=== PATIENT | female | born 1950 | race Caucasian/White ===

== ENCOUNTER → 2017-06-09 | Outpatient (CLI) | payer MEDICARE, BC, OTHER ==
--- NOTE | 2017-06-09 16:05 | BD ---
EXAMINATION TYPE: MG DEXA axial skeleton. DATE OF EXAM: 06/09/2017 COMPARISON: NONE CLINICAL HISTORY: post menopausal Height: 5'5 3/4 Weight: 188 FRAX RISK QUESTIONS: Alcohol (3 or more units per day): no Family History (Parent hip fracture): yes Glucocorticoids (More than 3mos): no (Ex: prednisone, prednisolone, methylprednisolone, dexamethasone, and hydrocortisone). History of Fracture in Adulthood: yes Secondary Osteoporosis: 1. Type 1 Diabetes: no 2. Hyperthyroidism: no 3. Menopause before 45: no 4. Malnutrition: no 5. Chronic liver disease: no Rheumatoid Arthritis: no Current Tobacco Use: no RISK FACTORS HISTORY OF: Postmenopausal woman: Lost more than 2 inches in height since high school: MEDICATIONS: Thyroid Medications: Which medication: Levothyroxine How Lon years Additional Medications: blood pressure, sleep aid, cholesterol Additional History: EXAM MEASUREMENTS: Bone mineral densitometry was performed using the [employer] System. Bone mineral density as measured about the Lumbar spine is: ----- L1-L4(G/cm2): 1.166 T Score Values are as follows: ----- L2: 0.4 ----- L3: 0.5 ----- L4: 0.1 ----- L1-L4: -0.1 Bone mineral density about the R hip (g/cm2): 0.733 Bone mineral density about the L hip (g/cm2): 0.746 T Score values are as follows: -----R Neck: -2.1 -----L Neck: -2.2 -----R Total: -1.8 -----L Total: -1.9 IMPRESSION: Osteopenia (T Score between -2.5 and -1) as noted by T score values: Dwain hips There is slightly increased risk of fracture and the patient may be considered for treatment. Re-Screen 2-5 years. NOTE: T-SCORE=SD OF THE YOUNG ADULT MEAN.
--- NOTE | 2017-06-10 09:51 | MM ---
Reason for exam: screening (asymptomatic). Last mammogram was performed 4 years ago. History: Patient is postmenopausal. Reductions of both breasts, January 2004. Benign stereotactic core biopsy of the right breast, November 08, 2003. Took hormonal contraceptives for 4 years beginning at age 18. Taking estrogen for 6 years beginning at age 45. Taking progesterone for 6 years beginning at age 45. Physical Findings: A clinical breast exam by your physician is recommended on an annual basis and results should be correlated with mammographic findings. MG Screening Mammo w CAD Bilateral CC and MLO view(s) were taken. Prior study comparison: June 16, 2013, CAD bilateral diagnostic mammogram. October 17, 2010, CAD bilateral diagnostic mammogram. There are scattered fibroglandular densities. Finding: There are typically benign round, linear calcifications in both breasts. Previous mammotome biopsy in the right breast. There is no discrete abnormality. ASSESSMENT: Benign, BI-RAD 2 RECOMMENDATION: Routine screening mammogram of both breasts in 1 year.
== END | disposition home or self-care (01) ==
LOC: RADMAMWWP 13:53
PROVIDERS: ATTEND Family Medicine
DX: Z12.31 Encounter for screening mammogram for malignant neoplasm of breast (principal); M85.852 Other specified disorders of bone density and structure, left thigh; M85.851 Other specified disorders of bone density and structure, right thigh; Z78.0 Asymptomatic menopausal state
CPT/HCPCS: 77080; G0202

== ENCOUNTER → 2019-07-28 | Outpatient (CLI) | payer MEDICARE, BC ==
[2019-07-28 13:18] LABS: Basophils # (A) 0.1 k/uL (0-0.2); Basophils % (A) 1 %; Eosinophils # (A) 0.1 k/uL (0-0.7); Eosinophils % (A) 1 %; HCT 38.7 % (34.0-46.0); HGB 12.1 gm/dL (11.4-16.0); Lymphocytes # (A) 1.1 k/uL (1.0-4.8); Lymphocytes % (A) 13 %; MCH 28.7 pg (25.0-35.0); MCHC 31.3 g/dL (31.0-37.0); MCV 91.6 fL (80.0-100.0); Mean Platelet Volume 7.5; Monocytes # (A) 0.7 k/uL (0-1.0); Monocytes % (A) 8 %; Neutrophils # (A) 6.6 k/uL (1.3-7.7); Neutrophils % (A) 76 %; Platelet Count 396 k/uL (150-450); RBC 4.23 m/uL (3.80-5.40); RDW 12.7 % (11.5-15.5); WBC 8.7 k/uL (3.8-10.6)
[2019-07-28 13:28] LABS: ALT 11 U/L (4-34); AST 26 U/L (14-36); African American GFR (CKD) 86 (>60 ml/min/1.73 sqM); Albumin 4.1 g/dL (3.5-5.0); Albumin/Globulin Ratio 1.5; Alkaline Phosphatase 70 U/L (38-126); Anion Gap 9 mmol/L; Blood Urea Nitrogen 12 mg/dL (7-17); Calcium 9.5 mg/dL (8.4-10.2); Carbon Dioxide 27 mmol/L (22-30); Chloride 104 mmol/L (98-107); Globulin 2.8 g/dL; Glucose 104 mg/dL (74-99); Non-African American GFR(CKD) 75 (>60 ml/min/1.73 sqM); Potassium 4.2 mmol/L (3.5-5.1); Sodium 140 mmol/L (137-145); Total Bilirubin 0.5 mg/dL (0.2-1.3); Total Protein 6.9 g/dL (6.3-8.2)
[2019-07-28 14:53] LABS: T4, Free (Free Thyroxine) 1.39 ng/dL (0.78-2.19)
== END | disposition home or self-care (01) ==
LOC: LABWHC1 12:49
PROVIDERS: ATTEND Family Medicine
DX: R14.0 Abdominal distension (gaseous) (principal); R10.32 Left lower quadrant pain; R63.5 Abnormal weight gain; R14.2 Eructation; R12 Heartburn; E03.9 Hypothyroidism, unspecified
CPT/HCPCS: 36415; 80053; 84439; 84443; 85025

== ENCOUNTER → 2019-07-29 | Outpatient (CLI) | payer MEDICARE, BC ==
--- NOTE | 2019-07-29 22:17 | CT ---
EXAMINATION TYPE: CT abdomen pelvis w con DATE OF EXAM: 07/29/2019 COMPARISON: None HISTORY: Diarrhea, 10lb weight gain, cramping and gas x [address] DLP: 1079.3 mGycm Automated exposure control for dose reduction was used. CONTRAST: CT scan of the abdomen pelvis is performed with IV Contrast, patient injected with 100 mL of Isovue 3 00. FINDINGS- LUNG BASES-subsegmental changes involving the lung bases most typical of atelectasis. There is a tiny right pleural effusion.. LIVER/GB- No gross abnormality is appreciated. PANCREAS- No gross abnormality is seen. SPLEEN- No gross abnormality is seen. ADRENALS- No gross abnormality is seen. KIDNEYS/BLADDER- no hydronephrosis nephrolithiasis or renal mass. BOWEL-there are a few prominent small bowel loops in the pelvis. As the area of wall thickening invol ving the sigmoid colon with changes of diverticulosis. Degree of colitis not excluded. LYMPH NODES- No greater than 1cm abdominal or pelvic lymph nodes areappreciated. OSSEOUS STRUCTURES-hypertrophic and degenerative change of the vertebral column with severe degenerat dyana disc disease at L3-4 and L5-S1. Disc bulging and facet arthropathy at L4-5 and L3-L4 appears to r esult in canal stenosis.. OTHER- there is a moderate amount of ascites. There is also thickening of the omentum to be associat ed with omental caking and malignancy. Correlation with CA-125 recommended. Within the pelvis there i s a soft tissue structure which may represent an atrophic uterus however there appears to be prominen t fluid-filled endometrium. Soft tissue nodules in the adnexa may be related to atrophic ovaries alth ough soft tissue mass is not excluded. Recommend dedicated pelvic ultrasound to assess the uterus an d ovaries to assess for mass. There is a 3.5 cm cystic structure seen adjacent to the uterus. In the peripancreatic region and in the region of the gastrohepatic ligament there also is increased soft tissue thickening which may represent peritoneal or omental caking. Atherosclerotic change of the aorta with no evidence of aneurysm. IMPRESSION- 1. There is thickening of the omentum. This can be associated malignancy and omental carcinomatosis. Correlation with CA-125 recommended. Within the pelvis there is a soft tissue structure which may re present an atrophic uterus however there appears to be prominent fluid-filled endometrium. Pelvic mas s possibly ovarian is not excluded. Recommend dedicated pelvic ultrasound to assess the uterus and ov jenna for mass. 2. Moderate ascites. 3. A few prominent small bowel loops are noted and there appears to be mild wall thickening of the si gmoid colon. Correlate for enterocolitis. 4. Basilar atelectasis favored over infiltrate. Note is made there is a tiny right pleural effusion.
== END | disposition home or self-care (01) ==
LOC: RADCTMAIN 12:50
PROVIDERS: ATTEND Family Medicine
DX: R18.8 Other ascites (principal); R93.3 Abnormal findings on diagnostic imaging of other parts of digestive tract
CPT/HCPCS: 74177; Q9967 ×2

== ENCOUNTER → 2019-08-03 | Outpatient (CLI) | payer MEDICARE, BC ==
--- NOTE | 2019-08-03 13:49 | US ---
EXAMINATION TYPE: US pelvis complete transvag DATE OF EXAM: 08/03/2019 COMPARISON: NONE CLINICAL HISTORY: 69-year-old female R93.5 Abnormal findings on diagnostic imaging of the abdomen pel vis. Abnormal CT. Diarrhea. Patient gained 10 lbs. No prior surgeries. TECHNIQUE: Transabdominal sonographic images of the pelvis were acquired. Transvaginal sonographic images were medically necessary to better assess the following anatomy: Endometrium Date of LMP: Postmenopausal, FINDINGS: EXAM MEASUREMENTS: Uterus: 4.4 x 4.3 x 2.2 cm Endometrial Stripe: 0.3 cm 1. Uterus: Anteverted. Small in size with heterogeneous myometrium. 2. Endometrium: Fluid visualized in the uterine cavity. The endometrial stripe itself is not well-v isualized and may be thin. 3. Right Ovary: Obscured by overlying bowel gas 4. Left Ovary: Obscured by overlying bowel gas 5. Bilateral Adnexa: In the right adnexa, there is a cystic appearing lesion with thin internal sept ation and measuring 3.9 x 2.3 x 3.3 cm. There may be some small mural based nodularity measuring up t o 5 mm. Unable to accurately determine origin, likely ovarian. 6. Posterior cul-de-sac: Moderate lower abdominal ascites extending into both adnexa. IMPRESSION: 1. There seems to be fluid distending the uterine cavity up to 1.4 cm. 2. A complex cystic lesion measuring 3.9 cm within the right adnexa has a thin internal septation and possible 5 mm pleural-based nodularity. Suspect ovarian or origin. There is cystadenoma/cystadenocar cinoma are in the differential. 3. Left ovary could not be visualized. 4. Partially visualized moderate pelvic ascites.
== END | disposition home or self-care (01) ==
LOC: RADUSWWP 12:37
PROVIDERS: ATTEND Family Medicine
DX: D26.9 Other benign neoplasm of uterus, unspecified (principal); R18.8 Other ascites; R19.09 Other intra-abdominal and pelvic swelling, mass and lump
CPT/HCPCS: 76830; 76856; 86304

== ENCOUNTER 2019-08-24 12:53 | Day surgery (SDC) | payer MEDICARE, BC ==
[2019-08-24 13:25] LABS: Mean Platelet Volume 7.2; Platelet Count 400 k/uL (150-450)
[2019-08-24 13:31] LABS: Prothrombin Time 10.3 sec (9.0-12.0)
[2019-08-24 13:53] VITALS: TEMP 98.5
--- NOTE | 2019-08-24 15:26 | XR ---
EXAMINATION TYPE: XR chest 2V DATE OF EXAM: 08/24/2019 COMPARISON: NONE HISTORY: Shortness of breath TECHNIQUE: Frontal and lateral views of the chest are obtained. FINDINGS: Scattered senescent parenchymal changes noted. Hyperinflation compatible with COPD. No evidence for infiltrate. No evidence for atelectasis. Heart size is stable. Mediastinal structures are stable and grossly unremarkable. No evidence for hilar prominence. Degenerative changes dorsal spine. IMPRESSION: 1. No evidence for acute pulmonary disease.
[2019-08-24 15:36] VITALS: BP 138/65; PULSE 70; RESP 14
[2019-08-24 16:09] LABS: Appearance,BF Hazy; Color,BF Yellow
[2019-08-24 16:10] LABS: Nucleated Cells, Body Fluid 383 /uL; RBC, Body Fluid 167 /uL
--- NOTE | 2019-08-24 16:36 | US ---
Therapeutic and diagnostic paracentesis. DATE OF EXAM: 08/24/2019 CLINICAL HISTORY: Ascites The procedure was discussed with the patient. The risks, complications, benefits, and alternatives we re discussed and any questions were answered. Informed consent was obtained. The patient was placed s upine on the ultrasound table and prepped and draped in the usual sterile fashion. All elements of maximal barrier technique were utilized. Under ultrasound guidance, access into the right lower quadrant was obtained, via the paracentesis catheter system and direct ultrasound guidanc e. Approximately 2.3 liters of straw-colored fluid was removed. The patient was stable throughout the pr ocedure and remained stable upon discharge from Department of Radiology. Sample sent to pathology for analysis. IMPRESSION: Successful paracentesis under ultrasound guidance.
[2019-08-24 17:17] LABS: Mononuclear WBC,Body Fluid 96 %; Polynuclear WBC,Body Fluid 4 %; Total Cells Counted,Body Fluid 100
== END 2019-08-24 15:30 | disposition home or self-care (01) ==
LOC: RADPROMAIN 12:53
PROVIDERS: ATTEND Internal Medicine Hematology & Oncology
DX: R18.8 Other ascites (principal)
CPT/HCPCS: 36415; 49083; 71046; 84157; 85049; 85610; 87070; 87075; 87205; 89050

== ENCOUNTER 2019-09-09 10:05 | Inpatient (IN) | payer MEDICARE, BC ==
[2019-09-09] MEDS ORDERED: HYDROmorphone 0.5 MG/0.5 ML SYRINGE IVP STA (10:25)
[2019-09-09] MEDS ORDERED: SODIUM CHLORIDE 0.9% 2,000 ML IV STA (10:25)
[2019-09-09] MEDS ORDERED: ONDANSETRON 4 MG/2 ML VIAL IVP STA ×2 (10:25→12:32)
[2019-09-09 11:06] LABS: HCT 36.3 % (34.0-46.0); HGB 11.8 gm/dL (11.4-16.0); MCHC 32.4 g/dL (31.0-37.0); Mean Platelet Volume 8.1; Platelet Count 416 k/uL (150-450); RDW 12.5 % (11.5-15.5); WBC 1.5 k/uL (3.8-10.6)
--- NOTE | 2019-09-09 11:06 | XR ---
EXAMINATION TYPE: XR KUB , 2 VIEWS DATE OF EXAM ORDERED: 09/09/2019 HISTORY: abdominal pain. COMPARISON: None. FINDINGS: There is a left pleural reaction, likely representing fluid. Within the abdomen, the abdominal gas pattern shows no evidence of obstruction. There are numerous ai r-fluid levels. No unusual calcifications are seen. There is a dextroscoliosis. IMPRESSION: 1. LEFT PLEURAL EFFUSION. 2. FINDINGS CONSISTENT WITH MILD, GENERALIZED ILEUS.
[2019-09-09 11:11] LABS: ALT 66 U/L (4-34); AST 120 U/L (14-36); African American GFR (CKD) >90 (>60 ml/min/1.73 sqM); Albumin 3.6 g/dL (3.5-5.0); Alkaline Phosphatase 63 U/L (38-126); Amylase 42 U/L (30-110); Anion Gap 11 mmol/L; Blood Urea Nitrogen 21 mg/dL (7-17); Calcium 8.9 mg/dL (8.4-10.2); Carbon Dioxide 25 mmol/L (22-30); Chloride 97 mmol/L (98-107); Glucose 142 mg/dL (74-99); MCV 86.5 fL (80.0-100.0); Non-African American GFR(CKD) >90 (>60 ml/min/1.73 sqM); Potassium 3.8 mmol/L (3.5-5.1); Sodium 133 mmol/L (137-145); Total Bilirubin 0.6 mg/dL (0.2-1.3); Total Protein 6.4 g/dL (6.3-8.2)
--- NOTE | 2019-09-09 11:13 | ED ---
General Adult HPI - General Chief complaint: Nausea/Vomiting/Diarrhea Stated complaint: vomiting x3 days Time Seen by Provider: 09/09/19 10:17 Source: patient, police, RN notes reviewed Mode of arrival: wheelchair Limitations: no limitations - History of Present Illness Initial comments: This a 69-year-old female presents emergency Department chief complaint of generalized weakness, nausea vomiting. Patient states that this started shortly after her first dose of chemotherapy last week. Patient states she is being treated for stage III cervical cancer. Patient states that she is receiving her chemotherapy here she is scheduled for surgery a, arms and [place] in October. Patient states that she is also been having some diarrhea associated nausea vomiting states that she was given MiraLAX and magnesium citrate because he did not want her to become constipated. She complains of generalized abdominal pain, distention and which she's had 2 paracentesis but states that it comes right back. Patient was given, codeine and [place] with no relief of her symptoms. She reports no fever or chills. She is went of dysuria or hematuria. Denies any melena or hematochezia at this time. - Related Data Home Medications Medication Instructions Recorded Confirmed Albuterol Sulfate [Proair Hfa] 1 dose INHALATION DAILY PRN 08/23/19 08/24/19 Albuterol Sulfate [Proair Hfa] 2 puff INHALATION DAILY PRN 08/23/19 08/24/19 Cholecalciferol (Vitamin D3) 5,000 unit PO DAILY 08/23/19 08/24/19 [Vitamin D3] Ibuprofen 200 mg PO DAILY PRN 08/23/19 08/24/19 LORazepam [Ativan] 1 mg PO DAILY 08/23/19 08/24/19 Levothyroxine Sodium [Synthroid] 125 mcg PO DAILY 08/23/19 08/24/19 Levothyroxine Sodium [Synthroid] 125 mcg PO DAILY 08/23/19 08/24/19 Metoprolol Succinate (ER) [Toprol 50 mg PO DAILY 08/23/19 08/24/19 XL] Multivitamins, Thera [Multivitamin 1 tab PO DAILY 08/23/19 08/24/19 (formulary)] Sertraline [Zoloft] 100 mg PO DAILY 08/23/19 08/24/19 Vitamin B Complex 1 each PO DAILY 08/23/19 08/24/19 Zolpidem Tartrate [Ambien Cr] 12.5 mg PO HS PRN 08/23/19 08/24/19 Ezetimibe/Simvastatin [Vytorin 1 tab PO DAILY 08/24/19 08/24/19 10-20 mg] Fluticasone Propionate [Flovent 50 mcg INHALATION DAILY PRN 08/24/19 08/24/19 Diskus] amLODIPine [Norvasc] 5 mg PO DAILY 08/24/19 08/24/19 Allergies Allergy/AdvReac Type Severity Reaction Status Date / Time DANAY Inhibitors Allergy Dyspnea Verified 08/24/19 13:20 aspirin Allergy Rash/Hives Verified 08/24/19 13:20 clonidine [From Catapres] Allergy Rash/Hives Verified 08/24/19 13:20 Latex, Natural Rubber Allergy Rash/Hives Verified 08/24/19 13:20 tetanus and diphtheria Allergy Rash/Hives Verified 09/09/19 10:10 toxoids Review of Systems ROS Statement: Those systems with pertinent positive or pertinent negative responses have been documented in the HPI. ROS Other: All systems not noted in ROS Statement are negative. Past Medical History Past Medical History: Cancer Additional Past Medical History / Comment(s): ovarian CA History of Any Multi-Drug Resistant Organisms: None Reported Additional Past Surgical History / Comment(s): paracentesis, left wrist, left shoulder, breast reduction Past Anesthesia/Blood Transfusion Reactions: No Reported Reaction Past Psychological History: Anxiety, Depression Smoking Status: Former smoker Past Alcohol Use History: Occasional General Exam Limitations: no limitations General appearance: alert, in no apparent distress Head exam: Present: atraumatic, normocephalic, normal inspection Neck exam: Present: normal inspection, full ROM. Absent: tenderness, meningismus, lymphadenopathy Respiratory exam: Present: normal lung sounds bilaterally. Absent: respiratory distress, wheezes, rales, rhonchi, stridor Cardiovascular Exam: Present: regular rate, normal rhythm, normal heart sounds. Absent: systolic murmur, diastolic murmur, rubs, gallop, clicks GI/Abdominal exam: Present: soft, distended, tenderness (Mild to moderate diffuse), normal bowel sounds. Absent: guarding, rebound, rigid Back exam: Absent: CVA tenderness (R), CVA tenderness (L) Neurological exam: Present: alert, oriented X3 Skin exam: Present: warm, dry, intact, normal color. Absent: rash Course Vital Signs 09/09/19 09/09/19 09/09/19 10:07 12:00 13:02 Temperature 98.1 F Pulse Rate 93 72 78 Respiratory 16 18 18 Rate Blood Pressure 163/97 151/81 150/86 O2 Sat by Pulse 98 99 95 Oximetry Medical Decision Making - Medical Decision Making 69-year-old female presented for nausea vomiting dehydration. Patient does have multiple liters of fluid, continues to have abdominal pain, nausea. Patient's x-ray shows evidence of ileus. Uncomplicated. She has Ascites. Patient will be admitted for IV hydration, pain control, antiemetics and probable paracentesis. - Lab Data Result diagrams: 09/09/19 10:46 09/09/19 10:46 Lab Results 09/09/19 09/09/19 09/09/19 Range/Units 10:46 10:46 10:46 WBC 1.5 L (3.8-10.6) k/uL RBC 4.20 (3.80-5.40) m/uL Hgb 11.8 (11.4-16.0) gm/dL Hct 36.3 (34.0-46.0) % MCV 86.5 D (80.0-100.0) fL MCH 28.0 (25.0-35.0) pg MCHC 32.4 (31.0-37.0) g/dL RDW 12.5 (11.5-15.5) % Plt Count 416 (150-450) k/uL Neutrophils % (Manual) 69 % Band Neutrophils % 10 % Lymphocytes % (Manual) 11 % Monocytes % (Manual) 3 % Basophils % (Manual) 1 % Metamyelocytes % 5 % Myelocytes % 2 % Neutrophils # (Manual) 1.10 L (1.3-7.7) k/uL Lymphocytes # (Manual) 0.17 L (1.0-4.8) k/uL Monocytes # (Manual) 0.05 (0-1.0) k/uL Basophils # (Manual) 0.02 (0-0.2) k/uL Metamyelocytes # (Man) 0.08 H (0) k/uL Myelocytes # (Manual) 0.03 H (0) k/uL Nucleated RBCs 0 (0-0) /100 WBC Manual Slide Review Performed Poikilocytosis (manual Present PT (9.0-12.0) sec INR (<1.2) APTT (22.0-30.0) sec Sodium 133 L (137-145) mmol/L Potassium 3.8 (3.5-5.1) mmol/L Chloride 97 L (98-107) mmol/L Carbon Dioxide 25 (22-30) mmol/L Anion Gap 11 mmol/L BUN 21 H (7-17) mg/dL Creatinine 0.61 (0.52-1.04) mg/dL Est GFR (CKD-EPI)AfAm >90 (>60 ml/min/1.73 sqM) Est GFR (CKD-EPI)NonAf >90 (>60 ml/min/1.73 sqM) Glucose 142 H (74-99) mg/dL Plasma Lactic Acid Ad 1.0 (0.7-2.0) mmol/L Calcium 8.9 (8.4-10.2) mg/dL Total Bilirubin 0.6 (0.2-1.3) mg/dL AST 120 H (14-36) U/L ALT 66 H (4-34) U/L Alkaline Phosphatase 63 (38-126) U/L Total Protein 6.4 (6.3-8.2) g/dL Albumin 3.6 (3.5-5.0) g/dL Amylase 42 (30-110) U/L Lipase 90 (23-300) U/L 09/09/19 Range/Units 10:46 WBC (3.8-10.6) k/uL RBC (3.80-5.40) m/uL Hgb (11.4-16.0) gm/dL Hct (34.0-46.0) % MCV (80.0-100.0) fL MCH (25.0-35.0) pg MCHC (31.0-37.0) g/dL RDW (11.5-15.5) % Plt Count (150-450) k/uL Neutrophils % (Manual) % Band Neutrophils % % Lymphocytes % (Manual) % Monocytes % (Manual) % Basophils % (Manual) % Metamyelocytes % % Myelocytes % % Neutrophils # (Manual) (1.3-7.7) k/uL Lymphocytes # (Manual) (1.0-4.8) k/uL Monocytes # (Manual) (0-1.0) k/uL Basophils # (Manual) (0-0.2) k/uL Metamyelocytes # (Man) (0) k/uL Myelocytes # (Manual) (0) k/uL Nucleated RBCs (0-0) /100 WBC Manual Slide Review Poikilocytosis (manual PT 10.1 (9.0-12.0) sec INR 1.0 (<1.2) APTT 25.9 (22.0-30.0) sec Sodium (137-145) mmol/L Potassium (3.5-5.1) mmol/L Chloride (98-107) mmol/L Carbon Dioxide (22-30) mmol/L Anion Gap mmol/L BUN (7-17) mg/dL Creatinine (0.52-1.04) mg/dL Est GFR (CKD-EPI)AfAm (>60 ml/min/1.73 sqM) Est GFR (CKD-EPI)NonAf (>60 ml/min/1.73 sqM) Glucose (74-99) mg/dL Plasma Lactic Acid Ad (0.7-2.0) mmol/L Calcium (8.4-10.2) mg/dL Total Bilirubin (0.2-1.3) mg/dL AST (14-36) U/L ALT (4-34) U/L Alkaline Phosphatase (38-126) U/L Total Protein (6.3-8.2) g/dL Albumin (3.5-5.0) g/dL Amylase (30-110) U/L Lipase (23-300) U/L Disposition Clinical Impression: Chemotherapy induced nausea and vomiting, Ileus, Abdominal pain, Ascites Disposition: ADMITTED IP TO THIS [facility] Condition: Fair Referrals: Ronna Beard MD [Primary Care Provider] - 1-2 days
[2019-09-09 11:15] LABS: Partial Thromboplastin Time 25.9 sec (22.0-30.0); Prothrombin Time 10.1 sec (9.0-12.0)
[2019-09-09 11:36] LABS: Band Neutrophils % 10 %; Basophils # (M) 0.02 k/uL (0-0.2); Lymphocytes # (M) 0.17 k/uL (1.0-4.8); Metamyelocytes # (M) 0.08 k/uL (0); Metamyelocytes % 5 %; Monocytes # (M) 0.05 k/uL (0-1.0); Myelocytes # (M) 0.03 k/uL (0); Myelocytes % 2 %; Neutrophils % (M) 69 %; Nucleated Red Blood Cells 0 /100 WBC (0-0); Poikilocytosis (M) Present; Total Cells Counted 200
[2019-09-09] MEDS ORDERED: SODIUM CHLORIDE 0.9% 500 ML 500 ML IV ONE (12:32)
[2019-09-09] MEDS: SODIUM CHLORIDE 0.9% 1,000 ML IV SCH ×2 (12:59→23:30)
[2019-09-09] MEDS ORDERED: NALOXONE 0.4 MG/ML 1 ML VIAL IV PRN (13:29)
[2019-09-09] MEDS: HYDROmorphone 0.5 MG/0.5 ML SYRINGE IVP PRN ×3 (15:14→23:30)
[2019-09-09] MEDS ORDERED: ALBUTEROL NEBULIZED 2.5 MG/3 ML INHALATION PRN (16:23)
[2019-09-09] MEDS ORDERED: ALPRAZolam 0.25 MG TAB PO PRN (16:25)
[2019-09-09] MEDS ORDERED: ACETAMINOPHEN TAB 500 MG TAB PO PRN (16:25)
[2019-09-09] MEDS: PANTOPRAZOLE 40 MG/10 ML VIAL IVP SCH (19:40)
[2019-09-09] MEDS: METOPROLOL SUCCINATE (ER) 50 MG TAB.ER.24H PO SCH (19:40)
[2019-09-09] MEDS: HEPARIN SODIUM,PORCINE 5,000 UNIT/ML 1 ML VIAL SQ SCH (19:40)
[2019-09-09] MEDS: ONDANSETRON 4 MG/2 ML VIAL IVP PRN (21:56)
[2019-09-10 00:54] LABS: Appearance,Urine Turbid (Clear); Bacteria,Urine Many /hpf; Bilirubin,Urine Negative (Negative); Blood,Urine Moderate (Negative); Color,Urine Yellow; Glucose,Urine (UA) Negative (Negative); Ketones,Urine 1+ (Negative); Leukocyte Esterase,Urine Moderate (Negative); Mucus,Urine Rare /hpf; Nitrite,Urine Negative (Negative); Protein,Urine 1+ (Negative); RBC,Urine 30 /hpf (0-5); Specific Gravity,Urine 1.023 (1.001-1.035); Squamous Epithelial Cell,Urine 1 /hpf (0-4); Urobilinogen,Urine <2.0 mg/dL (<2.0); WBC,Urine 26 /hpf (0-5)
[2019-09-10] MEDS: HYDROmorphone 0.5 MG/0.5 ML SYRINGE IVP PRN ×2 (02:47→08:34)
[2019-09-10] MEDS: LEVOTHYROXINE 125 MCG TAB PO SCH (05:22)
[2019-09-10] MEDS: PANTOPRAZOLE 40 MG/10 ML VIAL IVP SCH ×2 (08:35→20:52)
[2019-09-10] MEDS: ONDANSETRON 4 MG/2 ML VIAL IVP PRN ×2 (08:35→20:52)
[2019-09-10] MEDS: HEPARIN SODIUM,PORCINE 5,000 UNIT/ML 1 ML VIAL SQ SCH ×2 (08:38→20:52)
[2019-09-10] MEDS: SODIUM CHLORIDE 0.9% 1,000 ML IV SCH ×2 (08:41→17:49)
[2019-09-10] MEDS: amLODIPine 10 MG TAB PO SCH (08:45)
[2019-09-10] MEDS: FLUTICASONE 50MCG/SPRAY NASAL 16GM EA NOSTRIL SCH (08:45)
[2019-09-10] MEDS: METOPROLOL SUCCINATE (ER) 50 MG TAB.ER.24H PO SCH ×2 (08:45→21:03)
[2019-09-10 09:12] LABS: HCT 31.7 % (34.0-46.0); Hypochromasia Slight; MCH 27.9 pg (25.0-35.0); MCHC 31.6 g/dL (31.0-37.0); MCV 88.3 fL (80.0-100.0); Mean Platelet Volume 7.6; Platelet Count 289 k/uL (150-450); RBC 3.59 m/uL (3.80-5.40); RDW 12.6 % (11.5-15.5)
[2019-09-10 09:19] LABS: WBC 1.1 k/uL (3.8-10.6)
[2019-09-10 09:28] LABS: ALT 50 U/L (4-34); AST 66 U/L (14-36); African American GFR (CKD) >90 (>60 ml/min/1.73 sqM); Albumin 2.7 g/dL (3.5-5.0); Alkaline Phosphatase 47 U/L (38-126); Anion Gap 6 mmol/L; Blood Urea Nitrogen 17 mg/dL (7-17); Calcium 7.7 mg/dL (8.4-10.2); Carbon Dioxide 27 mmol/L (22-30); Chloride 100 mmol/L (98-107); Glucose 107 mg/dL (74-99); Non-African American GFR(CKD) >90 (>60 ml/min/1.73 sqM); Potassium 3.5 mmol/L (3.5-5.1); Sodium 133 mmol/L (137-145); Total Bilirubin 0.4 mg/dL (0.2-1.3); Total Protein 5.2 g/dL (6.3-8.2)
[2019-09-10 10:07] LABS: Band Neutrophils % 26 %; Lymphocytes # (M) 0.28 k/uL (1.0-4.8); Metamyelocytes # (M) 0.03 k/uL (0); Metamyelocytes % 3 %; Monocytes # (M) 0.02 k/uL (0-1.0); Neutrophils % (M) 44 %; Nucleated Red Blood Cells 0 /100 WBC (0-0); Total Cells Counted 100
[2019-09-10 10:09] LABS: Poikilocytosis (M) Present; Rouleaux Present
[2019-09-10] MEDS: HYDROmorphone 1 MG/ML 1 ML SYRINGE IVP PRN ×3 (11:54→20:44)
[2019-09-10] MEDS ORDERED: FILGRASTIM-SNDZ 480 MCG/0.8 ML SYRINGE SQ SCH (12:30)
[2019-09-10] MEDS: CEFEPIME 2 GM in SODIUM CHLORIDE 0.9% 100 ML IVPB SCH ×2 (13:31→20:44)
[2019-09-10] MEDS: METOCLOPRAMIDE 5 MG/ML 2 ML VIAL IVP SCH ×2 (15:59→23:49)
--- NOTE | 2019-09-10 20:04 | HP ---
HISTORY AND PHYSICAL DATE OF SERVICE: 09/09/2019. CHIEF COMPLAINT: Intractable nausea and vomiting and unable to keep anything down and as well as diarrhea. HISTORY OF PRESENT ILLNESS: This 69-year-old woman with a past medical history of multiple medical problems including asthma, hypertension, syncope, recently diagnosed to have ovarian cancer. The patient had a paracentesis. Subsequently, patient was started on chemotherapy at [facility]. The patient yesterday had significant vomiting and diarrhea, nausea. The patient came to [facility] and was admitted for further evaluation and treatment. The patient is scheduled to have surgery in [place] in October. There is no history of fever, rigors or chills. No history of headache, loss of consciousness, seizures at this time. 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 PAST MEDICAL HISTORY: Past medical history of asthma, history of hypertension, history of syncope. MEDICATIONS: Home medications are: 1. Compazine 10 mg q.6 p.r.n. 2. Zofran 4 mg q.6h p.r.n. 3. Tylenol #3 1-2 tablets q.6h p.r.n. 4. Norvasc 10 mg p.o. daily. 5. Ambien 12.5 mg q.h.s. p.r.n. 6. Toprol-XL 50 mg. 7. Synthroid 125 mcg p.o. daily. 8. Ativan 1 mg b.i.d. p.r.n. 9. Flonase 1 spray daily. 10.Vytorin 10/20 p.o. daily. 11.Ventolin HFA 2 puffs q.6h p.r.n. ALLERGIES: DANAY INHIBITORS, ASPIRIN, CLONIDINE, LATEX, TETANUS TOXOID. FAMILY HISTORY: History of vascular disorder, anemia in the family. SOCIAL HISTORY: Previous history of smoking. No history of current smoking or alcohol intake. REVIEW OF SYSTEMS: ENT: No diminished vision. No diminished hearing. CARDIOVASCULAR: No angina or palpitations. RESPIRATIONS: As mentioned earlier. GI: As mentioned earlier. : No dysuria. CENTRAL NERVOUS SYSTEM: No numbness or weakness. ALLERGY/IMMUNOLOGY: No asthma or hayfever. MUSCULOSKELETAL as mentioned earlier. HEMATOLOGY/ONCOLOGY: No history of anemia. ENDOCRINE: No history of diabetes or hypothyroidism. CONSTITUTIONAL: As mentioned earlier. DERMATOLOGY: Negative. RHEUMATOLOGY negative. MUSCULOSKELETAL as mentioned earlier. HEMATOLOGY/ONCOLOGY: As mentioned earlier. PSYCHIATRIC: As mentioned earlier. PHYSICAL EXAMINATION: Alert and oriented times three. Pulse is 87. Respirations 16, temperature 98.1, blood pressure is 160/97. HEENT: Conjunctivae normal. NECK: No JVD. CARDIOVASCULAR: S1, S2 muffled. RESPIRATIONS: Breath sounds diminished in the bases. Oral mucosa dry. No rhonchi. No crackles. ABDOMEN: Soft. Mild diffuse distention. Difficulty and some tenderness in the palpation. No guarding. No rigidity. Bowel sounds diminished. LEGS: No edema. No swelling. Nervous system: Higher functions as mentioned earlier. Moves all 4 limbs. No focal motor or sensory deficits. LYMPHATICS: No lymph nodes palpable in the neck, axillae or groin. SKIN: No ulcer, no rash and no bleeding. JOINTS: No active deforming arthropathy. LABS: At this time shows: WBC 1.5, hemoglobin 11.8, and platelets are 416. Sodium 133, glucose 142, AST is 120, ALT 66. ASSESSMENT: 1. Nausea, vomiting, diarrhea, possible acute infective gastroenteritis. 2. Rule out neutropenic sepsis. 3. Neutropenia secondary to chemotherapy. 4. Ovarian cancer status post chemotherapy. 5. History of abdominal paracentesis. 6. Hyponatremia. 7. Increased AST/ALT. 8. Rule out urinary tract infection. 9. History of asthma. 10.History of hypertension. 11.History of syncope. 12.History of paracentesis. 13.History of left wrist pain. 14.History of anxiety depression. 15.Remote history of nicotine dependence. RECOMMENDATIONS AND DISCUSSION: This 69-year-old woman who presented with multiple complex medical issues, we will monitor the patient closely. Continue the current medications, management and symptomatic treatment. Otherwise, we will initiate Protonix IV b.i.d. N.p.o. except medications. Also recommend consultation with Hematology/Oncology. Resume the home medications. Guarded prognosis because of multiple complex medical issues. See orders for further details. DVT prophylaxis. Further recommendations to follow. A copy of this dictation being forwarded to Dr. Ronna Beard who is the primary physician. MMODL / IJN: [id number] / [id number]
[2019-09-10 20:06] LABS: Glucose,Whole Blood 94 mg/dL (75-99)
--- NOTE | 2019-09-10 22:30 | P.CONS ---
History of Present Illness - Reason for Consult Consult date: 09/10/19 Intractable N/v/D, ileus, ovarian ca on chemo - History of Present Illness The pt is a 69 yr old WF, who presented to her PCP with weakness, diffuse upper abdominal pain and distention in 07/20. 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 She was referred to [facility] at [facility]. She had US-Guided paracentesis at [facility], but no cytology performed, but no cytology performed. The patient is normally very healthy, maintains normal performance status at baseline. She is a lifetime non smoker, denied ETOH overuse. No family history of breast/Ovarian cancers. She had diagnostic paracentesis on 08/25/19> 2300ml > Cytology + for metastatic non-mucinous adenocarcinoma. She was started on carbo/Taxol on 09/05/19 and is s/p 1 cycle. The pt states she developed n/v since chemo, with progressive intolerance of diet, even liquids. She states her anti emetics were not effective. She was qu ite constipated and was prescribed a laxative by [facility]. She then developed multiple episodes of watery diarrhea, causing progressive weakness. She therefore presented to the ER. xray KUB showed generalized ileus, without localized obstruction. Her CBC showed bicytopenia, with WBC 1.1, and ANC 700 today Consult was thus placed for oncology evaluation and recommendations Review of Systems Constitutional: Reports chronic pain, Reports fatigue, Reports poor appetite, Reports weakness, Reports weight loss Eyes: denies blurred vision, denies pain Ears: deny: decreased hearing, ear discharge, earache, tinnitus Ears, nose, mouth and throat: Denies headache, Denies sore throat Cardiovascular: Reports decreased exercise tolerance Respiratory: Denies cough Gastrointestinal: Reports abdominal pain, Reports diarrhea, Reports nausea, Reports vomiting Genitourinary: Denies dysuria, Denies hematuria Menstruation: Reports postmenopausal Musculoskeletal: Reports muscle weakness Integumentary: Denies pruritus, Denies rash Neurological: Reports weakness Psychiatric: Reports anxiety, Denies depression Endocrine: Reports fatigue, Reports weight change Hematologic/Lymphatic: Reports as per HPI Past Medical History Past Medical History: Asthma, Cancer, Hypertension, Syncope Additional Past Medical History / Comment(s): ovarian CA History of Any Multi-Drug Resistant Organisms: None Reported Additional Past Surgical History / Comment(s): paracentesis, left wrist, left shoulder, breast reduction, D&C 2016 Past Anesthesia/Blood Transfusion Reactions: No Reported Reaction Past Psychological History: Anxiety, Depression Smoking Status: Former smoker Past Alcohol Use History: Occasional - Past Family History Mother Family Medical History: Vascular Disorder Additional Family Medical History / Comment(s): anemia Father Additional Family Medical History / Comment(s): arthritis, kidney tumor Medications and Allergies Home Medications Medication Instructions Recorded Confirmed Type LORazepam [Ativan] 1 mg PO BID PRN 08/23/19 09/09/19 History Levothyroxine Sodium [Synthroid] 125 mcg PO DAILY 08/23/19 09/09/19 History Metoprolol Succinate (ER) [Toprol 50 mg PO BID 08/23/19 09/09/19 History XL] Zolpidem Tartrate [Ambien Cr] 12.5 mg PO HS PRN 08/23/19 09/09/19 History Ezetimibe/Simvastatin [Vytorin 1 tab PO DAILY 08/24/19 09/09/19 History 10-20 mg] amLODIPine [Norvasc] 10 mg PO DAILY 08/24/19 09/09/19 History Acetaminophen-Codeine 300-30mg 1 - 2 tab PO Q6H PRN 09/09/19 09/09/19 History [Tylenol w/codeine #3] Albuterol Sulfate [Ventolin HFA] 2 puff INHALATION RT-Q6H PRN 09/09/19 09/09/19 History Fluticasone Nasal Cassandra [Flonase 1 spray EA NOSTRIL DAILY 09/09/19 09/09/19 History Nasal Cassandra] Ondansetron Odt [Zofran Odt] 4 mg PO Q6H PRN 09/09/19 09/09/19 History Prochlorperazine [Compazine] 10 mg PO Q6H PRN 09/09/19 09/09/19 History Allergies Allergy/AdvReac Type Severity Reaction Status Date / Time DANAY Inhibitors Allergy Dyspnea Verified 09/09/19 15:02 aspirin Allergy Rash/Hives Verified 09/09/19 15:02 clonidine [From Catapres] Allergy Rash/Hives Verified 09/09/19 15:02 Latex, Natural Rubber Allergy Rash/Hives Verified 09/09/19 15:02 tetanus and diphtheria Allergy Rash/Hives Verified 09/09/19 15:02 toxoids Physical Exam Vitals: Vital Signs Temp Pulse Resp BP Pulse Ox 09/10/19 12:40 97.9 F 87 138/78 95 09/10/19 04:38 98.6 F 77 18 121/59 94 L Intake and Output 09/10/19 09/10/19 09/10/19 06:59 14:59 22:59 Other: Voiding Method Toilet Toilet # Voids 2 3 # Bowel Movements 1 3 - Constitutional General appearance: no acute distress - EENT Eyes: EOMI, PERRLA ENT: hearing grossly normal, normal oropharynx - Neck Neck: no lymphadenopathy Thyroid: bilateral: normal size - Respiratory Respiratory: bilateral: CTA - Cardiovascular Rhythm: regular Heart sounds: normal: S1, S2 - Gastrointestinal General gastrointestinal: decreased bowel sounds, distended - Integumentary Integumentary: normal - Neurologic Neurologic: CNII-XII intact - Musculoskeletal Musculoskeletal: generalized weakness, strength equal bilaterally - Psychiatric Psychiatric: A&O x's 3, appropriate affect Results CBC & Chem 7: 09/10/19 08:16 09/10/19 08:16 Labs: Abnormal Lab Results - Last 24 Hours (Table) 09/09/19 09/10/19 09/10/19 Range/Units 22:58 08:16 08:16 WBC 1.1 L* (3.8-10.6) k/uL RBC 3.59 L (3.80-5.40) m/uL Hgb 10.0 L D (11.4-16.0) gm/dL Hct 31.7 L (34.0-46.0) % Neutrophils # (Manual) 0.70 L (1.3-7.7) k/uL Lymphocytes # (Manual) 0.28 L (1.0-4.8) k/uL Metamyelocytes # (Man) 0.03 H (0) k/uL Sodium 133 L (137-145) mmol/L Glucose 107 H (74-99) mg/dL Calcium 7.7 L (8.4-10.2) mg/dL AST 66 H (14-36) U/L ALT 50 H (4-34) U/L Total Protein 5.2 L (6.3-8.2) g/dL Albumin 2.7 L (3.5-5.0) g/dL Urine Appearance Turbid H (Clear) Urine Protein 1+ H (Negative) Urine Ketones 1+ H (Negative) Urine Blood Moderate H (Negative) Ur Leukocyte Esterase Moderate H (Negative) Urine RBC 30 H (0-5) /hpf Urine WBC 26 H (0-5) /hpf Urine WBC Clumps Few H (None) /hpf Urine Bacteria Many H (None) /hpf Urine Mucus Rare H (None) /hpf Microbiology - Last 24 Hours (Table) 09/09/19 10:46 Blood Culture - Preliminary Blood No Growth after 24 hours 09/09/19 22:58 Urine Culture - Preliminary Urine,Voided Abdominal x-ray: report reviewed Assessment and Plan (1) Intractable vomiting with nausea Narrative/Plan: This is could be related to chemotherapy effect, vs ileus/obstruction ( related to her malignancy) or both. Her regimen is usually not associated with severe n/v, thus other factors need to be considered. Xray does show ileus, with exam revealing reaccumulation of ascites. - Bowel rest - IV ondansetran - Start IV reglan for ileus - Consult IR for drainage of ascites - Repeat AXR in AM - If symptoms persist check CT or SBFT for malignant obstruction Current Visit: Yes Status: Acute Code(s): R11.2 - NAUSEA WITH VOMITING, UNSPECIFIED SNOMED Code(s): 705678498 (2) Ascites Narrative/Plan: She has had 2 paracenteses so far, with the last on 08/25/19. She has reaccumulation clinically, which could be contributing to the ileus. US guided paracentesis will be requested Current Visit: Yes Status: Acute Code(s): R18.8 - OTHER ASCITES SNOMED Code(s): 236030353 (3) Bicytopenia Narrative/Plan: due to chemo. hgb is in a safe range. Continue to monitor and transfuse if Hgb falls to < 7. ANC is , 1000 today. Filgrastim was considered, but the pt has a latex allergy, which could cause AEs due to the prefilled syringe needle covered by a latex sheath. As ANC is still > 500, and the pt is afebrile , hold the same for now based on risk benefit Current Visit: Yes Status: Acute Code(s): D75.89 - OTHER SPECIFIED DISEASES OF BLOOD AND BLOOD-FORMING ORGANS SNOMED Code(s): 52586070 (4) Ovarian cancer Narrative/Plan: Diagnostic and therapeutic circumstances so far as described in HPI. Continue treatment for current symptoms. If these are determined to be due to chemo effect, she may need dose adjustment Current Visit: Yes Status: Acute Code(s): C56.9 - MALIGNANT NEOPLASM OF UNSPECIFIED OVARY SNOMED Code(s): 789276187
[2019-09-11] MEDS: HYDROmorphone 1 MG/ML 1 ML SYRINGE IVP PRN ×4 (00:59→17:25)
[2019-09-11] MEDS: SODIUM CHLORIDE 0.9% 1,000 ML IV SCH ×3 (03:45→17:51)
[2019-09-11] MEDS: CEFEPIME 2 GM in SODIUM CHLORIDE 0.9% 100 ML IVPB SCH ×3 (03:45→22:02)
[2019-09-11] MEDS: ONDANSETRON 4 MG/2 ML VIAL IVP PRN (03:47)
[2019-09-11] MEDS: LEVOTHYROXINE 125 MCG TAB PO SCH (05:10)
--- NOTE | 2019-09-11 06:12 | PN ---
PROGRESS NOTE DATE OF SERVICE: 09/10/2019 This 69-year-old woman who was admitted with significant vomiting, intractable vomiting, unable to keep anything down. Patient also had acute diarrhea, possible acute gastroenteritis suspected. Patient also had neutropenia, patient on chemotherapy. Neutropenic sepsis also suspected. Broad-spectrum IV antibiotics initiated. PAST MEDICAL HISTORY: Reviewed. REVIEW OF SYSTEMS: CARDIOVASCULAR SYSTEM: No angina. RESPIRATORY: As mentioned earlier. GI: As mentioned earlier. : No dysuria. NERVOUS SYSTEM: No numbness or weakness. CURRENT MEDICATIONS: 1. Tylenol p.r.n. 2. Orange. 3. Xanax. 4. Cefepime 2 grams IV q.8. 5. Heparin 5 subcu b.i.d. 6. Dilaudid. 7. Synthroid. 8. Narcan. Other medications reviewed. Doses reviewed. PHYSICAL EXAM: Patient is alert, oriented x3. Pulse is 87, blood pressure 138/87, respiration 20, temperature 97.9, pulse ox 94% on 2 L. HEENT: Conjunctivae pale. Oral mucosa moist. NECK: No JVD. No lymph node enlargement. CARDIOVASCULAR: S1, S2 muffled. LUNGS: Diminished breath sounds at the bases. A few rhonchi, no crackles. ABDOMEN: Soft. Mild diffuse discomfort. No guarding, no rigidity. No mass felt. Mildly obese. No rebound tenderness. Bowel sounds diminished. LEGS: No edema, no swelling. NERVOUS SYSTEM: No focal deficits. LAB STUDIES: WBC 1.2, hemoglobin is 10, sodium 133. Other labs are noted. ASSESSMENT: 1. Nausea, vomiting, diarrhea, possible acute infective gastroenteritis, rule out sepsis. 2. Possible neutropenic sepsis. 3. Neutropenia secondary to chemotherapy. 4. Ovarian cancer status post chemotherapy. 5. History of abdominal paracentesis. 6. Hyponatremia. 7. Increased AST ALT. 8. Possible urinary tract infection present on admission. 9. History of asthma. 10.Hypertension. 11.History of syncope. 12.History of paracentesis. 13.History of left wrist pain. 14.History of anxiety, depression. 15.Remote history of nicotine dependence. RECOMMENDATIONS AND DISCUSSION: Recommend to continue current medications, continue to monitor, continue symptomatic treatment, continue with broad-spectrum IV antibiotics. Repeat labs in the morning. Otherwise symptomatic treatment will be provided. I would also recommend cut down the diet. Influenza testing. Otherwise, I will follow the patient closely with Dr. Read and continue to monitor. Prognosis guarded. Further recommendations to follow. MMODL / IJN: [id number] /
[2019-09-11 08:05] LABS: HCT 32.8 % (34.0-46.0); HGB 10.2 gm/dL (11.4-16.0); Hypochromasia Slight; MCH 27.7 pg (25.0-35.0); MCHC 31.1 g/dL (31.0-37.0); MCV 89.1 fL (80.0-100.0); Mean Platelet Volume 7.3; Platelet Count 263 k/uL (150-450); RBC 3.69 m/uL (3.80-5.40)
[2019-09-11 08:11] LABS: ALT 33 U/L (4-34); AST 33 U/L (14-36); African American GFR (CKD) >90 (>60 ml/min/1.73 sqM); Albumin 2.6 g/dL (3.5-5.0); Alkaline Phosphatase 44 U/L (38-126); Anion Gap 10 mmol/L; Blood Urea Nitrogen 15 mg/dL (7-17); Calcium 8.1 mg/dL (8.4-10.2); Carbon Dioxide 22 mmol/L (22-30); Chloride 103 mmol/L (98-107); Glucose 92 mg/dL (74-99); Non-African American GFR(CKD) >90 (>60 ml/min/1.73 sqM); Potassium 3.3 mmol/L (3.5-5.1); Sodium 135 mmol/L (137-145); Total Bilirubin 0.4 mg/dL (0.2-1.3); Total Protein 5.3 g/dL (6.3-8.2)
[2019-09-11 08:44] LABS: WBC 1.1 k/uL (3.8-10.6)
[2019-09-11] MEDS ORDERED: Potassium Replacement Protocol 1 EACH MISC MISCELLANE PRN (09:24)
--- NOTE | 2019-09-11 09:43 | XR ---
EXAMINATION TYPE: XR abdomen 2V DATE OF EXAM: 09/11/2019 COMPARISON: 09/09/2019 HISTORY: Abdominal pain TECHNIQUE: One view abdominal series FINDINGS: The osseous structures are intact. The bowel gas pattern is nonspecific. Bilateral lower lobe infilt rate and pleural effusion with numerous air-fluid levels identified. Curvature the spine noted. Findi ngs are similar to the prior exam. Calcifications in the pelvis likely vascular. IMPRESSION: 1. Correlate for ileus, enteritis or partial obstruction similar in appearance to the prior exam. 2. Bilateral lower lobe infiltrate and pleural effusion.
[2019-09-11] MEDS: amLODIPine 10 MG TAB PO SCH (09:55)
[2019-09-11] MEDS: METOPROLOL SUCCINATE (ER) 50 MG TAB.ER.24H PO SCH ×2 (09:55→22:02)
[2019-09-11] MEDS: METOCLOPRAMIDE 5 MG/ML 2 ML VIAL IVP SCH ×3 (09:55→23:01)
[2019-09-11] MEDS: HEPARIN SODIUM,PORCINE 5,000 UNIT/ML 1 ML VIAL SQ SCH ×2 (09:56→22:02)
[2019-09-11] MEDS: FLUTICASONE 50MCG/SPRAY NASAL 16GM EA NOSTRIL SCH (09:56)
[2019-09-11] MEDS: PANTOPRAZOLE 40 MG/10 ML VIAL IVP SCH ×2 (09:57→22:02)
--- NOTE | 2019-09-11 10:08 | P.PN ---
Subjective Progress Note Date: 09/11/19 Principal diagnosis: Intractable nausea and vomiting, ileus In follow-up today patient still has complaints of generalized abdominal pain, cramping-like, persistent at this time, she is still having brown, watery stool, no mucus, black or bloody discharge, she is very thirsty, no recent nausea or vomiting, tolerating ice chips at this time. No fevers, chest pain, difficulty in breathing, she is trying to at least get up to the bedside and in the chair. Objective - Vital Signs Vital signs: Vital Signs Temp 96.7 F L 09/11/19 05:00 Pulse 89 09/11/19 05:00 Resp 18 09/11/19 05:00 BP 165/77 09/11/19 05:00 Pulse Ox 96 09/11/19 05:00 Intake & Output 09/10/19 09/11/19 09/11/19 18:59 06:59 18:59 Intake Total 1880 Balance 1880 Intake: Intake, IV Titration 1400 Amount Cefepime 2 gm In Sodium 200 Chloride 0.9% 100 ml @ 200 mls/hr IVPB Q8H PANKAJ Rx#:[id number] Sodium Chloride 0.9% 1, 1200 000 ml @ 100 mls/hr IV . Q10H PANKAJ Rx#:[id number] Oral 480 Other: Voiding Method Toilet Toilet Diaper Incontinent # Voids 3 3 1 # Bowel Movements 3 3 1 - Constitutional General appearance: Present: cooperative, mild distress, obese - EENT Eyes: Present: anicteric sclerae, EOMI ENT: Present: hearing grossly normal - Respiratory Respiratory: bilateral: CTA - Cardiovascular Rhythm: regular Heart sounds: normal: S1, S2 Abnormal Heart Sounds: Absent: systolic murmur, diastolic murmur, rub, S3 Gallop, S4 Gallop, click, other - Peripheral edema foot Peripheral Edema: bilateral: Trace - Gastrointestinal General gastrointestinal: Present: distended, normal bowel sounds, soft, tenderness - Integumentary Integumentary: Present: pale - Neurologic Neurologic: Present: CNII-XII intact - Musculoskeletal Musculoskeletal: Present: generalized weakness, strength equal bilaterally - Psychiatric Psychiatric: Present: A&O x's 3, appropriate affect, intact judgment & insight - Labs CBC & Chem 7: 09/11/19 07:32 09/11/19 07:32 Labs: Abnormal Lab Results - Last 24 Hours (Table) 09/10/19 09/11/19 09/11/19 Range/Units 08:16 07:32 07:32 WBC 1.1 L* (3.8-10.6) k/uL RBC 3.69 L (3.80-5.40) m/uL Hgb 10.2 L (11.4-16.0) gm/dL Hct 32.8 L (34.0-46.0) % Neutrophils # (Manual) 0.70 L (1.3-7.7) k/uL Lymphocytes # (Manual) 0.28 L (1.0-4.8) k/uL Metamyelocytes # (Man) 0.03 H (0) k/uL Sodium 135 L (137-145) mmol/L Potassium 3.3 L (3.5-5.1) mmol/L Calcium 8.1 L (8.4-10.2) mg/dL Total Protein 5.3 L (6.3-8.2) g/dL Albumin 2.6 L (3.5-5.0) g/dL Microbiology - Last 24 Hours (Table) 09/09/19 10:46 Blood Culture - Preliminary Blood No Growth after 24 hours 09/09/19 22:58 Urine Culture - Preliminary Urine,Voided - Imaging and Cardiology Abdominal x-ray: report reviewed Assessment and Plan (1) Abdominal pain Narrative/Plan: Patient has ascites and ileus. Pain medications that were previously helpful, have not been last week. Hopefully, after paracentesis pain medications will become more effective for her again (she said paracentesis has helped with the pain previously). Treating for the ileus with bowel rest and Reglan. Will follow-up daily. Abd X rays PRN. Current Visit: Yes Status: Acute Priority: High Code(s): R10.9 - UNSPECIFIED ABDOMINAL PAIN SNOMED Code(s): 08018037 (2) Ascites Narrative/Plan: Patient is scheduled for an ultrasound-guided paracentesis today. As of time of this note that has been performed, 3.7 L of fluid was removed is been sent for cytology. Current Visit: Yes Status: Acute Priority: High Code(s): R18.8 - OTHER ASCITES SNOMED Code(s): 040769510 (3) Bicytopenia Narrative/Plan: Secondary to chemotherapy Hemoglobin is stable, not requiring transfusion at this time. White blood cell is 1.1, ANC is 600. Will start G-CSF Current Visit: Yes Status: Acute Priority: High Code(s): D75.89 - OTHER SPECIFIED DISEASES OF BLOOD AND BLOOD-FORMING ORGANS SNOMED Code(s): 32971543 (4) Ileus Narrative/Plan: Continue bowel rest, ice chips and medications only. Current Visit: Yes Status: Acute Priority: High Code(s): K56.7 - ILEUS, UNSPECIFIED SNOMED Code(s): 700560106 (5) Intractable vomiting with nausea Narrative/Plan: Improved since admission. Continue supportive care and medications. Current Visit: Yes Status: Acute Code(s): R11.2 - NAUSEA WITH VOMITING, UNSPECIFIED SNOMED Code(s): 414124674 (6) Ovarian cancer Narrative/Plan: Patient is status post her first cycle of carbo/Taxol. Patient is likely going to require addition of GCSF and better side effect management, and/or dose reduction due to toxicities. Current Visit: Yes Status: Acute Priority: High Code(s): C56.9 - MALIGNANT NEOPLASM OF UNSPECIFIED OVARY SNOMED Code(s): 118495050
[2019-09-11 11:28] LABS: Band Neutrophils % 7 %; Eosinophils # (M) 0.06 k/uL (0-0.7); Lymphocytes # (M) 0.31 k/uL (1.0-4.8); Metamyelocytes # (M) 0.01 k/uL (0); Metamyelocytes % 1 %; Monocytes # (M) 0.12 k/uL (0-1.0); Neutrophils % (M) 48 %; Nucleated Red Blood Cells 0 /100 WBC (0-0); Poikilocytosis (M) Present; Total Cells Counted 100
[2019-09-11] MEDS: POTASSIUM CHLORIDE 10 MEQ in WATER FOR INJECTION 1 100ML.BAG IVPB SCH ×4 (11:45→19:09)
--- NOTE | 2019-09-11 15:41 | US ---
Therapeutic and diagnostic paracentesis. DATE OF EXAM: 09/11/2019 CLINICAL HISTORY: Ascites The procedure was discussed with the patient. The risks, complications, benefits, and alternatives we re discussed and any questions were answered. Informed consent was obtained. The patient was placed s upine on the ultrasound table and prepped and draped in the usual sterile fashion. All elements of maximal barrier technique were utilized. Under ultrasound guidance, access into the right lower quadrant was obtained, via the paracentesis catheter system and direct ultrasound guidanc e. Approximately 3.7 liters of straw-colored fluid was removed. The patient was stable throughout the pr ocedure and remained stable upon discharge from Department of Radiology. Sample sent to pathology for analysis. IMPRESSION: Successful paracentesis under ultrasound guidance.
[2019-09-11] MEDS: LORazepam 1 MG TAB PO PRN (16:06)
[2019-09-11 16:29] LABS: Appearance,BF Cloudy; Color,BF Yellow
[2019-09-11 16:47] LABS: Nucleated Cells, Body Fluid 180 /uL; RBC, Body Fluid 160 /uL
[2019-09-11 16:50] LABS: Mononuclear WBC,Body Fluid 98 %; Polynuclear WBC,Body Fluid 2 %; Total Cells Counted,Body Fluid 100
[2019-09-11] MEDS: FILGRASTIM-SNDZ 300 MCG/0.5 ML SYRINGE SQ SCH (17:50)
--- NOTE | 2019-09-11 19:37 | PN ---
PROGRESS NOTE DATE OF SERVICE: 09/11/2019 This 69-year-old woman who was admitted with nausea, vomiting, diarrhea had possibly infective gastroenteritis, also. The patient also has significant ascites at this time. Abdominal ultrasound followed by 3.7 liters of paracentesis straw-colored fluid was aspirated by Interventional Radiology. No chest pain. No palpitations. No fever. Past medical history reviewed. REVIEW OF SYSTEMS: CARDIOVASCULAR SYSTEM: No angina, palpitations. RESPIRATORY SYSTEM: As mentioned earlier. GI: As mentioned earlier. : No dysuria or retention. NERVOUS SYSTEM: No numbness, weakness. CURRENT MEDICATIONS: Reviewed. They include: 1. Tylenol p.r.n. 2. Tylenol No.3. 3. [place] 5 mg. 4. Xanax. 5. Norvasc 10 mg. 6. Cefepime 2 grams IV q.8. 7. Heparin. 8. Dilaudid. 9. Synthroid. 10.Ativan. 11.Reglan. 12.Potassium protocol. 13.Protonix. 14.Restoril. Doses and route of administration reviewed. PHYSICAL EXAMINATION: Patient alert and oriented x3. Pulse 90, blood pressure 156/83, respirations 16, temperature normal, pulse ox 93% on room air. HEENT: Conjunctivae normal. NECK: No jugular venous distention. CARDIOVASCULAR SYSTEM: S1, S2 muffled. RESPIRATORY SYSTEM: Breath sounds diminished at the bases. A few scattered rhonchi and crackles. ABDOMEN: Soft, obese. Diffuse ascites present. LEGS: No edema. No swelling. NERVOUS SYSTEM: No focal deficit. LABS: WBC 1.1, hemoglobin 10.2. Albumin is 2.6. Ascitic fluid is noted. C difficile is negative. Urine culture showing Gram-negative bacilli. ASSESSMENT: 1. Nausea, vomiting, diarrhea, possible acute infective gastroenteritis. 2. Possible neutropenic sepsis. 3. Ascites, status post abdominal paracentesis by Radiology. 4. Neutropenia secondary to chemotherapy. 5. Ovarian cancer, status post chemotherapy. 6. History of abdominal paracentesis. 7. Hyponatremia. 8. Increased AST, ALT. 9. Possible acute urinary tract infection, present on admission. 10.History of asthma. 11.Hypertension. 12.History of syncope. 13.History of paracentesis. 14.History of left wrist pain. 15.History of anxiety, depression. 16.Remote history of nicotine dependence. 17.Gram-negative bacilli from the urine. 18.Hypokalemia. 19.Hypoalbuminemia with mild to moderate protein-calorie malnutrition. RECOMMENDATIONS AND DISCUSSION: In this 69-year-old woman with a past medical history of multiple medical problems, at this time I recommend to continue the current medications, continue symptomatic treatment. Continue with broad-spectrum IV antibiotics. Abdominal paracentesis has been done. Will continue to provide symptomatic treatment. The patient is still complaining of significant diarrhea and abdominal symptoms. Cut down the fluids to 60 mL/hour. Repeat labs are ordered. Guarded prognosis because of multiple complex medical issues. Further recommendations to follow. Will closely follow with Oncology. MMODL / IJN: [id number] /
[2019-09-11 20:35] LABS: Total Protein, Body Fluid 3900 mg/dL
[2019-09-11] MEDS: Acetaminophen-Codeine 300-30mg TAB PO PRN (22:02)
[2019-09-11] MEDS: TEMAZEPAM 15 MG CAP PO PRN (23:01)
[2019-09-12] MEDS: HYDROmorphone 0.5 MG/0.5 ML SYRINGE IVP PRN (02:12)
[2019-09-12] MEDS: CEFEPIME 2 GM in SODIUM CHLORIDE 0.9% 100 ML IVPB SCH ×3 (04:39→22:14)
[2019-09-12] MEDS: LEVOTHYROXINE 125 MCG TAB PO SCH (05:32)
[2019-09-12] MEDS: HEPARIN SODIUM,PORCINE 5,000 UNIT/ML 1 ML VIAL SQ SCH ×2 (07:43→22:05)
[2019-09-12] MEDS: METOPROLOL SUCCINATE (ER) 50 MG TAB.ER.24H PO SCH ×2 (07:43→22:04)
[2019-09-12] MEDS: PANTOPRAZOLE 40 MG/10 ML VIAL IVP SCH ×2 (07:43→22:05)
[2019-09-12] MEDS: amLODIPine 10 MG TAB PO SCH (07:43)
[2019-09-12] MEDS: METOCLOPRAMIDE 5 MG/ML 2 ML VIAL IVP SCH ×2 (07:43→22:05)
[2019-09-12] MEDS: FLUTICASONE 50MCG/SPRAY NASAL 16GM EA NOSTRIL SCH (07:44)
[2019-09-12] MEDS: FILGRASTIM-SNDZ 300 MCG/0.5 ML SYRINGE SQ SCH (07:50)
[2019-09-12 08:49] LABS: ALT 22 U/L (4-34); AST 24 U/L (14-36); African American GFR (CKD) >90 (>60 ml/min/1.73 sqM); Albumin 2.7 g/dL (3.5-5.0); Alkaline Phosphatase 47 U/L (38-126); Anion Gap 12 mmol/L; Blood Urea Nitrogen 9 mg/dL (7-17); Calcium 8.3 mg/dL (8.4-10.2); Carbon Dioxide 22 mmol/L (22-30); Chloride 101 mmol/L (98-107); Glucose 79 mg/dL (74-99); Non-African American GFR(CKD) >90 (>60 ml/min/1.73 sqM); Potassium 3.1 mmol/L (3.5-5.1); Sodium 135 mmol/L (137-145); Total Bilirubin 0.6 mg/dL (0.2-1.3); Total Protein 5.5 g/dL (6.3-8.2)
[2019-09-12 08:55] LABS: HCT 37.8 % (34.0-46.0); HGB 11.6 gm/dL (11.4-16.0); Hypochromasia Moderate; MCH 27.3 pg (25.0-35.0); MCHC 30.6 g/dL (31.0-37.0); MCV 89.1 fL (80.0-100.0); Mean Platelet Volume 7.6; Platelet Count 308 k/uL (150-450); RBC 4.24 m/uL (3.80-5.40); RDW 13.1 % (11.5-15.5); WBC 1.9 k/uL (3.8-10.6)
--- NOTE | 2019-09-12 09:12 | P.PN ---
Subjective Progress Note Date: 09/12/19 The patient states that she feels better after the paracentesis. She was able to tolerate some clear liquids this a.m. without nausea or vomiting. However she states that eating makes her have bowel movements and is still fairly watery though more formed. No fever or chills. No obvious bleeding. Objective - Vital Signs Vital signs: Vital Signs Temp 97.8 F 09/12/19 05:00 Pulse 69 09/12/19 05:00 Resp 16 09/12/19 05:00 BP 131/72 09/12/19 05:00 Pulse Ox 92 L 09/12/19 05:00 Intake & Output 09/11/19 09/12/19 09/12/19 18:59 06:59 18:59 Intake Total 100 1840 360 Balance 100 1840 360 Intake: Intake, IV Titration 100 1120 Amount Cefepime 2 gm In Sodium 200 Chloride 0.9% 100 ml @ 200 mls/hr IVPB Q8H [facility] Rx#:[id number] Potassium Chloride 10 meq 100 200 In Water For Injection 1 100ml.bag @ 100 mls/hr IVPB Q1HR [facility] Rx#: [id number] Sodium Chloride 0.9% 1, 720 000 ml @ 60 mls/hr IV . [id number] P[facility] Rx#:[id number] Oral 720 360 Other: Voiding Method Toilet Toilet Toilet Diaper Diaper Diaper Incontinent Incontinent Incontinent # Voids 2 2 # Bowel Movements 1 2 - Constitutional General appearance: Present: no acute distress - EENT Eyes: Present: EOMI ENT: Present: hearing grossly normal, normal oropharynx - Respiratory Respiratory: bilateral: CTA - Cardiovascular Rhythm: regular Heart sounds: normal: S1, S2 - Gastrointestinal General gastrointestinal: Present: normal bowel sounds, soft - Integumentary Integumentary: Present: normal - Neurologic Neurologic: Present: CNII-XII intact - Musculoskeletal Musculoskeletal: Present: strength equal bilaterally - Psychiatric Psychiatric: Present: A&O x's 3, appropriate affect - Labs CBC & Chem 7: 09/12/19 08:27 09/12/19 08:27 Labs: Abnormal Lab Results - Last 24 Hours (Table) 09/11/19 09/12/19 09/12/19 Range/Units 07:32 08:27 08:27 WBC 1.9 L (3.8-10.6) k/uL MCHC 30.6 L (31.0-37.0) g/dL Neutrophils # (Manual) 0.60 L (1.3-7.7) k/uL Lymphocytes # (Manual) 0.31 L (1.0-4.8) k/uL Metamyelocytes # (Man) 0.01 H (0) k/uL Sodium 135 L (137-145) mmol/L Potassium 3.1 L (3.5-5.1) mmol/L Calcium 8.3 L (8.4-10.2) mg/dL Total Protein 5.5 L (6.3-8.2) g/dL Albumin 2.7 L (3.5-5.0) g/dL Microbiology - Last 24 Hours (Table) 09/11/19 14:00 Body Fluid Culture - Preliminary Peritoneal Fluid 09/11/19 14:00 Anaerobic Culture - Preliminary Ascites Fluid 09/09/19 10:46 Blood Culture - Preliminary Blood No Growth after 48 hours 09/09/19 22:58 Urine Culture - Preliminary Urine,Voided Gram Neg Bacilli 09/10/19 12:20 Stool Culture - Preliminary Stool Assessment and Plan (1) Intractable vomiting with nausea Narrative/Plan: Repeat x-ray yesterday continued to show persistent ileus-type findings. According to the report other etiologies such as partial obstruction are not ruled out. After paracentesis yesterday, and with ongoing treatment, the patient does feel better. She was able to tolerate some clear liquids this morning without nausea or vomiting. Continue clear liquids, with cautious advancement of diet as tolerated Continue Zofran when necessary Decrease Reglan to every 12 hours to try to see if this will reduce the diarrhea Current Visit: Yes Status: Acute Code(s): R11.2 - NAUSEA WITH VOMITING, UNSPECIFIED SNOMED Code(s): 181936855 (2) Ascites Narrative/Plan: The patient is much more comfortable after paracentesis yesterday. Exam is also improved. Continue to monitor with repeat paracentesis as needed. She was advised that the rate of recommendation is expected to decrease as tumor burdens reduced with chemotherapy. However that is expected to happen gradually. Current Visit: Yes Status: Acute Priority: High Code(s): R18.8 - OTHER ASCITES SNOMED Code(s): 834550432 (3) Bicytopenia Narrative/Plan: The patient was placed on filgrastim yesterday due to WBC dropped to 1.1. This is improved to 1.9. Continue filgrastim to WBC recovers. Other counts are in a safe range. Continue to monitor with transfusion support if needed Current Visit: Yes Status: Acute Priority: High Code(s): D75.89 - OTHER SPECIFIED DISEASES OF BLOOD AND BLOOD-FORMING ORGANS SNOMED Code(s): 36353644 (4) Ovarian cancer Narrative/Plan: Resume chemotherapy, on schedule, assuming acute condition resolves Current Visit: Yes Status: Acute Priority: High Code(s): C56.9 - MALIGNANT NEOPLASM OF UNSPECIFIED OVARY SNOMED Code(s): 185201928
[2019-09-12 10:00] LABS: Band Neutrophils % 6 %; Eosinophils # (M) 0.08 k/uL (0-0.7); Lymphocytes # (M) 0.51 k/uL (1.0-4.8); Monocytes # (M) 0.27 k/uL (0-1.0); Neutrophils % (M) 49 %; Nucleated Red Blood Cells 0 /100 WBC (0-0); Total Cells Counted 100; Toxic Vacuolation Present
[2019-09-12] MEDS: POTASSIUM CHLORIDE ER 20 MEQ TAB.ER PO SCH ×2 (11:53→13:09)
[2019-09-12] MEDS: HYDROcodone/APAP 5-325MG 1 EACH TAB PO PRN (11:56)
[2019-09-12 17:35] LABS: Potassium 2.9 mmol/L (3.5-5.1)
[2019-09-12] MEDS: Acetaminophen-Codeine 300-30mg TAB PO PRN ×2 (18:00→22:55)
[2019-09-12] MEDS: POTASSIUM BICARBONATE/CIT AC 20 MEQ TABLET.EFF PO SCH ×3 (18:09→18:12)
--- NOTE | 2019-09-12 21:35 | PN ---
PROGRESS NOTE DATE OF SERVICE: 09/12/2019 This 69-year-old woman who was admitted with nausea, vomiting, diarrhea is being closely monitored. The patient had possible acute infective gastroenteritis also. The patient has some diarrhea. Abdominal paracentesis has been done. No chest pain. No palpitations. No fever. PHYSICAL EXAM: Alert and oriented times three. Pulse 86. Blood pressure 140/60, respiration 17, temperature 98.2, pulse ox 94% on room air. HEENT is conjunctivae normal. Neck is no JVD. CARDIOVASCULAR: S1, S2 muffled. RESPIRATORY: Breath sounds diminished in the bases. No rhonchi. No crackles. ABDOMEN is soft, nontender. LEGS are no edema. No swelling. CENTRAL NERVOUS SYSTEM: No focal deficits. LAB STUDIES: WBC 1.9, hemoglobin 11.6. Sodium 134, potassium 2.9. ASSESSMENT: 1. Nausea, vomiting, diarrhea, possible acute infective gastroenteritis. 2. E coli urinary tract infection present on admission. 3. Possible neutropenic sepsis. 4. Hypokalemia. 5. Ascites status post abdominal paracentesis by Radiology. 6. Neutropenia secondary to chemotherapy. 7. Ovarian cancer status post chemotherapy. 8. History of abdominal paracentesis. 9. Hyponatremia. 10.History of increased AST, ALT. 11.Possible acute urinary tract infection, present on admission. 12.History of asthma. 13.Hypertension. 14.History of syncope. 15.History of paracentesis. 16.History of left wrist pain. 17.History of anxiety, depression. 18.Remote history of nicotine dependence. 19.Gram-negative bacilli from the urine. 20.Hypokalemia. 21.Hypoalbuminemia with mild to moderate protein calorie malnutrition. RECOMMENDATIONS AND DISCUSSION: Recommend to continue current medications, symptomatic treatment. Continue antibiotics. Closely follow. Repeat labs. Guarded prognosis. Further recommendations to follow. MMODL / IJN: [id number] /
[2019-09-12] MEDS: SODIUM CHLORIDE 0.9% 1,000 ML IV SCH (22:09)
[2019-09-12] MEDS: TEMAZEPAM 15 MG CAP PO PRN (22:55)
[2019-09-12] MEDS: POTASSIUM CHLORIDE 10 MEQ in WATER FOR INJECTION 1 100ML.BAG IVPB SCH (22:56)
[2019-09-13] MEDS: POTASSIUM CHLORIDE 10 MEQ in WATER FOR INJECTION 1 100ML.BAG IVPB SCH ×5 (00:10→23:53)
[2019-09-13] MEDS: LORazepam 1 MG TAB PO PRN ×2 (00:45→19:26)
[2019-09-13] MEDS: Acetaminophen-Codeine 300-30mg TAB PO PRN ×3 (05:29→18:24)
[2019-09-13] MEDS: LEVOTHYROXINE 125 MCG TAB PO SCH (05:30)
[2019-09-13] MEDS: CEFEPIME 2 GM in SODIUM CHLORIDE 0.9% 100 ML IVPB SCH ×3 (05:30→19:29)
--- NOTE | 2019-09-13 08:01 | XR ---
EXAMINATION TYPE: XR abdomen 2V DATE OF EXAM: 09/13/2019 COMPARISON: 09/11/2019 HISTORY: Ileus TECHNIQUE: One view abdominal series FINDINGS: A bilateral lower lobe infiltrate and pleural effusion noted. Persistent dilated bowel with air-fluid levels similar in appearance to the prior exam. Scoliosis with degenerative change of the spine. Art hropathy of the hips. Calcifications in the pelvis likely vascular. IMPRESSION: 1. Nonspecific abdomen similar to the prior exam correlate for ileus or partial obstruction. 2. Stable bilateral lower lobe infiltrate and pleural effusion.
[2019-09-13] MEDS: amLODIPine 10 MG TAB PO SCH (08:57)
[2019-09-13] MEDS: METOCLOPRAMIDE 5 MG/ML 2 ML VIAL IVP SCH ×2 (08:58→22:00)
[2019-09-13] MEDS: METOPROLOL SUCCINATE (ER) 50 MG TAB.ER.24H PO SCH ×2 (08:58→21:59)
[2019-09-13] MEDS: PANTOPRAZOLE 40 MG/10 ML VIAL IVP SCH ×2 (08:58→22:00)
[2019-09-13] MEDS: HYDROmorphone 0.5 MG/0.5 ML SYRINGE IVP PRN (08:59)
[2019-09-13] MEDS: FILGRASTIM-SNDZ 300 MCG/0.5 ML SYRINGE SQ SCH (08:59)
[2019-09-13] MEDS: HEPARIN SODIUM,PORCINE 5,000 UNIT/ML 1 ML VIAL SQ SCH ×2 (08:59→22:00)
[2019-09-13] MEDS: FLUTICASONE 50MCG/SPRAY NASAL 16GM EA NOSTRIL SCH (08:59)
[2019-09-13 09:10] LABS: HCT 32.7 % (34.0-46.0); HGB 10.5 gm/dL (11.4-16.0); Hypochromasia Slight; MCHC 32.2 g/dL (31.0-37.0); MCV 87.1 fL (80.0-100.0); Mean Platelet Volume 8.2; Platelet Count 275 k/uL (150-450); RBC 3.75 m/uL (3.80-5.40); RDW 12.9 % (11.5-15.5); WBC 3.1 k/uL (3.8-10.6)
[2019-09-13 09:53] LABS: Band Neutrophils % 13 %; Basophils # (M) 0.03 k/uL (0-0.2); Myelocytes # (M) 0.03 k/uL (0); Myelocytes % 1 %; Nucleated Red Blood Cells 0 /100 WBC (0-0)
[2019-09-13 09:55] LABS: Eosinophils # (M) 0.22 k/uL (0-0.7); Lymphocytes # (M) 0.53 k/uL (1.0-4.8); Metamyelocytes # (M) 0.12 k/uL (0); Metamyelocytes % 4 %; Monocytes # (M) 0.71 k/uL (0-1.0); Neutrophils % (M) 36 %; Total Cells Counted 200
[2019-09-13 09:56] LABS: Poikilocytosis (M) Present; Toxic Granulation Present
[2019-09-13 11:11] VITALS: BMI 28.2
[2019-09-13] MEDS ORDERED: POTASSIUM CHLORIDE 20 MEQ in WATER FOR INJECTION 1 100ML.BAG IVPB STA (11:27)
[2019-09-13] MEDS: POTASSIUM CHLORIDE ER 20 MEQ TAB.ER PO SCH ×2 (11:35→21:53)
[2019-09-13] MEDS: SODIUM CHLORIDE 0.9% 1,000 ML IV SCH (11:45)
--- NOTE | 2019-09-13 13:08 | P.PN ---
Subjective Progress Note Date: 09/13/19 Principal diagnosis: Intractable nausea and vomiting, ileus In follow-up today patient states having an appetite, she would really like her diet to advance. She is having trouble tolerating the potassium supplement orally, it did cause her to vomit. Denied fevers, no other vomiting or nausea outside of the potassium supplement, cough, shortness of breath, abd distention is stable post paracentesis, she is having soft, greenish colored stools, she states that this is her baseline, most recent C. difficile studies were negative. Patient states she is feeling better. Objective - Vital Signs Vital signs: Vital Signs Temp 97.8 F 09/13/19 11:37 Pulse 81 09/13/19 11:37 Resp 20 09/13/19 11:37 BP 160/73 09/13/19 11:37 Pulse Ox 97 09/13/19 11:37 Intake & Output 09/12/19 09/13/19 09/13/19 18:59 06:59 18:59 Intake Total 940 800 Balance 940 800 Weight 79.379 kg Intake: Intake, IV Titration 580 210 Amount Cefepime 2 gm In Sodium 100 Chloride 0.9% 100 ml @ 200 mls/hr IVPB Q8H [facility] Rx#:[id number] Sodium Chloride 0.9% 1, 480 210 000 ml @ 60 mls/hr IV . [id number] [facility] Rx#:[id number] Oral 360 590 Other: Voiding Method Bedside Commode Bedside Commode Bedside Commode # Voids 4 3 # Bowel Movements 2 1 2 - Constitutional General appearance: Present: cooperative, no acute distress, obese - EENT Eyes: Present: anicteric sclerae, EOMI ENT: Present: hearing grossly normal, normal oropharynx - Respiratory Respiratory: bilateral: CTA - Cardiovascular Rhythm: regular Heart sounds: normal: S1, S2 Abnormal Heart Sounds: Absent: systolic murmur, diastolic murmur, rub, S3 Gallop, S4 Gallop, click, other - Peripheral edema leg Peripheral Edema: bilateral: None - Gastrointestinal General gastrointestinal: Present: normal bowel sounds, soft - Integumentary Integumentary: Present: normal turgor, pale - Neurologic Neurologic: Present: CNII-XII intact - Musculoskeletal Musculoskeletal: Present: generalized weakness, strength equal bilaterally - Psychiatric Psychiatric: Present: A&O x's 3, appropriate affect, intact judgment & insight - Labs CBC & Chem 7: 09/13/19 07:10 09/13/19 07:10 Labs: Abnormal Lab Results - Last 24 Hours (Table) 09/12/19 09/12/19 09/13/19 Range/Units 17:00 20:34 07:10 WBC (3.8-10.6) k/uL RBC (3.80-5.40) m/uL Hgb (11.4-16.0) gm/dL Hct (34.0-46.0) % Lymphocytes # (Manual) (1.0-4.8) k/uL Metamyelocytes # (Man) (0) k/uL Myelocytes # (Manual) (0) k/uL Sodium 134 L (137-145) mmol/L Potassium 2.9 L 3.2 L 3.4 L (3.5-5.1) mmol/L Magnesium (1.6-2.3) mg/dL 09/13/19 09/13/19 Range/Units 07:10 07:10 WBC 3.1 L (3.8-10.6) k/uL RBC 3.75 L (3.80-5.40) m/uL Hgb 10.5 L (11.4-16.0) gm/dL Hct 32.7 L (34.0-46.0) % Lymphocytes # (Manual) 0.53 L (1.0-4.8) k/uL Metamyelocytes # (Man) 0.12 H (0) k/uL Myelocytes # (Manual) 0.03 H (0) k/uL Sodium (137-145) mmol/L Potassium (3.5-5.1) mmol/L Magnesium 1.2 L (1.6-2.3) mg/dL Microbiology - Last 24 Hours (Table) 09/09/19 10:46 Blood Culture - Preliminary Blood No Growth after 96 hours 09/10/19 12:20 Stool Culture - Preliminary Stool 09/11/19 14:00 Gram Stain - Preliminary Peritoneal Fluid Body Fluid Culture - Preliminary 09/09/19 22:58 Urine Culture - Final Urine,Voided Escherichia coli - Imaging and Cardiology Abdominal x-ray: report reviewed Assessment and Plan (1) Abdominal pain Narrative/Plan: Secondary to ascites and ileus. She is s/p paracentesis. Abd xray today still reporting signs of ileus. Pt states improved abd pain. D/W IM, will advance diet as tolerated. Cont Reglan. Current Visit: Yes Status: Acute Priority: High Code(s): R10.9 - UNSPECIFIED ABDOMINAL PAIN SNOMED Code(s): 64180299 (2) Ascites Narrative/Plan: 3.7 L of fluid was removed, pending cytology. Will provide pt with a standing order for the same Current Visit: Yes Status: Acute Priority: High Code(s): R18.8 - OTHER ASCITES SNOMED Code(s): 490554107 (3) Bicytopenia Narrative/Plan: Secondary to chemotherapy Hemoglobin is stable, not requiring transfusion at this time. Cont G-CSF today-WBC up to 3.1, recheck CBC in AM. Current Visit: Yes Status: Acute Priority: High Code(s): D75.89 - OTHER SPECIFIED DISEASES OF BLOOD AND BLOOD-FORMING ORGANS SNOMED Code(s): 59946126 (4) Ileus Narrative/Plan: Abd xray still rpeorting ileus, pt reports less symptoms. Advance diet slowly. Close monitoring. Abd xray follow up. Cont reglan Current Visit: Yes Status: Acute Priority: High Code(s): K56.7 - ILEUS, UNSPECIFIED SNOMED Code(s): 065645344 (5) Intractable vomiting with nausea Current Visit: Yes Status: Acute Code(s): R11.2 - NAUSEA WITH VOMITING, UNSPECIFIED SNOMED Code(s): 620313128 (6) Ovarian cancer Current Visit: Yes Status: Acute Priority: High Code(s): C56.9 - MALIGNANT NEOPLASM OF UNSPECIFIED OVARY SNOMED Code(s): 376306300
--- NOTE | 2019-09-13 13:22 | CDI ---
Documentation Clarification Form Date: 09/13/2019 12:58:04 PM From: Terra Barbosa RN CCDS Admit Date: 09/09/2019 01:29:00 PM Patient Name: Macarena Victoria Visit Number: [id number] Discharge Date: ATTENTION: The Clinical Documentation Specialists (CDI) and [facility] Coding Staff appreciate your assistance in clarifying documentation. Please respond to the clarification below the line at the bottom and electronically sign. The CDI & [facility] Coding staff will review the response and follow-up if needed. Please note: Queries are made part of the Legal Health Record. If you have any questions, please contact the author of this message via ITS. Dr. Thuy Mcclain Thank you for documenting mild to moderate protein calorie malnutrition. However, there needs to be more specificity. History/Risk Factors: 69-year-old female presents to the ED with nausea, vomiting and diarrhea. Diagnosis include Hyponatremia; possible neutropenic sepsis, UTI, Acute infective gastroenteritis, Ovarian cancer status post chemotherapy and ascites. Clinical Indicators: Hypoalbuminemia with mild to moderate protein calorie malnutrition Is documented in your progress note 09/12 and 09/13 BMI 28.2 kg Lab findings:09/09 Wbc 1.5; Neutrophils 1.10; Na 133; Bun 21; AST 120; ALT 66; 09/12 Total protein 5.5; Albumin 2.7 Radiology findings: 09/11 Abdominal XR - Bilateral lower lobe infiltrate and pleural effusion 09/09 Vital Signs: 163/97 93 98.1 16 98% ra Other Clinical Indicators: Treatment: Ensure clear oral supplement TID with meals. Consult: Dietitian 09/13 Energy balance Inadequate energy intake Related to: GI upset s/p chemo therapy, restricted diet order for bowel rest Evidenced by NPO/CLD 4 days, consuming <75% EER during admit In your professional opinion, can you please clarify protein malnutrition? * Mild protein calorie malnutrition * Moderate protein calorie malnutrition * Other, please specify * Unable to determine (Last Revision: October 2017) Mild protein calorie malnutrition MTDD
--- NOTE | 2019-09-13 15:47 | P.PN ---
Subjective Progress Note Date: 09/13/19 Principal diagnosis: This is a 69-year-old female who was recently admitted with nausea, vomiting, diarrhea and is being closely monitored. Patient also has possible acute infective gastroenteritis along with some diarrhea. Today patient continues to have diarrhea and states that the vomiting has subsided. Patient was given oral replacement for potassium of 3.4 but states it got stuck in her throat causing her to spit it right back up. IV potassium will be ordered for replacement. Magnesium was low as well today at 1.2 and will be replaced. Will repeat labs. Patient's diet is being advanced to full liquids as tolerated as patient states she has not had any nausea or vomiting in the last 2 days. Patient has been using a commode at the bedside as she is weak and unable to make it to the bathroom due to multiple episodes of diarrhea. Currently patient has no reports of chest pain, shortness of breath, or palpitations. Patient is afebrile. Patient has been tolerating clear liquids as mentioned previously and will advance slowly. Will continue to monitor patient closely. Objective - Vital Signs Vital signs: Vital Signs Temp 97.8 F 09/13/19 11:37 Pulse 81 09/13/19 15:26 Resp 20 09/13/19 15:26 BP 160/73 09/13/19 11:37 Pulse Ox 97 09/13/19 11:37 Intake & Output 09/12/19 09/13/19 09/13/19 18:59 06:59 18:59 Intake Total 940 800 Balance 940 800 Weight 79.379 kg Intake: Intake, IV Titration 580 210 Amount Cefepime 2 gm In Sodium 100 Chloride 0.9% 100 ml @ 200 mls/hr IVPB Q8H [facility] Rx#:[id number] Sodium Chloride 0.9% 1, 480 210 000 ml @ 60 mls/hr IV . [id number] PANKAJ Rx#:[id number] Oral 360 590 Other: Voiding Method Bedside Commode Bedside Commode Bedside Commode # Voids 4 3 1 # Bowel Movements 2 1 1 - Exam Gen: This is a 69-year-old female lying in bed awake, alert and oriented 3, well-developed. Temp is 97.5F, pulse is 83, respirations are 18, blood pressure is 125/81, oxygen saturation is 94% on room air. HEENT: Head is atraumatic, normocephalic. Pupils equal, round. Sclerae is anicteric. NECK: Supple. No JVD. No lymphadenopathy. No thyromegaly. LUNGS: Diminished breath sounds at the bases with no crackles, rhonchi, or wheezing noted. No intercostal retractions. HEART: S1, S2 are muffled ABDOMEN: Soft. Bowel sounds are present. No masses. No tenderness. EXTREMITIES: No pedal edema. No calf tenderness. NEUROLOGICAL: Patient is awake, alert and oriented x3. Cranial nerves 2 through 12 are grossly intact. - Labs CBC & Chem 7: 09/13/19 07:10 09/13/19 07:10 Labs: Abnormal Lab Results - Last 24 Hours (Table) 09/12/19 09/12/19 09/13/19 Range/Units 17:00 20:34 07:10 WBC (3.8-10.6) k/uL RBC (3.80-5.40) m/uL Hgb (11.4-16.0) gm/dL Hct (34.0-46.0) % Lymphocytes # (Manual) (1.0-4.8) k/uL Metamyelocytes # (Man) (0) k/uL Myelocytes # (Manual) (0) k/uL Sodium 134 L (137-145) mmol/L Potassium 2.9 L 3.2 L 3.4 L (3.5-5.1) mmol/L Magnesium (1.6-2.3) mg/dL 09/13/19 09/13/19 Range/Units 07:10 07:10 WBC 3.1 L (3.8-10.6) k/uL RBC 3.75 L (3.80-5.40) m/uL Hgb 10.5 L (11.4-16.0) gm/dL Hct 32.7 L (34.0-46.0) % Lymphocytes # (Manual) 0.53 L (1.0-4.8) k/uL Metamyelocytes # (Man) 0.12 H (0) k/uL Myelocytes # (Manual) 0.03 H (0) k/uL Sodium (137-145) mmol/L Potassium (3.5-5.1) mmol/L Magnesium 1.2 L (1.6-2.3) mg/dL Microbiology - Last 24 Hours (Table) 09/09/19 10:46 Blood Culture - Preliminary Blood No Growth after 96 hours 09/10/19 12:20 Stool Culture - Preliminary Stool 09/11/19 14:00 Gram Stain - Preliminary Peritoneal Fluid Body Fluid Culture - Preliminary Assessment and Plan Assessment: Nausea, vomiting, diarrhea, possible acute infective gastroenteritis E. coli urinary tract infection, present on admission Possible neutropenic sepsis Hypokalemia Ascites status post abdominal paracentesis by radiology Neutropenia secondary to chemotherapy Ovarian cancer status post chemotherapy History of abdominal paracentesis Hyponatremia History of increased AST, ALT Possible acute urinary tract infection, present on admission History of asthma Hypertension History of syncope history of paracentesis History of left wrist pain history of anxiety, depression Remote history of nicotine dependence Gram-negative bacilli from the urine Hypoalbuminemia with moderate protein calorie malnutrition Full code Recommendations and discussion: Recommend continue current management, medications, and symptomatic treatment. Will continue to monitor patient closely. Will advance diet to full liquids and slowly advance as tolerated. Will repeat a.m. labs. Due to multiple complex medical issues prognosis is guarded. Further recommendations to follow. Patient requiring a commode upon discharge as she continues to have diarrhea with the inability to make it to the bathroom multiple times per day.
[2019-09-13 18:15] LABS: ALT 17 U/L (4-34); AST 26 U/L (14-36); African American GFR (CKD) >90 (>60 ml/min/1.73 sqM); Albumin 2.5 g/dL (3.5-5.0); Alkaline Phosphatase 48 U/L (38-126); Anion Gap 7 mmol/L; Blood Urea Nitrogen 8 mg/dL (7-17); Calcium 7.9 mg/dL (8.4-10.2); Carbon Dioxide 25 mmol/L (22-30); Chloride 98 mmol/L (98-107); Glucose 111 mg/dL (74-99); Non-African American GFR(CKD) >90 (>60 ml/min/1.73 sqM); Potassium 3.2 mmol/L (3.5-5.1); Sodium 130 mmol/L (137-145); Total Bilirubin 0.4 mg/dL (0.2-1.3); Total Protein 5.1 g/dL (6.3-8.2)
[2019-09-13] MEDS: MAGNESIUM SULFATE-D5W PMX 1 GM in DEXTROSE/WATER 1 100ML.BAG IVPB SCH ×2 (18:41→18:42)
[2019-09-13] MEDS: TEMAZEPAM 15 MG CAP PO PRN (21:59)
[2019-09-14] MEDS: POTASSIUM CHLORIDE 10 MEQ in WATER FOR INJECTION 1 100ML.BAG IVPB SCH ×2 (01:02→02:11)
[2019-09-14] MEDS: Acetaminophen-Codeine 300-30mg TAB PO PRN ×3 (05:20→21:20)
[2019-09-14] MEDS: LEVOTHYROXINE 125 MCG TAB PO SCH (05:20)
[2019-09-14] MEDS: CEFEPIME 2 GM in SODIUM CHLORIDE 0.9% 100 ML IVPB SCH ×3 (05:21→21:12)
[2019-09-14] MEDS: SODIUM CHLORIDE 0.9% 1,000 ML IV SCH ×2 (05:21→07:56)
[2019-09-14] MEDS: FILGRASTIM-SNDZ 300 MCG/0.5 ML SYRINGE SQ SCH (08:00)
[2019-09-14 08:01] LABS: Magnesium 1.4 mg/dL (1.6-2.3); Potassium 3.6 mmol/L (3.5-5.1)
[2019-09-14] MEDS: POTASSIUM CHLORIDE ER 20 MEQ TAB.ER PO SCH (08:01)
[2019-09-14] MEDS: amLODIPine 10 MG TAB PO SCH (08:01)
[2019-09-14] MEDS: METOCLOPRAMIDE 5 MG/ML 2 ML VIAL IVP SCH ×2 (08:01→21:12)
[2019-09-14] MEDS: HEPARIN SODIUM,PORCINE 5,000 UNIT/ML 1 ML VIAL SQ SCH ×2 (08:01→21:12)
[2019-09-14] MEDS: METOPROLOL SUCCINATE (ER) 50 MG TAB.ER.24H PO SCH ×2 (08:01→21:12)
[2019-09-14] MEDS: FLUTICASONE 50MCG/SPRAY NASAL 16GM EA NOSTRIL SCH (08:01)
[2019-09-14] MEDS: PANTOPRAZOLE 40 MG/10 ML VIAL IVP SCH (08:02)
[2019-09-14] MEDS: MAGNESIUM SULFATE-D5W PMX 1 GM in DEXTROSE/WATER 1 100ML.BAG IVPB SCH ×2 (08:38→09:46)
[2019-09-14 09:08] LABS: HCT 35.6 % (34.0-46.0); HGB 11.3 gm/dL (11.4-16.0); MCH 27.7 pg (25.0-35.0); MCHC 31.9 g/dL (31.0-37.0); MCV 86.8 fL (80.0-100.0); Mean Platelet Volume 8.3; Platelet Count 265 k/uL (150-450); RDW 13.2 % (11.5-15.5); WBC 10.3 k/uL (3.8-10.6)
[2019-09-14 09:53] LABS: Band Neutrophils % 7 %; Lymphocytes # (M) 0.82 k/uL (1.0-4.8); Metamyelocytes # (M) 0.21 k/uL (0); Metamyelocytes % 2 %; Monocytes # (M) 1.13 k/uL (0-1.0); Neutrophils % (M) 72 %; Nucleated Red Blood Cells 0 /100 WBC (0-0); Total Cells Counted 200; Toxic Granulation Present
[2019-09-14 09:54] LABS: Dohle Bodies Present; Poikilocytosis (M) Present
--- NOTE | 2019-09-14 10:12 | P.PN ---
Subjective Progress Note Date: 09/14/19 Principal diagnosis: Intractable nausea and vomiting, ileus In follow-up today patient has had no vomiting, she is tolerating her advancing diet, eating cream of wheat this morning, she had 1 bowel movement that had solid material, not watery or like "super". Patient states feeling pretty good, she requested a bedside commode for some generalized weakness, especially when waking up at night and having to go to the bathroom, this has been taking care of. She does not feel that the fluid in her abdomen is recurrent. She has no urinary symptoms. No fevers, pain. Objective - Vital Signs Vital signs: Vital Signs Temp 98.2 F 09/14/19 05:00 Pulse 81 09/14/19 05:00 Resp 18 09/14/19 05:00 BP 141/72 09/14/19 05:00 Pulse Ox 92 L 09/14/19 05:00 Intake & Output 09/13/19 09/14/19 09/14/19 18:59 06:59 18:59 Intake Total 1090 120 Balance 1090 120 Weight 79.379 kg Intake: Intake, IV Titration 1090 Amount Potassium Chloride 10 meq 400 In Water For Injection 1 100ml.bag @ 100 mls/hr IVPB Q1HR PANK[facility] Rx#: [id number] Sodium Chloride 0.9% 1, 690 000 ml @ 60 mls/hr IV . [id number] PANKAJ Rx#:[id number] Oral 120 Other: Voiding Method Bedside Commode Bedside Commode Bedside Commode Diaper # Voids 1 1 # Bowel Movements 1 - Constitutional General appearance: Present: cooperative, no acute distress, obese - EENT Eyes: Present: anicteric sclerae, EOMI ENT: Present: hearing grossly normal - Respiratory Details: Respirations even and unlabored - Cardiovascular Details: Skin warm and dry, radial pulse 2+ - Gastrointestinal General gastrointestinal: Present: normal bowel sounds, soft - Integumentary Integumentary: Present: normal - Neurologic Neurologic: Present: CNII-XII intact - Musculoskeletal Musculoskeletal: Present: generalized weakness, strength equal bilaterally - Psychiatric Psychiatric: Present: A&O x's 3, appropriate affect, intact judgment & insight - Labs CBC & Chem 7: 09/14/19 06:36 09/14/19 06:36 Labs: Abnormal Lab Results - Last 24 Hours (Table) 09/13/19 09/14/19 09/14/19 Range/Units 17:39 06:36 06:36 Hgb 11.3 L (11.4-16.0) gm/dL Neutrophils # (Manual) 8.10 H (1.3-7.7) k/uL Lymphocytes # (Manual) 0.82 L (1.0-4.8) k/uL Monocytes # (Manual) 1.13 H (0-1.0) k/uL Metamyelocytes # (Man) 0.21 H (0) k/uL Sodium 130 L (137-145) mmol/L Potassium 3.2 L (3.5-5.1) mmol/L Creatinine 0.50 L (0.52-1.04) mg/dL Glucose 111 H (74-99) mg/dL Calcium 7.9 L (8.4-10.2) mg/dL Magnesium 1.4 L (1.6-2.3) mg/dL Total Protein 5.1 L (6.3-8.2) g/dL Albumin 2.5 L (3.5-5.0) g/dL Microbiology - Last 24 Hours (Table) 09/10/19 12:20 Stool Culture - Final Stool 09/11/19 14:00 Gram Stain - Preliminary Peritoneal Fluid Body Fluid Culture - Preliminary 09/09/19 10:46 Blood Culture - Preliminary Blood No Growth after 96 hours Assessment and Plan (1) Abdominal pain Narrative/Plan: Secondary to ascites and ileus. She is s/p paracentesis. Abd xray yesterday reported signs of ileus. Pt abd pain is improved and stable. She has advanced her diet. She has had a bowel movement with solid material. Patient states she feels that she could go home. D/W IM. Cont Reglan, prescription will be sent to patient's pharmacy. Current Visit: Yes Status: Acute Priority: High Code(s): R10.9 - UNSPECIFIED ABDOMINAL PAIN SNOMED Code(s): 67508020 (2) Ascites Narrative/Plan: 3.7 L of fluid was removed, pending cytology. Will provide pt with a standing order for the same, this will be given to her at the office Current Visit: Yes Status: Acute Priority: High Code(s): R18.8 - OTHER ASCITES SNOMED Code(s): 133727933 (3) Bicytopenia Narrative/Plan: Secondary to chemotherapy Hemoglobin is stable, not requiring transfusion at this time. It is returning to baseline post chemotherapy as expected. White blood cell count within normal limits today, ANC improved. Discontinue G- CSF. Current Visit: Yes Status: Acute Priority: High Code(s): D75.89 - OTHER SP ECIFIED DISEASES OF BLOOD AND BLOOD-FORMING ORGANS SNOMED Code(s): 20429249 (4) Ileus Narrative/Plan: Abd xray reported persistent ileus yesterday. Patient reporting stable and improving symptoms, tolerated advancements in her diet, and she has had a BM. Patient will be followed up closely in the outpatient setting. Reglan is going to be prescribed. Standing order for paracentesis as well Current Visit: Yes Status: Acute Priority: High Code(s): K56.7 - ILEUS, UNSPECIFIED SNOMED Code(s): 803359344 (5) Intractable vomiting with nausea Current Visit: Yes Status: Resolved Code(s): R11.2 - NAUSEA WITH VOMITING, UNSPECIFIED SNOMED Code(s): 439807066 (6) Ovarian cancer Narrative/Plan: Patient is status post her first cycle of carbo/Taxol. Patient is likely going to require addition of GCSF and better side effect management, and/or dose reduction due to toxicities. This will be reviewed with her at her follow-up Dr. Banks on Wednesday. She verbalized understanding. Current Visit: Yes Status: Acute Priority: High Code(s): C56.9 - MALIGNANT NEOPLASM OF UNSPECIFIED OVARY SNOMED Code(s): 397870534
[2019-09-14 12:33] VITALS: RESP 16
--- NOTE | 2019-09-14 15:39 | P.PN ---
Subjective Progress Note Date: 09/14/19 Principal diagnosis: This is a 69-year-old female who was recently admitted with nausea, vomiting, diarrhea and is being closely monitored. Patient also has possible acute infective gastroenteritis along with some diarrhea. Today patient continues to have diarrhea and states that the vomiting has subsided. Patient was given oral replacement for potassium of 3.4 but states it got stuck in her throat causing her to spit it right back up. IV potassium will be ordered for replacement. Magnesium was low as well today at 1.2 and will be replaced. Will repeat labs. Patient's diet is being advanced to full liquids as tolerated as patient states she has not had any nausea or vomiting in the last 2 days. Patient has been using a commode at the bedside as she is weak and unable to make it to the bathroom due to multiple episodes of diarrhea. Currently patient has no reports of chest pain, shortness of breath, or palpitations. Patient is afebrile. Patient has been tolerating clear liquids as mentioned previously and will advance slowly. Will continue to monitor patient closely. 09/14/2019 Patient Is seen in follow-up today stating that she feels some abdominal f ullness which is causing her to fatigue with exertion. Patient had a paracentesis on Wednesday with removal of 3 L. Patient tolerated full liquids and is being advanced to a regular diet with no reports of nausea or vomiting. Patient states that her bowel movements have lessened in her stool is becoming more formed. Abdominal ultrasound ordered and is pending at this time. Patient discussed with oncology for standing orders of paracentesis as needed in the outpatient setting. No reports of chest pain, shortness of breath, or palpitations. Patient is afebrile. No reports of nausea or vomiting as mentioned previously and patient is tolerating diet. Magnesium today remains low at 1.4 and is being replaced. Will repeat a.m. labs. Will continue to monitor closely. Objective - Vital Signs Vital signs: Vital Signs Temp 97.1 F L 09/14/19 12:32 Pulse 97 09/14/19 12:32 Resp 16 09/14/19 12:32 BP 151/78 09/14/19 12:32 Pulse Ox 94 L 09/14/19 12:32 Intake & Output 09/13/19 09/14/19 09/14/19 18:59 06:59 18:59 Intake Total 1090 240 Balance 1090 240 Weight 79.379 kg Intake: Intake, IV Titration 1090 Amount Potassium Chloride 10 meq 400 In Water For Injection 1 100ml.bag @ 100 mls/hr IVPB Q1HR PANKAJ Rx#: [id number] Sodium Chloride 0.9% 1, 690 000 ml @ 60 mls/hr IV . [id number] PANKAJ Rx#:[id number] Oral 240 Other: Voiding Method Bedside Commode Bedside Commode Bedside Commode Diaper # Voids 1 1 # Bowel Movements 1 - Exam Gen: This is a 69-year-old female sitting up in bed awake, alert and oriented 3, well-developed. Temp is 97.1F, pulse is 97, respirations are 16, blood pressure is 151/78, oxygen saturation is 94% on room air. HEENT: Head is atraumatic, normocephalic. Pupils equal, round. Sclerae is anicteric. NECK: Supple. No JVD. No lymphadenopathy. No thyromegaly. LUNGS: Diminished breath sounds at the bases with no crackles, rhonchi, or wheezing noted. No intercostal retractions. HEART: S1, S2 are muffled ABDOMEN: Soft. Mildly distended. Bowel sounds are present. No masses. No tenderness. EXTREMITIES: No pedal edema. No calf tenderness. NEUROLOGICAL: Patient is awake, alert and oriented x3. Cranial nerves 2 through 12 are grossly intact. - Labs CBC & Chem 7: 09/14/19 06:36 09/14/19 06:36 Labs: Abnormal Lab Results - Last 24 Hours (Table) 09/13/19 09/14/19 09/14/19 Range/Units 17:39 06:36 06:36 Hgb 11.3 L (11.4-16.0) gm/dL Neutrophils # (Manual) 8.10 H (1.3-7.7) k/uL Lymphocytes # (Manual) 0.82 L (1.0-4.8) k/uL Monocytes # (Manual) 1.13 H (0-1.0) k/uL Metamyelocytes # (Man) 0.21 H (0) k/uL Sodium 130 L (137-145) mmol/L Potassium 3.2 L (3.5-5.1) mmol/L Creatinine 0.50 L (0.52-1.04) mg/dL Glucose 111 H (74-99) mg/dL Calcium 7.9 L (8.4-10.2) mg/dL Magnesium 1.4 L (1.6-2.3) mg/dL Total Protein 5.1 L (6.3-8.2) g/dL Albumin 2.5 L (3.5-5.0) g/dL Microbiology - Last 24 Hours (Table) 09/09/19 10:46 Blood Culture - Preliminary Blood No Growth after 120 hours 09/10/19 12:20 Stool Culture - Final Stool 09/11/19 14:00 Gram Stain - Preliminary Peritoneal Fluid Body Fluid Culture - Preliminary Assessment and Plan Assessment: Nausea, vomiting, diarrhea, possible acute infective gastroenteritis E. coli urinary tract infection, present on admission Possible neutropenic sepsis Hypokalemia Ascites status post abdominal paracentesis by radiology Neutropenia secondary to chemotherapy Ovarian cancer status post chemotherapy History of abdominal paracentesis Hyponatremia History of increased AST, ALT Possible acute urinary tract infection, present on admission History of asthma Hypertension History of syncope history of paracentesis History of left wrist pain history of anxiety, depression Remote history of nicotine dependence Gram-negative bacilli from the urine Hypoalbuminemia with moderate protein calorie malnutrition Full code Recommendations and discussion: Recommend continue current management, medications, and symptomatic treatment. Will continue to monitor patient closely. Continues to advance diet as patient is tolerating with no reports of nausea or vomiting. Magnesium was low today at 1.4 and being replaced. Will repeat a.m. labs. Abdominal ultrasound ordered as patient feels fullness and concern for ascites again and may need paracentesis. Patient is working with oncology to receive a standing order for paracentesis as needed in the outpatient setting. Due to multiple complex medical issues prognosis is guarded. Further recommendations to follow. Possible discharge in 24 hours.
--- NOTE | 2019-09-14 16:01 | US ---
EXAMINATION TYPE: US abdomen limited DATE OF EXAM: 09/14/2019 COMPARISON: US CLINICAL HISTORY: ascites. Ascites is noted in all four abdominal quadrants with largest pocket seen LLQ = 6.1cm A/P. Incidental finding of left pleural effusion pocket = 6.9cm seen while assessing LUQ for ascites. IMPRESSION: Ascites as noted
[2019-09-14] MEDS: HYDROcodone/APAP 5-325MG 1 EACH TAB PO PRN (18:42)
[2019-09-14] MEDS: PANTOPRAZOLE 40 MG TABLET PO SCH (21:12)
[2019-09-14] MEDS: TEMAZEPAM 15 MG CAP PO PRN (22:29)
[2019-09-15] MEDS: Acetaminophen-Codeine 300-30mg TAB PO PRN (03:51)
[2019-09-15] MEDS: CEFEPIME 2 GM in SODIUM CHLORIDE 0.9% 100 ML IVPB SCH (03:51)
[2019-09-15 05:16] VITALS: BP 165/75; PULSE 75; TEMP 97.7
[2019-09-15] MEDS: LEVOTHYROXINE 125 MCG TAB PO SCH (05:54)
[2019-09-15] MEDS: FLUTICASONE 50MCG/SPRAY NASAL 16GM EA NOSTRIL SCH (08:33)
[2019-09-15] MEDS: amLODIPine 10 MG TAB PO SCH (08:34)
[2019-09-15] MEDS: METOCLOPRAMIDE 5 MG/ML 2 ML VIAL IVP SCH (08:34)
[2019-09-15] MEDS: HEPARIN SODIUM,PORCINE 5,000 UNIT/ML 1 ML VIAL SQ SCH (08:34)
[2019-09-15] MEDS: PANTOPRAZOLE 40 MG TABLET PO SCH (08:35)
[2019-09-15] MEDS: METOPROLOL SUCCINATE (ER) 50 MG TAB.ER.24H PO SCH (08:35)
[2019-09-15 08:53] LABS: HCT 38.3 % (34.0-46.0); MCH 27.3 pg (25.0-35.0); MCHC 31.4 g/dL (31.0-37.0); Mean Platelet Volume 7.4; Platelet Count 283 k/uL (150-450); RDW 13.4 % (11.5-15.5); WBC 29.2 k/uL (3.8-10.6)
[2019-09-15 09:00] LABS: ALT 15 U/L (4-34); AST 30 U/L (14-36); African American GFR (CKD) >90 (>60 ml/min/1.73 sqM); Albumin 2.4 g/dL (3.5-5.0); Alkaline Phosphatase 97 U/L (38-126); Anion Gap 7 mmol/L; Blood Urea Nitrogen 11 mg/dL (7-17); Calcium 7.8 mg/dL (8.4-10.2); Carbon Dioxide 24 mmol/L (22-30); Chloride 99 mmol/L (98-107); Glucose 89 mg/dL (74-99); Non-African American GFR(CKD) >90 (>60 ml/min/1.73 sqM); Potassium 3.6 mmol/L (3.5-5.1); Sodium 130 mmol/L (137-145); Total Bilirubin 0.4 mg/dL (0.2-1.3)
[2019-09-15 09:34] LABS: Band Neutrophils % 11 %; Eosinophils # (M) 0.29 k/uL (0-0.7); Lymphocytes # (M) 1.75 k/uL (1.0-4.8); Monocytes # (M) 1.17 k/uL (0-1.0); Myelocytes # (M) 0.29 k/uL (0); Myelocytes % 1 %; Neutrophils % (M) 79 %; Nucleated Red Blood Cells 0 /100 WBC (0-0); Total Cells Counted 200; Toxic Granulation Present
[2019-09-15 09:35] LABS: Poikilocytosis (M) Present
--- NOTE | 2019-09-18 08:23 | P.DS ---
Providers Date of admission: 09/09/19 13:29 Expected date of discharge: 09/15/19 Attending physician: Thuy Mcclain Consults: 09/09/19 16:34 Consult Physician Routine Consulting Provider: Genaro Read Consult Reason/Comments: ovarian cancer Do you want consulting provider notified?: Yes Primary care physician: Ronna Beard Hospital Course: Final diagnosis Nausea, vomiting, diarrhea, possible acute infective gastroenteritis E. coli urinary tract infection, present on admission Possible neutropenic sepsis Hypokalemia Ascites status post abdominal paracentesis by radiology Neutropenia secondary to chemotherapy Ovarian cancer status post chemotherapy History of abdominal paracentesis Hyponatremia History of increased AST, ALT Possible acute urinary tract infection, present on admission History of asthma Hypertension History of syncope history of paracentesis History of left wrist pain history of anxiety, depression Remote history of nicotine dependence Gram-negative bacilli from the urine Hypoalbuminemia with mild protein calorie malnutrition Full code Discharge disposition Patient is being discharged in a stable condition with guarded prognosis to home and will follow-up with Dr. Ronna beard in the outpatient setting upon discharge. Patient will also be following up with oncology in the outpatient setting upon discharge. Patient will continue on oral antibiotics in the form of Macrobid for the next week. Total time taken is greater than 35 minutes. History of present illness This is a 69-year-old female who was recently admitted with nausea, vomiting, di arrhea and was being closely monitored. During hospitalization patient's potassium was replaced along with magnesium and will need repeat labs in 2-3 days to monitor electrolytes. Patient's nausea and vomiting had subsided and diarrhea continued but has lessened in nature. C. diff testing was negative. During auscultation patient also had some ascites and underwent paracentesis by radiology with removal of over 3 L of fluid. Patient will be obtaining a standing order from oncology for therapeutic paracentesis. Patient's oral intake has improved and patient would like to go home today. Patient had a urinalysis done showing the culture finalization of E. coli and will be continued on Macrobid for 1 week. Currently patient's condition is stable and is ready for discharge today. No reports of chest pain, palpitations, or worsening shortness of breath. Patient is afebrile. No reports of nausea or vomiting and patient is tolerating diet. Guarded prognosis. On exam vital signs are stable. Temp is 97.7 F, pulse is 75, respirations are 16, blood pressures 165/75, oxygen saturation is 94% on room air. Cardio S1, S2 are muffled. Respiratory system shows diminished breath sounds at the bases with no wheezing or rhonchi noted. Abdomen is soft, and nontender. Nervous system shows no focal deficits. Please refer to medication reconciliation sheet for a list of medications. Patient Condition at Discharge: Fair Plan - Discharge Summary New Discharge Prescriptions: New Metoclopramide [Reglan] 5 mg PO BID #60 tab Nitrofurantoin Monohyd/M-Cryst [Macrobid] 100 mg PO Q12HR 5 Days #5 cap Continue Levothyroxine Sodium [Synthroid] 125 mcg PO DAILY LORazepam [Ativan] 1 mg PO BID PRN PRN Reason: Anxiety Metoprolol Succinate (ER) [Toprol XL] 50 mg PO BID Zolpidem Tartrate [Ambien Cr] 12.5 mg PO HS PRN PRN Reason: Insomnia Ezetimibe/Simvastatin [Vytorin 10-20 mg] 1 tab PO DAILY amLODIPine [Norvasc] 10 mg PO DAILY Albuterol Sulfate [Ventolin HFA] 2 puff INHALATION RT-Q6H PRN PRN Reason: Shortness Of Breath Fluticasone Nasal [place] [Flonase Nasal [place]] 1 spray EA NOSTRIL DAILY Prochlorperazine [Compazine] 10 mg PO Q6H PRN PRN Reason: Nausea Ondansetron Odt [Zofran ODT] 4 mg PO Q6H PRN PRN Reason: Nausea Acetaminophen-Codeine 300-30mg [Tylenol w/codeine #3] 1 - 2 tab PO Q6H PRN PRN Reason: Pain Discharge Medication List LORazepam [Ativan] 1 mg PO BID PRN 08/23/19 [History] Levothyroxine Sodium [Synthroid] 125 mcg PO DAILY 08/23/19 [History] Metoprolol Succinate (ER) [Toprol XL] 50 mg PO BID 08/23/19 [History] Zolpidem Tartrate [Ambien Cr] 12.5 mg PO HS PRN 08/23/19 [History] Ezetimibe/Simvastatin [Vytorin 10-20 mg] 1 tab PO DAILY 08/24/19 [History] amLODIPine [Norvasc] 10 mg PO DAILY 08/24/19 [History] Acetaminophen-Codeine 300-30mg [Tylenol w/codeine #3] 1 - 2 tab PO Q6H PRN 09/09/19 [History] Albuterol Sulfate [Ventolin HFA] 2 puff INHALATION RT-Q6H PRN 09/09/19 [History] Fluticasone Nasal [place] [Flonase Nasal [place]] 1 spray EA NOSTRIL DAILY 09/09/19 [History] Ondansetron Odt [Zofran ODT] 4 mg PO Q6H PRN 09/09/19 [History] Prochlorperazine [Compazine] 10 mg PO Q6H PRN 09/09/19 [History] Metoclopramide [Reglan] 5 mg PO BID #60 tab 09/14/19 [Rx] Nitrofurantoin Monohyd/M-Cryst [Macrobid] 100 mg PO Q12HR 5 Days #5 cap 09/14/19 [Rx] Follow up Appointment(s)/Referral(s): Ronna Beard MD [Primary Care Provider] - 1-2 days (unable to get a hold of office,patient will have to call and schedule own appt.) Lamberto Banks MD [STAFF PHYSICIAN] - 09/20/19 11:15 am Ambulatory/Diagnostic Orders: Basic Metabolic Panel [LAB.AMB] Time Frame: 2 Days, Location: None Selected Patient Instructions/Handouts: Chemo Induced Nausea and Vomiting (DC) Activity/Diet/Wound Care/Special Instructions: Advance diet slowly and as tolerated Reglan Erx to pt preferred [facility] pharmacy Follow-up with primary care provider upon discharge Follow-up with oncology Continue with antibiotics for 5 days in the discontinue Repeat labs in 2-3 days Activity Limited until follow-up Paracentesis Orders Your script for standing orders for a paracentesis was sent to interventional radiology at [facility]. You will have to call and make an appointment, staff will see the order when you give them your information. Please allow one day to schedule the appointment (same day appointments are unlikely to be available). Discharge Disposition: HOME SELF-CARE
== END 2019-09-15 11:45 | disposition home or self-care (01) | DRG 872 ==
LOC: EC 10:05 → 5NMEDONC 13:29
PROVIDERS: ADMIT Hospitalist; ATTEND Hospitalist
PROC: 0W9G3ZZ Drainage of Peritoneal Cavity, Percutaneous Approach (ICD-10-PCS; principal; 2019-09-11)
DX: A41.89 Other specified sepsis (principal); R18.8 Other ascites; E44.0 Moderate protein-calorie malnutrition; K56.7 Ileus, unspecified; E87.1 Hypo-osmolality and hyponatremia; C56.9 Malignant neoplasm of unspecified ovary; N39.0 Urinary tract infection, site not specified; A09 Infectious gastroenteritis and colitis, unspecified; D70.1 Agranulocytosis secondary to cancer chemotherapy; E83.42 Hypomagnesemia; B96.20 Unspecified Escherichia coli [E. coli] as the cause of diseases classified elsewhere; E86.0 Dehydration; J45.909 Unspecified asthma, uncomplicated; I10 Essential (primary) hypertension; F41.9 Anxiety disorder, unspecified; E87.6 Hypokalemia; R32 Unspecified urinary incontinence; F32.9 Major depressive disorder, single episode, unspecified; Z68.28 Body mass index [BMI] 28.0-28.9, adult; T45.1X5A Adverse effect of antineoplastic and immunosuppressive drugs, initial encounter; Z71.3 Dietary counseling and surveillance; Z92.21 Personal history of antineoplastic chemotherapy; Z79.890 Hormone replacement therapy; Z79.899 Other long term (current) drug therapy; Z87.891 Personal history of nicotine dependence; Z98.890 Other specified postprocedural states; Z87.39 Personal history of other diseases of the musculoskeletal system and connective tissue; Z91.040 Latex allergy status; Z88.7 Allergy status to serum and vaccine; Z88.8 Allergy status to other drugs, medicaments and biological substances; Z88.6 Allergy status to analgesic agent; Z83.2 Family history of diseases of the blood and blood-forming organs and certain disorders involving the immune mechanism; Z82.61 Family history of arthritis; Z84.1 Family history of disorders of kidney and ureter
CPT/HCPCS: 36415; 49083; 74018; 74019; 76705; 80051; 80053; 81001; 82150; 83605; 83690; 83735; 84132; 84157; 85025; 85610; 85730; 87040; 87045; 87046; 87070; 87075; 87077; 87086; 87186; 87205; 87324; 87502; 88108; 88305; 88341; 88342; 89050; 94760; 96361; 96374; 96375; 96376; 99285

== ENCOUNTER 2019-09-25 11:57 | Day surgery (SDC) | payer MEDICARE, BC ==
[2019-09-25 12:40] LABS: Mean Platelet Volume 6.6; Platelet Count 534 k/uL (150-450)
[2019-09-25 12:41] VITALS: TEMP 97.8
[2019-09-25 12:48] LABS: Prothrombin Time 10.3 sec (9.0-12.0)
[2019-09-25 14:12] VITALS: BP 153/69; PULSE 78; RESP 16
--- NOTE | 2019-09-25 15:26 | US ---
EXAMINATION TYPE: US paracentesis abd w/image DATE OF EXAM: 09/25/2019 COMPARISON: NONE HISTORY: Ascites. PROCEDURE: Maximal barrier technique was utilized. The skin overlying a suitable pocket of fluid was localized with ultrasound and the overlying skin was prepped and draped. Ultrasound was utilized with sterile technique. Lidocaine was used for local anesthesia and a skin denny made with a scalpel. Catheter was advanced under direct ultrasound guidance into a suitable pocket of fluid and approximately 2.6 liter s of serous fluid were removed. Catheter was withdrawn and hemostasis achieved. There is no immedia te complication; the patient is discharged in stable condition. IMPRESSION: STATUS POST ULTRASOUND GUIDED PARACENTESIS FOR PALLIATION OF ASCITES. THIS PROCEDURE WA S PERFORMED BY THE UNDERSIGNED.
== END 2019-09-25 14:25 | disposition home or self-care (01) ==
LOC: RADPROMAIN 11:57
PROVIDERS: ATTEND Internal Medicine Hematology & Oncology
DX: R18.8 Other ascites (principal); C56.9 Malignant neoplasm of unspecified ovary; Z91.040 Latex allergy status
CPT/HCPCS: 36415; 49083; 85049; 85610

== ENCOUNTER → 2019-09-28 | Day surgery (SDC) | payer MEDICARE, BC ==
[2019-09-27 11:22] VITALS: BMI 27.4
[~2019-09-28] MED LIST: DEXAMETHASONE SOD PHOSPHATE 10 MG/ML 1 ML VIAL IV ONE; HEPARIN SODIUM,PORCINE 100 UNIT/ML 5 ML VIAL IV ONE; HEPARIN SODIUM,PORCINE 5,000 UNIT/ML 1 ML VIAL SQ ONE; HYDROcodone/APAP 5-325MG 1 EACH TAB PO PRN; HYDROmorphone 0.5 MG/0.5 ML SYRINGE IVP PRN; KETAMINE 10 MG/ML 20 ML VIAL ONE; LACTATED RINGERS 1,000 ML IV SCH; LIDOCAINE 1% 20 ML VIAL (10MG/ML) FOR IV START INTRADERMA PRN; LIDOCAINE 1% INJ 10MG/ML (20 ML MDV) SQ ONE; MIDAZOLAM 2 MG/2 ML VIAL ONE; NALOXONE 0.4 MG/ML 1 ML VIAL IV PRN; ONDANSETRON 4 MG/2 ML VIAL IVP ONE; PROPOFOL 10 MG/ML 20 ML VIAL IV ONE; SCOPOLAMINE 1.5MG/72HR PATCH TRANSDERM ONE; fentaNYL (PF) 50 MCG/ML 2 ML AMP ONE
[2019-09-28 13:11] VITALS: RESP 16; TEMP 97.5
[2019-09-28 13:22] LABS: Glucose,Whole Blood 111 mg/dL (75-99)
--- NOTE | 2019-09-28 13:45 | P.GSHP ---
History of Present Illness H&P Date: 09/28/19 Chief Complaint: Ovarian cancer Patient with recent diagnosis of ovarian cancer. Had a recent paracentesis. Starting chemotherapy in the near future. Here today for Port-A-Cath placement. She has not had a port previously. Past Medical History Past Medical History: Asthma, Cancer, Hypertension, Syncope, Thyroid Disorder Additional Past Medical History / Comment(s): ovarian CA, had chemotherapy 09/26/19 second time, was hospitalized 09/09-09/15 for post chemo N/V History of Any Multi-Drug Resistant Organisms: None Reported Additional Past Surgical History / Comment(s): paracentesis x5, left wrist, left shoulder, breast reduction, D&C 2015 Past Anesthesia/Blood Transfusion Reactions: No Reported Reaction Smoking Status: Former smoker - Past Family History Mother Family Medical History: Vascular Disorder Additional Family Medical History / Comment(s): anemia Father Additional Family Medical History / Comment(s): arthritis, kidney tumor Medications and Allergies Home Medications Medication Instructions Recorded Confirmed Type LORazepam [Ativan] 1 mg PO BID PRN 08/23/19 09/28/19 History Levothyroxine Sodium [Synthroid] 125 mcg PO DAILY 08/23/19 09/28/19 History Metoprolol Succinate (ER) [Toprol 100 mg PO HS 08/23/19 09/28/19 History XL] Ezetimibe/Simvastatin [Vytorin 1 tab PO DAILY 08/24/19 09/28/19 History 10-20 mg] amLODIPine [Norvasc] 10 mg PO QAM 08/24/19 09/28/19 History Ondansetron Odt [Zofran ODT] 4 mg PO Q6H PRN 09/09/19 09/28/19 History Prochlorperazine [Compazine] 10 mg PO Q6H PRN 09/09/19 09/28/19 History Metoclopramide [Reglan] 5 mg PO BID #60 tab 09/14/19 09/28/19 Rx Cholecalciferol [Vitamin D3] 400 unit PO DAILY@1200 09/25/19 09/28/19 History Albuterol Inhaler [Ventolin Hfa 1 - 2 puff INHALATION RT-Q6H PRN 09/27/19 09/28/19 History Inhaler] Cyanocobalamin (Vitamin B-12) 5,000 mcg PO DAILY 09/27/19 09/28/19 History [Vitamin B-12] Dexamethasone 4 mg PO BID 09/27/19 09/28/19 History Potassium Chloride ER [K-Dur 10] 10 meq PO DAILY 09/27/19 09/28/19 History Allergies Allergy/AdvReac Type Severity Reaction Status Date / Time DANAY Inhibitors Allergy Dyspnea Verified 09/28/19 12:51 aspirin Allergy Rash/Hives Verified 09/28/19 12:51 clonidine [From Catapres] Allergy Rash/Hives Verified 09/28/19 12:51 Latex, Natural Rubber Allergy Rash/Hives Verified 09/28/19 12:51 tetanus and diphtheria Allergy Rash/Hives Verified 09/28/19 12:51 toxoids Surgical - Exam Vital Signs Temp Pulse Resp BP Pulse Ox 97.5 F L 84 16 129/69 94 L 09/28/19 13:08 09/28/19 13:08 09/28/19 13:08 09/28/19 13:08 09/28/19 13:08 Physical exam: General: Well-developed, well-nourished HEENT: Normocephalic, sclerae nonicteric Abdomen: Nontender, nondistended Extremities: No edema Neuro: Alert and oriented Results - Labs Abnormal Lab Results - Last 24 Hours (Table) 09/28/19 Range/Units 13:13 POC Glucose (mg/dL) 111 H (75-99) mg/dL Assessment and Plan (1) Ovarian cancer Narrative/Plan: Will proceed with Port-A-Cath placement at this time. Risks of bleeding, infection, DVT, pneumothorax, catheter malfunction, anesthesia related co mplications were discussed. The patient understands and wishes to proceed. Current Visit: No Status: Acute Priority: High Code(s): C56.9 - MALIGNANT NEOPLASM OF UNSPECIFIED OVARY SNOMED Code(s): 976399759
--- NOTE | 2019-09-28 14:36 | P.OP ---
Date of Procedure: 09/28/19 Procedure(s) Performed: PREOPERATIVE DIAGNOSIS: Ovarian cancer POSTOPERATIVE DIAGNOSIS: Same PROCEDURE: Port-A-Cath placement SURGEON: Kisha EBL: Minimal ANESTHESIA: Sedation COMPLICATIONS: None OPERATIVE PROCEDURE: Patient was brought and placed on the operative table in the supine position. The patient was sedated per anesthesia that time. The chest and neck were prepped and draped in usual sterile fashion. The ultrasound probe was used to identify the location of the right internal jugular vein. The skin was localized with lidocaine. The Seldinger needle was advanced into the IJ under ultrasound guidance. The wire was advanced through the needle under fluoroscopic guidance into the superior vena cava. A port pocket was created in the right infraclavicular location. The catheter was tunneled from the wire entrance site to the port pocket. The port was then connected to the catheter. The dilator introducer was threaded over the guidewire. The guidewire and dilator were then removed. The catheter was advanced through the introducer and introducer was then removed. The tip was seen to be in the right atrial junction. Port was flushed with both saline and a Hep-Lock solution. There was good flow both in and out of the port. The port was sutured in underlying tissues using 3-0 silk sutures. The subcutaneous tissues were reapproximated using 3-0 Vicryl sutures and the skin at both locations using 4-0 Monocryl sutures. Skin glue and sterile dressings then applied. DISPOSITION: Stable to recovery room
--- NOTE | 2019-09-28 14:41 | FL ---
Fluoroscopy HISTORY: Port-A-Cath insertion 4 seconds fluoroscopy time supplied to the referring clinician. 1 intraoperative C-arm images docume nt the procedure. See dictated report from general surgery.
--- NOTE | 2019-09-28 14:56 | XR ---
EXAMINATION TYPE: XR chest 1V confirm line [facility] DATE OF EXAM: 09/28/2019 COMPARISON: Prior chest x-ray 08/24/2019 HISTORY: Status post Port-A-Cath placement TECHNIQUE: Single frontal view of the chest is obtained. FINDINGS: Interval placement of a Port-A-Cath in the right pectoral region, right jugular approach, distal tip the catheter overlying superior vena cava. No evident pneumothorax or pleural effusion. No other significant change. IMPRESSION: No evident complication status post Port-A-Cath placement.
[2019-09-28 15:13] VITALS: BP 159/90; PULSE 74
== END ==
LOC: OR 12:20
PROVIDERS: ATTEND Surgery
DX: I10 Essential (primary) hypertension (principal); C56.9 Malignant neoplasm of unspecified ovary; G43.909 Migraine, unspecified, not intractable, without status migrainosus; E78.5 Hyperlipidemia, unspecified; F41.9 Anxiety disorder, unspecified; F32.9 Major depressive disorder, single episode, unspecified; E07.9 Disorder of thyroid, unspecified; Z87.891 Personal history of nicotine dependence; Z90.89 Acquired absence of other organs; Z98.890 Other specified postprocedural states; Z80.49 Family history of malignant neoplasm of other genital organs; Z80.51 Family history of malignant neoplasm of kidney; Z79.899 Other long term (current) drug therapy; Z79.890 Hormone replacement therapy; Z91.040 Latex allergy status; Z88.6 Allergy status to analgesic agent; Z88.8 Allergy status to other drugs, medicaments and biological substances; Z92.21 Personal history of antineoplastic chemotherapy; Z88.7 Allergy status to serum and vaccine; Z82.61 Family history of arthritis
CPT/HCPCS: 77001; 36561; C1788; J2250; J1644; J1642; J1100; J0690; J2405; J2001; J3010; J2704; J1170

== ENCOUNTER 2019-10-04 12:30 | Day surgery (SDC) | payer MEDICARE, BC ==
[2019-10-04 12:46] VITALS: BP 137/66; PULSE 77; RESP 20; TEMP 97.1
--- NOTE | 2019-10-04 13:22 | US ---
EXAMINATION TYPE: US abdomen limited DATE OF EXAM: 10/04/2019 COMPARISON: NONE CLINICAL HISTORY: R18.8 ascites C56.9 Malignant neoplasm of unspecif. No ascites seen by ultrasound. IMPRESSION: No evidence of ascites
== END 2019-10-04 13:10 | disposition home or self-care (01) ==
LOC: RADPROMAIN 12:30
PROVIDERS: ATTEND Internal Medicine Hematology & Oncology
DX: R18.8 Other ascites (principal); C56.9 Malignant neoplasm of unspecified ovary; Z53.8 Procedure and treatment not carried out for other reasons
CPT/HCPCS: 76705

== ENCOUNTER → 2019-10-27 | Outpatient (CLI) | payer MEDICARE, BC ==
[2019-10-27 11:06] LABS: African American GFR (CKD) >90 (>60 ml/min/1.73 sqM); Blood Urea Nitrogen 9 mg/dL (7-17); Non-African American GFR(CKD) 87 (>60 ml/min/1.73 sqM)
--- NOTE | 2019-10-27 12:50 | CT ---
EXAMINATION TYPE: CT abdomen pelvis w con DATE OF EXAM: 10/27/2019 COMPARISON: 09/29/2018 HISTORY: 69-year-old female follow up ovarian cancer TECHNIQUE: Contiguous axial scanning of the abdomen and pelvis following administration of 100 ml Iso bj 300 IV contrast. Delayed images through the kidneys and coronal/sagittal reconstructions perform ed. CT DLP: 569.3 mGycm Automated exposure control for dose reduction was used. FINDINGS: The heart is borderline enlarged without pericardial effusion. Prominent dependent atelectasis at the lung bases. An 8 mm area of subpleural nodularity peripheral r ight base could represent a nodular area of atelectasis and maybe reassessed at short interval follow -up. Focal fat along the anterior falciform ligament unchanged from prior. No abnormal gallbladder distention. Portal venous system is patent. No biliary ductal dilatation. Adrenal glands, right kidney, spleen, and pancreas show no gross abnormality. 5 mm cortical hypodensity posterior upper pole left kidney too small for accurate CT characterization , likely tiny cyst. Moderate to severe atelectatic calcifications abdominal aorta without aneurysm. Some borderline to mildly distended small bowel loops in the left side of the abdomen measuring up to 3.5 cm without transition point. The previous abdominal ascites has largely resolved. Trace ascites along the inferior right liver lob e and anterior lower aspect of the spleen. There is residual omental cake on the left with overall soft tissue density decreased from 07/21/2019 . Borderline size 6 mm right mid abdominal mesenteric lymph node, axial image 42 may be new or larger. 6 mm right common iliac chain lymph node, axial image 59 is unchanged. Additional scattered nonenlarged mesenteric lymph nodes remain stable. Moderate stool burden. Mild sigmoid diverticulosis. No pericolic inflammatory change. Bladder partially distended. Mild pelvic ascites remains anteriorly and within the cul-de-sac, decrea sed from prior. Pelvic phlebolith. Uterus is anteverted with an changed individual stripe thickening versus fluid distention of the uterine cavity up to 9 mm. Irregular soft tissue density high right ad nexa measures 2.5 x 2.3 cm versus approximately 2.7 cm, previously, partially obscured by the previou s ascites fluid. Suspect visualization of the left ovary. No pelvic lymphadenopathy seen. 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 IMPRESSION: 1. IMPROVEMENT IN THE PREVIOUS ASCITES. TRACE FLUID REMAINS IN THE ABDOMEN AND MILD PELVIC ASCITES RE WALKER. 2. IRREGULAR SOFT TISSUE (POSSIBLY RELATING TO THE RIGHT OVARY) WITHIN THE HIGH RIGHT ADNEXA MEASURES 2.5 CM VERSUS 2.7 CM, PREVIOUSLY WHERE IT WAS PARTIALLY OBSCURED BY THE ASCITES FLUID. 3. RESIDUAL OMENTAL CAKE ON THE LEFT. OVERALL SOFT TISSUE DENSITY HAS DECREASED FROM 07/21/2019. 4. THESE FINDINGS SUGGEST OVERALL PARTIAL TREATMENT RESPONSE. HOWEVER, CONTINUED SHORT INTERVAL FOLLO W-UP RECOMMENDED GIVEN A NEW 6 MM RIGHT MID ABDOMINAL MESENTERIC LYMPH NODE WHICH COULD BE REACTIVE A ND EITHER A 8 MM RIGHT BASILAR PULMONARY NODULE VERSUS NODULAR ATELECTASIS.
== END | disposition home or self-care (01) ==
LOC: RADPROMAIN 10:23
PROVIDERS: ATTEND Internal Medicine Hematology & Oncology
DX: R18.8 Other ascites (principal); M79.89 Other specified soft tissue disorders; R93.5 Abnormal findings on diagnostic imaging of other abdominal regions, including retroperitoneum; C56.9 Malignant neoplasm of unspecified ovary; Z91.040 Latex allergy status; Z88.8 Allergy status to other drugs, medicaments and biological substances; Z88.6 Allergy status to analgesic agent
CPT/HCPCS: 82565; 84520; 74177; J1642; Q9967

== ENCOUNTER 2020-01-14 09:42 | Emergency (ER) | payer MEDICARE, BC ==
[2020-01-14 09:52] VITALS: RESP 16
[2020-01-14] MEDS ORDERED: ONDANSETRON 4 MG/2 ML VIAL IVP STA (10:08)
[2020-01-14] MEDS ORDERED: diphenhydrAMINE 50 MG/ML 1 ML VIAL IVP STA (10:08)
[2020-01-14] MEDS ORDERED: KETOROLAC 30 MG/ML 1 ML VIAL IVP STA ×2 (10:08→13:41)
[2020-01-14] MEDS ORDERED: SODIUM CHLORIDE 0.9% 1,000 ML IV STA (10:08)
--- NOTE | 2020-01-14 10:32 | ED ---
Headache HPI - General Chief Complaint: Headache Stated Complaint: headaches/cancer pt Time Seen by Provider: 01/14/20 10:00 Mode of arrival: ambulatory Limitations: no limitations - History of Present Illness Initial Comments: Patient is a 69-year-old female presenting to the emergency Department with complaints of a headache 4 days. Patient states she is currently receiving chemotherapy for ovarian cancer. Patient states after her last treatment she started having a mild headache that has been steadily progressing. Patient states she took her [place] medication at home as well as Tylenol and that does seem to dull the headache has not completely taken it away. She denies any recent fever, chills, chest pain, shortness of breath. She does admit to mild nausea intermittently, no vomiting or diarrhea. She denies any blurry vision. She states she has been able to drink fluids and slightly decreased appetite. She has no further complaints at this time. Upon arrival to the ER, her vitals are stable. - Related Data Home Medications Medication Instructions Recorded Confirmed LORazepam [Ativan] 1 mg PO TID 08/23/19 01/14/20 Levothyroxine Sodium [Synthroid] 125 mcg PO DAILY 08/23/19 01/14/20 Metoprolol Succinate (ER) [Toprol 100 mg PO BID 08/23/19 01/14/20 XL] Ezetimibe/Simvastatin [Vytorin 1 tab PO DAILY 08/24/19 01/14/20 10-20 mg] amLODIPine [Norvasc] 10 mg PO QAM 08/24/19 01/14/20 Cholecalciferol [Vitamin D3] 400 unit PO DAILY@1200 09/25/19 01/14/20 Albuterol Inhaler (Mhu) [Ventolin 1 - 2 puff INHALATION RT-Q6H PRN 09/27/19 01/14/20 Hfa Inhaler] Cyanocobalamin (Vitamin B-12) 5,000 mcg PO DAILY 09/27/19 01/14/20 [Vitamin B-12] Eszopiclone 3 mg PO HS 01/14/20 01/14/20 Hydrocodone/Acetaminophen [[place] 1 tab PO TID PRN 01/14/20 01/14/20 5-325] Ondansetron Odt [Zofran Odt] 8 mg PO Q8H PRN 01/14/20 01/14/20 Sertraline HCl [Zoloft] 50 mg PO HS 01/14/20 01/14/20 Allergies Allergy/AdvReac Type Severity Reaction Status Date / Time DANAY Inhibitors Allergy Dyspnea Verified 01/14/20 13:11 acetaminophen Allergy Rash/Hives Verified 01/14/20 13:11 [From Tylenol-Codeine #3] aspirin Allergy Rash/Hives Verified 01/14/20 13:11 clonidine [From Catapres] Allergy Rash/Hives Verified 01/14/20 13:11 codeine Allergy Rash/Hives Verified 01/14/20 13:11 [From Tylenol-Codeine #3] Latex, Natural Rubber Allergy Rash/Hives Verified 01/14/20 13:11 tetanus and diphtheria Allergy Rash/Hives Verified 01/14/20 13:11 toxoids Review of Systems ROS Statement: Those systems with pertinent positive or pertinent negative responses have been documented in the HPI. ROS Other: All systems not noted in ROS Statement are negative. Past Medical History Past Medical History: Asthma, Cancer, Hypertension, Syncope Additional Past Medical History / Comment(s): ovarian CA History of Any Multi-Drug Resistant Organisms: None Reported Additional Past Surgical History / Comment(s): multiple paracentesis, left wrist, left shoulder, breast reduction, D&C 2016, Splenectomy, total hysterectomy. Past Anesthesia/Blood Transfusion Reactions: No Reported Reaction Past Psychological History: Anxiety, Depression Smoking Status: Former smoker Past Alcohol Use History: None Reported Past Drug Use History: None Reported - Past Family History Mother Family Medical History: Vascular Disorder Additional Family Medical History / Comment(s): anemia Father Additional Family Medical History / Comment(s): arthritis, kidney tumor General Exam - General Exam Comments Initial Comments: GENERAL: Well-appearing, well-nourished and in no acute distress. HEAD: Atraumatic, normocephalic. EYES: Pupils equal round and reactive to light, extraocular movements intact, sclera anicteric, conjunctiva are normal. ENT: TMs normal, nares patent, oropharynx clear without exudates. Moist mucous membranes. NECK: Normal range of motion, supple without lymphadenopathy or JVD. LUNGS: Breath sounds clear to auscultation bilaterally and equal. No wheezes rales or rhonchi. HEART: Regular rate and rhythm without murmurs, rubs or gallops. ABDOMEN: Soft, nontender, normoactive bowel sounds. No guarding, no rebound. No masses appreciated. : Deferred EXTREMITIES: Normal range of motion, no pitting or edema. No clubbing or cyanosis. Strength is 5 out of 5 upper and lower extremities. Sensation is equal in bilateral upper and lower extremities. PSYCH: Normal mood, normal affect. SKIN: Warm, Dry, normal turgor, no rashes or lesions noted. Limitations: no limitations Neurological exam: Present: alert, CN II-XII intact, normal gait Expanded Patient oriented to: Present: person, place, time Speech: Present: fluid speech Cranial nerves: EOM's Intact: Normal, Tongue Deviation: Normal, Facial S ensation: Normal Cerebellar function: Finger to Nose: Normal, Heel to [place]: Normal Upper motor neuron: Pronator Drift: Normal Sensory exam: Upper Extremity Light Touch: Normal, Lower Extremity Light Touch: Normal Motor strength exam: RUE: 5, LUE: 5, RLE: 5, LLE: 5 Course Vital Signs 01/14/20 01/14/20 01/14/20 09:48 12:00 14:37 Temperature 97.9 F 98.1 F Pulse Rate 86 69 77 Respiratory 16 16 16 Rate Blood Pressure 135/86 145/92 148/76 O2 Sat by Pulse 98 99 98 Oximetry Medical Decision Making - Medical Decision Making Patient is a 69-year-old female here with headache that has been increasing over the past 4 days. No trauma or falls. This is gradual in nature. Patient is currently receiving chemo for ovarian cancer. She states she sometimes gets these headaches after treatment. Her exam is unremarkable, no neuro deficits. Basic labs were obtained and shows a white cell, 33,000 however patient gets a white blood cell enhancer injection the day after her chemotherapy treatments. She did receive this 2 days ago. Patient's potassium was 2.9, the rest of her labs show no acute abnormalities. Patient was given fluids, pain control, Zofran, Benadryl as well as oral and IV potassium. She reports improvement in her symptoms. She does have an appointment with her PCP in 2 days for a checkup. Patient will try Claritin or Zyrtec for her sinus congestion. She is in agreement with this plan of care. She is stable for discharge. Return parameters were discussed with the patient she verbalized understanding. With Dr. Durand. - Lab Data Result diagrams: 01/14/20 10:28 01/14/20 10:28 Lab Results 01/14/20 01/14/20 Range/Units 10:28 10:28 WBC 33.5 H (3.8-10.6) k/uL RBC 3.73 L (3.80-5.40) m/uL Hgb 11.1 L (11.4-16.0) gm/dL Hct 35.1 (34.0-46.0) % MCV 94.3 (80.0-100.0) fL MCH 29.7 (25.0-35.0) pg MCHC 31.5 (31.0-37.0) g/dL RDW 13.6 (11.5-15.5) % Plt Count 255 (150-450) k/uL Neutrophils % (Manual) 90 % Band Neutrophils % 3 % Lymphocytes % (Manual) 3 % Monocytes % (Manual) 1 % Metamyelocytes % 3 % Myelocytes % 2 % Neutrophils # (Manual) 31.10 H (1.3-7.7) k/uL Lymphocytes # (Manual) 1.01 (1.0-4.8) k/uL Monocytes # (Manual) 0.34 (0-1.0) k/uL Metamyelocytes # (Man) 1.01 H (0) k/uL Myelocytes # (Manual) 0.67 H (0) k/uL Nucleated RBCs 0 (0-0) /100 WBC Manual Slide Review Performed Toxic Granulation Present Toxic Vacuolation Present Sodium 136 L (137-145) mmol/L Potassium 2.9 L (3.5-5.1) mmol/L Chloride 100 (98-107) mmol/L Carbon Dioxide 26 (22-30) mmol/L Anion Gap 10 mmol/L BUN 10 (7-17) mg/dL Creatinine 0.42 L (0.52-1.04) mg/dL Est GFR (CKD-EPI)AfAm >90 (>60 ml/min/1.73 sqM) Est GFR (CKD-EPI)NonAf >90 (>60 ml/min/1.73 sqM) Glucose 136 H (74-99) mg/dL Calcium 9.4 (8.4-10.2) mg/dL Total Bilirubin 0.3 (0.2-1.3) mg/dL AST 18 (14-36) U/L ALT 12 (4-34) U/L Alkaline Phosphatase 75 (38-126) U/L Total Protein 7.0 (6.3-8.2) g/dL Albumin 4.2 (3.5-5.0) g/dL Disposition Clinical Impression: Headache, Hypokalemia Disposition: HOME SELF-CARE Condition: Stable Instructions (If sedation given, give patient instructions): Hypokalemia (ED) Additional Instructions: Please return to the Emergency Department if symptoms worsen or any other concerns. Follow-up with PCP as discussed on Wednesday. Trial of Claritin or Zyrtec for sinus congestion. Is patient prescribed a controlled substance at d/c from ED?: No Referrals: Ronna Beard MD [Primary Care Provider] - 1-2 days
[2020-01-14 10:36] LABS: HCT 35.1 % (34.0-46.0); HGB 11.1 gm/dL (11.4-16.0); MCH 29.7 pg (25.0-35.0); MCHC 31.5 g/dL (31.0-37.0); MCV 94.3 fL (80.0-100.0); Mean Platelet Volume 7.8; Platelet Count 255 k/uL (150-450); RBC 3.73 m/uL (3.80-5.40); RDW 13.6 % (11.5-15.5); WBC 33.5 k/uL (3.8-10.6)
[2020-01-14 10:50] LABS: ALT 12 U/L (4-34); AST 18 U/L (14-36); African American GFR (CKD) >90 (>60 ml/min/1.73 sqM); Albumin 4.2 g/dL (3.5-5.0); Alkaline Phosphatase 75 U/L (38-126); Anion Gap 10 mmol/L; Blood Urea Nitrogen 10 mg/dL (7-17); Calcium 9.4 mg/dL (8.4-10.2); Carbon Dioxide 26 mmol/L (22-30); Chloride 100 mmol/L (98-107); Glucose 136 mg/dL (74-99); Non-African American GFR(CKD) >90 (>60 ml/min/1.73 sqM); Potassium 2.9 mmol/L (3.5-5.1); Sodium 136 mmol/L (137-145); Total Bilirubin 0.3 mg/dL (0.2-1.3)
[2020-01-14 10:53] LABS: Band Neutrophils % 3 %; Lymphocytes # (M) 1.01 k/uL (1.0-4.8); Metamyelocytes # (M) 1.01 k/uL (0); Metamyelocytes % 3 %; Monocytes # (M) 0.34 k/uL (0-1.0); Myelocytes # (M) 0.67 k/uL (0); Myelocytes % 2 %; Neutrophils % (M) 90 %; Nucleated Red Blood Cells 0 /100 WBC (0-0); Total Cells Counted 200; Toxic Granulation Present; Toxic Vacuolation Present
[2020-01-14] MEDS ORDERED: POTASSIUM CHLORIDE ER 20 MEQ TAB.ER PO STA (11:07)
[2020-01-14] MEDS ORDERED: POTASSIUM CHLORIDE 20 MEQ in WATER FOR INJECTION 1 100ML.BAG IVPB STA (11:13)
[2020-01-14 14:38] VITALS: BP 148/76; PULSE 77; TEMP 98.1
== END 2020-01-14 14:40 | disposition home or self-care (01) ==
LOC: EC 09:42
DX: E87.6 Hypokalemia (principal); R51 Headache; R11.0 Nausea; C56.9 Malignant neoplasm of unspecified ovary; J45.909 Unspecified asthma, uncomplicated; I10 Essential (primary) hypertension; F41.9 Anxiety disorder, unspecified; F32.9 Major depressive disorder, single episode, unspecified; Z79.51 Long term (current) use of inhaled steroids; Z79.899 Other long term (current) drug therapy; Z87.891 Personal history of nicotine dependence; Z88.5 Allergy status to narcotic agent; Z91.040 Latex allergy status; Z88.7 Allergy status to serum and vaccine; Z88.6 Allergy status to analgesic agent; Z88.8 Allergy status to other drugs, medicaments and biological substances; Z92.21 Personal history of antineoplastic chemotherapy
CPT/HCPCS: 36415; 80053; 85025; 99284; 96365; 96366; 96375 ×3; 96376; 96361; J1200; J3480; J2405; J1885

== ENCOUNTER → 2020-03-14 | Outpatient (CLI) | payer MEDICARE, BC ==
[2020-03-14 14:17] LABS: African American GFR (CKD) >90 (>60 ml/min/1.73 sqM); Blood Urea Nitrogen 10 mg/dL (7-17); Non-African American GFR(CKD) >90 (>60 ml/min/1.73 sqM)
--- NOTE | 2020-03-15 09:33 | CT ---
EXAMINATION TYPE: CT abdomen pelvis w con DATE OF EXAM: 03/14/2020 COMPARISON: 10/27/2019 and 07/29/2019 HISTORY: 70-year-old female Follow up for ovarian CA TECHNIQUE: Contiguous axial scanning of the abdomen and pelvis following administration of 100 ml Iso bj 300 IV contrast. Delayed images through the kidneys and coronal/sagittal reconstructions perform ed. CT DLP: 471.4 mGycm Automated exposure control for dose reduction was used. FINDINGS: Heart upper limits of normal in size without pericardial effusion. Mild RCA and LAD coronary artery c alcifications are present. The 8 mm peripheral right basilar pulmonary nodule is unchanged from 10/27/2019 but not clearly apprec iated on 07/21/2019. Intervertebral laparotomy change. Mild anasarca change. The spleen appears to be partially absent. Some nodular soft tissue and fluid is present in the left subphrenic region, likely residual splenic tissue and postoperative fluid measuring 3.2 x 2.4 cm. Mild upper abdominal ascites show slight increase in the interval. No focal liver lesion or biliary d uctal dilatation. Portal venous system is patent. Gallbladder, adrenal glands, kidneys, and pancreas appear within normal limits. The previous 6 mm right mid abdominal mesenteric lymph node is no longer identified. No progressive m ediastinal or retroperitoneal lymphadenopathy is seen. Circumaortic left renal vein. Moderate atherosclerotic calcifications in the abdominal aorta. No dilated small bowel or free air. Continued improvement in the residual left omental cake. Some minimal strandy density remains in this region, refer to axial image 35. These could represent vessels or some postsurgical change or minima l residual density. Normal appendix. Oral contrast progressed to the splenic flexure. Scattered bowel stool. Mild mid to distal sigmoid diverticulosis. No pericolonic inflammatory change. Bladder partially distended. Pelvic phleboliths. Uterus is surgically absent. No adnexal mass is iden tified. No abnormal fluid collection in the pelvis or pelvic lymphadenopathy seen. Bones: Degenerative disc disease and hypertrophic facet arthropathy mid to lower lumbar spine. Dextro convex curvature. [place]'s disease. IMPRESSION: 1. INTERVAL LAPAROTOMY CHANGE WITH HYSTERECTOMY AND SALPINGO-OOPHORECTOMIES. THERE SEEMS TO HAVE BEEN PARTIAL SPLENECTOMY WELL. CLINICALLY CORRELATE. 2. MILD ANASARCA CHANGE. MILD UPPER ABDOMINAL ASCITES SHOWS SLIGHT INCREASE IN THE INTERVAL. 3. HOWEVER, THE PREVIOUSLY MENTIONED 6 MM RIGHT MID ABDOMINAL MESENTERIC LYMPH NODE IS NO LONGER IDEN TIFIED. THE PREVIOUSLY SEEN RESIDUAL LEFT OMENTAL CAKE HAS ALSO IMPROVED. MINIMAL STRANDY DENSITY REM AINS HERE. NO NEW OR PROGRESSIVE DISEASE IS IDENTIFIED. 4. THE 8MM RIGHT BASILAR PULMONARY NODULE REMAINS UNCHANGED FROM 10/27/2019. PREVIOUSLY NOTED TO BE NE W COMPARED TO 07/29/2019.
== END | disposition home or self-care (01) ==
LOC: RADPROMAIN 13:30
PROVIDERS: ATTEND Internal Medicine Hematology & Oncology
DX: R18.8 Other ascites (principal); Z90.81 Acquired absence of spleen; C56.9 Malignant neoplasm of unspecified ovary; Z91.040 Latex allergy status; Z88.6 Allergy status to analgesic agent; Z88.8 Allergy status to other drugs, medicaments and biological substances
CPT/HCPCS: 82565; 84520; 74177; 36415; Q9967

== ENCOUNTER 2020-05-16 10:23 | Emergency (ER) | payer MEDICARE, BC ==
--- NOTE | 2020-05-16 11:55 | XR ---
EXAMINATION TYPE: XR KUB DATE OF EXAM: 05/16/2020 Comparison: 09/09/2019 Clinical History: 70-year-old female constipation Findings: Lung bases are clear. No evidence for free intraperitoneal air. Scattered colonic air and stool. Moderate to large stool in the left side of the colon. No differenti al air-fluid levels identified. No frankly dilated small bowel loops. A couple surgical clips in the left side. Impression: Nonspecific overall nonobstructive bowel gas pattern. Moderate to large stool within the left side of the colon.
[2020-05-16 12:20] LABS: Basophils % (A) 1 %; Eosinophils # (A) 0.1 k/uL (0-0.7); Eosinophils % (A) 2 %; HCT 36.7 % (34.0-46.0); HGB 11.7 gm/dL (11.4-16.0); Lymphocytes # (A) 1.4 k/uL (1.0-4.8); Lymphocytes % (A) 30 %; MCH 30.9 pg (25.0-35.0); MCHC 31.9 g/dL (31.0-37.0); MCV 96.7 fL (80.0-100.0); Mean Platelet Volume 7.9; Monocytes # (A) 0.1 k/uL (0-1.0); Monocytes % (A) 3 %; Neutrophils # (A) 2.9 k/uL (1.3-7.7); Neutrophils % (A) 64 %; RDW 13.1 % (11.5-15.5); WBC 4.6 k/uL (3.8-10.6)
[2020-05-16 12:35] LABS: Albumin 4.4 g/dL (3.5-5.0); Calcium 9.5 mg/dL (8.4-10.2); Potassium 3.7 mmol/L (3.5-5.1); Total Bilirubin 0.5 mg/dL (0.2-1.3); Total Protein 7.3 g/dL (6.3-8.2)
[2020-05-16 12:41] LABS: Platelet Count 69 k/uL (150-450)
--- NOTE | 2020-05-16 14:04 | ED ---
Abdominal Pain HPI - General Chief Complaint: Abdominal Pain Stated Complaint: Constipation Time Seen by Provider: 05/16/20 10:34 Source: patient Mode of arrival: ambulatory Limitations: no limitations - History of Present Illness Initial Comments: 70yo female presenting for cc of constipation. Patient states that she has been having constipation for past 6 days. She states she has struggled with constipation long before her diagnosis of ovarian cancer. Patient states she has some nausea, no vomiting. Admits to small amount of stool when she has attempted home enemas, she has also taken miralax daily and colace without any significant success. Patient denies fevers, admits to abdominal distention. Denies bloody stools. Patient denies chest pain, SOB or additional complaints. SHe is pleasant and appears well on arrival. - Related Data Home Medications Medication Instructions Recorded Confirmed LORazepam [Ativan] 1 mg PO TID 08/23/19 01/14/20 Levothyroxine Sodium [Synthroid] 125 mcg PO DAILY 08/23/19 01/14/20 Metoprolol Succinate (ER) [Toprol 100 mg PO BID 08/23/19 01/14/20 XL] Ezetimibe/Simvastatin [Vytorin 1 tab PO DAILY 08/24/19 01/14/20 10-20 mg] amLODIPine [Norvasc] 10 mg PO QAM 08/24/19 01/14/20 Cholecalciferol [Vitamin D3] 400 unit PO DAILY@1200 09/25/19 01/14/20 Albuterol Inhaler (Mhu) [Ventolin 1 - 2 puff INHALATION RT-Q6H PRN 09/27/19 01/14/20 Hfa Inhaler] Cyanocobalamin (Vitamin B-12) 5,000 mcg PO DAILY 09/27/19 01/14/20 [Vitamin B-12] Eszopiclone 3 mg PO HS 01/14/20 01/14/20 Hydrocodone/Acetaminophen [[place] 1 tab PO TID PRN 01/14/20 01/14/20 5-325] Ondansetron Odt [Zofran Odt] 8 mg PO Q8H PRN 01/14/20 01/14/20 Sertraline HCl [Zoloft] 50 mg PO HS 01/14/20 01/14/20 Allergies Allergy/AdvReac Type Severity Reaction Status Date / Time DANAY Inhibitors Allergy Dyspnea Verified 05/16/20 10:33 aspirin Allergy Rash/Hives Verified 05/16/20 10:33 clonidine [From Catapres] Allergy Rash/Hives Verified 05/16/20 10:33 codeine Allergy Rash/Hives Verified 01/14/20 13:11 [From Tylenol-Codeine #3] Latex, Natural Rubber Allergy Rash/Hives Verified 05/16/20 10:33 tetanus and diphtheria Allergy Rash/Hives Verified 05/16/20 10:33 toxoids Review of Systems ROS Statement: Those systems with pertinent positive or pertinent negative responses have been documented in the HPI. ROS Other: All systems not noted in ROS Statement are negative. Past Medical History Past Medical History: Asthma, Cancer, Hypertension, Syncope Additional Past Medical History / Comment(s): ovarian CA History of Any Multi-Drug Resistant Organisms: None Reported Additional Past Surgical History / Comment(s): multiple paracentesis, left wrist, left shoulder, breast reduction, D&C 2016, Splenectomy, total hysterectomy. Past Anesthesia/Blood Transfusion Reactions: No Reported Reaction Past Psychological History: Anxiety, Depression Smoking Status: Never smoker Past Alcohol Use History: None Reported Past Drug Use History: None Reported - Past Family History Mother Family Medical History: Vascular Disorder Additional Family Medical History / Comment(s): anemia Father Additional Family Medical History / Comment(s): arthritis, kidney tumor General Exam - General Exam Comments Initial Comments: General: The patient is awake and alert, in no distress Eye: +3 mm pupils are equal, round and reactive to light, extra-ocular movements are intact. No nystagmus. There is normal conjunctiva bilaterally. No signs of icterus. Cardiovascular: There is a regular rate and rhythm. No murmur, rub or gallop is appreciated. Respiratory: Lungs are clear to auscultation, respirations are non-labored, breath sounds are equal. No wheezes, stridor, rales, or rhonchi. Gastrointestinal: Soft, slightly distended, non-tender abdomen without masses or organomegaly noted. There is no rebound or guarding present. Musculoskeletal: Normal ROM, no tenderness. Strength 5/5. Sensation intact. Radial pulses equal bilaterally 2+. Neurological: A&O x 3. CN II-XII intact grossly, There are no obvious motor or sensory deficits. Coordination appears grossly intact. Speech is normal. Skin: Skin is warm and dry and no rashes or lesions are noted. Psychiatric: Cooperative, appropriate mood & affect, normal judgment. Limitations: no limitations Course Vital Signs 05/16/20 05/16/20 10:31 14:44 Temperature 98.4 F 98.6 F Pulse Rate 87 71 Respiratory 18 17 Rate Blood Pressure 123/80 127/74 O2 Sat by Pulse 97 98 Oximetry Medical Decision Making - Medical Decision Making 70yo female presenting today for cc of constipation. KUB fecal stasis, no obstruction.Enema not successfull but there is not a lot of distal fecal stasis on imaging studies. Patient case discussed with Dr. Mcallister who reviewed imaging recommended discharge wtih oral agents and return for persistent constipation, vomiting, increasing nausea, pain. Patient agreeable to care plan. - Lab Data Result diagrams: 05/16/20 12:09 05/16/20 12:09 Lab Results 05/16/20 05/16/20 Range/Units 12:09 12:09 WBC 4.6 (3.8-10.6) k/uL RBC 3.80 (3.80-5.40) m/uL Hgb 11.7 (11.4-16.0) gm/dL Hct 36.7 (34.0-46.0) % MCV 96.7 (80.0-100.0) fL MCH 30.9 (25.0-35.0) pg MCHC 31.9 (31.0-37.0) g/dL RDW 13.1 (11.5-15.5) % Plt Count 69 L (150-450) k/uL Neutrophils % 64 % Lymphocytes % 30 % Monocytes % 3 % Eosinophils % 2 % Basophils % 1 % Neutrophils # 2.9 (1.3-7.7) k/uL Lymphocytes # 1.4 (1.0-4.8) k/uL Monocytes # 0.1 (0-1.0) k/uL Eosinophils # 0.1 (0-0.7) k/uL Basophils # 0.0 (0-0.2) k/uL Manual Slide Review Performed Sodium 133 L (137-145) mmol/L Potassium 3.7 (3.5-5.1) mmol/L Chloride 97 L (98-107) mmol/L Carbon Dioxide 27 (22-30) mmol/L Anion Gap 9 mmol/L BUN 13 (7-17) mg/dL Creatinine 1.14 H (0.52-1.04) mg/dL Est GFR (CKD-EPI)AfAm 56 (>60 ml/min/1.73 sqM) Est GFR (CKD-EPI)NonAf 48 (>60 ml/min/1.73 sqM) Glucose 108 H (74-99) mg/dL Calcium 9.5 (8.4-10.2) mg/dL Total Bilirubin 0.5 (0.2-1.3) mg/dL AST 34 (14-36) U/L ALT 20 (4-34) U/L Alkaline Phosphatase 79 (38-126) U/L Total Protein 7.3 (6.3-8.2) g/dL Albumin 4.4 (3.5-5.0) g/dL Disposition Clinical Impression: Constipation Disposition: HOME SELF-CARE Condition: Good Instructions (If sedation given, give patient instructions): Constipation (ED) Additional Instructions: Please use medication as discussed. Please follow-up with family doctor in the next 2 days. Please return to emergency room if the symptoms increase or worsen or for any other concerns. Is patient prescribed a controlled substance at d/c from ED?: No Referrals: Ronna Beard MD [Primary Care Provider] - 1-2 days Time of Disposition: 14:24
[2020-05-16] MEDS ORDERED: MAGNESIUM CITRATE 296 ML BOTTLE PO ONE (14:23)
[2020-05-16] MEDS ORDERED: DICYCLOMINE 10 MG CAP PO STA (14:26)
[2020-05-16 14:45] VITALS: BP 127/74; PULSE 71; RESP 17; TEMP 98.6
== END 2020-05-16 14:45 | disposition home or self-care (01) ==
LOC: EC 10:23
DX: K59.00 Constipation, unspecified (principal); R11.0 Nausea; J45.909 Unspecified asthma, uncomplicated; I10 Essential (primary) hypertension; F41.9 Anxiety disorder, unspecified; F32.9 Major depressive disorder, single episode, unspecified; Z79.51 Long term (current) use of inhaled steroids; Z79.899 Other long term (current) drug therapy; Z88.6 Allergy status to analgesic agent; Z88.5 Allergy status to narcotic agent; Z91.040 Latex allergy status; Z88.7 Allergy status to serum and vaccine; Z88.8 Allergy status to other drugs, medicaments and biological substances; Z98.890 Other specified postprocedural states
CPT/HCPCS: 36415; 74018; 80053; 85025; 99284

== ENCOUNTER → 2020-06-10 | Outpatient (CLI) | payer MEDICARE, BC ==
--- NOTE | 2020-06-10 15:32 | CT ---
EXAMINATION TYPE: CT angio chest DATE OF EXAM: 06/10/2020 3:11 PM COMPARISON: CT abdomen and pelvis March 14, 2020. HISTORY: Shortness of breath. History of ovarian cancer. Chemical exposure. CT DLP: 192.4 mGycm Automated exposure control for dose reduction was used. CONTRAST: CTA scan of the thorax is performed with IV Contrast, patient injected with 62ml mL of Isovue 370, pu lmonary embolism protocol. MIP images are created and reviewed. FINDINGS: LUNGS: Mild linear scarring and/or atelectasis mid to lower lungs anteriorly. No suspicious focal con solidation. No pleural effusion or pneumothorax seen bilaterally. No concerning nodules or masses. MEDIASTINUM: There is satisfactory enhancement of the pulmonary artery and its branches, there is no CT evidence for pulmonary embolism. There are no greater than 1 cm hilar or mediastinal lymph nodes. No pericardial effusion is seen. Mild cardiomegaly. Coronary artery calcification is present which is noted marked underlying coronary artery disease. Satisfactory enhancement of the aorta without an eurysm or dissection. OTHER: Right internal jugular central venous catheter terminates in SVC. Postsurgical change to left proximal humerus is partially imaged. Residual spleen axial image 139 without significant change in size from most recent abdominal CT. IMPRESSION: Mild cardiomegaly without suspicious acute pulmonary process. No concerning nodules or ad enopathy. No CT evidence for acute pulmonary embolism.
--- NOTE | 2020-06-10 15:33 | ECHOF ---
Referral Reason:R06.02 Shortness of breath, Z01.818 chemo exposure MEASUREMENTS -------- HEIGHT: 170.2 cm WEIGHT: 65.3 kg BP: IVSd: 1.1 cm (0.6 - 1.1) LVIDd: 4.7 cm (3.9 - 5.3) LVPWd: 0.8 cm (0.6 - 1.1) IVSs: 1.5 cm LVIDs: 3.8 cm LVPWs: 1.5 cm LA Diam: 3.9 cm (2.7 - 3.8) RVIDd: 3.2 cm (< 3.3) LAESV Index (A-L): 36.00 ml/m Ao Diam: 2.8 cm (2.0 - 3.7) AV Cusp: 1.7 cm (1.5 - 2.6) EPSS: 0.7 cm MV E Isiah: 0.37 m/s MV DecT: 207 ms MV A Isiah: 0.64 m/s MV E/A Ratio: 0.58 RAP: 5.00 mmHg RVSP: 22.66 mmHg MV EF SLOPE: 93.58 mm/s (70 - 150) MV EXCURSION: 19.78 mm (> 18.000) FINDINGS -------- Sinus rhythm. This was a technically good study. The left ventricular size is normal. There is mild concentric left ventricular hypertrophy. Overa ll left ventricular systolic function is low-normal with, an EF between 50 - 55 %. The right ventricle is normal in size. The left atrium is moderately dilated. LA is moderately dilated 34-39 ml/m2 The right atrial size is normal. There is mild aortic valve sclerosis. There is no evidence of aortic regurgitation. Mild mitral annular calcification present. Mild mitral regurgitation is present. Mild tricuspid regurgitation present. Right ventricular systolic pressure is normal at < 35 mmHg. There is no pulmonic regurgitation present. The aortic root size is normal. There is no pericardial effusion. CONCLUSIONS -------- 1. The left ventricular size is normal. 2. There is mild concentric left ventricular hypertrophy. 3. Overall left ventricular systolic function is low-normal with, an EF between 50 - 55 %. 4. The right ventricle is normal in size. 5. The left atrium is moderately dilated. 6. LA is moderately dilated 34-39 ml/m2 7. The right atrial size is normal. 8. There is mild aortic valve sclerosis. 9. Mild mitral annular calcification present. 10. Mild mitral regurgitation is present. 11. Mild tricuspid regurgitation present. 12. There is no pulmonic regurgitation present. 13. The aortic root size is normal. 14. There is no pericardial effusion. SALES TRAINEE: Tina Cardenas RDCS
== END | disposition home or self-care (01) ==
LOC: RADECHMAIN 13:21
PROVIDERS: ATTEND Internal Medicine Hematology & Oncology
DX: Z01.818 Encounter for other preprocedural examination (principal); C56.9 Malignant neoplasm of unspecified ovary; I08.1 Rheumatic disorders of both mitral and tricuspid valves; I51.7 Cardiomegaly; Z88.6 Allergy status to analgesic agent; Z88.8 Allergy status to other drugs, medicaments and biological substances; Z91.040 Latex allergy status; Z95.828 Presence of other vascular implants and grafts
CPT/HCPCS: 93306; 82565; 84520; 71275; 36415; Q9967

== ENCOUNTER → 2020-12-18 | Outpatient (CLI) | payer MEDICARE, BC ==
--- NOTE | 2020-12-18 17:46 | CT ---
EXAMINATION TYPE: CT abdomen pelvis w con DATE OF EXAM: 12/18/2020 COMPARISON: 03/14/2020 HISTORY: 70-year-old female C56.9 Ovarian cancer, Z03.9 observation for metastases. TECHNIQUE: Contiguous axial scanning of the abdomen and pelvis following administration of 100 ml Omn ipaque 300 IV contrast. Delayed images through the kidneys and coronal/sagittal reconstructions perf ormed. CT DLP: 1342 mGycm Automated exposure control for dose reduction was used. FINDINGS: Heart upper limits of normal in size without pericardial effusion. 8 mm right basilar pulmonary nodule is unchanged. No pleural effusion. No focal liver lesion or biliary duct dilatation. Portal venous system is patent. Gallbladder, adrenal glands, kidneys, and pancreas appear within normal limits. Circumaortic left renal vein. Moderate metastatic calcifications throughout the abdominal aorta witho ut aneurysm. Partial splenectomy is redemonstrated with improvement in the previous postsurgical fluid here. There is trace perihepatic ascites that shows some improvement from 03/14/2020. No dilated small bowel, free fluid, or free air. No progressive mediastinal retroperitoneal lymphaden opathy. Oral contrast progressed to the mid transverse colon. Sigmoid diverticulosis. No pericolonic inflamma tory change.. Bladder incompletely distended. Pelvic phleboliths. Uterus surgically absent. Ovaries surgically abse nt. No abnormal fluid collection in the pelvis or pelvic lymphadenopathy. Bones: Mild degenerative change of the hips. Advanced degenerative disc disease L3-L4 and L5-S1. Face t arthropathy throughout the lumbar spine. IMPRESSION: 1. TRACE PERIHEPATIC ASCITES REMAINS, IMPROVED FROM 03/14/2020. 2. NODULARITY IN THE LEFT UPPER QUADRANT CORRESPONDS TO PARTIAL SPLENECTOMY CHANGES. THE POSTOPERATIV E FLUID SEEN HERE PREVIOUSLY HAS RESOLVED. 3. STABLE 8 MM RIGHT BASILAR PULMONARY NODULE. 4. STATUS POST HYSTERECTOMY AND BILATERAL SALPINGO-OOPHORECTOMY. NO EVIDENCE FOR DISEASE PROGRESSION. 5. SIGMOID DIVERTICULOSIS.
== END | disposition home or self-care (01) ==
LOC: RADCTMAIN 07:34
PROVIDERS: ATTEND Internal Medicine Hematology & Oncology
DX: K57.30 Diverticulosis of large intestine without perforation or abscess without bleeding (principal); Z90.710 Acquired absence of both cervix and uterus; Z90.722 Acquired absence of ovaries, bilateral; Z90.81 Acquired absence of spleen
CPT/HCPCS: 82565; 84520; 74177; 36415; Q9967

== ENCOUNTER → 2021-02-18 | Outpatient (CLI) | payer MEDICARE, BC ==
[~2021-02-18] MED LIST changes: -DEXAMETHASONE SOD PHOSPHATE 10 MG/ML 1 ML VIAL IV ONE; -HEPARIN SODIUM,PORCINE 100 UNIT/ML 5 ML VIAL IV ONE; -HEPARIN SODIUM,PORCINE 5,000 UNIT/ML 1 ML VIAL SQ ONE; -HYDROcodone/APAP 5-325MG 1 EACH TAB PO PRN; -HYDROmorphone 0.5 MG/0.5 ML SYRINGE IVP PRN; -KETAMINE 10 MG/ML 20 ML VIAL ONE; -LACTATED RINGERS 1,000 ML IV SCH; -LIDOCAINE 1% 20 ML VIAL (10MG/ML) FOR IV START INTRADERMA PRN; -LIDOCAINE 1% INJ 10MG/ML (20 ML MDV) SQ ONE; -MIDAZOLAM 2 MG/2 ML VIAL ONE; -NALOXONE 0.4 MG/ML 1 ML VIAL IV PRN; -ONDANSETRON 4 MG/2 ML VIAL IVP ONE; -PROPOFOL 10 MG/ML 20 ML VIAL IV ONE; -SCOPOLAMINE 1.5MG/72HR PATCH TRANSDERM ONE; +SODIUM CHLORIDE 0.9% 500 ML 500 ML in EMPTY BAG 1 BAG IV PRN; +ZOLEDRONIC ACID 5 MG in SODIUM CHLORIDE 0.9% 100 ML IV NR; -fentaNYL (PF) 50 MCG/ML 2 ML AMP ONE
[2021-02-18 14:01] VITALS: BP 175/99; PULSE 67; RESP 15; TEMP 97.7
== END ==
LOC: PROCWHC3 13:35
PROVIDERS: ATTEND Family Medicine
DX: M81.0 Age-related osteoporosis without current pathological fracture (principal); E78.00 Pure hypercholesterolemia, unspecified; I10 Essential (primary) hypertension; E03.9 Hypothyroidism, unspecified; Z88.6 Allergy status to analgesic agent; Z88.5 Allergy status to narcotic agent; Z88.7 Allergy status to serum and vaccine; Z91.040 Latex allergy status; Z88.8 Allergy status to other drugs, medicaments and biological substances; Z87.891 Personal history of nicotine dependence
CPT/HCPCS: 96365; J1642; J3489

== ENCOUNTER → 2021-03-05 | Outpatient (CLI) | payer MEDICARE, BC ==
--- NOTE | 2021-03-05 16:01 | CT ---
EXAMINATION TYPE: CT ChestAbdPelvis w con DATE OF EXAM: 03/05/2021 COMPARISON: 12/18/2020, 06/10/2020, 03/14/2020 HISTORY: 71-year-old female C56.9, Z03.89, Ovarian CA, obsv. for Mets TECHNIQUE: Contiguous axial scanning of the chest, abdomen, and pelvis performed with IV Contrast, pa tient injected with 100 mL of Isovue 300. Delayed images through the kidneys were obtained. Coronal/s agittal reconstructions performed. CT DLP: 886.50 mGycm Automated exposure control for dose reduction was used. FINDINGS: CHEST: Right inferior chest wall injection port with catheter tip in the upper to mid SVC level. Heart normal size without pericardial effusion. LAD and RCA coronary calcifications are present. Borderline ectasia ascending aorta 3.5 cm. Mild atherosclerotic arch calcifications with conventional arch vessel branching anatomy. A large caliber to the main right and left pulmonary arteries measuring up to 2.9 cm suggesting under lying pulmonary arterial hypertension. No thoracic lymphadenopathy by CT size criteria. An 8 mm peripheral right basilar pulmonary nodule, axial image 44 remains unchanged. Some strandy bas ilar atelectasis. No consolidation or pleural effusion. ABDOMEN: There is a new cystic mass in the central left liver lobe measuring 7.8 x 5.8 cm. Multilocular cystic extension into the gastrohepatic ligament region. New trace to mild upper abdominal ascites with suggestion of some mild peritoneal enhancement. Some o f this is at the site of previous omental disease, for example, on the left side of the abdomen axial image 63. No mesenteric or retroperitoneal lymphadenopathy. No dilated small bowel or free air. Moderate stool burden. No pericolic inflammatory change. Portal venous system is patent. No biliary ductal dilatation. Gallbladder is collapsed. Right adrenal gland, kidneys, and spleen within normal limits. Tiny residual splenules after previous splenic rese ction. Trace new nodular thickening of the left adrenal gland at 1.1 cm. Circumaortic left renal vein. Moderate atherosclerotic calcifications abdominal aorta without aneurys m. PELVIS: Bladder is urine distended. Uterus and ovaries surgically absent. Left-sided pelvic fluid lymph nodes . Mild ascites tracking down into the anterior left side of the pelvis. No pelvic lymphadenopathy see n. BONES: Osteopenia. Facet arthropathy and degenerative disc disease mid to lower lumbar spine. Partially visu alized plate and screw fixation proximal left humerus. Severe degenerative disc disease towards the l eft and L3-L4. IMPRESSION: 1. INCREASED MILD ABDOMINAL ASCITES, SOME OF WHICH IS LOCATED IN THE REGION OF PREVIOUS OMENTAL INVOL VEMENT AND ALSO WITH SUGGESTION OF SOME PERITONEAL ENHANCEMENT. FINDINGS SUGGEST RECURRENCE OF PERITO LAZARO DISEASE. 2. NEW LARGE 7.8 X 5.8 CM CYSTIC LESION CENTRAL LEFT LIVER LOBE WITH MULTILOCULAR EXTENSION INTO THE GASTROHEPATIC LIGAMENT REGION. CONSIDER MUCINOUS METASTASES. 3. NEW SUBTLE 1.1 CM LEFT ADRENAL NODULARITY. 4. 8 MM RIGHT BASILAR PULMONARY NODULE IS UNCHANGED.
== END | disposition home or self-care (01) ==
LOC: RADPROMAIN 10:53
PROVIDERS: ATTEND Internal Medicine Hematology & Oncology
DX: R18.8 Other ascites (principal); K76.89 Other specified diseases of liver; E27.8 Other specified disorders of adrenal gland; R91.1 Solitary pulmonary nodule; Z85.43 Personal history of malignant neoplasm of ovary
CPT/HCPCS: 82565; 84520; 71260; 74177; 36415; J1642; Q9967 ×2

== ENCOUNTER → 2021-03-14 | Outpatient (CLI) | payer MEDICARE, BC ==
--- NOTE | 2021-03-14 16:49 | ECHOF ---
Referral Reason:Z01.818 chemo exposure MEASUREMENTS -------- HEIGHT: 167.6 cm WEIGHT: 73.0 kg BP: RVIDd: 3.5 cm (< 3.3) IVSd: 1.3 cm (0.6 - 1.1) LVIDd: 4.4 cm (3.9 - 5.3) LVPWd: 1.4 cm (0.6 - 1.1) IVSs: 1.4 cm LVIDs: 3.1 cm LVPWs: 1.3 cm LAESV Index (A-L): 32.32 ml/m Ao Diam: 2.9 cm (2.0 - 3.7) AV Cusp: 2.0 cm (1.5 - 2.6) LA Diam: 4.1 cm (2.7 - 3.8) MV EXCURSION: 14.703 mm (> 18.000) MV EF SLOPE: 62 mm/s (70 - 150) EPSS: 0.8 cm MV E Isiah: 0.69 m/s MV DecT: 231 ms MV A Isiah: 0.97 m/s MV E/A Ratio: 0.71 RAP: 5.00 mmHg RVSP: 34.79 mmHg FINDINGS -------- Sinus rhythm. This was a technically adequate study. The left ventricular size is normal. There is mild concentric left ventricular hypertrophy. Overa ll left ventricular systolic function is low-normal with, an EF between 50 - 55 %. The diastolic fi lling pattern is normal for the age of the patient 18.61. The right ventricle is mildly enlarged. LA is midly dilated 29-33ml/m2. The right atrial size is normal. Interatrial and interventricular septum intact. There is no evidence of aortic regurgitation. There is no evidence of aortic stenosis. Mild mitral regurgitation is present. Mild tricuspid regurgitation present. There is borderline pulmonary artery hypertension. The righ t ventricular systolic pressure, as measured by Doppler, is 34.79mmHg. There is no pulmonic regurgitation present. The aortic root size is normal. IVC Not well visulized. There is no pericardial effusion. CONCLUSIONS -------- 1. The left ventricular size is normal. 2. There is mild concentric left ventricular hypertrophy. 3. Overall left ventricular systolic function is low-normal with, an EF between 50 - 55 %. 4. The diastolic filling pattern is normal for the age of the patient 18.61 5. The right ventricle is mildly enlarged. 6. LA is midly dilated 29-33ml/m2. 7. Mild mitral regurgitation is present. 8. Mild tricuspid regurgitation present. 9. There is borderline pulmonary artery hypertension. 10. The right ventricular systolic pressure, as measured by Doppler, is 34.79mmHg. MANUFACTURING MANAGER: Mercedes Meng RDCS
== END | disposition home or self-care (01) ==
LOC: RADECHMAIN 11:43
PROVIDERS: ATTEND Internal Medicine Hematology & Oncology
DX: I08.1 Rheumatic disorders of both mitral and tricuspid valves (principal); I27.21 Secondary pulmonary arterial hypertension
CPT/HCPCS: 93306

== ENCOUNTER → 2021-05-30 | Outpatient (CLI) | payer MEDICARE, BC ==
--- NOTE | 2021-06-01 18:32 | CT ---
EXAMINATION TYPE: CT ChestAbdPelvis w con DATE OF EXAM: 05/30/2021 COMPARISON: 03/05/2021, 12/18/2020, 03/14/2020 HISTORY: 71-year-old female C5 6.9, follow-up ovarian ca TECHNIQUE: Contiguous axial scanning of the chest, abdomen, and pelvis performed with IV Contrast, pa tient injected with 100 mL of Isovue 300. Delayed images through the kidneys were obtained. Coronal/s agittal reconstructions performed. CT DLP: 747.1 mGycm Automated exposure control for dose reduction was used. FINDINGS: CHEST: Right anterior chest wall injection port with catheter tip at the mid SVC level. Heart upper limits of normal in size without pericardial effusion. LAD and circumflex coronary artery calcifications are present. Aorta normal caliber with a conventional arch vessel branching anatomy and mild atherosclerotic arch calcifications. Mediastinal lymph nodes are unchanged, measuring up to 8 mm lower right paratracheal. Some stringy areas of atelectasis or scarring redemonstrated. Minimal centrilobular emphysema. 8 mm right basilar pulmonary nodule remains unchanged. No consolidation or pleural effusion. ABDOMEN: Worsening mild abdominal ascites. The ascites shows some scalloping of the hepatic contours. The flui d tracks down into the anterior upper pelvis but does not track into the cul-de-sac. Multiple locular cystic lesion at the left berhane hepatis unchanged at 7.9 cm extending left laterally into the lesser sac region. Gallbladder collapsed. Right adrenal gland, kidneys, and pancreas within normal limits. Subtle 1 cm l eft adrenal nodularity is unchanged. Unchanged nodularity left upper quadrant likely related to prior splenectomy and small residual splen ules. Moderate atherosclerotic calcifications abdominal aorta without aneurysm. Mild sigmoid diverticulosis. No pericolonic inflammatory change. PELVIS: Status post hysterectomy and bilateral salpingo-oophorectomies. A couple pelvic phleboliths. No abnor mal pelvic lymphadenopathy or pelvic free fluid. BONES: Mild degenerative changes at the hips. Degenerated dextro convex scoliosis of the lumbar spine. Fairl y advanced dislocation but degenerative change L3-L4. Grade 1 anterolisthesis L4-L5. IMPRESSION: 1. FINDINGS SUGGEST PERITONEAL PROGRESSION WITH WORSENING MILD ABDOMINAL ASCITES NOW TRACKING DOWN IN TO THE ANTERIOR UPPER PELVIS. THE FLUID SCALLOPS THE HEPATIC MARGINS COMPATIBLE WITH COMPLEX FLUID AN D SUGGESTS MALIGNANT ASCITES. 2. STABLE MULTILOCULAR CYSTIC LESION INVOLVING THE LEFT BERHANE HEPATIS EXTENDING INTO THE LESSER SAC M EASURING 7.9 CM, POSSIBLE CYSTIC/MUCINOUS METASTASIS. UNCHANGED FROM 03/05/2021 BUT NEW COMPARED TO 11/30. 3. 8 MM RIGHT BASILAR PULMONARY NODULE IS UNCHANGED. 4. STATUS POST HYSTERECTOMY AND BILATERAL SALPINGO-OOPHORECTOMIES AND SPLENECTOMY.
== END | disposition home or self-care (01) ==
LOC: RADPROMAIN 13:49
PROVIDERS: ATTEND Internal Medicine Hematology & Oncology
DX: C56.9 Malignant neoplasm of unspecified ovary (principal); R91.1 Solitary pulmonary nodule; Z90.81 Acquired absence of spleen
CPT/HCPCS: 82565; 84520; 71260; 74177; 36415; Q9967

== ENCOUNTER → 2021-06-06 | Outpatient (CLI) | payer MEDICARE, BC ==
--- NOTE | 2021-06-06 10:12 | ECHOF ---
Referral Reason:Z01.818 Chemo exposure MEASUREMENTS -------- HEIGHT: 170.2 cm WEIGHT: 68.9 kg BP: RVIDd: 3.6 cm (< 3.3) IVSd: 1.5 cm (0.6 - 1.1) LVIDd: 4.0 cm (3.9 - 5.3) LVPWd: 1.5 cm (0.6 - 1.1) IVSs: 1.4 cm LVIDs: 2.9 cm LVPWs: 1.8 cm LAESV Index (A-L): 38.89 ml/m Ao Diam: 3.0 cm (2.0 - 3.7) AV Cusp: 1.8 cm (1.5 - 2.6) LA Diam: 3.9 cm (2.7 - 3.8) MV EXCURSION: 18.048 mm (> 18.000) MV EF SLOPE: 58 mm/s (70 - 150) EPSS: 0.9 cm MV E Isiah: 0.89 m/s MV DecT: 208 ms MV A Isiah: 0.89 m/s MV E/A Ratio: 0.99 RAP: 5.00 mmHg RVSP: 28.79 mmHg FINDINGS -------- Sinus rhythm. This was a technically adequate study. The left ventricular size is normal. There is moderate concentric left ventricular hypertrophy. O verall left ventricular systolic function is normal with, an EF between 55 - 60 %. The right ventricle is mildly enlarged. LA is moderately dilated 34-39 ml/m2 The right atrial size is normal. Interatrial and interventricular septum intact. The aortic valve is trileaflet and appears structurally normal. There is no evidence of aortic regu rgitation. There is no evidence of aortic stenosis. Mild mitral regurgitation is present. Mild tricuspid regurgitation present. There is no evidence of pulmonary hypertension. The right v entricular systolic pressure, as measured by Doppler, is 28.79mmHg. There is no pulmonic regurgitation present. The aortic root size is normal. IVC Not well visulized. There is no pericardial effusion. CONCLUSIONS -------- 1. The left ventricular size is normal. 2. There is moderate concentric left ventricular hypertrophy. 3. Overall left ventricular systolic function is normal with, an EF between 55 - 60 %. 4. The right ventricle is mildly enlarged. 5. LA is moderately dilated 34-39 ml/m2 6. Mild mitral regurgitation is present. 7. Mild tricuspid regurgitation present. PELLET POST INSPECTOR: Tina Cardenas RDCS
== END | disposition home or self-care (01) ==
LOC: RADECHMAIN 08:24
PROVIDERS: ATTEND Internal Medicine Hematology & Oncology
DX: Z01.818 Encounter for other preprocedural examination (principal); I51.7 Cardiomegaly; Z92.21 Personal history of antineoplastic chemotherapy
CPT/HCPCS: 93306

== ENCOUNTER 2021-06-18 12:40 | Emergency (ER) | payer MEDICARE, BC ==
[2021-06-18 13:00] VITALS: TEMP 98.1
[2021-06-18] MEDS ORDERED: HYDROmorphone 0.5 MG/0.5 ML SYRINGE IVP STA (14:29)
[2021-06-18] MEDS ORDERED: HYDROmorphone 0.5 MG/0.5 ML SYRINGE IM STA (14:37)
--- NOTE | 2021-06-18 15:04 | ED ---
General Adult HPI - General Chief complaint: Back Pain/Injury Stated complaint: Low Back Pain Time Seen by Provider: 06/18/21 12:55 Source: patient, RN notes reviewed, old records reviewed Mode of arrival: wheelchair Limitations: no limitations - History of Present Illness Initial comments: This is a 71-year-old female who presents emergency Department complaining of left buttocks pain. Patient states she did not have any injury but it started a few days ago she went to the chiropractor felt better but again his back and is making it difficult to walk. Patient states she can only walk and she is severely bent over. Patient states the pain is definitely worse this morning and was yesterday. Patient states she can find the exact point in the buttocks where it is tender. Patient denies any radiation of the pain. Patient denies any lower back pain. Patient denies any fever chills. - Related Data Home Medications Medication Instructions Recorded Confirmed LORazepam [Ativan] 2 mg PO BID PRN 08/23/19 06/18/21 Levothyroxine Sodium [Synthroid] 125 mcg PO DAILY 08/23/19 06/18/21 Metoprolol Succinate (ER) [Toprol 50 mg PO BID 08/23/19 06/18/21 XL] Ezetimibe/Simvastatin [Vytorin 1 tab PO DAILY 08/24/19 06/18/21 10-20 mg] amLODIPine [Norvasc] 10 mg PO DAILY 08/24/19 06/18/21 Albuterol Inhaler [Ventolin Hfa 2 puff INHALATION RT-Q6H PRN 06/18/21 06/18/21 Inhaler] Cholecalciferol [Vitamin D3 (25 50 mcg PO DAILY 06/18/21 06/18/21 Mcg = 1000 Iu)] Dicyclomine HCl 20 mg PO QID PRN 06/18/21 06/18/21 Fluticasone Nasal [place] [Flonase 1 spray EA NOSTRIL DAILY PRN 06/18/21 06/18/21 Nasal [place]] Multivitamins, Thera [Multivitamin 1 tab PO DAILY 06/18/21 06/18/21 (formulary)] Ondansetron Odt [Zofran Odt] 4 - 8 mg PO Q4-6H PRN 06/18/21 06/18/21 Pyridoxine HCl (Vitamin B6) 100 mg PO BID 06/18/21 06/18/21 [Vitamin B-6] Sennosides/Docusate Sodium [Senna 1 cap PO HS 06/18/21 06/18/21 Plus 8.6-50 mg Softgel] Venlafaxine HCl ER [Effexor Xr] 150 mg PO DAILY 06/18/21 06/18/21 Zolpidem Tartrate [Ambien Cr] 12.5 mg PO HS PRN 06/18/21 06/18/21 Previous Rx's Medication Instructions Recorded Ibuprofen [Motrin] 400 mg PO Q8HR #15 tab 06/18/21 Allergies Allergy/AdvReac Type Severity Reaction Status Date / Time DANAY Inhibitors Allergy Dyspnea Verified 06/18/21 15:41 aspirin Allergy Rash/Hives Verified 06/18/21 15:41 clonidine [From Catapres] Allergy Rash/Hives Verified 06/18/21 15:41 codeine Allergy Rash/Hives Verified 06/18/21 15:41 [From Tylenol-Codeine #3] Latex, Natural Rubber Allergy Rash/Hives Verified 06/18/21 15:41 tetanus and diphtheria Allergy Rash/Hives Verified 06/18/21 15:41 toxoids Review of Systems ROS Statement: Those systems with pertinent positive or pertinent negative responses have been documented in the HPI. ROS Other: All systems not noted in ROS Statement are negative. Past Medical History Past Medical History: Asthma, Cancer, Hypertension, Syncope Additional Past Medical History / Comment(s): ovarian CA, cervical cancer History of Any Multi-Drug Resistant Organisms: None Reported Past Surgical History: Hysterectomy, Orthopedic Surgery Additional Past Surgical History / Comment(s): multiple paracentesis, left wrist, left shoulder, breast reduction, D&C 2016, Splenectomy, total hysterectomy Past Anesthesia/Blood Transfusion Reactions: No Reported Reaction Past Psychological History: Anxiety, Depression Smoking Status: Never smoker Past Alcohol Use History: Occasional Past Drug Use History: Marijuana - Past Family History Mother Family Medical History: Vascular Disorder Additional Family Medical History / Comment(s): anemia Father Additional Family Medical History / Comment(s): arthritis, kidney tumor General Exam - General Exam Comments Initial Comments: GENERAL Patient is well-developed and well-nourished. Patient is in mild distress. EYES Patient's pupils are equal and round. Extraocular motion is intact SKIN Unremarkable NEURO The patient is alert and oriented 3 PYSCH Patient has normal interpersonal interactions. MUSCULOSKELETAL Patient has sacroiliac pain to palpation on the left Limitations: no limitations Course Vital Signs 06/18/21 12:54 Temperature 98.1 F Pulse Rate 67 Respiratory 20 Rate Blood Pressure 123/67 O2 Sat by Pulse 99 Oximetry Medical Decision Making - Medical Decision Making Patient states she has not been taking Tylenol because she was told to take any anti-inflammatories. I spoke with the oncologist. They stated if the platelet count was fine she can take anti-inflammatories. I gave the patient a shot of Dilaudid 0.5 mg and Toradol and she was able to ambulate and felt considerably better but could not go home. X-ray of the pelvis and sacrum showed no acute abnormality. - Lab Data Result diagrams: 06/18/21 15:17 Lab Results 06/18/21 Range/Units 15:17 WBC 7.6 (3.8-10.6) k/uL RBC 3.32 L (3.80-5.40) m/uL Hgb 11.4 (11.4-16.0) gm/dL Hct 33.7 L (34.0-46.0) % MCV 101.4 H (80.0-100.0) fL MCH 34.3 (25.0-35.0) pg MCHC 33.8 (31.0-37.0) g/dL RDW 16.5 H (11.5-15.5) % Plt Count 438 (150-450) k/uL MPV 6.8 Neutrophils % 56 % Lymphocytes % 34 % Monocytes % 7 % Eosinophils % 1 % Basophils % 0 % Neutrophils # 4.3 (1.3-7.7) k/uL Lymphocytes # 2.5 (1.0-4.8) k/uL Monocytes # 0.6 (0-1.0) k/uL Eosinophils # 0.0 (0-0.7) k/uL Basophils # 0.0 (0-0.2) k/uL Anisocytosis Slight Macrocytosis Slight Disposition Clinical Impression: Sacroiliitis Disposition: HOME SELF-CARE Condition: Good Prescriptions: Ibuprofen [Motrin] 400 mg PO Q8HR #15 tab Is patient prescribed a controlled substance at d/c from ED?: No Referrals: Ronna Beard MD [Primary Care Provider] - 1-2 days Time of Disposition: 17:36
--- NOTE | 2021-06-18 15:07 | XR ---
AP pelvis and sacrum and coccyx HISTORY: Pain Frontal view of the pelvis, 3 views of the sacrum and coccyx Bone mineralization is reduced. Degenerative disc changes are present in the lumbar spine, there is a spinal curvature. No evident fracture. Probable vascular calcifications are present within the pelvi s. Surgical clips present in the left hemipelvis. IMPRESSION: Degenerative disc disease and scoliosis. Osteopenia, postop changes.
[2021-06-18 15:53] LABS: Anisocytosis Slight; Basophils % (A) 0 %; Eosinophils % (A) 1 %; HCT 33.7 % (34.0-46.0); HGB 11.4 gm/dL (11.4-16.0); Lymphocytes # (A) 2.5 k/uL (1.0-4.8); Lymphocytes % (A) 34 %; MCH 34.3 pg (25.0-35.0); MCHC 33.8 g/dL (31.0-37.0); MCV 101.4 fL (80.0-100.0); Macrocytosis Slight; Mean Platelet Volume 6.8; Monocytes # (A) 0.6 k/uL (0-1.0); Monocytes % (A) 7 %; Neutrophils # (A) 4.3 k/uL (1.3-7.7); Neutrophils % (A) 56 %; Platelet Count 438 k/uL (150-450); RBC 3.32 m/uL (3.80-5.40); RDW 16.5 % (11.5-15.5); WBC 7.6 k/uL (3.8-10.6)
[2021-06-18] MEDS ORDERED: KETOROLAC 30 MG/ML 1 ML VIAL IM STA (16:19)
[2021-06-18] MEDS ORDERED: ACET/COD 300 MG/30 MG STARTER PACK 6 TAB BTL PO STA (17:37)
[2021-06-18 18:42] VITALS: BP 133/81; PULSE 58; RESP 18
== END 2021-06-18 18:41 | disposition home or self-care (01) ==
LOC: EC 12:40
DX: M46.1 Sacroiliitis, not elsewhere classified (principal); J45.909 Unspecified asthma, uncomplicated; I10 Essential (primary) hypertension; F41.9 Anxiety disorder, unspecified; F32.A Depression, unspecified; F12.90 Cannabis use, unspecified, uncomplicated; Z88.5 Allergy status to narcotic agent; Z91.040 Latex allergy status; Z88.7 Allergy status to serum and vaccine; Z85.43 Personal history of malignant neoplasm of ovary; Z85.41 Personal history of malignant neoplasm of cervix uteri; Z90.710 Acquired absence of both cervix and uterus
CPT/HCPCS: 99283; 96372 ×2; 36415; 85025; 72170; 72220; J1885; J1170

== ENCOUNTER 2021-08-18 13:59 | Inpatient (IN) | payer MEDICARE, BC ==
[2021-08-18 15:37] LABS: Prothrombin Time 10.7 sec (9.0-12.0)
[2021-08-18 15:38] LABS: Anisocytosis Slight; Basophils % (A) 0 %; Eosinophils % (A) 0 %; HCT 32.2 % (34.0-46.0); HGB 10.4 gm/dL (11.4-16.0); Hypochromasia Slight; Lymphocytes # (A) 1.2 k/uL (1.0-4.8); Lymphocytes % (A) 24 %; MCHC 32.3 g/dL (31.0-37.0); Macrocytosis Marked; Monocytes # (A) 0.2 k/uL (0-1.0); Monocytes % (A) 4 %; Neutrophils # (A) 3.4 k/uL (1.3-7.7); Neutrophils % (A) 70 %; Platelet Count 298 k/uL (150-450); RBC 2.97 m/uL (3.80-5.40); WBC 4.9 k/uL (3.8-10.6)
[2021-08-18 15:45] LABS: Albumin 4.4 g/dL (3.5-5.0); Calcium 9.7 mg/dL (8.4-10.2); Potassium 3.9 mmol/L (3.5-5.1); Total Bilirubin 0.8 mg/dL (0.2-1.3); Total Protein 7.8 g/dL (6.3-8.2)
[2021-08-18 15:51] LABS: MCV 108.3 fL (80.0-100.0)
[2021-08-18 16:53] LABS: Howell-Jolly Bodies Present; Ovalocytes Present; Poikilocytosis (M) Present; Stomatocytes Present
[2021-08-18] MEDS ORDERED: SODIUM CHLORIDE 0.9% 500 ML 500 ML IV ONE (18:16)
--- NOTE | 2021-08-18 18:35 | ED ---
General Adult HPI - General Chief complaint: Dizziness Stated complaint: SOB, dizziness Time Seen by Provider: 08/18/21 17:59 Source: patient Mode of arrival: wheelchair Limitations: no limitations - History of Present Illness Initial comments: 71 year-old female patient with past history significant for ovarian cancer with local mets and asthma, presents to the emergency department for evaluation of exertional dyspnea, dizziness, and weakness. States whenever she walks or moves around she becomes extremely short of breath and weak. Symptoms started two weeks ago and worsened today. Denies chest pain. Denies any leg pain or swelling. She denies cough, congestion, fever, or chills. She is reporting urinary urgency which is new. Denies hematuria, dysuria, or frequency of urination. Has been vaccinated for COVID. Denies history of DVT. She has com pleted two rounds of chemo for ovarian cancer, has a follow up CT scheduled. Patient denies any recent rash, abdominal pain, nausea, vomiting, diarrhea, constipation, back pain, numbness, tingling, hematuria, dysuria, urinary urgency, urinary frequency, headache, visual changes, or any other complaints. - Related Data Home Medications Medication Instructions Recorded Confirmed LORazepam [Ativan] 1 mg PO TID PRN 08/23/19 08/18/21 Levothyroxine Sodium [Synthroid] 125 mcg PO DAILY 08/23/19 08/18/21 Metoprolol Succinate (ER) [Toprol 100 mg PO HS 08/23/19 08/18/21 XL] Ezetimibe/Simvastatin [Vytorin 1 tab PO HS 08/24/19 08/18/21 10-20 mg] amLODIPine [Norvasc] 10 mg PO DAILY 08/24/19 08/18/21 Albuterol Inhaler [Ventolin Hfa 1 puff INHALATION RT-Q6H PRN 06/18/21 08/18/21 Inhaler] Cholecalciferol [Vitamin D3 (25 50 mcg PO DAILY 06/18/21 08/18/21 Mcg = 1000 Iu)] Dicyclomine HCl 20 mg PO QID PRN 06/18/21 08/18/21 Fluticasone Nasal [place] [Flonase 1 spray EA NOSTRIL DAILY PRN 06/18/21 08/18/21 Nasal [place]] Multivitamins, Thera [Multivitamin 1 tab PO DAILY 06/18/21 08/18/21 (formulary)] Ondansetron Odt [Zofran Odt] 4 mg PO Q6H PRN 06/18/21 08/18/21 Pyridoxine HCl (Vitamin B6) 100 mg PO BID 06/18/21 08/18/21 [Vitamin B-6] Sennosides/Docusate Sodium [Senna 1 cap PO HS 06/18/21 08/18/21 Plus 8.6-50 mg Softgel] Venlafaxine HCl ER [Effexor Xr] 150 mg PO DAILY 06/18/21 08/18/21 Zolpidem Tartrate [Ambien Cr] 12.5 mg PO HS PRN 06/18/21 08/18/21 Cyclobenzaprine [Flexeril] 10 mg PO TID PRN 08/18/21 08/18/21 Esomeprazole Magnesium [NexIUM] 40 mg PO DAILY 08/18/21 08/18/21 traMADol HCL [Ultram] 50 mg PO Q6H PRN 08/18/21 08/18/21 Allergies Allergy/AdvReac Type Severity Reaction Status Date / Time DANAY Inhibitors Allergy Dyspnea Verified 08/18/21 20:58 aspirin Allergy Rash/Hives Verified 08/18/21 20:58 clonidine [From Catapres] Allergy Rash/Hives Verified 08/18/21 20:58 codeine Allergy Rash/Hives Verified 08/18/21 20:58 [From Tylenol-Codeine #3] Latex, Natural Rubber Allergy Rash/Hives Verified 08/18/21 20:58 tetanus and diphtheria Allergy Rash/Hives Verified 08/18/21 20:58 toxoids Review of Systems ROS Statement: Those systems with pertinent positive or pertinent negative responses have been documented in the HPI. ROS Other: All systems not noted in ROS Statement are negative. Past Medical History Past Medical History: Cancer Additional Past Medical History / Comment(s): ovarian CA History of Any Multi-Drug Resistant Organisms: None Reported Past Surgical History: Hysterectomy, Orthopedic Surgery Additional Past Surgical History / Comment(s): multiple paracentesis, left wrist, left shoulder, breast reduction, D&C 2016, Splenectomy, total hysterectomy Past Anesthesia/Blood Transfusion Reactions: No Reported Reaction Past Psychological History: Anxiety, Depression Smoking Status: Never smoker Past Alcohol Use History: Occasional Past Drug Use History: Marijuana - Past Family History Mother Family Medical History: Vascular Disorder Additional Family Medical History / Comment(s): anemia Father Additional Family Medical History / Comment(s): arthritis, kidney tumor General Exam Limitations: no limitations General appearance: alert, in no apparent distress, other (This is a well- developed, well-nourished adult female patient in no acute distress.) ENT exam: Present: normal exam, normal oropharynx, mucous membranes moist Respiratory exam: Present: normal lung sounds bilaterally. Absent: respiratory distress, wheezes, rales, rhonchi, stridor Cardiovascular Exam: Present: normal rhythm, tachycardia, normal heart sounds. Absent: systolic murmur, diastolic murmur, rubs, gallop, clicks GI/Abdominal exam: Present: soft, normal bowel sounds. Absent: distended, tenderness, guarding, rebound, rigid Neurological exam: Present: alert, oriented X3, CN II-XII intact Psychiatric exam: Present: normal affect, normal mood Skin exam: Present: warm, dry, intact, normal color. Absent: rash Course Vital Signs 08/18/21 14:45 Temperature 97.7 F Pulse Rate 138 H Respiratory 20 Rate Blood Pressure 130/68 O2 Sat by Pulse 99 Oximetry EKG Findings - EKG Comments: EKG Findings:: EKG obtained at 1506 shows sinus tachycardia with occasional PVCs. Ventricular rate is 127, UT interval 148, QR orthodox 78, QT 306, QTc 444. There is evidence for ST depression and V4, V5, V6. Procedures - EJ/Peripheral Line No standard instances Consent Obtained: emergent situation Skin Cleansed in Sterile Fashion: Yes Size: 20 Dressing Placed: Tegaderm Patient Tolerated Procedure: well, no complications Medical Decision Making - Medical Decision Making 71-year-old female patient has medical history significant for ovarian cancer and asthma presents for evaluation of exertional dyspnea worsening over the last 2 weeks. Patient is unable to walk across room without becoming extremely short of breath. Heart rate increases from 115 to 160 to just walking approximately 10 feet. Oxygen saturation remains normal between 97-98% on room air. Physical examination did reveal clear equal lung sounds. He is not coughing. No lower extremity swelling or pain. Labs reviewed and did reveal elevated d-dimer. CT chest angiography was performed and showed evidence for pulmonary embolism in the right lung. She is started on high-dose heparin. She'll be admitted to the hospital for further evaluation and monitoring. We'll consult oncology. Patient is agreeable to this plan. My attending is Dr. Guzman. - Lab Data Result diagrams: 08/18/21 15:16 08/18/21 15:16 Lab Results 08/18/21 08/18/21 08/18/21 Range/Units 15:16 15:16 15:16 WBC 4.9 (3.8-10.6) k/uL RBC 2.97 L (3.80-5.40) m/uL Hgb 10.4 L (11.4-16.0) gm/dL Hct 32.2 L (34.0-46.0) % MCV 108.3 H D (80.0-100.0) fL MCH 35.0 (25.0-35.0) pg MCHC 32.3 (31.0-37.0) g/dL RDW 17.0 H (11.5-15.5) % Plt Count 298 (150-450) k/uL MPV 7.0 Neutrophils % 70 % Lymphocytes % 24 % Monocytes % 4 % Eosinophils % 0 % Basophils % 0 % Neutrophils # 3.4 (1.3-7.7) k/uL Lymphocytes # 1.2 (1.0-4.8) k/uL Monocytes # 0.2 (0-1.0) k/uL Eosinophils # 0.0 (0-0.7) k/uL Basophils # 0.0 (0-0.2) k/uL Manual Slide Review Performed RBC Morphology H Hypochromasia Slight Poikilocytosis (manual Present Anisocytosis Slight Macrocytosis Marked A Ovalocytes Present Stomatocytes Present [place] Bodies Present PT 10.7 (9.0-12.0) sec INR 1.0 (<1.2) APTT (22.0-30.0) sec D-Dimer (<0.60) mg/L FEU Sodium 136 L (137-145) mmol/L Potassium 3.9 (3.5-5.1) mmol/L Chloride 99 (98-107) mmol/L Carbon Dioxide 26 (22-30) mmol/L Anion Gap 11 mmol/L BUN 11 (7-17) mg/dL Creatinine 0.85 (0.52-1.04) mg/dL Est GFR (CKD-EPI)AfAm 79 (>60 ml/min/1.73 sqM) Est GFR (CKD-EPI)NonAf 68 (>60 ml/min/1.73 sqM) Glucose 134 H (74-99) mg/dL Calcium 9.7 (8.4-10.2) mg/dL Total Bilirubin 0.8 (0.2-1.3) mg/dL AST 31 (14-36) U/L ALT 21 (4-34) U/L Alkaline Phosphatase 61 (38-126) U/L Troponin I (0.000-0.034) ng/mL Total Protein 7.8 (6.3-8.2) g/dL Albumin 4.4 (3.5-5.0) g/dL 08/18/21 08/18/21 08/18/21 Range/Units 15:16 15:16 18:55 WBC (3.8-10.6) k/uL RBC (3.80-5.40) m/uL Hgb (11.4-16.0) gm/dL Hct (34.0-46.0) % MCV (80.0-100.0) fL MCH (25.0-35.0) pg MCHC (31.0-37.0) g/dL RDW (11.5-15.5) % Plt Count (150-450) k/uL MPV Neutrophils % % Lymphocytes % % Monocytes % % Eosinophils % % Basophils % % Neutrophils # (1.3-7.7) k/uL Lymphocytes # (1.0-4.8) k/uL Monocytes # (0-1.0) k/uL Eosinophils # (0-0.7) k/uL Basophils # (0-0.2) k/uL Manual Slide Review RBC Morphology Hypochromasia Poikilocytosis (manual Anisocytosis Macrocytosis Ovalocytes Stomatocytes [place] Bodies PT (9.0-12.0) sec INR (<1.2) APTT 22.4 (22.0-30.0) sec D-Dimer 3.02 H (<0.60) mg/L FEU Sodium (137-145) mmol/L Potassium (3.5-5.1) mmol/L Chloride (98-107) mmol/L Carbon Dioxide (22-30) mmol/L Anion Gap mmol/L BUN (7-17) mg/dL Creatinine (0.52-1.04) mg/dL Est GFR (CKD-EPI)AfAm (>60 ml/min/1.73 sqM) Est GFR (CKD-EPI)NonAf (>60 ml/min/1.73 sqM) Glucose (74-99) mg/dL Calcium (8.4-10.2) mg/dL Total Bilirubin (0.2-1.3) mg/dL AST (14-36) U/L ALT (4-34) U/L Alkaline Phosphatase (38-126) U/L Troponin I <0.012 0.020 (0.000-0.034) ng/mL Total Protein (6.3-8.2) g/dL Albumin (3.5-5.0) g/dL - Radiology Data Radiology results: report reviewed, image reviewed CT chest angiography for pulmonary M Mal is obtained. Addendum by Dr. Angela shows small linear filling defect in the posterior basal segment right lower lobe pulmonary artery distal branch and suggestive of acute pulmonary embolism. Disposition Clinical Impression: Pulmonary embolism, Tachycardia Disposition: ADMITTED IP TO THIS [facility] Condition: Serious Decision to Admit Reason: Admit from EC Decision Date: 08/18/21 Decision Time: 20:41
[2021-08-18 19:27] LABS: Partial Thromboplastin Time 22.4 sec (22.0-30.0)
--- NOTE | 2021-08-18 19:47 | CT ---
EXAMINATION TYPE: CT chest angio for PE DATE OF EXAM: 08/18/2021 COMPARISON: None HISTORY: SOB CT DLP: 276.1 mGycm Automated exposure control for dose reduction was used. CONTRAST: Performed with IV Contrast, patient injected with 73cc mL of Isovue 370. There are Three-D postprocessed images. There is some mild reticular density in the posterior lung paz consistent with scarring or subsegm ental atelectasis. There Is no pleural effusion. There is no pericardial effusion. Heart size is fairly normal. There is no pericardial effusion. There are no hilar masses. There are a few paratracheal lymph nodes up to 1 cm. Thoracic aorta is intact. There is no aneurysm or dissectio n. The ascending aorta measures 3.6 cm. There is no evidence of filling defect in the pulmonary arteries. There is 7.9 cm cystic mass in the upper abdomen apparently in the posterior left lobe of the liver adjacent to the pancreas. This is no t changed compared to CT scan of 05/30/2021. Mass is new compared to 10/27/2019. This could be a pseud ocyst. Cystic tumor not entirely excluded. The thoracic spine is intact. There is no compression fracture. Sternum is intact. IMPRESSION: No evidence of pulmonary embolism. Minimal pulmonary fibrotic changes. Large upper abdominal cystic mass stable compared to 05/30/2021. There is small amount of abdominal a scites fluid noted. Fluid improvement compared to 05/30/2021.
[2021-08-18] MEDS ORDERED: HEPARIN SODIUM 1,000 UN/ML (10ML VL) IV ONE (20:17)
[2021-08-18] MEDS ORDERED: HEPARIN SODIUM 1,000 UN/ML (10ML VL) IV PRN (20:17)
[2021-08-18] MEDS ORDERED: NALOXONE 0.4 MG/ML 1 ML VIAL IV PRN (20:39)
[2021-08-18] MEDS: HEPARIN SOD,PORK IN 0.45% NACL 25,000 UNIT in 0.45% NACL 1 250ML.BAG IV SCH (20:55)
[2021-08-18 21:21] LABS: Appearance,Urine Clear (Clear); Bacteria,Urine Rare /hpf; Bilirubin,Urine Negative (Negative); Blood,Urine Negative (Negative); Color,Urine Light Yellow; Glucose,Urine (UA) Negative (Negative); Hyaline Casts,Urine 1 /lpf (0-2); Ketones,Urine Negative (Negative); Leukocyte Esterase,Urine Large (Negative); Nitrite,Urine Negative (Negative); Protein,Urine Negative (Negative); RBC,Urine <1 /hpf (0-5); Specific Gravity,Urine 1.004 (1.001-1.035); Squamous Epithelial Cell,Urine <1 /hpf (0-4); Urobilinogen,Urine <2.0 mg/dL (<2.0); WBC,Urine 11 /hpf (0-5)
[2021-08-18] MEDS: SODIUM CHLORIDE 0.9% 1,000 ML IV SCH (22:05)
[2021-08-18] MEDS ORDERED: ALBUTEROL NEBULIZED 2.5 MG/3 ML INHALATION PRN (22:10)
[2021-08-18] MEDS ORDERED: ONDANSETRON ODT 4 MG TAB PO PRN (22:10)
--- NOTE | 2021-08-18 22:14 | US ---
EXAMINATION TYPE: US venous doppler duplex LE DATE OF EXAM: 08/18/2021 9:37 PM COMPARISON: NONE CLINICAL HISTORY: PE. PE. Elevated D Dimer. SIDE PERFORMED: Bilateral TECHNIQUE: The lower extremity deep venous system is examined utilizing real time linear array sonog kristyn with graded compression, doppler sonography and color-flow sonography. VESSELS IMAGED: Common Femoral Vein Deep Femoral Vein Greater Saphenous Vein * Femoral Vein Popliteal Vein Small Saphenous Vein * Proximal Calf Veins (* superficial vessels) Right Leg: No evidence of DVT in veins imaged at this time. Left Leg: Color flow seen within veins imaged. CFV and popliteal vein appear to compress incompletely . Possible non-occlusive chronic internal echoes along vessel wall. IMPRESSION: There is evidence of some chronic deep vein thrombosis in the left leg. No evidence of d eep vein thrombosis in the right leg.
[2021-08-18] MEDS: traMADol 50 MG TAB PO PRN (22:41)
[2021-08-19] MEDS ORDERED: DICYCLOMINE 10 MG CAP PO PRN (01:00)
[2021-08-19] MEDS ORDERED: CYCLOBENZAPRINE 10 MG TAB PO PRN (01:00)
[2021-08-19] MEDS: LORazepam 1 MG TAB PO PRN ×2 (01:39→12:53)
[2021-08-19 03:37] LABS: Anisocytosis Slight; HCT 27.7 % (34.0-46.0); MCH 34.9 pg (25.0-35.0); MCHC 32.5 g/dL (31.0-37.0); MCV 107.2 fL (80.0-100.0); Macrocytosis Marked; Mean Platelet Volume 7.2; Platelet Count 248 k/uL (150-450); RBC 2.59 m/uL (3.80-5.40); RDW 16.2 % (11.5-15.5); WBC 3.8 k/uL (3.8-10.6)
[2021-08-19 04:24] LABS: Anisocytosis (M) Present; Eosinophils # (M) 0.04 k/uL (0-0.7); Lymphocytes # (M) 1.56 k/uL (1.0-4.8); Monocytes # (M) 0.27 k/uL (0-1.0); Neutrophils # (M) 1.94 k/uL (1.3-7.7); Neutrophils % (M) 51 %; Nucleated Red Blood Cells 0 /100 WBC (0-0); Poikilocytosis (M) Present; Total Cells Counted 100
[2021-08-19 04:27] LABS: Howell-Jolly Bodies Present; RBC Fragments Present
[2021-08-19] MEDS: amLODIPine 5 MG TAB PO SCH (08:11)
[2021-08-19] MEDS: PANTOPRAZOLE 40 MG TABLET PO SCH (08:11)
[2021-08-19] MEDS: CHOLECALCIFEROL 25 MCG (1000 IU) TABLET PO SCH (08:12)
[2021-08-19] MEDS: MULTIVITAMINS, THERA 1 EACH TAB PO SCH (08:12)
[2021-08-19] MEDS: LEVOTHYROXINE 125 MCG TAB PO SCH (08:12)
[2021-08-19] MEDS: PYRIDOXINE 50 MG TAB PO SCH ×2 (08:56→21:10)
[2021-08-19] MEDS: VENLAFAXINE HCL ER 150 MG CAP PO SCH (08:56)
[2021-08-19] MEDS ORDERED: FAMOTIDINE 20 MG/2 ML VIAL IV SCH (09:00)
[2021-08-19] MEDS ORDERED: FLUTICASONE 50MCG/SPRAY NASAL 16GM EA NOSTRIL PRN (09:00)
--- NOTE | 2021-08-19 12:40 | P.HPIM ---
History of Present Illness This is a pleasant 71 years old female with past medical history of ovarian cancer status post hysterectomy, anxiety and depression. Presents because Patient has exertional dyspnea for 2 weeks duration which is gradually getting worse. Also she feels some lightheadedness 1 month ago she had severe left groin pain that her PCP was planning to give her a steroid injection into the back or the area but that is resolved prior to come to the hospital and the weekend She denies chest pain. No diarrhea or vomiting. No dysuria or urgency or discomfort. She quit smoking about 40 years ago. She drinks alcohol occasionally, no il licit drugs Patient currently she is following up with Dr. Banks and she is on chemotherapy twice last month. She is not on home oxygen Hemodynamically patient is a stable but with mild tachycardia at 105, she is saturating 99% on room air. Labs are unremarkable except for mild anemia of hemoglobin 10.4 at 9.0, and there is evidence of hemoglobin delusion with repeat CBC D-dimer is elevated at 3.0, BMP is unremarkable. Liver enzymes are not elevated. Troponins are negative less than 0.012 tabs 2. Urinalysis: Large leukocyte esterase. Coronavirus: None detected EKG showing sinus tachycardia at [address]-T changes and QTC is 444 CTA of the lung: Normal pulmonary embolism. Minimal fibrotic changes. Large upper abdominal cystic mass stable compared to 05/30/2021.. There is a small amount of abdominal ascites fluid noted. Fluid improvement compared to 05/30/2021. Then there is an addendum to the CT of the chest stating the patient has acute pulmonary embolism in the right lower lobe Doppler of the lower extremity showing possible nonocclusive chronic deep venous thrombosis of the left leg Patient was started on heparin drip and admitted to the hospital with h ematology/oncology consult Review of Systems CONSTITUTIONAL: No fever, no malaise, no fatigue. HEENT: No recent visual problems or hearing problems. Denied any sore throat. CARDIOVASCULAR: No orthopnea, PND, no palpitations, no syncope. PULMONARY: No shortness of breath, no cough, no hemoptysis. GASTROINTESTINAL: No diarrhea, no nausea, no vomiting, no abdominal pain. Normoactive bowel sounds. NEUROLOGICAL: No headaches, no weakness, no numbness. HEMATOLOGICAL: Denies any bleeding or petechiae. GENITOURINARY: Denies any burning micturition, frequency, or urgency. MUSCULOSKELETAL/RHEUMATOLOGICAL: Denies any joint pain, swelling, or any muscle pain. ENDOCRINE: Denies any polyuria or polydipsia. Past Medical History Past Medical History: Cancer Additional Past Medical History / Comment(s): ovarian CA History of Any Multi-Drug Resistant Organisms: None Reported Past Surgical History: Hysterectomy, Orthopedic Surgery Additional Past Surgical History / Comment(s): multiple paracentesis, left wrist, left shoulder, breast reduction, D&C 2016, Splenectomy, total hysterectomy Past Anesthesia/Blood Transfusion Reactions: No Reported Reaction Past Psychological History: Anxiety, Depression Smoking Status: Never smoker Past Alcohol Use History: Occasional Past Drug Use History: Marijuana - Past Family History Mother Family Medical History: Vascular Disorder Additional Family Medical History / Comment(s): anemia Father Additional Family Medical History / Comment(s): arthritis, kidney tumor Medications and Allergies Home Medications Medication Instructions Recorded Confirmed Type LORazepam [Ativan] 1 mg PO TID PRN 08/23/19 08/18/21 History Levothyroxine Sodium [Synthroid] 125 mcg PO DAILY 08/23/19 08/18/21 History Metoprolol Succinate (ER) [Toprol 100 mg PO HS 08/23/19 08/18/21 History XL] Ezetimibe/Simvastatin [Vytorin 1 tab PO HS 08/24/19 08/18/21 History 10-20 mg] amLODIPine [Norvasc] 10 mg PO DAILY 08/24/19 08/18/21 History Albuterol Inhaler [Ventolin Hfa 1 puff INHALATION RT-Q6H PRN 06/18/21 08/18/21 History Inhaler] Cholecalciferol [Vitamin D3 (25 50 mcg PO DAILY 06/18/21 08/18/21 History Mcg = 1000 Iu)] Dicyclomine HCl 20 mg PO QID PRN 06/18/21 08/18/21 History Fluticasone Nasal [place] [Flonase 1 spray EA NOSTRIL DAILY PRN 06/18/21 08/18/21 History Nasal [place]] Multivitamins, Thera [Multivitamin 1 tab PO DAILY 06/18/21 08/18/21 History (formulary)] Ondansetron Odt [Zofran Odt] 4 mg PO Q6H PRN 06/18/21 08/18/21 History Pyridoxine HCl (Vitamin B6) 100 mg PO BID 06/18/21 08/18/21 History [Vitamin B-6] Sennosides/Docusate Sodium [Senna 1 cap PO HS 06/18/21 08/18/21 History Plus 8.6-50 mg Softgel] Venlafaxine HCl ER [Effexor Xr] 150 mg PO DAILY 06/18/21 08/18/21 History Zolpidem Tartrate [Ambien Cr] 12.5 mg PO HS PRN 06/18/21 08/18/21 History Cyclobenzaprine [Flexeril] 10 mg PO TID PRN 08/18/21 08/18/21 History Esomeprazole Magnesium [NexIUM] 40 mg PO DAILY 08/18/21 08/18/21 History traMADol HCL [Ultram] 50 mg PO Q6H PRN 08/18/21 08/18/21 History Allergies Allergy/AdvReac Type Severity Reaction Status Date / Time DANAY Inhibitors Allergy Dyspnea Verified 08/18/21 20:58 aspirin Allergy Rash/Hives Verified 08/18/21 20:58 clonidine [From Catapres] Allergy Rash/Hives Verified 08/18/21 20:58 codeine Allergy Rash/Hives Verified 08/18/21 20:58 [From Tylenol-Codeine #3] Latex, Natural Rubber Allergy Rash/Hives Verified 08/18/21 20:58 tetanus and diphtheria Allergy Rash/Hives Verified 08/18/21 20:58 toxoids Physical Exam Vitals: Vital Signs Temp Pulse Resp BP Pulse Ox 08/19/21 05:43 97.6 F 105 H 19 135/73 198 H 08/19/21 01:28 94 13 114/68 100 08/18/21 23:30 15 08/18/21 22:02 97 16 143/89 96 08/18/21 14:45 97.7 F 138 H 20 130/68 99 Intake and Output 08/18/21 08/18/21 08/19/21 14:59 22:59 06:59 Intake Total 106.182 Balance 106.182 Intake: Intake, IV Titration 106.182 Amount Heparin Sod,Pork in 0.45% 106.182 NaCl 25,000 unit In 0.45 % NaCl 1 250ml.bag @ 18 UNITS/KG/HR 12.492 mls/hr IV .Q20H1M [facility] Rx#: [id number] Other: Weight 69.4 kg GENERAL: The patient is alert and oriented x3, not in any acute distress. Well developed, well nourished. HEENT: Pupils are round and equally reacting to light. EOMI. No scleral icterus. No conjunctival pallor. Normocephalic, atraumatic. No pharyngeal erythema. No thyromegaly. CARDIOVASCULAR: S1 and S2 present. No murmurs, rubs, or gallops. PULMONARY: Chest is clear to auscultation, no wheezing or crackles. ABDOMEN: Soft, nontender, nondistended, normoactive bowel sounds. No palpable organomegaly. MUSCULOSKELETAL: No joint swelling or deformity. EXTREMITIES: No cyanosis, clubbing, or pedal edema. NEUROLOGICAL: Gross neurological examination did not reveal any focal deficits. SKIN: No rashes. No petechiae Results CBC & Chem 7: 08/19/21 02:31 08/18/21 15:16 Labs: Abnormal Lab Results - Last 24 Hours (Table) 08/18/21 08/18/21 08/18/21 Range/Units 15:16 15:16 15:16 RBC 2.97 L (3.80-5.40) m/uL Hgb 10.4 L (11.4-16.0) gm/dL Hct 32.2 L (34.0-46.0) % MCV 108.3 H D (80.0-100.0) fL RDW 17.0 H (11.5-15.5) % Macrocytosis Marked A D-Dimer 3.02 H (<0.60) mg/L FEU Sodium 136 L (137-145) mmol/L Glucose 134 H (74-99) mg/dL Ur Leukocyte Esterase (Negative) Urine WBC (0-5) /hpf Urine Bacteria (None) /hpf 08/18/21 08/19/21 Range/Units 20:54 02:31 RBC 2.59 L (3.80-5.40) m/uL Hgb 9.0 L (11.4-16.0) gm/dL Hct 27.7 L (34.0-46.0) % MCV 107.2 H (80.0-100.0) fL RDW 16.2 H (11.5-15.5) % Macrocytosis Marked A D-Dimer (<0.60) mg/L FEU Sodium (137-145) mmol/L Glucose (74-99) mg/dL Ur Leukocyte Esterase Large H (Negative) Urine WBC 11 H (0-5) /hpf Urine Bacteria Rare H (None) /hpf Assessment and Plan Assessment: Acute right lower lobe pulmonary embolism Chronic left DVT, nonocclusive Upper abdomen cystic mass History of ovarian cancer status post hysterectomy Exactly and depression, not an active issue Elevated d-dimer with negative pulmonary embolism on CTA of the chest. But with left leg DVT as above. Hyperlipidemia Hypertension Hypothyroidism Plan: This is a pleasant 71 years old female who presents with left leg chronic DVT and upper abdomen cystic mass in the view of her history of ovarian cancer Current continue with heparin drip evaluated by fagot maker, oncologist for consulted at the same time for her ovarian mass. We'll do echocardiogram and pulmonary consult Labs and medication were reviewed.. Continue same treatment. Continue with symptomatic treatment. Resume home medication. Monitor lytes and vitals. DVT and GI prophylaxis. Further recommendations depends on the clinical course of the patient DVT prophylaxis: heparin GI Prophylaxis: Pepcid PT/OT: Pending Prognosis is guarded
[2021-08-19] MEDS: traMADol 50 MG TAB PO PRN (12:53)
--- NOTE | 2021-08-19 17:09 | P.CNPUL ---
History of Present Illness Consult date: 08/19/21 Reason for consult: pulmonary embolism Chief complaint: Shortness of breath History of present illness: This is a 71-year-old female with known history of ovarian cancer, status post hysterectomy, and according to the patient she had metastatic ovarian cancer, she was recently seen by her oncologist, and she was told that she may have another cancer involving her abdomen, apparently she was found to have a large upper abdominal cystic mass which has been present going back to 05/30/2021. Patient came in today mostly with 2 weeks history of increased shortness of breath, mostly dyspnea upon any exertion. Patient has been complaining of one month history of severe left groin pain, and she was seen by orthopedics felt that pain in the left groin is related to her back, and she was supposed to be receiving epidural injections. Patient had no cough no wheezing no fever no chills no hemoptysis. CT angiogram of the chest was positive for right lower lobe pulmonary embolism and venous Doppler showed chronic left lower extremity DVT. Patient was admitted, and this consult was initiated. Patient is already on heparin, and I am recommending that the patient gets transitioned to Eliquis or Xarelto by tomorrow, and she will need to be on this treatment basically a lifetime. I believe her provoking factor is the fact that she has underlying malignancy/ovarian cancer. Patient had no previous history of thromboembolic disease. She had no previous history of documented DVT or pulmonary embolism. No family history of pulmonary embolism Review of Systems CONSTITUTIONAL: Negative. HEENT: Negative.. CARDIOVASCULAR: No orthopnea, PND, no palpitations, no syncope. PULMONARY: Dyspnea on exertion. GASTROINTESTINAL: No diarrhea, no nausea, no vomiting, no abdominal pain. Nor moactive bowel sounds. NEUROLOGICAL: Negative. HEMATOLOGICAL: Negative. GENITOURINARY: Denies any burning micturition, frequency, or urgency. MUSCULOSKELETAL/RHEUMATOLOGICAL: Left groin pain. ENDOCRINE: Negative. Past Medical History Past Medical History: Cancer Additional Past Medical History / Comment(s): ovarian CA History of Any Multi-Drug Resistant Organisms: None Reported Past Surgical History: Hysterectomy, Orthopedic Surgery Additional Past Surgical History / Comment(s): multiple paracentesis, left wrist, left shoulder, breast reduction, D&C 2016, Splenectomy, total hysterectomy Past Anesthesia/Blood Transfusion Reactions: No Reported Reaction Past Psychological History: Anxiety, Depression Smoking Status: Never smoker Past Alcohol Use History: Occasional Past Drug Use History: Marijuana - Past Family History Mother Family Medical History: Vascular Disorder Additional Family Medical History / Comment(s): anemia Father Additional Family Medical History / Comment(s): arthritis, kidney tumor Medications and Allergies Home Medications Medication Instructions Recorded Confirmed Type LORazepam [Ativan] 1 mg PO TID PRN 08/23/19 08/18/21 History Levothyroxine Sodium [Synthroid] 125 mcg PO DAILY 08/23/19 08/18/21 History Metoprolol Succinate (ER) [Toprol 100 mg PO HS 08/23/19 08/18/21 History XL] Ezetimibe/Simvastatin [Vytorin 1 tab PO HS 08/24/19 08/18/21 History 10-20 mg] amLODIPine [Norvasc] 10 mg PO DAILY 08/24/19 08/18/21 History Albuterol Inhaler [Ventolin Hfa 1 puff INHALATION RT-Q6H PRN 06/18/21 08/18/21 History Inhaler] Cholecalciferol [Vitamin D3 (25 50 mcg PO DAILY 06/18/21 08/18/21 History Mcg = 1000 Iu)] Dicyclomine HCl 20 mg PO QID PRN 06/18/21 08/18/21 History Fluticasone Nasal [place] [Flonase 1 spray EA NOSTRIL DAILY PRN 06/18/21 08/18/21 History Nasal [place]] Multivitamins, Thera [Multivitamin 1 tab PO DAILY 06/18/21 08/18/21 History (formulary)] Ondansetron Odt [Zofran Odt] 4 mg PO Q6H PRN 06/18/21 08/18/21 History Pyridoxine HCl (Vitamin B6) 100 mg PO BID 06/18/21 08/18/21 History [Vitamin B-6] Sennosides/Docusate Sodium [Senna 1 cap PO HS 06/18/21 08/18/21 History Plus 8.6-50 mg Softgel] Venlafaxine HCl ER [Effexor Xr] 150 mg PO DAILY 06/18/21 08/18/21 History Zolpidem Tartrate [Ambien Cr] 12.5 mg PO HS PRN 06/18/21 08/18/21 History Cyclobenzaprine [Flexeril] 10 mg PO TID PRN 08/18/21 08/18/21 History Esomeprazole Magnesium [NexIUM] 40 mg PO DAILY 08/18/21 08/18/21 History traMADol HCL [Ultram] 50 mg PO Q6H PRN 08/18/21 08/18/21 History Allergies Allergy/AdvReac Type Severity Reaction Status Date / Time DANAY Inhibitors Allergy Dyspnea Verified 08/18/21 20:58 aspirin Allergy Rash/Hives Verified 08/18/21 20:58 clonidine [From Catapres] Allergy Rash/Hives Verified 08/18/21 20:58 codeine Allergy Rash/Hives Verified 08/18/21 20:58 [From Tylenol-Codeine #3] Latex, Natural Rubber Allergy Rash/Hives Verified 08/18/21 20:58 tetanus and diphtheria Allergy Rash/Hives Verified 08/18/21 20:58 toxoids Physical Exam Vitals: Vital Signs Temp Pulse Pulse Resp BP BP Pulse Ox 08/19/21 15:32 110 H 18 138/75 98 08/19/21 13:58 93 18 96 08/19/21 12:54 98 18 123/69 98 08/19/21 10:00 98 18 98 08/19/21 08:06 81 18 08/19/21 08:00 97.8 F 104 H 18 129/75 98 08/19/21 07:58 83 18 08/19/21 05:43 97.6 F 105 H 19 135/73 198 H 08/19/21 01:28 94 13 114/68 100 08/18/21 23:30 15 08/18/21 22:02 97 16 143/89 96 Intake and Output 08/19/21 08/19/21 08/19/21 06:59 14:59 22:59 Intake Total 106.182 104.84 Balance 106.182 104.84 Intake: Intake, IV Titration 106.182 104.84 Amount Heparin Sod,Pork in 0.45% 106.182 104.84 NaCl 25,000 unit In 0.45 % NaCl 1 250ml.bag @ 18 UNITS/KG/HR 12.492 mls/hr IV .Q20H1M [facility] Rx#: [id number] Other: Weight 69.4 kg Physical Exam revealed a 71-year-old female very pleasant, in no distress. HEENT:[Neck is supple.] [No neck masses.] [No thyromegaly.] [No JVD.] Chest: [Clear throughout, no crackles, no rhonchi, no wheezes.] And right sided Mediport noted in anterior chest. Cardiac Exam: [Normal S1 and S2, no S3 gallop, no murmur.] Abdomen: [Soft, nontender, no megaly, no rebound, no guarding, normal bowel sounds.] Extremities: [No clubbing, no edema, no cyanosis.] No evidence of tenderness and lower extremities. Neurological Exam: [No focal neurologic deficit.] Alert and oriented 3 focal deficits. Psychiatric: Normal mood affect and normal mental status examination. Skin: No rashes. Results - Laboratory Findings CBC and BMP: 08/19/21 02:31 08/18/21 15:16 PT/INR, D-dimer PT 10.7 sec (9.0-12.0) 08/18/21 15:16 INR 1.0 (<1.2) 08/18/21 15:16 D-Dimer 3.02 mg/L FEU (<0.60) H 08/18/21 15:16 Abnormal lab findings: Abnormal Labs 08/18/21 08/18/21 08/18/21 15:16 15:16 15:16 RBC 2.97 L Hgb 10.4 L Hct 32.2 L MCV 108.3 H D RDW 17.0 H Macrocytosis Marked A APTT D-Dimer 3.02 H Sodium 136 L Glucose 134 H Ur Leukocyte Esterase Urine WBC Urine Bacteria 08/18/21 08/19/21 08/19/21 20:54 02:31 11:30 RBC 2.59 L Hgb 9.0 L Hct 27.7 L MCV 107.2 H RDW 16.2 H Macrocytosis Marked A APTT >200.0 H* D-Dimer Sodium Glucose Ur Leukocyte Esterase Large H Urine WBC 11 H Urine Bacteria Rare H - Diagnostic Findings CT scan - chest: image reviewed (As noted in HPI.) Assessment and Plan Assessment: Impression: Acute pulmonary embolism involving right lower lobe Chronic left lower extremity DVT. History of ovarian cancer. Upper abdominal cystic mass, chronic, was present as of June last year. Elevated d-dimer. Dyslipidemia. Hypertension. Hypothyroidism. Recommendation: Agree with the present treatment plan. Continue heparin. Transition patient to Eliquis tomorrow, and to be taken for a lifetime. Continue or resume home medications. Will again clear the patient for discharge once the patient is placed on Eliquis. Could be seen on outpatient basis if necessary. Time with Patient: Greater than 30
[2021-08-19] MEDS: HEPARIN SOD,PORK IN 0.45% NACL 25,000 UNIT in 0.45% NACL 1 250ML.BAG IV SCH ×2 (20:46→22:21)
[2021-08-19] MEDS: SODIUM CHLORIDE 0.9% 1,000 ML IV SCH (20:48)
[2021-08-19] MEDS ORDERED: ZOLPIDEM 5 MG TAB PO PRN (21:00)
[2021-08-19] MEDS ORDERED: EZETIMIBE 10 MG TAB PO SCH (21:00)
[2021-08-19] MEDS ORDERED: ATORVASTATIN 10 MG TAB PO SCH (21:00)
[2021-08-19] MEDS ORDERED: METOPROLOL SUCCINATE (ER) 50 MG TAB.ER.24H PO SCH (21:00)
[2021-08-19] MEDS ORDERED: SENNOSIDES-DOCUSATE SODIUM 1 EACH TAB PO SCH (21:00)
--- NOTE | 2021-08-19 23:05 | P.CONS ---
History of Present Illness - Reason for Consult Consult date: 08/19/21 Ov ca, PE Requesting physician: Elicia Mejia - Chief Complaint SOB, dizzy - History of Present Illness Mrs. Victoria initially presented in early 2019 with c/o weakness, diffuse upper abdominal pain and distention. US abd followed by CT reveled cystic structures in adnexas, as well as diffuse ascites and omental caking, findings were C/W ovarian/peritoneal carcinoma. Eventually had diagnostic paracentesis, cytology + for metastatic non-mucinous adenocarcinoma. She was started on carbo/taxol, she had 4 cycles then cytoreductive surgery with Dr. Anton 12/07/19. She had 2 adjuvant cycles of chemo. Stage IIIC. Placed maintenance zejula, dose reduced for SE. She had s/s recurrence, started doxil and carbo 03/22. She completed 6 cycles about 2 weeks ago. She presented to ER with c/o of progressive SOB and dizziness, started few weeks ago, progressive, associated with rt groin pain. CTA + RLL PE and doppler LLE CFV DVT. She has chronic macrocytic anemia. No fever, nausea, overt chest pain, abd pain, acute changes in bowel or bladder, bleeding or other pain. Review of Systems 10 point review of systems is negative except as stated in HPI Past Medical History Past Medical History: Cancer Additional Past Medical History / Comment(s): ovarian CA History of Any Multi-Drug Resistant Organisms: None Reported Past Surgical History: Hysterectomy, Orthopedic Surgery Additional Past Surgical History / Comment(s): multiple paracentesis, left wrist, left shoulder, breast reduction, D&C 2016, Splenectomy, total hysterectomy Past Anesthesia/Blood Transfusion Reactions: No Reported Reaction Past Psychological History: Anxiety, Depression Smoking Status: Never smoker Past Alcohol Use History: Occasional Past Drug Use History: Marijuana - Past Family History Mother Family Medical History: Vascular Disorder Additional Family Medical History / Comment(s): anemia Father Additional Family Medical History / Comment(s): arthritis, kidney tumor Medications and Allergies Home Medications Medication Instructions Recorded Confirmed Type LORazepam [Ativan] 1 mg PO TID PRN 08/23/19 08/18/21 History Levothyroxine Sodium [Synthroid] 125 mcg PO DAILY 08/23/19 08/18/21 History Metoprolol Succinate (ER) [Toprol 100 mg PO HS 08/23/19 08/18/21 History XL] Ezetimibe/Simvastatin [Vytorin 1 tab PO HS 08/24/19 08/18/21 History 10-20 mg] amLODIPine [Norvasc] 10 mg PO DAILY 08/24/19 08/18/21 History Albuterol Inhaler [Ventolin Hfa 1 puff INHALATION RT-Q6H PRN 06/18/21 08/18/21 History Inhaler] Cholecalciferol [Vitamin D3 (25 50 mcg PO DAILY 06/18/21 08/18/21 History Mcg = 1000 Iu)] Dicyclomine HCl 20 mg PO QID PRN 06/18/21 08/18/21 History Fluticasone Nasal [place] [Flonase 1 spray EA NOSTRIL DAILY PRN 06/18/21 08/18/21 History Nasal [place]] Multivitamins, Thera [Multivitamin 1 tab PO DAILY 06/18/21 08/18/21 History (formulary)] Ondansetron Odt [Zofran Odt] 4 mg PO Q6H PRN 06/18/21 08/18/21 History Pyridoxine HCl (Vitamin B6) 100 mg PO BID 06/18/21 08/18/21 History [Vitamin B-6] Sennosides/Docusate Sodium [Senna 1 cap PO HS 06/18/21 08/18/21 History Plus 8.6-50 mg Softgel] Venlafaxine HCl ER [Effexor Xr] 150 mg PO DAILY 06/18/21 08/18/21 History Zolpidem Tartrate [Ambien Cr] 12.5 mg PO HS PRN 06/18/21 08/18/21 History Cyclobenzaprine [Flexeril] 10 mg PO TID PRN 08/18/21 08/18/21 History Esomeprazole Magnesium [NexIUM] 40 mg PO DAILY 08/18/21 08/18/21 History traMADol HCL [Ultram] 50 mg PO Q6H PRN 08/18/21 08/18/21 History Allergies Allergy/AdvReac Type Severity Reaction Status Date / Time DANAY Inhibitors Allergy Dyspnea Verified 08/18/21 20:58 aspirin Allergy Rash/Hives Verified 08/18/21 20:58 clonidine [From Catapres] Allergy Rash/Hives Verified 08/18/21 20:58 codeine Allergy Rash/Hives Verified 08/18/21 20:58 [From Tylenol-Codeine #3] Latex, Natural Rubber Allergy Rash/Hives Verified 08/18/21 20:58 tetanus and diphtheria Allergy Rash/Hives Verified 08/18/21 20:58 toxoids Physical Exam Vitals: Vital Signs Temp Pulse Resp BP Pulse Ox 08/19/21 08:06 81 18 08/19/21 08:00 97.8 F 104 H 18 129/75 98 08/19/21 07:58 83 18 08/19/21 05:43 97.6 F 105 H 19 135/73 198 H 08/19/21 01:28 94 13 114/68 100 08/18/21 23:30 15 08/18/21 22:02 97 16 143/89 96 08/18/21 14:45 97.7 F 138 H 20 130/68 99 Intake and Output 08/18/21 08/19/21 08/19/21 22:59 06:59 14:59 Intake Total 106.182 Balance 106.182 Intake: Intake, IV Titration 106.182 Amount Heparin Sod,Pork in 0.45% 106.182 NaCl 25,000 unit In 0.45 % NaCl 1 250ml.bag @ 18 UNITS/KG/HR 12.492 mls/hr IV .Q20H1M [facility] Rx#: [id number] - Constitutional General appearance: average body habitus, cooperative, no acute distress - EENT Eyes: anicteric sclerae, EOMI ENT: hearing grossly normal, normal oropharynx - Neck Neck: no lymphadenopathy - Respiratory Respiratory: bilateral: CTA, diminished - Cardiovascular Rhythm: regular Heart sounds: normal: S1, S2 Abnormal Heart Sounds: no systolic murmur, no diastolic murmur, no rub, no S3 Gallop, no S4 Gallop, no click, no other leg Peripheral Edema: bilateral: None - Gastrointestinal General gastrointestinal: no absent bowel sounds, no decreased bowel sounds, no distended, no hepatomegaly, no hyperactive bowel sounds, normal bowel sounds, no organomegaly, no rigid, no scaphoid, soft, no splenomegaly, no tenderness, no umbilical hernia, no ventral hernia - Integumentary Integumentary: normal - Neurologic Neurologic: CNII-XII intact - Musculoskeletal Musculoskeletal: strength equal bilaterally - Psychiatric Psychiatric: A&O x's 3, appropriate affect, intact judgment & insight Results CBC & Chem 7: 08/19/21 02:31 08/18/21 15:16 Labs: Abnormal Lab Results - Last 24 Hours (Table) 08/18/21 08/18/21 08/18/21 Range/Units 15:16 15:16 15:16 RBC 2.97 L (3.80-5.40) m/uL Hgb 10.4 L (11.4-16.0) gm/dL Hct 32.2 L (34.0-46.0) % MCV 108.3 H D (80.0-100.0) fL RDW 17.0 H (11.5-15.5) % Macrocytosis Marked A D-Dimer 3.02 H (<0.60) mg/L FEU Sodium 136 L (137-145) mmol/L Glucose 134 H (74-99) mg/dL Ur Leukocyte Esterase (Negative) Urine WBC (0-5) /hpf Urine Bacteria (None) /hpf 08/18/21 08/19/21 Range/Units 20:54 02:31 RBC 2.59 L (3.80-5.40) m/uL Hgb 9.0 L (11.4-16.0) gm/dL Hct 27.7 L (34.0-46.0) % MCV 107.2 H (80.0-100.0) fL RDW 16.2 H (11.5-15.5) % Macrocytosis Marked A D-Dimer (<0.60) mg/L FEU Sodium (137-145) mmol/L Glucose (74-99) mg/dL Ur Leukocyte Esterase Large H (Negative) Urine WBC 11 H (0-5) /hpf Urine Bacteria Rare H (None) /hpf CT scan - chest: report reviewed Venous US: report reviewed Assessment and Plan (1) Left leg DVT Current Visit: Yes Status: Acute Code(s): I82.402 - ACUTE EMBOLISM AND THOMBOS UNSP DEEP VEINS OF L LOW EXTREM SNOMED Code(s): 564142014 (2) Pulmonary embolism Current Visit: Yes Status: Acute Code(s): I26.99 - OTHER PULMONARY EMBOLISM WITHOUT ACUTE COR PULMONALE SNOMED Code(s): 82380505 (3) Ovarian cancer Current Visit: Yes Status: Acute Priority: High Code(s): C56.9 - MALIGNANT NEOPLASM OF UNSPECIFIED OVARY SNOMED Code(s): 641792259 Plan: Most likely DVT/PE provoked 2/2 malignancy and chemotherapy. Agree with DOAC anticoagulation on DC. F/U with Dr. Banks after DC for treatment plans. Doctor attests: I performed a history and physical examination of this patient, developed impression and plan of care, discussed with dictator. I agree with dictators note, documented as a scribe.
[2021-08-20] MEDS: LORazepam 1 MG TAB PO PRN (02:50)
[2021-08-20] MEDS: LEVOTHYROXINE 125 MCG TAB PO SCH (06:37)
--- NOTE | 2021-08-20 08:00 | ECHOF ---
Referral Reason:Rule out heart disease MEASUREMENTS -------- HEIGHT: 167.6 cm WEIGHT: 69.4 kg BP: 123/69 RVIDd: 3.4 cm (< 3.3) IVSd: 1.1 cm (0.6 - 1.1) LVIDd: 4.4 cm (3.9 - 5.3) LVPWd: 1.1 cm (0.6 - 1.1) IVSs: 1.3 cm LVIDs: 3.4 cm LVPWs: 1.6 cm LA Diam: 3.1 cm (2.7 - 3.8) LAESV Index (A-L): 20.37 ml/m Ao Diam: 3.1 cm (2.0 - 3.7) AV Cusp: 2.0 cm (1.5 - 2.6) MV EXCURSION: 13.991 mm (> 18.000) MV EF SLOPE: 43 mm/s (70 - 150) EPSS: 0.8 cm MV E Isiah: 0.74 m/s MV DecT: 250 ms MV A Isiah: 1.21 m/s MV E/A Ratio: 0.62 FINDINGS -------- Sinus rhythm. This was a technically good study. The left ventricular size is normal. There is borderline concentric left ventricular hypertrophy. Overall left ventricular systolic function is normal with, an EF between 55 - 60 %. The right ventricle is mildly enlarged. Normal LA size by volume 22+/-6 ml/m2. The right atrium is normal in size. Interatrial and interventricular septum intact. The aortic valve is trileaflet, and appears structurally normal. No aortic stenosis or regurgitation. The mitral valve leaflets are mildly thickened. The tricuspid valve appears structurally normal. Unable to estimate RVSP due to inadequate TR jet s pectral doppler profile. There is no pulmonic regurgitation present. The aortic root size is normal. Normal inferior vena cava with normal inspiratory collapse consistent with estimated right atrial pre ssure of 5 mmHg. There is no pericardial effusion. CONCLUSIONS -------- 1. The left ventricular size is normal. 2. There is borderline concentric left ventricular hypertrophy. 3. Overall left ventricular systolic function is normal with, an EF between 55 - 60 %. 4. The right ventricle is mildly enlarged. 5. The aortic valve is trileaflet, and appears structurally normal. No aortic stenosis or regurgitati on. 6. The mitral valve leaflets are mildly thickened. 7. There is no pericardial effusion. CAMP NURSE: Radha Warren RDCS
[2021-08-20] MEDS: PANTOPRAZOLE 40 MG TABLET PO SCH (10:22)
[2021-08-20] MEDS: CHOLECALCIFEROL 25 MCG (1000 IU) TABLET PO SCH (10:22)
[2021-08-20] MEDS: amLODIPine 5 MG TAB PO SCH (10:23)
[2021-08-20] MEDS: PYRIDOXINE 50 MG TAB PO SCH (10:23)
[2021-08-20] MEDS: MULTIVITAMINS, THERA 1 EACH TAB PO SCH (10:23)
[2021-08-20] MEDS: VENLAFAXINE HCL ER 150 MG CAP PO SCH (10:23)
[2021-08-20 12:25] VITALS: RESP 16; TEMP 98.2
[2021-08-20 12:27] VITALS: BP 125/66; PULSE 63
--- NOTE | 2021-08-20 13:57 | P.DS ---
Providers Date of admission: 08/18/21 20:10 Attending physician: Thuy Mcclain Consults: 08/18/21 20:39 Consult Physician Routine Consulting Provider: Lamberto Banks Consult Reason/Comments: PE; Ovarian cancer WITH abd mass Do you want consulting provider notified?: Yes 08/19/21 12:37 Consult Physician Urgent Consulting Provider: María Gallardo Consult Reason/Comments: PE Do you want consulting provider notified?: Yes [facility] Course: Patient with colon cancer admitted for pulmonary embolism right heart strain patient is medically stable will be discharged on Eliquis today. Patient is receiving chemotherapy. PHYSICAL EXAMINATION: GENERAL: The patient is alert and oriented x3, not in any acute distress. Well developed, well nourished. HEENT: Pupils are round and equally reacting to light. EOMI. No scleral icterus. No conjunctival pallor. Normocephalic, atraumatic. No pharyngeal erythema. No thyromegaly. CARDIOVASCULAR: S1 and S2 present. No murmurs, rubs, or gallops. PULMONARY: Chest is clear to auscultation, no wheezing or crackles. ABDOMEN: Soft, nontender, nondistended, normoactive bowel sounds. No palpable organomegaly. MUSCULOSKELETAL: No joint swelling or deformity. EXTREMITIES: No cyanosis, clubbing, or pedal edema. NEUROLOGICAL: Gross neurological examination did not reveal any focal deficits. SKIN: No rashes. Assessment and Plan Assessment: Acute right lower lobe pulmonary embolism secondary to active ovarian cancer Chronic left DVT, nonocclusive Ovarian cancer-active on chemotherapy Depression Hyperlipidemia Hypertension Hypothyroidism Patient Condition at Discharge: Serious Plan - Discharge Summary New Discharge Prescriptions: New Apixaban [Eliquis Starter Pack (for VTE)] 0 mg PO DIRECTED 30 Days #1 pack Continue Levothyroxine Sodium [Synthroid] 125 mcg PO DAILY LORazepam [Ativan] 1 mg PO TID PRN PRN Reason: Anxiety Metoprolol Succinate (ER) [Toprol XL] 100 mg PO HS Ezetimibe/Simvastatin [Vytorin 10-20 mg] 1 tab PO HS amLODIPine [Norvasc] 10 mg PO DAILY Albuterol Inhaler [Ventolin Hfa Inhaler] 1 puff INHALATION RT-Q6H PRN PRN Reason: Shortness Of Breath Fluticasone Nasal [place] [Flonase Nasal [place]] 1 spray EA NOSTRIL DAILY PRN PRN Reason: Allergy Symptoms Ondansetron Odt [Zofran ODT] 4 mg PO Q6H PRN PRN Reason: Nausea Zolpidem Tartrate [Ambien Cr] 12.5 mg PO HS PRN PRN Reason: Insomnia Dicyclomine HCl 20 mg PO QID PRN PRN Reason: Gi Upset Multivitamins, Thera [Multivitamin (formulary)] 1 tab PO DAILY Venlafaxine HCl ER [Effexor XR] 150 mg PO DAILY Cholecalciferol [Vitamin D3 (25 Mcg = 1000 Iu)] 50 mcg PO DAILY Sennosides/Docusate Sodium [Senna Plus 8.6-50 mg Softgel] 1 cap PO HS Pyridoxine HCl (Vitamin B6) [Vitamin B-6] 100 mg PO BID Esomeprazole Magnesium [NexIUM] 40 mg PO DAILY traMADol HCL [Ultram] 50 mg PO Q6H PRN PRN Reason: Pain Cyclobenzaprine [Flexeril] 10 mg PO TID PRN PRN Reason: Pain Discharge Medication List LORazepam [Ativan] 1 mg PO TID PRN 08/23/19 [History] Levothyroxine Sodium [Synthroid] 125 mcg PO DAILY 08/23/19 [History] Metoprolol Succinate (ER) [Toprol XL] 100 mg PO HS 08/23/19 [History] Ezetimibe/Simvastatin [Vytorin 10-20 mg] 1 tab PO HS 08/24/19 [History] amLODIPine [Norvasc] 10 mg PO DAILY 08/24/19 [History] Albuterol Inhaler [Ventolin Hfa Inhaler] 1 puff INHALATION RT-Q6H PRN 06/18/21 [History] Cholecalciferol [Vitamin D3 (25 Mcg = 1000 Iu)] 50 mcg PO DAILY 06/18/21 [History] Dicyclomine HCl 20 mg PO QID PRN 06/18/21 [History] Fluticasone Nasal [place] [Flonase Nasal [place]] 1 spray EA NOSTRIL DAILY PRN 06/18/21 [History] Multivitamins, Thera [Multivitamin (formulary)] 1 tab PO DAILY 06/18/21 [History] Ondansetron Odt [Zofran ODT] 4 mg PO Q6H PRN 06/18/21 [History] Pyridoxine HCl (Vitamin B6) [Vitamin B-6] 100 mg PO BID 06/18/21 [History] Sennosides/Docusate Sodium [Senna Plus 8.6-50 mg Softgel] 1 cap PO HS 06/18/21 [History] Venlafaxine HCl ER [Effexor XR] 150 mg PO DAILY 06/18/21 [History] Zolpidem Tartrate [Ambien Cr] 12.5 mg PO HS PRN 06/18/21 [History] Cyclobenzaprine [Flexeril] 10 mg PO TID PRN 08/18/21 [History] Esomeprazole Magnesium [NexIUM] 40 mg PO DAILY 08/18/21 [History] traMADol HCL [Ultram] 50 mg PO Q6H PRN 08/18/21 [History] Apixaban [Eliquis Starter Pack (for VTE)] 0 mg PO DIRECTED 30 Days #1 pack 08/20/21 [Rx] Follow up Appointment(s)/Referral(s): Ronna Beard MD [Primary Care Provider] - 3 Days Lamberto Banks MD [STAFF PHYSICIAN] - 09/03/21 11:00 am Patient Instructions/Handouts: Pulmonary Embolism (DC), Deep Vein Thrombosis (DC) Activity/Diet/Wound Care/Special Instructions: CT CAP 09/01/21 11:20 AM Discharge Disposition: HOME SELF-CARE
--- NOTE | 2021-08-20 14:25 | P.PN ---
Subjective Progress Note Date: 08/20/21 Principal diagnosis: Pulmonary embolism, recurrent ovarian adenocarcinoma In f/u today pt feels good, denies any bleeding, chest pain, progressive leg swelling, she does have left groin and gluteal pain for which she has been seen by Orthopedics Objective - Vital Signs Vital signs: Vital Signs Temp 98.4 F 08/20/21 04:00 Pulse 91 08/20/21 04:00 Resp 22 08/20/21 04:00 BP 124/65 08/20/21 04:00 Pulse Ox 97 08/20/21 04:00 Intake & Output 08/19/21 08/20/21 08/20/21 18:59 06:59 18:59 Intake Total 104.84 366.144 0 Balance 104.84 366.144 0 Intake: Intake, IV Titration 104.84 126.144 0 Amount Heparin Sod,Pork in 0.45% 104.84 126.144 0 NaCl 25,000 unit In 0.45 % NaCl 1 250ml.bag @ 18 UNITS/KG/HR 12.492 mls/hr IV .Q20H1M PANKAJ Rx#: [id number] Oral 240 Other: # Voids 1 - Constitutional General appearance: Present: average body habitus, cooperative, no acute distress - EENT Eyes: Present: anicteric sclerae, EOMI ENT: Present: hearing grossly normal - Respiratory Respiratory: bilateral: CTA - Cardiovascular Rhythm: regular Heart sounds: normal: S1, S2 Abnormal Heart Sounds: Absent: systolic murmur, diastolic murmur, rub, S3 Gallop, S4 Gallop, click, other - Peripheral edema leg Peripheral Edema: bilateral: None - Gastrointestinal General gastrointestinal: Present: normal bowel sounds, soft - Integumentary Integumentary: Present: normal - Neurologic Neurologic: Present: CNII-XII intact - Musculoskeletal Musculoskeletal: Present: strength equal bilaterally - Psychiatric Psychiatric: Present: A&O x's 3, appropriate affect, intact judgment & insight - Labs CBC & Chem 7: 08/19/21 02:31 08/18/21 15:16 Labs: Abnormal Lab Results - Last 24 Hours (Table) 08/19/21 08/19/21 08/20/21 Range/Units 11:30 20:14 04:12 APTT >200.0 H* 160.6 H* 100.0 H (22.0-30.0) sec Microbiology - Last 24 Hours (Table) 08/18/21 20:54 Urine Culture - Final Urine,Clean Catch Assessment and Plan (1) Left leg DVT Current Visit: Yes Status: Acute Code(s): I82.402 - ACUTE EMBOLISM AND THOMBOS UNSP DEEP VEINS OF L LOW EXTREM SNOMED Code(s): 789258880 (2) Pulmonary embolism Current Visit: Yes Status: Acute Code(s): I26.99 - OTHER PULMONARY EMBOLISM WITHOUT ACUTE COR PULMONALE SNOMED Code(s): 99995518 (3) Ovarian cancer Current Visit: Yes Status: Acute Priority: High Code(s): C56.9 - MALIGNANT NEOPLASM OF UNSPECIFIED OVARY SNOMED Code(s): 913090987 Plan: Most likely DVT/PE provoked 2/2 malignancy and chemotherapy. Agree with DOAC anticoagulation on DC. Post treatment CT scan at the end of the month with F/U with Dr. Banks for results and further treatment plans. Doctor attests: I performed a history and physical examination of this patient, developed impression and plan of care, discussed with dictator. I agree with dictators note, documented as a scribe.
[2021-08-20] MEDS ORDERED: APIXABAN 5 MG TAB PO ONE (14:30)
--- NOTE | 2021-08-22 13:30 | CDI ---
Documentation Clarification Form Date: 08/22/21 From: Jennie Sylvester Admit Date: 08/18/2021 08:10:00 PM Patient Name: Macarena Victoria V Visit Number: [id number] Discharge Date: 08/20/2021 03:05:00 PM ATTENTION: The Clinical Documentation Specialists (CDI) and [facility] Coding Staff appreciate your assistance in clarifying documentation. Please respond to the clarification below the line at the bottom and electronically sign. The CDI & [facility] Coding staff will review the response and follow-up if needed. Please note: Queries are made part of the Legal Health Record. If you have any questions, please contact the author of this message via ITS. Dr. Thalia Cornelius, There is documentation of pulmonary embolism with right heart strain in the discharge summary. Based on this information and the findings below, is there an additional diagnosis that is clinically appropriate for this patient? Patient history/risk factors: Ovarian ca with mets to peritoneum, ascites, chronic DVT of left leg, asthma Clinical Indicators: Echo-Overall left ventricular systolic function is normal with, an EF between 55 - 60 %. The right ventricle is mildly enlarged. Treatment: Pulmonary embolism right heart strain patient is medically stable will be discharged on Eliquis today. Is there an additional diagnosis that is clinically appropriate for this patient? [ ] Acute cor pulmonale due to pulmonary embolism [ ] Acute cor pulmonale due to, please specify [ ] Other, please specify [ ] Unable to determine no additional comments refer to anitra KLEIND
== END 2021-08-20 15:05 | disposition home or self-care (01) | DRG 176 ==
LOC: EC 13:59 → 3SCARD 20:10
PROVIDERS: ADMIT Hospitalist; ATTEND Hospitalist
DX: I26.99 Other pulmonary embolism without acute cor pulmonale (principal); R18.8 Other ascites; C56.9 Malignant neoplasm of unspecified ovary; C78.6 Secondary malignant neoplasm of retroperitoneum and peritoneum; I82.502 Chronic embolism and thrombosis of unspecified deep veins of left lower extremity; D63.0 Anemia in neoplastic disease; Z20.822 Contact with and (suspected) exposure to COVID-19; J45.909 Unspecified asthma, uncomplicated; F32.A Depression, unspecified; F41.9 Anxiety disorder, unspecified; E78.5 Hyperlipidemia, unspecified; I10 Essential (primary) hypertension; E03.9 Hypothyroidism, unspecified; R39.15 Urgency of urination; R26.2 Difficulty in walking, not elsewhere classified; I99.9 Unspecified disorder of circulatory system; Z79.890 Hormone replacement therapy; Z79.899 Other long term (current) drug therapy; Z87.891 Personal history of nicotine dependence; Z90.710 Acquired absence of both cervix and uterus; Z90.81 Acquired absence of spleen; Z87.42 Personal history of other diseases of the female genital tract; Z87.2 Personal history of diseases of the skin and subcutaneous tissue; Z98.890 Other specified postprocedural states; Z88.5 Allergy status to narcotic agent; Z88.7 Allergy status to serum and vaccine; Z88.8 Allergy status to other drugs, medicaments and biological substances; Z88.6 Allergy status to analgesic agent; Z91.040 Latex allergy status; Z83.2 Family history of diseases of the blood and blood-forming organs and certain disorders involving the immune mechanism; Z82.61 Family history of arthritis; Z84.1 Family history of disorders of kidney and ureter
CPT/HCPCS: 36415; 71275; 80053; 81001; 84484; 85025; 85379; 85610; 85730; 87086; 87635; 93005; 93306; 93970; 94640; 99285

== ENCOUNTER → 2021-09-01 | Outpatient (CLI) | payer MEDICARE, BC ==
--- NOTE | 2021-09-01 12:08 | CT ---
EXAMINATION TYPE: CT ChestAbdPelvis w con DATE OF EXAM: 09/01/2021 COMPARISON: Most recent CT May 30, 2021 and older studies HISTORY: Ovarian cancer, observe for METS CT DLP: 753.7 mGycm. Automated Exposure Control for Dose Reduction was Utilized. CONTRAST: CT scan of the thorax, abdomen and pelvis is performed with IV Contrast, patient injected with 100 mL of Isovue 300. FINDINGS: LUNGS: The lungs are grossly clear, there is no concerning new greater than 5 mm parenchymal mass or nodule identified. Stable 7 mm peripheral right basilar nodule axial image 46. Mild bibasilar linear scarring and/or atelectasis. There is no pleural effusion or pneumothorax seen. The tracheobronchial tree is patent. MEDIASTINUM: There are no new greater than 1 cm hilar or mediastinal lymph nodes. No pericardial ef fusion is seen. Stable mild cardiomegaly. Coronary artery calcification redemonstrated. OTHER: Stable right internal jugular Mediport catheter. LIVER/GB: Low dense thin-walled multiloculated cyst with lobulated contour and measures up to 8.0 cm long axis axial image 52 without significant change from most recent CT. Small amount of surrounding fluid and slight scalloping of the peripheral margin of the liver is redemonstrated. Contracted gallb ladder redemonstrated PANCREAS: No significant abnormality is seen. SPLEEN: Small residual splenule left upper quadrant are redemonstrated. ADRENALS: No significant abnormality is seen. KIDNEYS: Symmetrical glandular uptake and excretion without hydronephrosis seen bilaterally. BOWEL: Oral contrast only reaches level of the mid transverse colon. No suspicious small or large bow el dilatation. Diverticula in the sigmoid colon are present. No CT evidence for acute diverticulitis GENITAL ORGANS: Uterus am both ovaries redemonstrated surgically absent. Occasional scattered bilater al pelvic phleboliths redemonstrated. LYMPH NODES: No greater than 1cm abdominal or pelvic lymph nodes are appreciated. OSSEOUS STRUCTURES: Marked disc space narrowing with endplate sclerosis L3-L4 level. Vacuum disc phen omenon with disc space narrowing at L5-S1 level. OTHER: Moderate peripheral plaque in the aorta extends into branch vessels. Small amount of nonsimple fluid scattered throughout the abdomen not layering dependently remains pre sent IMPRESSION: Stable small amount of nonsimple intra-abdominal fluid including fluid along the liver ma rgin with peripheral scalloping suggesting peritoneal spread of neoplasm and malignant ascites. Stab le multilocular cystic metastatic disease to the liver. Stable right basilar nodule. No significant c hange or progression from most recent CT.
== END | disposition home or self-care (01) ==
LOC: RADPROMAIN 09:25
PROVIDERS: ATTEND Internal Medicine Hematology & Oncology
DX: C56.9 Malignant neoplasm of unspecified ovary (principal); C78.7 Secondary malignant neoplasm of liver and intrahepatic bile duct
CPT/HCPCS: 82565; 84520; 71260; 74177; J1642; Q9967

== ENCOUNTER 2021-10-29 11:52 | Day surgery (SDC) | payer MEDICARE, BC ==
[2021-10-24 11:04] VITALS: BMI 23.0
[~2021-10-29 11:52] MED LIST changes: +DEXAMETHASONE SOD PHOSPHATE 4 MG/ML 1 ML VIAL IV ONE; +HYDROmorphone 0.5 MG/0.5 ML SYRINGE IVP PRN; +LACTATED RINGERS 1,000 ML IV SCH; +ONDANSETRON 4 MG/2 ML VIAL IVP ONE; -SODIUM CHLORIDE 0.9% 500 ML 500 ML in EMPTY BAG 1 BAG IV PRN; -ZOLEDRONIC ACID 5 MG in SODIUM CHLORIDE 0.9% 100 ML IV NR
[2021-10-29] MEDS ORDERED: LIDOCAINE 1% (10MG/ML) FOR IV START INTRADERMA ONE (12:35)
[2021-10-29 12:53] VITALS: RESP 16
[2021-10-29] MEDS ORDERED: MIDAZOLAM 2 MG/2 ML VIAL ONE (12:55)
[2021-10-29] MEDS ORDERED: LIDOCAINE 1% INJ 10MG/ML (20 ML MDV) ONE (12:55)
[2021-10-29] MEDS ORDERED: fentaNYL (PF) 50 MCG/ML 2 ML AMP ONE (12:55)
[2021-10-29] MEDS ORDERED: PROPOFOL 10 MG/ML 20 ML VIAL IV ONE (12:55)
[2021-10-29] MEDS ORDERED: BUPIVACAINE (PF) 0.25% 30 ML VIAL SQ ONE (12:59)
[2021-10-29 13:55] VITALS: TEMP 97.2
--- NOTE | 2021-10-29 14:11 | P.OP ---
Date of Procedure: 10/29/21 Preoperative Diagnosis: Hammertoe second digit right foot Postoperative Diagnosis: Same Procedure(s) Performed: Hammertoe correction second digit right foot Implants: Arthrex 12 mm hammertoe implant Anesthesia: MAC, local Surgeon: Gian Chacon Estimated Blood Loss (ml): 1 Pathology: none sent Condition: stable Disposition: PACU Description of Procedure: The patient was brought into the operating room and placed on table supine position. Timeout was taken to confirm correct patient identifiers, correct site of surgery, and correct procedure. When all staff in the room in agreement the patient was placed under IV sedation anesthesia. A well-padded tourniquet was placed on her ankle. 10 mL of 0.25% Marcaine was injected proximal to the second digit and then the right foot was prepped and draped in the usual manner. The foot was exsanguinated and the tourniquet inflated to 250 mmHg. Attention was directed over the proximal interphalangeal joint of the right second toe where a linear incision was made over the joint. The incision was de epened down to the subcutaneous tissue careful to identify, avoid, and retract any neurovascular structures and cauterize any bleeding vessels. Dissection was done medially and laterally to the subcutaneous layer over the proximal interphalangeal joint a transverse incision was made through the dorsal capsule the proximal phalangeal joint, resecting the extensor tendon as well as the collateral ligaments. A sagittal saw was then used to resect the proximal phalangeal head perpendicular to the long access of the phalanx. Then the articular surface of the base of the middle phalanx was also resected with a saw again perpendicular to the long axis of the middle phalanx. A guidewire was used to create submersible pilot holes in the proximal phalanx and then inserted at the base of middle phalanx and advanced out the distal aspect of the second toe. The guidewire was reinserted and the hole in the proximal phalanx and then the drill was placed over the wire and drilled appropriate depth. The wires a reinserted the base of the middle phalanx and again the area was drilled to the proper depth. The guidewire was retracted distally some very little was protruding from the base of middle phalanx and then the threaded portion of the Arthrex 12 mm hammertoe implant was placed around the guidewire and then threaded into the middle phalanx until it was flush. The clinical education coordinator was removed and then the 2 arms of the proximal aspect of the implant were placed in the drill hole in the proximal phalanx and then the 2 segments were impacted together. Fluoroscopic imaging confirmed that the arthrodesis was well-seated and there was good bony contact. The implant was also in proper position both distal and proximal to the arthrodesis site. Once position of the toe and plate were confirmed, the gu idewire was placed through the implant to deployed the arms and then was taken to the midshaft of the proximal phalanx. The pin was then cut and then impacted into the distal phalanx for a second point of fixation. The wound is irrigated thoroughly with antibiotic saline. The extensor tendon was repaired with 3-0 Vicryl. Skin closure was done with 4-0 nylon. An Arthrex jumpstart dressing placed over the incision and then a bulky dry dressing applied to the right foot. Tourniquet was released and capillary refill return to all digits on the right foot. The patient tolerated above procedure and anesthesia well and left the operating room to recovery with vital signs stable
[2021-10-29 15:34] VITALS: BP 145/80; PULSE 80
== END 2021-10-29 15:38 | disposition home or self-care (01) ==
LOC: OR 11:52
PROVIDERS: ATTEND Podiatrist
DX: M20.41 Other hammer toe(s) (acquired), right foot (principal); I10 Essential (primary) hypertension; E78.5 Hyperlipidemia, unspecified; E03.9 Hypothyroidism, unspecified; F32.A Depression, unspecified; J45.909 Unspecified asthma, uncomplicated; Z72.0 Tobacco use; K30 Functional dyspepsia; R63.4 Abnormal weight loss; Z68.23 Body mass index [BMI] 23.0-23.9, adult; Z85.43 Personal history of malignant neoplasm of ovary; Z86.718 Personal history of other venous thrombosis and embolism; Z79.899 Other long term (current) drug therapy; Z79.01 Long term (current) use of anticoagulants; Z79.890 Hormone replacement therapy; Z88.8 Allergy status to other drugs, medicaments and biological substances; Z88.6 Allergy status to analgesic agent; Z91.040 Latex allergy status; Z88.5 Allergy status to narcotic agent; Z90.710 Acquired absence of both cervix and uterus; Z98.890 Other specified postprocedural states
CPT/HCPCS: 28285; C1713; J2250; J1100; J0690; J2405; J2001; J3010; J2704

== ENCOUNTER → 2021-12-05 | Outpatient (CLI) | payer MEDICARE, BC ==
--- NOTE | 2021-12-05 16:36 | CT ---
EXAMINATION TYPE: CT ChestAbdPelvis w con DATE OF EXAM: 12/05/2021 INDICATION: Ovarian ca. Obs for mets COMPARISON: 09/01/2021 CT DLP: 0 mGycm CONTRAST: Performed with Oral Contrast and with IV Contrast, patient injected with 100 mL of Isovue 300. TECHNIQUE: Axial images at 5 mm thick sections. Reconstructed images in the coronal plane. Delayed images through the kidneys. FINDINGS: CT CHEST: Portion of the thyroid visualized is normal. No suspicious lung nodules or focal infiltrates are present. There is a borderline enlarged pretracheal node measuring 1.0 cm. Additional smaller shotty lymphaden opathy is present. The ascending aorta diameter at the level of the main pulmonary artery is 3.2 cm. The main pulmonary artery diameter at the bifurcation is 2.9 cm. Dense coronary artery calcification is present. CT ABDOMEN: There is a large hypodense structure within the epigastric region. This appears to arise from the superior head of the pancreas measures 7.7 cm. Pseudocyst formation should be considered. Th is may be minimally smaller than comparison. Tail of pancreas appears within normal limits. No pancre atic duct dilatation is evident. Liver: Hypodensity extends adjacent to the gallbladder and pancreatic head into the ligamentum teres region of the liver and is indistinct. Infiltrative process such be considered. This is developing fr om comparison. Example image series 3 image 59 Spleen: Very small. This could be some residual splenic tissue if there has been prior splenectomy. Adrenal glands: The adrenal glands are normal. Gallbladder: Normal Kidneys: No masses are evident. No hydronephrosis is present. Small cortical renal cysts may be pre sent. Delayed images were obtained through the kidneys, which remain unremarkable. Aorta: Vascular calcification is within the aorta. Inferior vena cava: Normal. CT PELVIS: There may be some loculated fluid within the anterior abdomen. Small amount of fluid is in the right paracolic gutter. Loops of bowel within the abdomen and pelvis are normal. There are loops of bowel which are incom pletely distended or lack oral contrast limiting their evaluation. Appendix: Normal as visualized. Urinary bladder: Normal. Genitourinary structures: Uterus and ovaries are not identified. Osseous structures: No suspicious lytic or sclerotic lesions. Degenerative changes at the scoliotic l umbar spine. Degenerative disc changes are present within the lumbar spine. IMPRESSIONS: 1. Cystlike structure within the superior right lobe liver is nonspecific. Consider pseudocyst within the differential. 2. Nonspecific fluid within the anterior abdomen and right paracolic gutter. 3. Infiltrative process may be within the liver along the ligamentum teres. Ultrasound may be useful for better delineation.
== END | disposition home or self-care (01) ==
LOC: RADPROMAIN 13:31
PROVIDERS: ATTEND Internal Medicine Hematology & Oncology
DX: C56.9 Malignant neoplasm of unspecified ovary (principal); K76.89 Other specified diseases of liver
CPT/HCPCS: 82565; 84520; 71260; 74177; J1642; Q9967

== ENCOUNTER → 2021-12-25 | Outpatient (CLI) | payer MEDICARE, BC ==
--- NOTE | 2021-12-26 05:56 | US ---
EXAMINATION TYPE: US abdomen complete DATE OF EXAM: 12/25/2021 COMPARISON: CT December 05, 2021 CLINICAL HISTORY: R10.9 ABN PAIN,R19.00 MASS. mass seen on left lobe of liver in CT, h/o ovarian CA f or over 2 years EXAM MEASUREMENTS: Liver Length: 14.8 cm Gallbladder Wall: 0.2 cm CBD: 0.8 cm Spleen: not seen Right Kidney: 10.7 x 4.1 x 4.3 cm Left Kidney: 10.2 x 3.6 x 5.4 cm Pancreas: wnl Liver: complex cyst seen at medial left lobe = 6.3 x 7.5 x 4.3cm Gallbladder: appears contracted with internal echoes, patient is NPO Evidence for sonographic Lane's sign: no CBD: wnl Spleen: not seen due to high placement and bowel gas Right Kidney: wnl Left Kidney: wnl Upper IVC: wnl Abd Aorta: wnl The visualized liver redemonstrates thin-walled cyst or cystic lesion measuring approximately 7.5 cm long axis. No significant change from recent CT The intrahepatic portion of the IVC and visualized a bdominal aorta are within normal limits. Gallbladder remains contracted similar to recent CT. Common bile duct is upper limits of normal for patient's age . The visualized portion of the pancreas are homogenous. Portions obscured by overlying bowel gas on images. The spleen is suboptimally visualized . Kidneys are symmetric and free of hydronephrosis. No renal lesions are seen. IMPRESSION: Fairly stable in size 7.5 cm thin-walled cystic lesion in the left hepatic lobe having so me peripheral nodularity from most recent CT. Contracted gallbladder redemonstrated.
== END | disposition home or self-care (01) ==
LOC: RADUSWWP 07:57
PROVIDERS: ATTEND Internal Medicine Hematology & Oncology
DX: K76.89 Other specified diseases of liver (principal)
CPT/HCPCS: 76700

== ENCOUNTER 2022-02-25 11:38 | Inpatient (IN) | payer MEDICARE, BC ==
[2022-02-25] MEDS ORDERED: ONDANSETRON 4 MG/2 ML VIAL IVP STA (13:40)
[2022-02-25] MEDS ORDERED: IOPAMIDOL CONTRAST (ORAL USE) VIAL PO PRN (13:40)
[2022-02-25] MEDS ORDERED: SODIUM CHLORIDE 0.9% 500 ML 500 ML IV STA (13:40)
[2022-02-25 14:17] LABS: Basophils % (A) 0 %; Eosinophils # (A) 0.1 k/uL (0-0.7); Eosinophils % (A) 1 %; HCT 37.6 % (34.0-46.0); HGB 11.7 gm/dL (11.4-16.0); Lymphocytes # (A) 0.9 k/uL (1.0-4.8); Lymphocytes % (A) 10 %; MCH 31.5 pg (25.0-35.0); MCHC 31.1 g/dL (31.0-37.0); MCV 101.3 fL (80.0-100.0); Macrocytosis Slight; Mean Platelet Volume 7.2; Monocytes # (A) 0.8 k/uL (0-1.0); Monocytes % (A) 9 %; Neutrophils # (A) 7.2 k/uL (1.3-7.7); Neutrophils % (A) 78 %; Platelet Count 389 k/uL (150-450); RBC 3.71 m/uL (3.80-5.40); RDW 13.7 % (11.5-15.5); WBC 9.3 k/uL (3.8-10.6)
[2022-02-25] MEDS ORDERED: HYDROmorphone 0.5 MG/0.5 ML SYRINGE IVP STA (14:51)
[2022-02-25 14:58] LABS: African American GFR (CKD) >90 (>60 ml/min/1.73 sqM); Albumin 3.6 g/dL (3.5-5.0); Amylase 38 U/L (30-110); Anion Gap 9 mmol/L; Blood Urea Nitrogen 12 mg/dL (7-17); Carbon Dioxide 28 mmol/L (22-30); Chloride 98 mmol/L (98-107); Glucose 137 mg/dL (74-99); Non-African American GFR(CKD) 89 (>60 ml/min/1.73 sqM); Potassium 2.9 mmol/L (3.5-5.1); Sodium 135 mmol/L (137-145); Total Protein 7.3 g/dL (6.3-8.2)
[2022-02-25 14:59] LABS: ALT 111 U/L (4-34); AST 147 U/L (14-36); Alkaline Phosphatase 968 U/L (38-126); Calcium 8.9 mg/dL (8.4-10.2); Lipase 42 U/L (23-300)
--- NOTE | 2022-02-25 15:05 | ED ---
General Adult HPI - General Chief complaint: Nausea/Vomiting/Diarrhea Stated complaint: NVD Time Seen by Provider: 02/25/22 13:18 Source: patient, RN notes reviewed Mode of arrival: wheelchair Limitations: no limitations - History of Present Illness Initial comments: This a 71-year-old female presents emergency Department with chief complaint of diarrhea, abdominal pain, weakness. Patient states that she has waxing and waning issues with GI symptoms. Patient states she is currently being further evaluated for recurrent cancer. Patient states she had surgery [address] Anton for ovarian cancer. Patient states that of recent she's had in creasing diarrhea and which is loose, watery, persistent. Patient states she feels dehydrated. She is scheduled for a CAT scan of her abdomen for this reason. Patient denies any dysuria hematuria denies any rectal bleeding. - Related Data Home Medications Medication Instructions Recorded Confirmed LORazepam [Ativan] 1 mg PO BID PRN 08/23/19 10/24/21 Levothyroxine Sodium [Synthroid] 125 mcg PO QAM 08/23/19 10/24/21 Albuterol Inhaler [Ventolin Hfa 2 puff INHALATION Q6H PRN 06/18/21 10/24/21 Inhaler] Cholecalciferol [Vitamin D3 (25 50 mcg PO DAILY 06/18/21 10/24/21 Mcg = 1000 Iu)] Fluticasone Nasal Fabens [Flonase 1 spray EA NOSTRIL DAILY PRN 06/18/21 10/24/21 Nasal Fabens] Multivitamins, Thera [Multivitamin 1 tab PO DAILY 06/18/21 10/24/21 (formulary)] Ondansetron Odt [Zofran ODT] 4 mg PO DIRECTED PRN 06/18/21 10/24/21 Pyridoxine HCl (Vitamin B6) 100 mg PO BID 06/18/21 10/24/21 [Vitamin B-6] Sennosides/Docusate Sodium [Senna 1 cap PO HS 06/18/21 10/24/21 Plus 8.6-50 mg Softgel] Venlafaxine HCl ER [Effexor XR] 150 mg PO QAM 06/18/21 10/24/21 Zolpidem Tartrate [Ambien Cr] 12.5 mg PO HS PRN 06/18/21 10/24/21 traMADol HCL [Ultram] 50 mg PO Q6H PRN 08/18/21 10/24/21 Albuterol Sulfate [Proair Hfa] 1 - 2 puff INHALATION Q6HR PRN 10/24/21 10/24/21 Apixaban [Eliquis Starter Pack 5 mg PO BID 10/24/21 10/24/21 (for VTE)] Ezetimibe/Rosuvastatin Calcium 2 each PO DAILY 10/24/21 10/24/21 [Ezetimibe/Rosuvastatin Calcium 20-10Mg] Metoprolol Tartrate 50 mg PO QAM 10/24/21 10/24/21 amLODIPine [Norvasc] 10 mg PO QAM 10/24/21 10/24/21 Previous Rx's Medication Instructions Recorded traMADol HCL [Ultram] 50 mg PO Q4HR PRN 3 Days #18 tab 10/29/21 Allergies Allergy/AdvReac Type Severity Reaction Status Date / Time aspirin Allergy Rash/Hives Verified 02/25/22 12:15 clonidine [From Catapres] Allergy Rash/Hives Verified 02/25/22 12:15 codeine Allergy Rash/Hives Verified 02/25/22 12:15 [From Tylenol-Codeine #3] Latex, Natural Rubber Allergy Rash/Hives Verified 02/25/22 12:15 Review of Systems ROS Statement: Those systems with pertinent positive or pertinent negative responses have been documented in the HPI. ROS Other: All systems not noted in ROS Statement are negative. Past Medical History Past Medical History: Asthma, Cancer, Deep Vein Thrombosis (DVT), Hyperlipidemia, Hypertension, Pulmonary Embolus (PE), Thyroid Disorder Additional Past Medical History / Comment(s): Seasonal Asthma. Ovarian Cancer diagnosed 06/22, treated with chemo, patient unaware of when last chemo was. States "get injection every 3 weeks now and for the rest of my life, not sure what it is but it's not chemo." SOB with stairs. Constipation with abdominal pain. History of Any Multi-Drug Resistant Organisms: None Reported Past Surgical History: Hysterectomy, Orthopedic Surgery Additional Past Surgical History / Comment(s): Multiple paracentesis, left wrist surgery, left shoulder surgery, breast reduction, D&C, Spleenectomy. Past Anesthesia/Blood Transfusion Reactions: No Reported Reaction, Motion Sickness Past Psychological History: Anxiety, Depression Smoking Status: Former smoker Past Alcohol Use History: Occasional Past Drug Use History: Marijuana - Past Family History Mother Family Medical History: Cancer, Osteoarthritis (OA), Vascular Disorder Additional Family Medical History / Comment(s): Anemia. Father Family Medical History: Cancer, Osteoarthritis (OA) Additional Family Medical History / Comment(s): Kidney tumor. General Exam Limitations: no limitations General appearance: alert, in no apparent distress Head exam: Present: atraumatic, normocephalic, normal inspection Neck exam: Present: normal inspection. Absent: tenderness, meningismus, lymphadenopathy Respiratory exam: Present: normal lung sounds bilaterally. Absent: respiratory distress, wheezes, rales, rhonchi, stridor Cardiovascular Exam: Present: regular rate, normal rhythm, normal heart sounds. Absent: systolic murmur, diastolic murmur, rubs, gallop, clicks GI/Abdominal exam: Present: soft, tenderness, normal bowel sounds. Absent: distended, guarding, rebound, rigid Back exam: Absent: CVA tenderness (R), CVA tenderness (L) Neurological exam: Present: alert Skin exam: Present: warm, dry, intact, normal color. Absent: rash Course Vital Signs 02/25/22 12:12 Temperature 98.5 F Pulse Rate 74 Respiratory 16 Rate Blood Pressure 125/72 O2 Sat by Pulse 97 Oximetry Medical Decision Making - Medical Decision Making 71-year-old female presented for diarrhea. Patient's found to have hypokalemia at 2.9 patient was given potassium replacement, CT was performed as requested by outpatient provider. CT shows metastatic cancer patient does have some concerning evidence of colitis C. diff was added. Patient was started on maintenance fluids, antiemetics consult from - Lab Data Result diagrams: 02/25/22 14:05 02/25/22 14:05 Lab Results 02/25/22 02/25/22 02/25/22 Range/Units 14:05 14:05 14:05 WBC 9.3 (3.8-10.6) k/uL RBC 3.71 L (3.80-5.40) m/uL Hgb 11.7 (11.4-16.0) gm/dL Hct 37.6 (34.0-46.0) % MCV 101.3 H (80.0-100.0) fL MCH 31.5 (25.0-35.0) pg MCHC 31.1 (31.0-37.0) g/dL RDW 13.7 (11.5-15.5) % Plt Count 389 (150-450) k/uL MPV 7.2 Neutrophils % 78 % Lymphocytes % 10 % Monocytes % 9 % Eosinophils % 1 % Basophils % 0 % Neutrophils # 7.2 (1.3-7.7) k/uL Lymphocytes # 0.9 L (1.0-4.8) k/uL Monocytes # 0.8 (0-1.0) k/uL Eosinophils # 0.1 (0-0.7) k/uL Basophils # 0.0 (0-0.2) k/uL Macrocytosis Slight Sodium 135 L (137-145) mmol/L Potassium 2.9 L (3.5-5.1) mmol/L Chloride 98 (98-107) mmol/L Carbon Dioxide 28 (22-30) mmol/L Anion Gap 9 mmol/L BUN 12 (7-17) mg/dL Creatinine 0.64 (0.52-1.04) mg/dL Est GFR (CKD-EPI)AfAm >90 (>60 ml/min/1.73 sqM) Est GFR (CKD-EPI)NonAf 89 (>60 ml/min/1.73 sqM) Glucose 137 H (74-99) mg/dL Plasma Lactic Acid Ad 2.0 (0.7-2.0) mmol/L Calcium 8.9 (8.4-10.2) mg/dL Total Bilirubin 1.0 (0.2-1.3) mg/dL AST 147 H (14-36) U/L ALT 111 H (4-34) U/L Alkaline Phosphatase 968 H (38-126) U/L Total Protein 7.3 (6.3-8.2) g/dL Albumin 3.6 (3.5-5.0) g/dL Amylase 38 (30-110) U/L Lipase 42 (23-300) U/L Disposition Clinical Impression: Hypokalemia, Dehydration, Diarrhea, Metastatic cancer Disposition: ADMITTED IP TO THIS [facility] Condition: Poor Referrals: Ronna Beard MD [Primary Care Provider] - 1-2 days Time of Disposition: 16:14
[2022-02-25] MEDS: POTASSIUM CHLORIDE 20 MEQ in WATER FOR INJECTION 1 100ML.BAG IVPB SCH ×2 (15:44→18:24)
--- NOTE | 2022-02-25 16:04 | CT ---
EXAMINATION TYPE: CT abdomen pelvis w con CT DLP: 641.5 mGycm, Automated exposure control for dose reduction was used. DATE OF EXAM: 02/25/2022 3:40 PM COMPARISON: CT abdomen pelvis most recent from 12/05/2021. CLINICAL INDICATION:Female, 71 years old with history of abdominal pain; vomiting, diarrhea, ovarian cancer. TECHNIQUE: Standard CT of the abdomen and pelvis following the administration of 100 cc of Isovue 3 00 IV contrast material. Coronal and sagittal reformats were performed. FINDINGS: LOWER CHEST: Small right and trace left pleural effusions. Cardiomegaly. Coronary artery calcificatio ns. Partially visualized possible enlarged right hilar/mediastinal 2.6 cm lymph node. ABDOMEN LIVER: Stable 7.5 cm cystic lesion within the left hepatic lobe which may represent a pseudocyst. Inn umerable new hypoattenuating lesions throughout the liver consistent with metastasis. This is most pr ominently within the lana hepatis region with infiltrative mass which is progressed from prior exami nation. GALLBLADDER AND BILE DUCTS: The gallbladder is not visualized. Mild increased intrahepatic biliary du ctal dilatation likely secondary to surrounding metastasis. PANCREAS: Unremarkable. SPLEEN: Stable atrophic appearance versus splenule if there has been prior splenectomy. ADRENAL GLANDS: Unremarkable. KIDNEYS AND URETERS: No evidence of hydronephrosis or renal calculus. Small cortical renal cysts. Pre sent. PELVIS BLADDER: Incompletely distended but grossly unremarkable. REPRODUCTIVE: The uterus is surgically absent. ABDOMEN & PELVIS STOMACH AND BOWEL: Stomach and duodenum are unremarkable. Wall thickening and mucosal hyperenhancemen t of the transverse and ascending colon. Additional mild thickening and edematous appearance of the d istal small bowel. No evidence of bowel obstruction. PERITONEUM: No evidence of pneumoperitoneum. Increased loculated fluid in the left lower quadrant bryce suring 7.3 x 4.4 cm and also within the right lower quadrant measuring 5.5 x 3.0 cm without gas. Renaldo tional loculated fluid in the right upper quadrant measuring 4.5 x 2.1 cm is marginally increased. Sm all volume ascites mostly in the perihepatic location. VASCULATURE: Moderate atherosclerotic calcifications are present throughout the abdominal aorta and i ts branches. No evidence of aortic aneurysm. MUSCULOSKELETAL: No acute osseous abnormalities. No suspicious osseous lesions. Degenerative changes of the visualized spine. LYMPH NODES: Multiple nonenlarged retropectoral lymph nodes identified. SOFT TISSUE/ABDOMINAL WALL: Unremarkable IMPRESSION: 1. Progression of disease with multiple new hypoattenuating hepatic lesions and infiltrative mass wit hin the lana hepatis. 2. Long segment wall thickening and mucosal hyperenhancement of the transverse and ascending colon wi th additional wall thickening of the distal small bowel. Findings are concerning for infectious/infla mmatory process. Ischemic process is not excluded. 3. Mild increase in intrahepatic biliary ductal dilatation likely secondary to #1. 3. Increased size of loculated fluid in the bilateral lower quadrants and right upper quadrant. No ga s within these collections. 4. Possible enlarged subcarinal/right hilar lymph node. This may be further evaluated with CT chest. 5. Small right and trace left pleural effusions.
[2022-02-25] MEDS ORDERED: NALOXONE 0.4 MG/ML 1 ML VIAL IV PRN (16:14)
[2022-02-25] MEDS ORDERED: POTASSIUM CHLORIDE ER 20 MEQ TAB.ER PO STA (16:14)
[2022-02-25] MEDS: SODIUM CHLORIDE 0.9% 1,000 ML IV SCH (16:48)
[2022-02-25] MEDS: HYDROmorphone 0.5 MG/0.5 ML SYRINGE IVP PRN (17:21)
[2022-02-25] MEDS ORDERED: ALBUTEROL HFA INHALER INHALATION PRN (18:21)
[2022-02-25] MEDS: traMADol 50 MG TAB PO PRN (21:09)
[2022-02-25] MEDS: ONDANSETRON 4 MG/2 ML VIAL IVP PRN (21:09)
[2022-02-25] MEDS: APIXABAN 5 MG TAB PO SCH (21:09)
[2022-02-25] MEDS: PYRIDOXINE 50 MG TAB PO SCH (21:19)
[2022-02-26] MEDS: HYDROmorphone 0.5 MG/0.5 ML SYRINGE IVP PRN ×3 (01:09→21:15)
[2022-02-26] MEDS: traMADol 50 MG TAB PO PRN ×2 (06:05→19:27)
[2022-02-26] MEDS: LEVOTHYROXINE 125 MCG TAB PO SCH (06:05)
[2022-02-26] MEDS: PANTOPRAZOLE 40 MG/10 ML VIAL IVP SCH (08:13)
[2022-02-26 08:39] LABS: Basophils # (A) 0.04 X 10*3/uL (0.00-0.10); Basophils % (A) 0.4 %; Eosinophils % (A) 2.1 %; HCT 34.4 % (37.2-46.3); HGB 10.7 g/dL (12.0-15.0); Immature Grans, Automated 0.3 %; Lymphocytes # (A) 1.15 X 10*3/uL (0.90-5.00); Lymphocytes % (A) 12.2 %; MCHC 31.1 g/dL (32.0-37.0); MCV 99.7 fL (80.0-97.0); Mean Platelet Volume 11.1 fL (9.5-12.2); Monocytes % (A) 14.8 %; NRBC Per 100 WBC 0 /100 WBCS (0.0-0.0); Neutrophils # (A) 6.62 X 10*3/uL (1.80-7.70); Neutrophils % (A) 70.2 %; Platelet Count 373 X 10*3/uL (140-440); RBC 3.45 X 10*6/uL (4.10-5.20); RDW 15.3 % (11.5-14.5); WBC 9.44 X 10*3/uL (4.50-10.00)
[2022-02-26 09:01] LABS: African American GFR (CKD) 100.6 (60.0-200.0); Anion Gap 10.3 mmol/L (10.00-18.00); BUN/Creat Ratio 12.97 Ratio (12.00-20.00); Blood Urea Nitrogen 8.8 mg/dL (9.0-27.0); Calcium 8.6 mg/dL (8.7-10.3); Carbon Dioxide 25.4 mmol/L (20.0-27.5); Magnesium 1.5 mg/dL (1.5-2.4); Non-African American GFR(CKD) 86.8 (60.0-200.0); Potassium 4.1 mmol/L (3.5-5.5)
[2022-02-26] MEDS: SODIUM CHLORIDE 0.9% 1,000 ML IV SCH (09:14)
[2022-02-26] MEDS: VENLAFAXINE HCL ER 150 MG CAP PO SCH (10:09)
[2022-02-26] MEDS: PYRIDOXINE 50 MG TAB PO SCH ×2 (10:09→21:16)
[2022-02-26] MEDS: amLODIPine 10 MG TAB PO SCH (10:09)
[2022-02-26] MEDS: METOPROLOL SUCCINATE (ER) 100 MG TAB.ER.24H PO SCH (10:09)
[2022-02-26] MEDS: CHOLECALCIFEROL 25 MCG (1000 IU) TABLET PO SCH (10:10)
[2022-02-26] MEDS: APIXABAN 5 MG TAB PO SCH (10:11)
[2022-02-26] MEDS ORDERED: Magnesium Replacement Protocol 1 EACH MISC MISCELLANE PRN (12:53)
[2022-02-26 13:33] LABS: Hepatitis A Antibody IgM Nonreactive (Nonreactive); Hepatitis B Core IgM Nonreactive (Nonreactive); Hepatitis B Surface Antigen Nonreactive (Nonreactive); Hepatitis C IgG Antibody Nonreactive (Nonreactive)
--- NOTE | 2022-02-26 14:03 | HP ---
HISTORY AND PHYSICAL CHIEF COMPLAINT: Abdominal pain and diarrhea. HISTORY OF PRESENT ILLNESS: This 71-year-old woman with a past medical history of ovarian cancer, history of asthma, DVT, multiple medical issues, being followed by Dr. Ronna Beard in the outpatient setting, apparently was taking too much prune juice for constipation. The patient has significant diarrhea, abdominal discomfort and hypokalemia. Patient is admitted for further evaluation and treatment. There is no history of any fever, rigor or chills. PAST MEDICAL HISTORY: History of DVT, hypertension, hyperlipidemia, pulmonary embolism. The rest of the history is reviewed. HOME MEDICATIONS: Reviewed. They include Ultram. Doses and rest of the medications also reviewed. ALLERGIES: ALLERGIES INCLUDE ASPIRIN; REVIEWED. FAMILY HISTORY: Reviewed. It includes DJD, vascular disease, anemia. SOCIAL HISTORY: Previous history of smoking. REVIEW OF SYSTEMS: Fourteen-point review of systems negative except as mentioned earlier. PHYSICAL EXAMINATION: Pulse 78, blood pressure 123/65, respirations 16. HEENT: Conjunctivae normal. NECK: No jugular venous distention. CARDIOVASCULAR: S1, S2 muffled. RESPIRATION: Breath sounds diminished at the bases. A few scattered rhonchi. ABDOMEN: Soft, distended. Mild diffuse tenderness. Diffuse mass present. LEGS: No edema. No swelling. NERVOUS SYSTEM: Diffusely weak. SKIN: No ulcer, rash, bleeding. JOINTS: No active deforming arthropathy. LABS: Reviewed. Potassium 2.9. CT scan reviewed personally. ASSESSMENT: 1. Severe abdominal pain and diarrhea with acute diarrheal disorder. 2. Hypokalemia. 3. Metastatic ovarian cancer. 4. Deep vein thrombosis. 5. Pulmonary embolus. 6. Hypertension. 7. Multiple medical issues. RECOMMENDATIONS AND DISCUSSION: In this 71-year-old woman who presented with multiple complex medical issues, we will monitor the patient closely. The patient is on Eliquis. Symptomatic treatment will be provided. Advance diet. Closely follow with Hematology/Oncology. Repeat labs. Prognosis guarded because of multiple complex medical issues. Further recommendations to follow. See orders for further details. MMODL / IJN: [id number] /
[2022-02-26] MEDS: MAGNESIUM SULFATE-D5W PMX 1 GM in DEXTROSE/WATER 1 100ML.BAG IVPB SCH ×2 (15:22→16:36)
--- NOTE | 2022-02-27 00:50 | P.CONS ---
History of Present Illness - Reason for Consult Consult date: 02/26/22 ovarian carcinoma Requesting physician: Torrey Gabriel - Chief Complaint abd pain, weakness - History of Present Illness Ms. Victoria is a pleasant female pt of Dr. India Banks diagnosed with ovarian carcinoma 2018. She presented with weakness, diffuse upper abdominal pain and distention. US of abdomen followed by CT showed cystic structures in adnexas, diffuse ascites and omental caking. diagnostic paracentesis, 2300ml, cytology + for metastatic non-mucinous adenocarcinoma. She had 4 cycles of carbo/taxol, cytoreductive surgery 12/07/19, final stage III, 2 additional cycles. 05/21 maintenance zejula, dose reduction for toxicities. She had recurrence 03/22, started doxil/carbo, stable disease on treatment f/u scans, completed 6 cycles. She is currently admitted with abd pain and distension, persistent and progressive 1-2 days, had constipation, treated and now has watery diarrhea, she vomited but for a day, none since. Abd is painful, epigastric area pain is "sharp", lower abd pain is "gas like", pain is better since admit, denies fever, SOB, cough, urinary complaints or bleeding. Review of Systems 10 point ROS is neg except as stated in HPI Past Medical History Past Medical History: Asthma, Cancer, Deep Vein Thrombosis (DVT), Hyperlipidemia, Hypertension, Pulmonary Embolus (PE), Thyroid Disorder Additional Past Medical History / Comment(s): Seasonal Asthma. Ovarian Cancer diagnosed 06/22, treated with chemo, patient unaware of when last chemo was. States "get injection every 3 weeks now and for the rest of my life, not sure what it is but it's not chemo." SOB with stairs. Constipation with abdominal pain. History of Any Multi-Drug Resistant Organisms: None Reported Past Surgical History: Adenoidectomy, Breast Surgery, Hysterectomy, Orthopedic Surgery, Tonsillectomy Additional Past Surgical History / Comment(s): Multiple paracentesis, left wrist surgery, left shoulder surgery, breast reduction, D&C, Spleenectomy. Past Anesthesia/Blood Transfusion Reactions: No Reported Reaction, Motion Sickness Past Psychological History: Anxiety, Depression Smoking Status: Former smoker Past Alcohol Use History: Occasional Past Drug Use History: Marijuana Additional Drug Use History / Comment(s): Marijuana use rarely. - Past Family History Mother Family Medical History: Cancer, Osteoarthritis (OA), Vascular Disorder Additional Family Medical History / Comment(s): Anemia. Father Family Medical History: Cancer, Osteoarthritis (OA) Additional Family Medical History / Comment(s): Kidney tumor. Medications and Allergies Home Medications Medication Instructions Recorded Confirmed Type LORazepam [Ativan] 1 mg PO TID PRN 08/23/19 02/25/22 History Levothyroxine Sodium [Synthroid] 125 mcg PO DAILY 08/23/19 02/25/22 History Albuterol Inhaler [Ventolin Hfa 2 puff INHALATION Q6H PRN 06/18/21 02/25/22 History Inhaler] Cholecalciferol [Vitamin D3 (25 50 mcg PO DAILY 06/18/21 02/25/22 History Mcg = 1000 Iu)] Ondansetron Odt [Zofran ODT] 4 mg PO Q6H PRN 06/18/21 02/25/22 History Pyridoxine HCl (Vitamin B6) 100 mg PO BID 06/18/21 02/25/22 History [Vitamin B-6] Venlafaxine HCl ER [Effexor XR] 150 mg PO DAILY 06/18/21 02/25/22 History Zolpidem Tartrate [Ambien Cr] 12.5 mg PO HS PRN 06/18/21 02/25/22 History traMADol HCL [Ultram] 50 mg PO Q6H PRN 08/18/21 02/25/22 History Ezetimibe/Rosuvastatin Calcium 1 tab PO DAILY 10/24/21 02/25/22 History [Ezetimibe/Rosuvastatin Calcium 20-10Mg] Apixaban [Eliquis] 5 mg PO BID 02/25/22 02/25/22 History Hydrocortisone/Pramoxine 1 applic TOPICAL TID 02/25/22 02/25/22 History [Pramosone 2.5%-1% Cream] Metoprolol Succinate (ER) [Toprol 100 mg PO DAILY 02/25/22 02/25/22 History Xl] Sennosides [Senokot] 8.6 mg PO HS 02/25/22 02/25/22 History amLODIPine [Norvasc] 10 mg PO DAILY 02/25/22 02/25/22 History Allergies Allergy/AdvReac Type Severity Reaction Status Date / Time aspirin Allergy Rash/Hives Verified 02/25/22 16:15 clonidine [From Catapres] Allergy Rash/Hives Verified 02/25/22 16:15 codeine Allergy Rash/Hives Verified 02/25/22 16:15 [From Tylenol-Codeine #3] Latex, Natural Rubber Allergy Rash/Hives Verified 02/25/22 16:15 Physical Exam Vitals: Vital Signs Temp Pulse Pulse Resp BP BP Pulse Ox 02/26/22 12:46 97.3 F L 73 16 145/75 97 02/26/22 07:11 98.2 F 78 16 123/65 93 L 02/26/22 05:28 98.3 F 70 16 106/53 95 02/25/22 18:08 98.1 F 78 16 145/74 95 02/25/22 17:00 69 20 128/93 95 02/25/22 16:00 68 18 138/74 95 Intake and Output 02/26/22 02/26/22 02/26/22 06:59 14:59 22:59 Intake Total 590 Balance 590 Intake: Oral 590 Other: Voiding Method Toilet # Voids 3 - Constitutional General appearance: average body habitus, cooperative, no acute distress - EENT Eyes: anicteric sclerae, EOMI ENT: hearing grossly normal, normal oropharynx - Respiratory Respiratory: bilateral: diminished - Cardiovascular Rhythm: regular Heart sounds: normal: S1, S2 Abnormal Heart Sounds: no systolic murmur, no diastolic murmur, no rub, no S3 Gallop, no S4 Gallop, no click, no other leg Peripheral Edema: bilateral: Trace - Gastrointestinal firm to palpation General gastrointestinal: no absent bowel sounds, no decreased bowel sounds, distended, no hepatomegaly, no hyperactive bowel sounds, normal bowel sounds, no organomegaly, no rigid, no scaphoid, no soft, no splenomegaly, no tenderness, no umbilical hernia, no ventral hernia - Integumentary Integumentary: normal - Neurologic Neurologic: CNII-XII intact - Musculoskeletal Musculoskeletal: strength equal bilaterally - Psychiatric Psychiatric: A&O x's 3, appropriate affect, intact judgment & insight Results CBC & Chem 7: 02/26/22 05:52 02/26/22 05:52 Labs: Abnormal Lab Results - Last 24 Hours (Table) 07/28/22 07/28/22 Range/Units 05:52 05:52 RBC 3.45 L (4.10-5.20) X 10*6/uL Hgb 10.7 L (12.0-15.0) g/dL Hct 34.4 L (37.2-46.3) % MCV 99.7 H (80.0-97.0) fL MCHC 31.1 L (32.0-37.0) g/dL RDW 15.3 H (11.5-14.5) % Monocytes # 1.40 H (0.20-1.00) X 10*3/uL BUN 8.8 L (9.0-27.0) mg/dL Calcium 8.6 L (8.7-10.3) mg/dL CT scan - abdomen: report reviewed CT scan - pelvis: report reviewed Assessment and Plan (1) Abdominal pain Current Visit: Yes Status: Acute Priority: High Code(s): R10.9 - UNSPECIFIED ABDOMINAL PAIN SNOMED Code(s): 54581438 (2) Ascites Current Visit: Yes Status: Acute Priority: High Code(s): R18.8 - OTHER ASCITES SNOMED Code(s): 837802870 (3) Ovarian cancer Current Visit: Yes Status: Chronic Priority: High Code(s): C56.9 - MALIGNANT NEOPLASM OF UNSPECIFIED OVARY SNOMED Code(s): 804415537 (4) Pulmonary embolism Current Visit: No Status: Chronic Priority: Medium Code(s): I26.99 - OTHER PULMONARY EMBOLISM WITHOUT ACUTE COR PULMONALE SNOMED Code(s): 74617538 Plan: Pt has notable abd distension. IR consulted for palliative paracentesis. Fluid for cytology. Reviewed CT AP results with pt, new liver lesions. Hep panel ordered. Reque sted liver biopsy Had constipation, no watery diarrhea, stool studies ordered. Hx of PE. Eliquis held today in anticipation of biopsy, paracentesis. Pending work up. F/U Dr. Banks Doctor attests: I performed a history and physical examination of this patient, developed impression and plan of care. Discussed with dictator. I agree with dictators note, documented as a scribe.
[2022-02-27] MEDS: traMADol 50 MG TAB PO PRN (00:57)
[2022-02-27] MEDS: LEVOTHYROXINE 125 MCG TAB PO SCH (05:35)
[2022-02-27] MEDS: HYDROmorphone 0.5 MG/0.5 ML SYRINGE IVP PRN ×4 (05:35→21:51)
[2022-02-27 09:18] LABS: HCT 34.6 % (37.2-46.3); HGB 10.9 g/dL (12.0-15.0); MCH 31.2 pg (27.0-32.0); MCHC 31.5 g/dL (32.0-37.0); MCV 99.1 fL (80.0-97.0); Mean Platelet Volume 10.2 fL (9.5-12.2); NRBC Per 100 WBC 0 /100 WBCS (0.0-0.0); Platelet Count 437 X 10*3/uL (140-440); RBC 3.49 X 10*6/uL (4.10-5.20); RDW 15.5 % (11.5-14.5); WBC 9.95 X 10*3/uL (4.50-10.00)
[2022-02-27] MEDS: VENLAFAXINE HCL ER 150 MG CAP PO SCH (10:01)
[2022-02-27] MEDS: PYRIDOXINE 50 MG TAB PO SCH ×2 (10:01→21:51)
[2022-02-27] MEDS: CHOLECALCIFEROL 25 MCG (1000 IU) TABLET PO SCH (10:01)
[2022-02-27] MEDS: amLODIPine 10 MG TAB PO SCH (10:02)
[2022-02-27] MEDS: METOPROLOL SUCCINATE (ER) 100 MG TAB.ER.24H PO SCH (10:02)
[2022-02-27 10:23] LABS: African American GFR (CKD) 104.8 (60.0-200.0); Albumin 3.4 g/dL (3.8-4.9); Albumin/Globulin Ratio 1.03 (1.60-3.17); Anion Gap 10.1 mmol/L (10.00-18.00); BUN/Creat Ratio 11.5 Ratio (12.00-20.00); Blood Urea Nitrogen 6.9 mg/dL (9.0-27.0); Calcium 8.7 mg/dL (8.7-10.3); Carbon Dioxide 24.9 mmol/L (20.0-27.5); Globulin 3.3 g/dL (1.6-3.3); Magnesium 1.7 mg/dL (1.5-2.4); Non-African American GFR(CKD) 90.4 (60.0-200.0); Total Bilirubin 1.1 mg/dL (0.30-1.20); Total Protein 6.7 g/dL (6.2-8.2)
[2022-02-27] MEDS: PANTOPRAZOLE 40 MG/10 ML VIAL IVP SCH (10:51)
[2022-02-27 11:08] LABS: Basophils # (A) 0.06 X 10*3/uL (0.00-0.10); Basophils % (A) 0.6 %; Eosinophils # (A) 0.28 X 10*3/uL (0.04-0.35); Eosinophils % (A) 2.8 %; Immature Grans, Automated 0.3 %; Lymphocytes # (A) 1.31 X 10*3/uL (0.90-5.00); Lymphocytes % (A) 13.2 %; Monocytes % (A) 16.1 %; Neutrophils # (A) 6.67 X 10*3/uL (1.80-7.70)
--- NOTE | 2022-02-27 14:14 | P.PN ---
Subjective Progress Note Date: 02/27/22 Objective - Vital Signs Vital signs: Vital Signs Temp 98.3 F 02/27/22 13:00 Pulse 63 02/27/22 13:00 Resp 16 02/27/22 13:00 BP 114/62 02/27/22 13:00 Pulse Ox 94 L 02/27/22 13:00 FiO2 Intake & Output 02/26/22 02/27/22 02/27/22 18:59 06:59 18:59 Intake Total 100 Balance 100 Intake: Intake, IV Titration 100 Amount Magnesium Sulfate-D5w Pmx 100 1 gm In Dextrose/Water 1 100ml.bag @ 100 mls/hr IVPB Q1H [facility] Rx#: [id number] Other: Voiding Method Toilet Toilet # Voids 3 - Exam - Constitutional General appearance: average body habitus, cooperative, no acute distress - EENT Eyes: anicteric sclerae, EOMI ENT: hearing grossly normal, normal oropharynx - Respiratory Respiratory: bilateral: diminished - Cardiovascular Rhythm: regular Heart sounds: normal: S1, S2 Abnormal Heart Sounds: no systolic murmur, no diastolic murmur, no rub, no S3 Gallop, no S4 Gallop, no click, no other leg Peripheral Edema: bilateral: Trace - Gastrointestinal firm to palpation General gastrointestinal: no absent bowel sounds, no decreased bowel sounds, distended, no hepatomegaly, no hyperactive bowel sounds, normal bowel sounds, no organomegaly, no rigid, no scaphoid, no soft, no splenomegaly, no tenderness, no umbilical hernia, no ventral hernia - Integumentary Integumentary: normal - Neurologic Neurologic: CNII-XII intact - Musculoskeletal Musculoskeletal: strength equal bilaterally - Psychiatric Psychiatric: A&O x's 3, appropriate affect, intact judgment & insight - Labs CBC & Chem 7: 02/27/22 05:38 02/27/22 05:38 Labs: Abnormal Lab Results - Last 24 Hours (Table) 02/27/22 02/27/22 Range/Units 05:38 05:38 RBC 3.49 L (4.10-5.20) X 10*6/uL Hgb 10.9 L (12.0-15.0) g/dL Hct 34.6 L (37.2-46.3) % MCV 99.1 H (80.0-97.0) fL MCHC 31.5 L (32.0-37.0) g/dL RDW 15.5 H (11.5-14.5) % Monocytes # 1.60 H (0.20-1.00) X 10*3/uL BUN 6.9 L (9.0-27.0) mg/dL BUN/Creatinine Ratio 11.50 L (12.00-20.00) Ratio AST 117 H (13-35) U/L ALT 98 H (8-44) U/L Alkaline Phosphatase 892 H (41-126) U/L Albumin 3.4 L (3.8-4.9) g/dL Albumin/Globulin Ratio 1.03 L (1.60-3.17) g/dL Assessment and Plan Plan: CT scan - abdomen: report reviewed CT scan - pelvis: report reviewed Assessment and Plan (1) Abdominal pain Current Visit: Yes Status: Acute Priority: High Code(s): R10.9 - UNSPECIFIED ABDOMINAL PAIN SNOMED Code(s): 23836528 (2) Ascites Current Visit: Yes Status: Acute Priority: High Code(s): R18.8 - OTHER ASCITES SNOMED Code(s): 101060317 (3) Ovarian cancer Current Visit: Yes Status: Chronic Priority: High Code(s): C56.9 - MALIGNANT NEOPLASM OF UNSPECIFIED OVARY SNOMED Code(s): 734094676 (4) Pulmonary embolism Current Visit: No Status: Chronic Priority: Medium Code(s): I26.99 - OTHER PULMONARY EMBOLISM WITHOUT ACUTE COR PULMONALE SNOMED Code(s): 91778568 Plan: Dr. Jocelyn murphy spoke to IR, will attempt paracentesis and liver biopsy for recurrence. PER IR - must wait 72 hours off eliquis ?? so it looks like she will be here through weekend, may consider discharge after Doctor attests: I performed a history and physical examination of this patient, developed impression and plan of care. Discussed with dictator. I agree with dictators note, documented as a scribe.
--- NOTE | 2022-02-27 20:21 | P.PN ---
Subjective Progress Note Date: 02/27/22 This is a 71-year-old female who was recently admitted with abdominal pain and found to have severe electrolyte abnormalities and was being closely monitored. Patient had profuse diarrhea and decreased oral intake. Patient reports to significant abdominal pain and feels distended. Patient has IR following for biopsy for oncology and also possible paracentesis and was reported to have minimal fluid on the abdomen. Patient also needs to be off Eliquis for 72 hours. recommend holding now. Mag is 1.6 today and will replace. Patient is afebrile. Encourage oral intake with small frequent meals and increased activity as tolerated. Patient denies chest pain or shortness of breath. Continue with pain control. Review of systems: Constitutional: No reports of fatigue, fever, or chills Cardiovascular: No reports of chest pain or palpitations Respiratory: No reports of shortness of breath or cough GI: no reports of nausea, no reports of of vomiting, patient is passing gas, no further diarrhea, reports abdominal pain and distention : No reports of dysuria or retention Neurovascular: reports of generalized weakness All medications have been reviewed Active Medications Acetaminophen (Acetaminophen Tab 325 Mg Tab) 650 mg PO Q6HR PRN PRN Reason: Mild Pain or Fever > 100.5 Albuterol Sulfate (Albuterol Hfa Inhaler) 2 puff INHALATION Q6H PRN PRN Reason: Shortness Of Breath Amlodipine Besylate (Amlodipine 10 Mg Tab) 10 mg PO DAILY [facility] Last Admin: 02/27/22 10:02 Dose: 10 mg Apixaban (Apixaban 5 Mg Tab) 5 mg PO BID [facility]; Protocol Last Admin: 02/26/22 10:11 Dose: Not Given Cholecalciferol (Cholecalciferol 25 Mcg (1000 Iu) Tablet) 50 mcg PO DAILY [facility] Last Admin: 02/27/22 10:01 Dose: 50 mcg Hydromorphone HCl (Hydromorphone 0.5 Mg/0.5 Ml Syringe) 0.5 mg IVP Q3HR PRN PRN Reason: Moderate Pain Last Admin: 02/27/22 17:08 Dose: 0.5 mg Levothyroxine Sodium (Levothyroxine 125 Mcg Tab) 125 mcg PO DAILY@0630 [facility] Last Admin: 02/27/22 05:35 Dose: 125 mcg Lorazepam (Lorazepam 1 Mg Tab) 1 mg PO TID PRN PRN Reason: Anxiety Metoprolol Succinate (Metoprolol Succinate (Er) 100 Mg Tab.Er.24h) 100 mg PO DAILY [facility] Last Admin: 02/27/22 10:02 Dose: 100 mg Miscellaneous Information (Magnesium Replacement Protocol 1 Each Misc) 1 each MISCELLANE DAILY PRN; Protocol PRN Reason: Per Protocol Naloxone HCl (Naloxone 0.4 Mg/Ml 1 Ml Vial) 0.2 mg IV Q2M PRN PRN Reason: Opioid Reversal Ondansetron HCl (Ondansetron 4 Mg/2 Ml Vial) 4 mg IVP Q8HR PRN PRN Reason: Nausea And Vomiting Last Admin: 02/25/22 21:09 Dose: 4 mg Pantoprazole Sodium (Pantoprazole 40 Mg Tablet) 40 mg PO -[facility] Pyridoxine HCl (Pyridoxine 50 Mg Tab) 100 mg PO BID [facility] Last Admin: 02/27/22 10:01 Dose: 100 mg Tramadol HCl (Tramadol 50 Mg Tab) 50 mg PO Q6H PRN PRN Reason: Pain Last Admin: 02/27/22 00:57 Dose: 50 mg Venlafaxine HCl (Venlafaxine Hcl Er 150 Mg Cap) 150 mg PO DAILY [facility] Last Admin: 02/27/22 10:01 Dose: 150 mg PHYSICAL EXAMINATION: GENERAL: The patient is alert and oriented x4, Well developed, well nourished. HEENT: Pupils are round and equally reacting to light. EOMI. no scleral icterus. No conjunctival pallor. Normocephalic, atraumatic. No pharyngeal erythema. No thyromegaly. CARDIOVASCULAR: S1 and S2 muffled PULMONARY: diminished breath sounds bilaterally with no wheezing or rhonchi noted. ABDOMEN: soft. tender on exam. distended, normoactive bowel sounds. No palpable organomegaly. MUSCULOSKELETAL: No joint swelling or deformity. EXTREMITIES: No cyanosis, clubbing, or pedal edema. NEUROLOGICAL: Gross neurological examination did not reveal any focal deficits. Diffuse weakness SKIN: No rashes. Assessment: Severe abdominal pain and diarrhea with acute diarrheal disorder Hypokalemia Metastatic ovarian cancer deep vein thrombosis Pulmonary embolus Hypertension Multiple medical issues GI prophylaxis DVT prophylaxis Full code Plan: Recommend to continue with current medications and management with oncology following. IR was consulted for biopsy and possible paracentesis and recommended evaluating on Wednesday as patient showed minimal fluid noted on abdomen and patient has been continued on her eliquis. Will hold Eliquis and continue with electrolyte replacement per protocol and patient to receive mag replacement. Patient continues with abdominal pain and distention. Will continue to monitor a nd repeat am labs. Encouraged oral intake slowly and increased activity as tolerated. Due to multiple complex medical issues, prognosis is guarded. The impression and plan of care has been dictated by Nathalia Nunez, nurse practitioner as directed. MD [place] I have performed a history and examination and MDM of this patient, discussed the same with the dictator, and agree with the dictator's assessment and plan as written ,documented as a scribe. Based on total visit time, I have performed more than 50% of the visit. Any additional findings or plans will be noted. Objective - Vital Signs Vital signs: Vital Signs Temp 98.2 F 02/27/22 07:25 Pulse 101 H 02/27/22 07:25 Resp 18 02/27/22 07:25 BP 187/93 02/27/22 07:25 Pulse Ox 96 02/27/22 07:25 FiO2 Intake & Output 02/26/22 02/27/22 02/27/22 18:59 06:59 18:59 Intake Total 100 Balance 100 Intake: Intake, IV Titration 100 Amount Magnesium Sulfate-D5w Pmx 100 1 gm In Dextrose/Water 1 100ml.bag @ 100 mls/hr IVPB Q1H [facility] Rx#: [id number] Other: Voiding Method Toilet Toilet # Voids 3 - Labs CBC & Chem 7: 02/27/22 05:38 02/27/22 05:38 Labs: Abnormal Lab Results - Last 24 Hours (Table) 02/27/22 Range/Units 05:38 RBC 3.49 L (4.10-5.20) X 10*6/uL Hgb 10.9 L (12.0-15.0) g/dL Hct 34.6 L (37.2-46.3) % MCV 99.1 H (80.0-97.0) fL MCHC 31.5 L (32.0-37.0) g/dL RDW 15.5 H (11.5-14.5) %
[2022-02-28] MEDS: HYDROmorphone 0.5 MG/0.5 ML SYRINGE IVP PRN ×2 (02:34→21:43)
[2022-02-28] MEDS: LEVOTHYROXINE 125 MCG TAB PO SCH (06:06)
[2022-02-28 08:54] LABS: Basophils % (A) 0 %; Eosinophils # (A) 0.2 k/uL (0-0.7); Eosinophils % (A) 2 %; HCT 36.2 % (34.0-46.0); HGB 11.2 gm/dL (11.4-16.0); Hypochromasia Slight; Lymphocytes # (A) 0.7 k/uL (1.0-4.8); Lymphocytes % (A) 8 %; MCH 31.4 pg (25.0-35.0); MCHC 30.8 g/dL (31.0-37.0); MCV 101.6 fL (80.0-100.0); Macrocytosis Slight; Mean Platelet Volume 7.5; Monocytes % (A) 11 %; Neutrophils # (A) 6.4 k/uL (1.3-7.7); Neutrophils % (A) 76 %; Platelet Count 394 k/uL (150-450); RBC 3.56 m/uL (3.80-5.40); RDW 13.5 % (11.5-15.5); WBC 8.5 k/uL (3.8-10.6)
[2022-02-28] MEDS: PANTOPRAZOLE 40 MG TABLET PO SCH (08:58)
[2022-02-28] MEDS: VENLAFAXINE HCL ER 150 MG CAP PO SCH (08:58)
[2022-02-28] MEDS: METOPROLOL SUCCINATE (ER) 100 MG TAB.ER.24H PO SCH (08:58)
[2022-02-28] MEDS: PYRIDOXINE 50 MG TAB PO SCH ×2 (08:59→21:42)
[2022-02-28] MEDS: amLODIPine 10 MG TAB PO SCH (08:59)
[2022-02-28] MEDS: CHOLECALCIFEROL 25 MCG (1000 IU) TABLET PO SCH (08:59)
[2022-02-28 09:11] LABS: African American GFR (CKD) >90 (>60 ml/min/1.73 sqM); Anion Gap 8 mmol/L; Blood Urea Nitrogen 7 mg/dL (7-17); Calcium 8.5 mg/dL (8.4-10.2); Carbon Dioxide 27 mmol/L (22-30); Chloride 100 mmol/L (98-107); Glucose 98 mg/dL (74-99); Magnesium 1.4 mg/dL (1.6-2.3); Non-African American GFR(CKD) >90 (>60 ml/min/1.73 sqM); Potassium 3.6 mmol/L (3.5-5.1); Sodium 135 mmol/L (137-145)
[2022-02-28] MEDS ORDERED: Magnesium Replacement Protocol 1 EACH MISC MISCELLANE PRN (09:46)
[2022-02-28] MEDS ORDERED: ALBUTEROL NEBULIZED 2.5 MG/3 ML INHALATION PRN (09:53)
[2022-02-28] MEDS: SENNOSIDES 8.6 MG TAB PO SCH (10:03)
[2022-02-28] MEDS: MAGNESIUM SULFATE-D5W PMX 1 GM in DEXTROSE/WATER 1 100ML.BAG IVPB SCH ×3 (10:03→13:35)
[2022-02-28] MEDS: ACETAMINOPHEN TAB 325 MG TAB PO PRN (13:38)
[2022-02-28] MEDS ORDERED: POTASSIUM CHLORIDE ER 20 MEQ TAB.ER PO STA (14:05)
--- NOTE | 2022-02-28 16:16 | P.PN ---
Subjective Progress Note Date: 02/28/22 This is a 71-year-old female who was recently admitted with abdominal pain and found to have severe electrolyte abnormalities and was being closely monitored. Patient had profuse diarrhea and decreased oral intake. Patient reports to significant abdominal pain and feels distended. Patient has IR following for biopsy for oncology and also possible paracentesis and was reported to have minimal fluid on the abdomen. Patient also needs to be off Eliquis for 72 hours. recommend holding now. Mag is 1.6 today and will replace. Patient is afebrile. Encourage oral intake with small frequent meals and increased activity as tolerated. Patient denies chest pain or shortness of breath. Continue with pain control. 02/28/2022 Patient is seen today in follow up and has some continued abdominal discomfort. Patient reports feeling slightly constipated and will resume senna. Was on hold as patient was initially having diarrhea. Encouraged increased activity as tolerated. Magnesium is low today at 1.4 and will replace per protocol. Recommend closely monitoring electrolytes. Encourage oral intake. Patient is afebrile and denies chest pain. Will resume albuterol ventolized. Review of systems: Constitutional: No reports of fatigue, fever, or chills Cardiovascular: No reports of chest pain or palpitations Respiratory: No reports of shortness of breath reports occasional cough GI: no reports of nausea, no reports of of vomiting, patient is passing gas, no further diarrhea, reports mild abdominal pain and some constipation : No reports of dysuria or retention Neurovascular: reports of generalized weakness All medications have been reviewed Active Medications Acetaminophen (Acetaminophen Tab 325 Mg Tab) 650 mg PO Q6HR PRN PRN Reason: Mild Pain or Fever > 100.5 Last Admin: 02/28/22 13:38 Dose: 650 mg Albuterol Sulfate (Albuterol Nebulized 2.5 Mg/3 Ml) 2.5 mg INHALATION Q6H PRN PRN Reason: Shortness Of Breath Amlodipine Besylate (Amlodipine 10 Mg Tab) 10 mg PO DAILY [facility] Last Admin: 02/28/22 08:59 Dose: 10 mg Apixaban (Apixaban 5 Mg Tab) 5 mg PO BID [facility]; Protocol Last Admin: 02/26/22 10:11 Dose: Not Given Cholecalciferol (Cholecalciferol 25 Mcg (1000 Iu) Tablet) 50 mcg PO DAILY [facility] Last Admin: 02/28/22 08:59 Dose: 50 mcg Hydromorphone HCl (Hydromorphone 0.5 Mg/0.5 Ml Syringe) 0.5 mg IVP Q3HR PRN PRN Reason: Moderate Pain Last Admin: 02/28/22 02:34 Dose: 0.5 mg Levothyroxine Sodium (Levothyroxine 125 Mcg Tab) 125 mcg PO DAILY@0630 [facility] Last Admin: 02/28/22 06:06 Dose: 125 mcg Lorazepam (Lorazepam 1 Mg Tab) 1 mg PO TID PRN PRN Reason: Anxiety Metoprolol Succinate (Metoprolol Succinate (Er) 100 Mg Tab.Er.24h) 100 mg PO DAILY [facility] Last Admin: 02/28/22 08:58 Dose: 100 mg Miscellaneous Information (Magnesium Replacement Protocol 1 Each Misc) 1 each MISCELLANE DAILY PRN; Protocol PRN Reason: Per Protocol Naloxone HCl (Naloxone 0.4 Mg/Ml 1 Ml Vial) 0.2 mg IV Q2M PRN PRN Reason: Opioid Reversal Ondansetron HCl (Ondansetron 4 Mg/2 Ml Vial) 4 mg IVP Q8HR PRN PRN Reason: Nausea And Vomiting Last Admin: 02/25/22 21:09 Dose: 4 mg Pantoprazole Sodium (Pantoprazole 40 Mg Tablet) 40 mg PO AC-BRKFST [facility] Last Admin: 02/28/22 08:58 Dose: 40 mg Pyridoxine HCl (Pyridoxine 50 Mg Tab) 100 mg PO BID [facility] Last Admin: 02/28/22 08:59 Dose: 100 mg Senna (Sennosides 8.6 Mg Tab) 8.6 mg PO DAILY [facility] Last Admin: 02/28/22 10:03 Dose: 8.6 mg Tramadol HCl (Tramadol 50 Mg Tab) 50 mg PO Q6H PRN PRN Reason: Pain Last Admin: 02/27/22 00:57 Dose: 50 mg Venlafaxine HCl (Venlafaxine Hcl Er 150 Mg Cap) 150 mg PO DAILY [facility] Last Admin: 02/28/22 08:58 Dose: 150 mg PHYSICAL EXAMINATION: GENERAL: The patient is alert and oriented x4, Well developed, well nourished. HEENT: Pupils are round and equally reacting to light. EOMI. no scleral icterus. No conjunctival pallor. Normocephalic, atraumatic. No pharyngeal erythema. No thyromegaly. CARDIOVASCULAR: S1 and S2 muffled PULMONARY: diminished breath sounds bilaterally with no wheezing or rhonchi noted. ABDOMEN: soft. less tender on exam. distended, normoactive bowel sounds. No palpable organomegaly. MUSCULOSKELETAL: No joint swelling or deformity. EXTREMITIES: No cyanosis, clubbing, or pedal edema. NEUROLOGICAL: Gross neurological examination did not reveal any focal deficits. Diffuse weakness SKIN: No rashes. Assessment: Severe abdominal pain and diarrhea with acute diarrheal disorder Hypokalemia Hypomagnesemia Metastatic ovarian cancer deep vein thrombosis Pulmonary embolus Hypertension Multiple medical issues GI prophylaxis DVT prophylaxis Full code Plan: Recommend to continue with current medications and management with oncology following. IR was consulted for biopsy and possible paracentesis and recommended evaluating on Wednesday as patient showed minimal fluid noted on abdomen and patient has been continued on her eliquis. Will hold Eliquis and continue with electrolyte replacement per protocol and patient to receive mag replacement again today as it was found to be 1.4. Patient continues with abdominal pain and feels somewhat constipated. Will add her senna back . Will continue to monitor and repeat am labs. Encouraged oral intake slowly and increased activity as tolerated. Due to multiple complex medical issues, prognosis is guarded. The impression and plan of care has been dictated as a scribe by Nathalia Nunez, nurse practitioner as directed. MD oLndon I have performed a history and examination and MDM of this patient, discussed the same with the dictator and has been documented as a scribe. Based on total visit time, I have performed more than 50% of the visit. Objective - Vital Signs Vital signs: Vital Signs Temp 98.1 F 02/28/22 04:35 Pulse 84 02/28/22 04:35 Resp 18 02/28/22 04:35 BP 116/72 02/28/22 04:35 Pulse Ox 92 L 02/28/22 04:35 FiO2 Intake & Output 02/27/22 02/28/22 02/28/22 18:59 06:59 18:59 Intake Total 200 Balance 200 Intake: Oral 200 Other: Voiding Method Toilet # Bowel Movements 1 - Labs CBC & Chem 7: 02/28/22 08:04 02/28/22 08:04 Labs: Abnormal Lab Results - Last 24 Hours (Table) 02/27/22 02/27/22 02/28/22 Range/Units 05:38 05:38 08:04 RBC 3.56 L (3.80-5.40) m/uL Hgb 11.2 L (11.4-16.0) gm/dL MCV 101.6 H (80.0-100.0) fL MCHC 30.8 L (31.0-37.0) g/dL Lymphocytes # 0.7 L (1.0-4.8) k/uL Monocytes # 1.60 H (0.20-1.00) X 10*3/uL Sodium (137-145) mmol/L BUN 6.9 L (9.0-27.0) mg/dL BUN/Creatinine Ratio 11.50 L (12.00-20.00) Ratio Magnesium (1.6-2.3) mg/dL AST 117 H (13-35) U/L ALT 98 H (8-44) U/L Alkaline Phosphatase 892 H (41-126) U/L Albumin 3.4 L (3.8-4.9) g/dL Albumin/Globulin Ratio 1.03 L (1.60-3.17) g/dL 02/28/22 Range/Units 08:04 RBC (3.80-5.40) m/uL Hgb (11.4-16.0) gm/dL MCV (80.0-100.0) fL MCHC (31.0-37.0) g/dL Lymphocytes # (1.0-4.8) k/uL Monocytes # (0.20-1.00) X 10*3/uL Sodium 135 L (137-145) mmol/L BUN (9.0-27.0) mg/dL BUN/Creatinine Ratio (12.00-20.00) Ratio Magnesium 1.4 L (1.6-2.3) mg/dL AST (13-35) U/L ALT (8-44) U/L Alkaline Phosphatase (41-126) U/L Albumin (3.8-4.9) g/dL Albumin/Globulin Ratio (1.60-3.17) g/dL
[2022-02-28] MEDS: traMADol 50 MG TAB PO PRN (19:26)
[2022-02-28] MEDS: APIXABAN 5 MG TAB PO SCH (21:42)
[2022-02-28] MEDS: MAGNESIUM OXIDE 400 MG TAB PO SCH (21:42)
[2022-02-28] MEDS: ONDANSETRON 4 MG/2 ML VIAL IVP PRN (21:44)
[2022-02-28] MEDS: LORazepam 1 MG TAB PO PRN (23:58)
[2022-03-01] MEDS: HYDROmorphone 0.5 MG/0.5 ML SYRINGE IVP PRN ×5 (01:25→23:59)
[2022-03-01] MEDS: ONDANSETRON 4 MG/2 ML VIAL IVP PRN ×2 (06:16→17:22)
[2022-03-01] MEDS: LEVOTHYROXINE 125 MCG TAB PO SCH (06:16)
[2022-03-01] MEDS: APIXABAN 5 MG TAB PO SCH ×2 (08:54→11:05)
[2022-03-01] MEDS: SENNOSIDES 8.6 MG TAB PO SCH ×2 (08:54→21:40)
[2022-03-01] MEDS: VENLAFAXINE HCL ER 150 MG CAP PO SCH (08:55)
[2022-03-01] MEDS: CHOLECALCIFEROL 25 MCG (1000 IU) TABLET PO SCH (08:55)
[2022-03-01] MEDS: amLODIPine 10 MG TAB PO SCH (08:55)
[2022-03-01] MEDS: PANTOPRAZOLE 40 MG TABLET PO SCH (08:55)
[2022-03-01] MEDS: METOPROLOL SUCCINATE (ER) 100 MG TAB.ER.24H PO SCH (08:55)
[2022-03-01] MEDS: MAGNESIUM OXIDE 400 MG TAB PO SCH (08:55)
[2022-03-01] MEDS: PYRIDOXINE 50 MG TAB PO SCH ×2 (09:00→21:40)
[2022-03-01 09:42] LABS: INR 1.02 (0.90-1.11); Prothrombin Time 11.2 sec (9.9-11.9)
[2022-03-01] MEDS ORDERED: polyethylene glycoL 3350 17 GM POWD.PACK PO PRN (09:46)
[2022-03-01] MEDS ORDERED: ONDANSETRON 4 MG/2 ML VIAL IVP PRN (09:57)
[2022-03-01] MEDS ORDERED: HYDROcodone/APAP 5-325MG 1 EACH TAB PO PRN (14:10)
[2022-03-01] MEDS: PANTOPRAZOLE 40 MG/10 ML VIAL IVP SCH ×2 (14:36→21:40)
[2022-03-01] MEDS: SODIUM CHLORIDE 0.9% 1,000 ML IV SCH (14:36)
[2022-03-01 14:49] LABS: Basophils % (A) 0 %; Eosinophils # (A) 0.1 k/uL (0-0.7); Eosinophils % (A) 1 %; HCT 38.4 % (34.0-46.0); HGB 11.4 gm/dL (11.4-16.0); Hypochromasia Marked; Lymphocytes # (A) 0.7 k/uL (1.0-4.8); Lymphocytes % (A) 7 %; MCH 31.1 pg (25.0-35.0); MCHC 29.8 g/dL (31.0-37.0); MCV 104.6 fL (80.0-100.0); Macrocytosis Slight; Mean Platelet Volume 9.3; Monocytes # (A) 1.1 k/uL (0-1.0); Monocytes % (A) 10 %; Neutrophils # (A) 8.6 k/uL (1.3-7.7); Neutrophils % (A) 80 %; Platelet Count 440 k/uL (150-450); RBC 3.67 m/uL (3.80-5.40); RDW 13.6 % (11.5-15.5); WBC 10.7 k/uL (3.8-10.6)
--- NOTE | 2022-03-01 15:34 | XR ---
EXAMINATION TYPE: XR abdomen acute w cxr DATE OF EXAM: 03/01/2022 COMPARISON: 05/16/2020 HISTORY: Vomiting and diarrhea TECHNIQUE: 3 views FINDINGS: There is mild pulmonary congestion. There is blunting of the right costophrenic angle. Ther e is right central venous catheter with tip in the superior vena cava. There is no sign of intestinal obstruction or pneumoperitoneum. There is gas down to the rectum. IMPRESSION: There is evidence for some mild heart failure that is a change compared to old exam. Shreya cute bowel gas pattern.
--- NOTE | 2022-03-01 17:14 | PN ---
PROGRESS NOTE PROGRESS NOTE ADDENDUM: DATE OF SERVICE: 03/01/2022 This 71-year-old woman was admitted with multiple problems, including complaints of significant abdominal pain and vomiting. I recommended an acute abdomen series with chest x-ray, symptomatic treatment, cut down the p.o. food. I started IV fluids, symptomatic treatment. See orders for further details. Medications are reviewed. The prognosis is guarded. Discussed with the patient and staff at length. Further recommendations to follow. The plan is to have Interventional Radiology do aspiration/biopsy tomorrow. Prognosis guarded. MMODL / IJN: [id number] /
[2022-03-01] MEDS ORDERED: PANTOPRAZOLE 40 MG/10 ML VIAL IVP SCH (21:00)
[2022-03-01] MEDS: HEPARIN SODIUM,PORCINE/PF 5,000 UNIT/0.5 ML SYRINGE SQ SCH (21:41)
[2022-03-01] MEDS ORDERED: ALTEPLASE 2 MG VIAL (CATHFLO) IV STA (23:19)
--- NOTE | 2022-03-02 02:22 | P.PN ---
Subjective Progress Note Date: 03/01/22 This is a 71-year-old female who was recently admitted with abdominal pain and found to have severe electrolyte abnormalities and was being closely monitored. Patient had profuse diarrhea and decreased oral intake. Patient reports to significant abdominal pain and feels distended. Patient has IR following for biopsy for oncology and also possible paracentesis and was reported to have minimal fluid on the abdomen. Patient also needs to be off Eliquis for 72 hours. recommend holding now. Mag is 1.6 today and will replace. Patient is afebrile. Encourage oral intake with small frequent meals and increased activity as tolerated. Patient denies chest pain or shortness of breath. Continue with pain control. 02/28/2022 Patient is seen today in follow up and has some continued abdominal discomfort. Patient reports feeling slightly constipated and will resume senna. Was on hold as patient was initially having diarrhea. Encouraged increased activity as tolerated. Magnesium is low today at 1.4 and will replace per protocol. Recommend closely monitoring electrolytes. Encourage oral intake. Patient is afebrile and denies chest pain. Will resume albuterol ventolized. 03/01/2022 Patient is seen and evaluated in follow up today and is reporting some abdominal discomfort and occasional nausea and will add IV protonix to 40BID and will add gentle IV hydration. Eliquis is on hold and will continue sub q heparin and recommend to hold am dose as patient is to be evaluated by IR in am for biopsy and paracentesis. Mag is 1.7 today and will continue to monitor labs and replace electrolytes per protocol. Patient is afebrile and denies chest pain or shortness of breath. Review of systems: Constitutional: No reports of fatigue, fever, or chills Cardiovascular: No reports of chest pain or palpitations Respiratory: No reports of shortness of breath reports occasional cough GI: reports of occasional nausea, no reports of of vomiting, patient is passing gas, no further diarrhea, reports mild abdominal pain and some constipation that persists : No reports of dysuria or retention Neurovascular: reports of generalized weakness All medications have been reviewed Active Medications Acetaminophen (Acetaminophen Tab 325 Mg Tab) 650 mg PO Q6HR PRN PRN Reason: Mild Pain or Fever > 100.5 Last Admin: 02/28/22 13:38 Dose: 650 mg Hydrocodone Bitart/Acetaminophen (Hydrocodone/Apap 5-325mg 1 Each Tab) 1 each PO Q6HR PRN PRN Reason: Pain Last Admin: 03/01/22 21:50 Dose: 1 each Albuterol Sulfate (Albuterol Nebulized 2.5 Mg/3 Ml) 2.5 mg INHALATION Q6H PRN PRN Reason: Shortness Of Breath Amlodipine Besylate (Amlodipine 10 Mg Tab) [address] [facility] Last Admin: 03/01/22 08:55 Dose: 10 mg Cholecalciferol (Cholecalciferol 25 Mcg (1000 Iu) Tablet) [address] [facility] Last Admin: 03/01/22 08:55 Dose: 50 mcg Heparin Sodium (Porcine) (Heparin Sodium,Porcine/Pf 5,000 Unit/0.5 Ml Syringe) 5,[address] [facility] Last Admin: 03/01/22 21:41 Dose: 5,000 unit Hydromorphone HCl (Hydromorphone 0.5 Mg/0.5 Ml Syringe) 0.5 mg IVP Q3HR PRN PRN Reason: Moderate Pain Last Admin: 03/01/22 23:59 Dose: 0.5 mg Sodium Chloride (Saline 0.9%) 1,000 mls @ 75 mls/hr IV .[id number] [facility] Last Admin: 03/01/22 14:36 Dose: 75 mls/hr Levothyroxine Sodium (Levothyroxine 125 Mcg Tab) 125 mcg PO DAILY@0630 [facility] Last Admin: 03/01/22 06:16 Dose: 125 mcg Lorazepam (Lorazepam 1 Mg Tab) 1 mg PO TID PRN PRN Reason: Anxiety Last Admin: 02/28/22 23:58 Dose: 1 mg Metoprolol Succinate (Metoprolol Succinate (Er) 100 Mg Tab.Er.24h) [address] [facility] Last Admin: 03/01/22 08:55 Dose: 100 mg Miscellaneous Information (Magnesium Replacement Protocol 1 Each Misc) 1 each MISCELLANE DAILY PRN; Protocol PRN Reason: Per Protocol Naloxone HCl (Naloxone 0.4 Mg/Ml 1 Ml Vial) 0.2 mg IV Q2M PRN PRN Reason: Opioid Reversal Ondansetron HCl (Ondansetron 4 Mg/2 Ml Vial) 4 mg IVP Q4H PRN PRN Reason: Nausea And Vomiting Last Admin: 03/01/22 17:22 Dose: 4 mg Pantoprazole Sodium (Pantoprazole 40 Mg/10 Ml Vial) [address] [facility] Last Admin: 03/01/22 21:40 Dose: 40 mg Polyethylene Glycol (Polyethylene Glycol 3350 17 Gm Powd.Pack) 17 gm PO DAILY PRN PRN Reason: Constipation Pyridoxine HCl (Pyridoxine 50 Mg Tab) [address] [facility] Last Admin: 03/01/22 21:40 Dose: 100 mg Senna (Sennosides 8.6 Mg Tab) 8.[address] [facility] Last Admin: 03/01/22 21:40 Dose: 8.6 mg Venlafaxine HCl (Venlafaxine Hcl Er 150 Mg Cap) [address] [facility] Last Admin: 03/01/22 08:55 Dose: 150 mg PHYSICAL EXAMINATION: GENERAL: The patient is alert and oriented x4, Well developed, well nourished. HEENT: Pupils are round and equally reacting to light. EOMI. no scleral icterus. No conjunctival pallor. Normocephalic, atraumatic. No pharyngeal erythema. No thyromegaly. CARDIOVASCULAR: S1 and S2 muffled PULMONARY: diminished breath sounds bilaterally with no wheezing or rhonchi noted. ABDOMEN: soft. tender on exam. mildly distended, normoactive bowel sounds. No palpable organomegaly. MUSCULOSKELETAL: No joint swelling or deformity. EXTREMITIES: No cyanosis, clubbing, or pedal edema. NEUROLOGICAL: Gross neurological examination did not reveal any focal deficits. Diffuse weakness SKIN: No rashes. Assessment: Severe abdominal pain and diarrhea with acute diarrheal disorder Hypokalemia Hypomagnesemia Metastatic ovarian cancer deep vein thrombosis Pulmonary embolus Hypertension Multiple medical issues GI prophylaxis DVT prophylaxis Full code Plan: Recommend to continue with current medications and management with oncology fol josé. IR to follow in am for biopsy and possible paracentesis. Will hold Eliquis and continue with electrolyte replacement per protocol. Patient with some occasional nausea and also feeling constipated and will add gentle IV hydration and increase senna to bid. Recommend IV protonix 40 bid. Will continue to monitor and repeat am labs. Encouraged oral intake slowly and increased activity as tolerated. Due to multiple complex medical issues, prognosis is guarded. Recommend to hold am heparin for possible procedure with IR today. The impression and plan of care has been dictated as a scribe by Nathalia Enrique, nurse practitioner as directed. MD [place] I have performed a history and examination and MDM of this patient, discussed the same with the dictator and has been documented as a scribe. Based on total visit time, I have performed more than 50% of the visit. Objective - Vital Signs Vital signs: Vital Signs Temp 98.6 F 03/01/22 04:23 Pulse 74 03/01/22 04:23 Resp 16 03/01/22 04:23 BP 123/71 03/01/22 04:23 Pulse Ox 95 03/01/22 04:23 FiO2 Intake & Output 02/28/22 03/01/22 03/01/22 18:59 06:59 18:59 Intake Total 300 540 Balance 300 540 Intake: Intake, IV Titration 300 Amount Magnesium Sulfate-D5w Pmx 300 1 gm In Dextrose/Water 1 100ml.bag @ 100 mls/hr IVPB Q1H [facility]ANK[facility] Rx#: [id number] Oral 540 Other: Voiding Method Toilet # Voids 3 - Labs CBC & Chem 7: 03/01/22 04:01 02/28/22 08:04
[2022-03-02] MEDS: HEPARIN SODIUM,PORCINE/PF 5,000 UNIT/0.5 ML SYRINGE SQ SCH (02:30)
[2022-03-02] MEDS: HYDROmorphone 0.5 MG/0.5 ML SYRINGE IVP PRN ×2 (04:48→10:25)
[2022-03-02] MEDS: SODIUM CHLORIDE 0.9% 1,000 ML IV SCH ×2 (05:44→18:26)
[2022-03-02 09:16] LABS: Basophils # (A) 0.03 X 10*3/uL (0.00-0.10); Basophils % (A) 0.3 %; Eosinophils # (A) 0.15 X 10*3/uL (0.04-0.35); Eosinophils % (A) 1.4 %; HCT 36.8 % (37.2-46.3); HGB 11.4 g/dL (12.0-15.0); Immature Grans, Automated 0.4 %; Lymphocytes # (A) 1.15 X 10*3/uL (0.90-5.00); MCH 30.8 pg (27.0-32.0); MCV 99.5 fL (80.0-97.0); Mean Platelet Volume 10.8 fL (9.5-12.2); Monocytes # (A) 1.54 X 10*3/uL (0.20-1.00); Monocytes % (A) 14.7 %; NRBC Per 100 WBC 0 /100 WBCS (0.0-0.0); Neutrophils # (A) 7.55 X 10*3/uL (1.80-7.70); Neutrophils % (A) 72.2 %; Platelet Count 472 X 10*3/uL (140-440); RDW 15.1 % (11.5-14.5); WBC 10.46 X 10*3/uL (4.50-10.00)
[2022-03-02 09:42] LABS: African American GFR (CKD) 98.9 (60.0-200.0); Albumin 3.3 g/dL (3.8-4.9); Albumin/Globulin Ratio 0.97 (1.60-3.17); Anion Gap 15.6 mmol/L (10.00-18.00); BUN/Creat Ratio 10.14 Ratio (12.00-20.00); Blood Urea Nitrogen 7.1 mg/dL (9.0-27.0); Calcium 8.8 mg/dL (8.7-10.3); Carbon Dioxide 22.4 mmol/L (20.0-27.5); Globulin 3.4 g/dL (1.6-3.3); Non-African American GFR(CKD) 85.4 (60.0-200.0); Total Bilirubin 1.3 mg/dL (0.30-1.20); Total Protein 6.7 g/dL (6.2-8.2)
--- NOTE | 2022-03-02 09:57 | P.GSCN ---
History of Present Illness Consult date: 03/02/22 Reason for Consult: liver biopsy, multiple liver masses History of present illness: under real time ultrasound, known multiple small masses are not well seen, defer percutaneous biopsy due to inability to accurately sample Past Medical History Past Medical History: Asthma, Cancer, Deep Vein Thrombosis (DVT), Hyperlipidemia, Hypertension, Pulmonary Embolus (PE), Thyroid Disorder Additional Past Medical History / Comment(s): Seasonal Asthma. Ovarian Cancer diagnosed 06/22, treated with chemo, patient unaware of when last chemo was. States "get injection every 3 weeks now and for the rest of my life, not sure what it is but it's not chemo." SOB with stairs. Constipation with abdominal pain. History of Any Multi-Drug Resistant Organisms: None Reported Past Surgical History: Adenoidectomy, Breast Surgery, Hysterectomy, Orthopedic Surgery, Tonsillectomy Additional Past Surgical History / Comment(s): Multiple paracentesis, left wrist surgery, left shoulder surgery, breast reduction, D&C, Spleenectomy. Past Anesthesia/Blood Transfusion Reactions: No Reported Reaction, Motion Sickness Past Psychological History: Anxiety, Depression Smoking Status: Former smoker Past Alcohol Use History: Occasional Past Drug Use History: Marijuana Additional Drug Use History / Comment(s): Marijuana use rarely. - Past Family History Mother Family Medical History: Cancer, Osteoarthritis (OA), Vascular Disorder Additional Family Medical History / Comment(s): Anemia. Father Family Medical History: Cancer, Osteoarthritis (OA) Additional Family Medical History / Comment(s): Kidney tumor. Medications and Allergies Home Medications Medication Instructions Recorded Confirmed Type LORazepam [Ativan] 1 mg PO TID PRN 08/23/19 02/25/22 History Levothyroxine Sodium [Synthroid] 125 mcg PO DAILY 08/23/19 02/25/22 History Albuterol Inhaler [Ventolin Hfa 2 puff INHALATION Q6H PRN 06/18/21 02/25/22 History Inhaler] Cholecalciferol [Vitamin D3 (25 50 mcg PO DAILY 06/18/21 02/25/22 History Mcg = 1000 Iu)] Ondansetron Odt [Zofran ODT] 4 mg PO Q6H PRN 06/18/21 02/25/22 History Pyridoxine HCl (Vitamin B6) 100 mg PO BID 06/18/21 02/25/22 History [Vitamin B-6] Venlafaxine HCl ER [Effexor XR] 150 mg PO DAILY 06/18/21 02/25/22 History Zolpidem Tartrate [Ambien Cr] 12.5 mg PO HS PRN 06/18/21 02/25/22 History traMADol HCL [Ultram] 50 mg PO Q6H PRN 08/18/21 02/25/22 History Ezetimibe/Rosuvastatin Calcium 1 tab PO DAILY 10/24/21 02/25/22 History [Ezetimibe/Rosuvastatin Calcium 20-10Mg] Apixaban [Eliquis] 5 mg PO BID 02/25/22 02/25/22 History Hydrocortisone/Pramoxine 1 applic TOPICAL TID 02/25/22 02/25/22 History [Pramosone 2.5%-1% Cream] Metoprolol Succinate (ER) [Toprol 100 mg PO DAILY 02/25/22 02/25/22 History Xl] Sennosides [Senokot] 8.6 mg PO HS 02/25/22 02/25/22 History amLODIPine [Norvasc] 10 mg PO DAILY 02/25/22 02/25/22 History Allergies Allergy/AdvReac Type Severity Reaction Status Date / Time aspirin Allergy Rash/Hives Verified 02/25/22 16:15 clonidine [From Catapres] Allergy Rash/Hives Verified 02/25/22 16:15 codeine Allergy Rash/Hives Verified 02/25/22 16:15 [From Tylenol-Codeine #3] Latex, Natural Rubber Allergy Rash/Hives Verified 02/25/22 16:15 Surgical - Exam Vital Signs Temp Pulse Resp BP Pulse Ox 98.5 F 74 16 125/72 97 02/25/22 12:12 02/25/22 12:12 02/25/22 12:12 02/25/22 12:12 02/25/22 12:12 Results - Labs 03/02/22 04:47 03/01/22 04:01 Abnormal Lab Results - Last 24 Hours (Table) 03/01/22 03/01/22 03/02/22 Range/Units 04:01 04:01 04:47 WBC 10.7 H 10.46 H (3.8-10.6) k/uL RBC 3.67 L 3.70 L (3.80-5.40) m/uL Hgb 11.4 L (12.0-15.0) g/dL Hct 36.8 L (37.2-46.3) % MCV 104.6 H 99.5 H (80.0-100.0) fL MCHC 29.8 L 31.0 L (31.0-37.0) g/dL RDW 15.1 H (11.5-14.5) % Plt Count 472 H (140-440) X 10*3/uL Neutrophils # 8.6 H (1.3-7.7) k/uL Lymphocytes # 0.7 L (1.0-4.8) k/uL Monocytes # 1.1 H 1.54 H (0-1.0) k/uL BUN 7.1 L (9.0-27.0) mg/dL BUN/Creatinine Ratio 10.14 L (12.00-20.00) Ratio Total Bilirubin 1.30 H (0.30-1.20) mg/dL AST 102 H (13-35) U/L ALT 86 H (8-44) U/L Alkaline Phosphatase 877 H (41-126) U/L Albumin 3.3 L (3.8-4.9) g/dL Globulin 3.4 H (1.6-3.3) g/dL Albumin/Globulin Ratio 0.97 L (1.60-3.17) g/dL Diabetes panel 03/01/22 Range/Units 04:01 Sodium 135 (135-145) mmol/L Potassium 4.0 (3.5-5.5) mmol/L Chloride 97 (96-109) mmol/L Carbon Dioxide 22.4 (20.0-27.5) mmol/L BUN 7.1 L (9.0-27.0) mg/dL Creatinine 0.7 (0.6-1.5) mg/dL Glucose 99 (70-110) mg/dL Calcium 8.8 (8.7-10.3) mg/dL AST 102 H (13-35) U/L ALT 86 H (8-44) U/L Alkaline Phosphatase 877 H (41-126) U/L Total Protein 6.7 (6.2-8.2) g/dL Albumin 3.3 L (3.8-4.9) g/dL Calcium panel 03/01/22 Range/Units 04:01 Calcium 8.8 (8.7-10.3) mg/dL Albumin 3.3 L (3.8-4.9) g/dL Pituitary panel 03/01/22 Range/Units 04:01 Sodium 135 (135-145) mmol/L Potassium 4.0 (3.5-5.5) mmol/L Chloride 97 (96-109) mmol/L Carbon Dioxide 22.4 (20.0-27.5) mmol/L BUN 7.1 L (9.0-27.0) mg/dL Creatinine 0.7 (0.6-1.5) mg/dL Glucose 99 (70-110) mg/dL Calcium 8.8 (8.7-10.3) mg/dL Adrenal panel 03/01/22 Range/Units 04:01 Sodium 135 (135-145) mmol/L Potassium 4.0 (3.5-5.5) mmol/L Chloride 97 (96-109) mmol/L Carbon Dioxide 22.4 (20.0-27.5) mmol/L BUN 7.1 L (9.0-27.0) mg/dL Creatinine 0.7 (0.6-1.5) mg/dL Glucose 99 (70-110) mg/dL Calcium 8.8 (8.7-10.3) mg/dL Total Bilirubin 1.30 H (0.30-1.20) mg/dL AST 102 H (13-35) U/L ALT 86 H (8-44) U/L Alkaline Phosphatase 877 H (41-126) U/L Total Protein 6.7 (6.2-8.2) g/dL Albumin 3.3 L (3.8-4.9) g/dL
[2022-03-02 10:08] LABS: African American GFR (CKD) 104.1 (60.0-200.0); Albumin 3.6 g/dL (3.8-4.9); Albumin/Globulin Ratio 1.06 (1.60-3.17); Anion Gap 10.5 mmol/L (10.00-18.00); BUN/Creat Ratio 10.83 Ratio (12.00-20.00); Blood Urea Nitrogen 6.5 mg/dL (9.0-27.0); Calcium 8.8 mg/dL (8.7-10.3); Carbon Dioxide 27.5 mmol/L (20.0-27.5); Globulin 3.4 g/dL (1.6-3.3); Magnesium 1.6 mg/dL (1.5-2.4); Non-African American GFR(CKD) 89.8 (60.0-200.0); Potassium 3.6 mmol/L (3.5-5.5); Total Bilirubin 1.4 mg/dL (0.30-1.20)
[2022-03-02] MEDS: PYRIDOXINE 50 MG TAB PO SCH ×2 (10:22→19:31)
[2022-03-02] MEDS: METOPROLOL SUCCINATE (ER) 100 MG TAB.ER.24H PO SCH (10:23)
[2022-03-02] MEDS: VENLAFAXINE HCL ER 150 MG CAP PO SCH (10:23)
[2022-03-02] MEDS: CHOLECALCIFEROL 25 MCG (1000 IU) TABLET PO SCH (10:23)
[2022-03-02] MEDS: SENNOSIDES 8.6 MG TAB PO SCH (10:23)
[2022-03-02] MEDS: LEVOTHYROXINE 125 MCG TAB PO SCH (10:24)
[2022-03-02] MEDS: amLODIPine 10 MG TAB PO SCH (10:24)
[2022-03-02] MEDS: PANTOPRAZOLE 40 MG/10 ML VIAL IVP SCH ×2 (10:24→19:32)
--- NOTE | 2022-03-02 11:30 | US ---
Discontinued paracentesis, discontinued liver biopsy Correlation to CT scan 02/25/2022 Real-time ultrasound was performed. Minimal fluid identified within the abdomen. A suitable lesion fo r percutaneous biopsy within the liver is not visualized. IMPRESSION: Exams aborted.
--- NOTE | 2022-03-02 14:25 | P.CONS ---
History of Present Illness - Reason for Consult Consult date: 03/02/22 Abdominal pain, distention Requesting physician: Nathalia Nunez - Chief Complaint Abdominal pain - History of Present Illness This is a very pleasant 72-year-old white female who presented to the emergency department 5-6 days ago with complaints of abdominal pain, constipation, nausea and vomiting. Patient has a past medical history of ovarian cancer status post chemotherapy, and surgery [address] Anton. She follows with Dr. Hawthorne. She's been having increased constipation with diarrhea. She states that she takes Metamucil twice a day at home with Senokot every night. States she has constant abdominal stomach ache worse at night for the last 6 months duration. Over the last 2-3 weeks she felt that she has had increased abdominal distention. 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 Gastroenterology was consulted for abdominal pain and distention. She had a CT of the abdomen and pelvis as part of her workup that showed progression of disease with multiple new hypoattenuating hepatic lesions an infiltrative mass within the lana hepatis. Long segment wall thickening and mucosal hyperenhancement of the transverse and ascending colon with additional wall thickening of the distal small bowel. Findings are concerning for infectious/inflammatory process. Ischemic process is not excluded. Mild increase in intrahepatic biliary ductal dilation likely secondary to #1. Increased size of loculated fluid in bilateral lower quadrants and right upper quadrant no gas within these collections. Possible large some cardinal/right hilar lymph node small right and trace left pleural effusions. Today the patient states abdominal pain is about the same, like a dull toothache. Not touching, however sharp pain with pressure. She denies any current vomiting, had some nausea this morning. States she's had periodic vomiting. Maybe 2-3 times. Denies any hematemesis. States she has chronic constipation. Last bowel movement was last Wednesday. She states her last colonoscopy was [address] Beard, no report available at this time. Patient was scheduled for paracentesis and liver biopsy however interventional radiology stated that there was no fluid and unable to 2 liver biopsies due to size of lesions. Review of Systems REVIEW OF SYSTEMS: CARDIOPULMONARY: No chest pain or shortness of breath. Gastrointestinal: Chronic abdominal pain, bloating for the last 2-3 weeks. Constipation. No nausea or vomiting. No hematemesis, coffee-ground emesis. No rectal bleeding, or melena. GENITOURINARY: No dysuria or hematuria. MUSCULOSKELETAL: Reports normal range of motion. Joint pain. SKIN: No rashes. No jaundice. ENDOCRINE: No chills, fevers. No excessive weight gain or loss. No polydipsia or polyuria. PSYCHIATRIC: Unremarkable. NEUROLOGY: No change in mental status. Denies dizziness, headache. ENT: Vision unremarkable. CONSTITUTIONAL: No recent weight loss. No fever, chills, night sweats. Past Medical History Past Medical History: Asthma, Cancer, Deep Vein Thrombosis (DVT), Hyperlipidemia, Hypertension, Pulmonary Embolus (PE), Thyroid Disorder Additional Past Medical History / Comment(s): Seasonal Asthma. Ovarian Cancer diagnosed 06/22, treated with chemo, patient unaware of when last chemo was. [facility] "get injection every 3 weeks now and for the rest of my life, not sure what it is but it's not chemo." SOB with stairs. Constipation with abdominal pain. History of Any Multi-Drug Resistant Organisms: None Reported Past Surgical History: Adenoidectomy, Breast Surgery, Hysterectomy, Orthopedic Surgery, Tonsillectomy Additional Past Surgical History / Comment(s): Multiple paracentesis, left wrist surgery, left shoulder surgery, breast reduction, D&C, Spleenectomy. Past Anesthesia/Blood Transfusion Reactions: No Reported Reaction, Motion Sickness Past Psychological History: Anxiety, Depression Smoking Status: Former smoker Past Alcohol Use History: Occasional Past Drug Use History: Marijuana Additional Drug Use History / Comment(s): Marijuana use rarely. - Past Family History Mother Family Medical History: Cancer, Osteoarthritis (OA), Vascular Disorder Additional Family Medical History / Comment(s): Anemia. Father Family Medical History: Cancer, Osteoarthritis (OA) Additional Family Medical History / Comment(s): Kidney tumor. Medications and Allergies Home Medications Medication Instructions Recorded Confirmed Type LORazepam [Ativan] 1 mg PO TID PRN 08/23/19 02/25/22 History Levothyroxine Sodium [Synthroid] 125 mcg PO DAILY 08/23/19 02/25/22 History Albuterol Inhaler [Ventolin Hfa 2 puff INHALATION Q6H PRN 06/18/21 02/25/22 History Inhaler] Cholecalciferol [Vitamin D3 (25 50 mcg PO DAILY 06/18/21 02/25/22 History Mcg = 1000 Iu)] Ondansetron Odt [Zofran ODT] 4 mg PO Q6H PRN 06/18/21 02/25/22 History Pyridoxine HCl (Vitamin B6) 100 mg PO BID 06/18/21 02/25/22 History [Vitamin B-6] Venlafaxine HCl ER [Effexor XR] 150 mg PO DAILY 06/18/21 02/25/22 History Zolpidem Tartrate [Ambien Cr] 12.5 mg PO HS PRN 06/18/21 02/25/22 History traMADol HCL [Ultram] 50 mg PO Q6H PRN 08/18/21 02/25/22 History Ezetimibe/Rosuvastatin Calcium 1 tab PO DAILY 10/24/21 02/25/22 History [Ezetimibe/Rosuvastatin Calcium 20-10Mg] Apixaban [Eliquis] 5 mg PO BID 02/25/22 02/25/22 History Hydrocortisone/Pramoxine 1 applic TOPICAL TID 02/25/22 02/25/22 History [Pramosone 2.5%-1% Cream] Metoprolol Succinate (ER) [Toprol 100 mg PO DAILY 02/25/22 02/25/22 History Xl] Sennosides [Senokot] 8.6 mg PO HS 02/25/22 02/25/22 History amLODIPine [Norvasc] 10 mg PO DAILY 02/25/22 02/25/22 History Allergies Allergy/AdvReac Type Severity Reaction Status Date / Time aspirin Allergy Rash/Hives Verified 02/25/22 16:15 clonidine [From Catapres] Allergy Rash/Hives Verified 02/25/22 16:15 codeine Allergy Rash/Hives Verified 02/25/22 16:15 [From Tylenol-Codeine #3] Latex, Natural Rubber Allergy Rash/Hives Verified 02/25/22 16:15 Physical Exam Vitals: Vital Signs Temp Pulse Resp BP Pulse Ox 03/02/22 11:40 98.5 F 74 14 148/72 97 03/02/22 10:00 73 16 168/81 96 03/02/22 09:30 77 16 160/76 95 03/02/22 04:11 98.9 F 72 15 138/57 94 L 03/01/22 20:00 16 03/01/22 18:51 98.0 F 64 14 159/75 97 Intake and Output 03/01/22 03/02/22 03/02/22 22:59 06:59 14:59 Intake Total 150 Output Total 20 Balance 130 Intake: Intake, IV Titration 150 Amount Sodium Chloride 0.9% 1, 150 000 ml @ 75 mls/hr IV . [id number] [facility] Rx#:[id number] Output: Emesis 20 Other: Voiding Method Toilet # Voids 1 General appearance: The patient is alert, oriented, appears in no acute distress. HET: Head is normocephalic and atraumatic. Conjunctiva pink. Sclera anicteric. Neck: Supple without lymphadenopathy. Trachea midline. Heart: S1 S2. Regular rate and rhythm. Lungs: Clear to auscultation. Abdomen: Soft, bloated, tender to palpation. Hepatomegaly. No guarding or rigidity. Skin: No rashes. No jaundice. Extremities: Normal skin color and turgor. No pedal edema. Neurological: No focal deficits. Alert and oriented x3. Results CBC & Chem 7: 03/02/22 04:47 03/02/22 04:47 Labs: Abnormal Lab Results - Last 24 Hours (Table) 03/01/22 03/01/22 03/02/22 Range/Units 04:01 04:01 04:47 WBC 10.7 H 10.46 H (3.8-10.6) k/uL RBC 3.67 L 3.70 L (3.80-5.40) m/uL Hgb 11.4 L (12.0-15.0) g/dL Hct 36.8 L (37.2-46.3) % MCV 104.6 H 99.5 H (80.0-100.0) fL MCHC 29.8 L 31.0 L (31.0-37.0) g/dL RDW 15.1 H (11.5-14.5) % Plt Count 472 H (140-440) X 10*3/uL Neutrophils # 8.6 H (1.3-7.7) k/uL Lymphocytes # 0.7 L (1.0-4.8) k/uL Monocytes # 1.1 H 1.54 H (0-1.0) k/uL Sodium (135-145) mmol/L BUN 7.1 L (9.0-27.0) mg/dL BUN/Creatinine Ratio 10.14 L (12.00-20.00) Ratio Total Bilirubin 1.30 H (0.30-1.20) mg/dL AST 102 H (13-35) U/L ALT 86 H (8-44) U/L Alkaline Phosphatase 877 H (41-126) U/L Albumin 3.3 L (3.8-4.9) g/dL Globulin 3.4 H (1.6-3.3) g/dL Albumin/Globulin Ratio 0.97 L (1.60-3.17) g/dL 03/02/22 Range/Units 04:47 WBC (3.8-10.6) k/uL RBC (3.80-5.40) m/uL Hgb (12.0-15.0) g/dL Hct (37.2-46.3) % MCV (80.0-100.0) fL MCHC (31.0-37.0) g/dL RDW (11.5-14.5) % Plt Count (140-440) X 10*3/uL Neutrophils # (1.3-7.7) k/uL Lymphocytes # (1.0-4.8) k/uL Monocytes # (0-1.0) k/uL Sodium 134 L (135-145) mmol/L BUN 6.5 L (9.0-27.0) mg/dL BUN/Creatinine Ratio 10.83 L (12.00-20.00) Ratio Total Bilirubin 1.40 H (0.30-1.20) mg/dL AST 94 H (13-35) U/L ALT 90 H (8-44) U/L Alkaline Phosphatase 846 H (41-126) U/L Albumin 3.6 L (3.8-4.9) g/dL Globulin 3.4 H (1.6-3.3) g/dL Albumin/Globulin Ratio 1.06 L (1.60-3.17) g/dL Assessment and Plan (1) Abdominal pain Narrative/Plan: 72-year-old female with a known history of ovarian cancer that was treated with chemotherapy and surgery in [address] Anton who presented to the emergency department a few days ago with abdominal pain and constipation followed by diarrhea. Patient states she has chronic constipation takes Metamucil twice a day and Senokot. She has a constant abdominal discomfort for the last 6 months daily. She had a CT of the abdomen and pelvis on admission that showing multiple hepatic lesions concerning for metastatic disease. She was scheduled for paracentesis and liver biopsy however interventional radiology said there was not enough fluid for paracentesis and unable to safely do a liver biopsy. CT of the abdomen also did show concerns for thickening of the transverse and ascending colon along with small bowel. Patient's last colonoscopy was [address] Harrison. No previous EGD. Abdominal pain likely related to enlarged liver and metastasis. Recommend liver biopsy. Current Visit: Yes Status: Acute Priority: High Code(s): R10.9 - UNSPECIFIED ABDOMINAL PAIN SNOMED Code(s): 19433430 (2) Constipation Current Visit: Yes Status: Acute Code(s): K59.00 - CONSTIPATION, UNSPECIFIED SNOMED Code(s): 35001131 (3) Ovarian cancer Current Visit: Yes Status: Chronic Priority: High Code(s): C56.9 - MALIGNANT NEOPLASM OF UNSPECIFIED OVARY SNOMED Code(s): 862350225 (4) Pulmonary embolism Current Visit: No Status: Chronic Priority: Medium Code(s): I26.99 - OTHER PULMONARY EMBOLISM WITHOUT ACUTE COR PULMONALE SNOMED Code(s): 62137789 Plan: 1. Continue symptomatic supportive care 2. Recommend MiraLAX daily, may titrate to have a bowel movement every day to every other day 3. Give a dose of lactulose 4. Recommend liver biopsy 5. CA-125 ordered 6. No plans on endoscopic evaluation at this time Thank you for this consultation, we will continue to follow. Dr. Daniel Mccorimck I agree with the dictator's note, documented as a scribe by Brea Cole.
--- NOTE | 2022-03-02 14:34 | P.PN ---
Subjective Progress Note Date: 03/02/22 Principal diagnosis: Diarrhea, abdominal distention, hypokalemia and dehydration Objective - Vital Signs Vital signs: Vital Signs Temp 98.5 F 03/02/22 11:40 Pulse 74 03/02/22 11:40 Resp 14 03/02/22 11:40 BP 148/72 03/02/22 11:40 Pulse Ox 97 03/02/22 11:40 FiO2 Intake & Output 03/01/22 03/02/22 03/02/22 18:59 06:59 18:59 Intake Total 150 Output Total 10 10 Balance 140 -10 Intake: Intake, IV Titration 150 Amount Sodium Chloride 0.9% 1, 150 000 ml @ 75 mls/hr IV . [id number] [facility] Rx#:[id number] Output: Emesis 10 10 Other: Voiding Method Toilet # Voids 1 - Constitutional General appearance: Present: cooperative, no acute distress, thin - EENT Eyes: Present: anicteric sclerae, EOMI ENT: Present: hearing grossly normal - Respiratory Details: Respirations even and unlabored at rest - Cardiovascular Rhythm: regular - Peripheral edema leg Peripheral Edema: bilateral: None - Gastrointestinal Gastrointestinal Comment(s): Firm abdomen soft touch, distant bowel sounds General gastrointestinal: Present: distended - Integumentary Integumentary: Present: normal - Neurologic Neurologic: Present: CNII-XII intact - Musculoskeletal Musculoskeletal: Present: strength equal bilaterally - Psychiatric Psychiatric: Present: A&O x's 3, appropriate affect, intact judgment & insight - Labs CBC & Chem 7: 03/02/22 04:47 03/02/22 04:47 Labs: Abnormal Lab Results - Last 24 Hours (Table) 03/01/22 03/01/22 03/02/22 Range/Units 04:01 04:01 04:47 WBC 10.7 H 10.46 H (3.8-10.6) k/uL RBC 3.67 L 3.70 L (3.80-5.40) m/uL Hgb 11.4 L (12.0-15.0) g/dL Hct 36.8 L (37.2-46.3) % MCV 104.6 H 99.5 H (80.0-100.0) fL MCHC 29.8 L 31.0 L (31.0-37.0) g/dL RDW 15.1 H (11.5-14.5) % Plt Count 472 H (140-440) X 10*3/uL Neutrophils # 8.6 H (1.3-7.7) k/uL Lymphocytes # 0.7 L (1.0-4.8) k/uL Monocytes # 1.1 H 1.54 H (0-1.0) k/uL Sodium (135-145) mmol/L BUN 7.1 L (9.0-27.0) mg/dL BUN/Creatinine Ratio 10.14 L (12.00-20.00) Ratio Total Bilirubin 1.30 H (0.30-1.20) mg/dL AST 102 H (13-35) U/L ALT 86 H (8-44) U/L Alkaline Phosphatase 877 H (41-126) U/L Albumin 3.3 L (3.8-4.9) g/dL Globulin 3.4 H (1.6-3.3) g/dL Albumin/Globulin Ratio 0.97 L (1.60-3.17) g/dL 03/02/22 Range/Units 04:47 WBC (3.8-10.6) k/uL RBC (3.80-5.40) m/uL Hgb (12.0-15.0) g/dL Hct (37.2-46.3) % MCV (80.0-100.0) fL MCHC (31.0-37.0) g/dL RDW (11.5-14.5) % Plt Count (140-440) X 10*3/uL Neutrophils # (1.3-7.7) k/uL Lymphocytes # (1.0-4.8) k/uL Monocytes # (0-1.0) k/uL Sodium 134 L (135-145) mmol/L BUN 6.5 L (9.0-27.0) mg/dL BUN/Creatinine Ratio 10.83 L (12.00-20.00) Ratio Total Bilirubin 1.40 H (0.30-1.20) mg/dL AST 94 H (13-35) U/L ALT 90 H (8-44) U/L Alkaline Phosphatase 846 H (41-126) U/L Albumin 3.6 L (3.8-4.9) g/dL Globulin 3.4 H (1.6-3.3) g/dL Albumin/Globulin Ratio 1.06 L (1.60-3.17) g/dL Assessment and Plan (1) Abdominal pain Current Visit: Yes Status: Acute Priority: High Code(s): R10.9 - UNSPECIFI ED ABDOMINAL PAIN SNOMED Code(s): 93826421 (2) Ascites Current Visit: Yes Status: Acute Priority: High Code(s): R18.8 - OTHER ASCITES SNOMED Code(s): 052449441 (3) Ovarian cancer Current Visit: Yes Status: Chronic Priority: High Code(s): C56.9 - MALIGNANT NEOPLASM OF UNSPECIFIED OVARY SNOMED Code(s): 240858949 (4) Pulmonary embolism Current Visit: No Status: Chronic Priority: Medium Code(s): I26.99 - OTHER PULMONARY EMBOLISM WITHOUT ACUTE COR PULMONALE SNOMED Code(s): 93694074 Plan: Pt has notable abd distension. Reviewed CT AP, new liver lesions. Ultrasound of the abdomen minimal fluid, paracentesis canceled. Ultrasound the liver, no lesions amenable to biopsy, procedure canceled. Hep panel negative Patient is complaining of constipation. Multiple medications ordered for tr eatment of the same. Abdominal pain. Patient states Dilaudid is not working any better than Pacific. Increased Pacific dose and frequency. Reassess pain in the a.m. Patient has been seen by GI. No plans for endoscopy at this time. Hx of PE. Thornton held for procedures, resumed today. Patient will be referred to tertiary care facility for procedures. F/U Dr. Banks
[2022-03-02] MEDS: HYDROcodone/APAP 10-325MG 1 EACH TAB PO PRN ×2 (15:14→21:44)
[2022-03-02] MEDS: LORazepam 1 MG TAB PO PRN ×2 (16:39→21:44)
[2022-03-02] MEDS ORDERED: Magnesium Replacement Protocol 1 EACH MISC MISCELLANE PRN (19:02)
[2022-03-02] MEDS ORDERED: POTASSIUM CHLORIDE ER 20 MEQ TAB.ER PO STA (19:03)
[2022-03-02] MEDS: MAGNESIUM SULFATE-D5W PMX 1 GM in DEXTROSE/WATER 1 100ML.BAG IVPB SCH ×2 (19:30→20:24)
[2022-03-02] MEDS: SENNOSIDES-DOCUSATE SODIUM 1 EACH TAB PO SCH (19:31)
[2022-03-02] MEDS: APIXABAN 5 MG TAB PO SCH (19:31)
--- NOTE | 2022-03-02 19:46 | P.PN ---
Subjective Progress Note Date: 03/02/22 This is a 71-year-old female who was recently admitted with abdominal pain and found to have severe electrolyte abnormalities and was being closely monitored. Patient had profuse diarrhea and decreased oral intake. Patient reports to significant abdominal pain and feels distended. Patient has IR following for biopsy for oncology and also possible paracentesis and was reported to have minimal fluid on the abdomen. Patient also needs to be off Eliquis for 72 hours. recommend holding now. Mag is 1.6 today and will replace. Patient is afebrile. Encourage oral intake with small frequent meals and increased activity as tolerated. Patient denies chest pain or shortness of breath. Continue with pain control. 02/28/2022 Patient is seen today in follow up and has some continued abdominal discomfort. Patient reports feeling slightly constipated and will resume senna. Was on hold as patient was initially having diarrhea. Encouraged increased activity as tolerated. Magnesium is low today at 1.4 and will replace per protocol. Recommend closely monitoring electrolytes. Encourage oral intake. Patient is afebrile and denies chest pain. Will resume albuterol ventolized. 03/01/2022 Patient is seen and evaluated in follow up today and is reporting some abdominal discomfort and occasional nausea and will add IV protonix to 40BID and will add gentle IV hydration. Eliquis is on hold and will continue sub q heparin and recommend to hold am dose as patient is to be evaluated by IR in am for biopsy and paracentesis. Mag is 1.7 today and will continue to monitor labs and replace electrolytes per protocol. Patient is afebrile and denies chest pain or shortness of breath. 03/02/2022 Patient is evaluated today and is scheduled for possible paracentesis and liver biopsy with IR today. Patient eliquis has been on hold and will resume after procedure. Hematology/oncology following and has been adjusting pain medication as her pain is reported as severe at times. Patient is having constipation and is being given laxatives. Will consult GI and appreciate input and recommendations. Patient is afebrile and denies any chest pain or shortness of breath. Poor oral intake due to nausea and some occasional vomiting. Patent reports she has not had a bowel movement since admission. Review of systems: Constitutional: reports of fatigue, no fever, or chills Cardiovascular: No reports of chest pain or palpitations Respiratory: No reports of shortness of breath reports occasional cough GI: reports of occasional nausea, reports of vomiting, patient is passing gas, no further diarrhea, reports mild abdominal pain and continued constipation : No reports of dysuria or retention Neurovascular: reports of generalized weakness All medications have been reviewed Active Medications Acetaminophen (Acetaminophen Tab 325 Mg Tab) 650 mg PO Q6HR PRN PRN Reason: Mild Pain or Fever > 100.5 Last Admin: 02/28/22 13:38 Dose: 650 mg Hydrocodone Bitart/Acetaminophen (Hydrocodone/Apap 10-325mg 1 Each Tab) 1 each PO Q4HR PRN PRN Reason: Pain Albuterol Sulfate (Albuterol Nebulized 2.5 Mg/3 Ml) 2.5 mg INHALATION Q6H PRN PRN Reason: Shortness Of Breath Amlodipine Besylate (Amlodipine 10 Mg Tab) 10 mg PO DAILY [facility] Last Admin: 03/02/22 10:24 Dose: 10 mg Apixaban (Apixaban 5 Mg Tab) 5 mg PO BID [facility]; Protocol Cholecalciferol (Cholecalciferol 25 Mcg (1000 Iu) Tablet) 50 mcg PO DAILY [facility] Last Admin: 03/02/22 10:23 Dose: 50 mcg Hydromorphone HCl (Hydromorphone 0.5 Mg/0.5 Ml Syringe) 0.5 mg IVP Q3HR PRN PRN Reason: Moderate Pain Last Admin: 03/02/22 10:25 Dose: 0.5 mg Sodium Chloride (Saline 0.9%) 1,000 mls @ 75 mls/hr IV .[id number] [facility] Last Admin: 03/02/22 05:44 Dose: 75 mls/hr Levothyroxine Sodium (Levothyroxine 125 Mcg Tab) 125 mcg PO DAILY@0630 [facility] Last Admin: 03/02/22 10:24 Dose: 125 mcg Lorazepam (Lorazepam 1 Mg Tab) 1 mg PO TID PRN PRN Reason: Anxiety Last Admin: 02/28/22 23:58 Dose: 1 mg Metoprolol Succinate (Metoprolol Succinate (Er) 100 Mg Tab.Er.24h) 100 mg PO DAILY [facility] Last Admin: 03/02/22 10:23 Dose: 100 mg Miscellaneous Information (Magnesium Replacement Protocol 1 Each Misc) 1 each MISCELLANE DAILY PRN; Protocol PRN Reason: Per Protocol Naloxone HCl (Naloxone 0.4 Mg/Ml 1 Ml Vial) 0.2 mg IV Q2M PRN PRN Reason: Opioid Reversal Ondansetron HCl (Ondansetron 4 Mg/2 Ml Vial) 4 mg IVP Q4H PRN PRN Reason: Nausea And Vomiting Last Admin: 03/01/22 17:22 Dose: 4 mg Pantoprazole Sodium (Pantoprazole 40 Mg/10 Ml Vial) 40 mg IVP BID [facility] Last Admin: 03/02/22 10:24 Dose: 40 mg Polyethylene Glycol (Polyethylene Glycol 3350 17 Gm Powd.Pack) 17 gm PO DAILY PRN PRN Reason: Constipation Pyridoxine HCl (Pyridoxine 50 Mg Tab) 100 mg PO BID [facility] Last Admin: 03/02/22 10:22 Dose: 100 mg Senna/Docusate Sodium (Sennosides-Docusate Sodium 1 Each Tab) 2 each PO BID [facility] Venlafaxine HCl (Venlafaxine Hcl Er 150 Mg Cap) 150 mg PO DAILY [facility] Last Admin: 03/02/22 10:23 Dose: 150 mg PHYSICAL EXAMINATION: GENERAL: The patient is alert and oriented x4, Well developed, well nourished. HEENT: Pupils are round and equally reacting to light. EOMI. no scleral icterus. No conjunctival pallor. Normocephalic, atraumatic. No pharyngeal erythema. No thyromegaly. CARDIOVASCULAR: S1 and S2 muffled PULMONARY: diminished breath sounds bilaterally with no wheezing or rhonchi noted. ABDOMEN: soft. tender on exam left lower quadrant. mildly distended, normoactive bowel sounds. No palpable organomegaly. MUSCULOSKELETAL: No joint swelling or deformity. EXTREMITIES: No cyanosis, clubbing, or pedal edema. NEUROLOGICAL: Gross neurological examination did not reveal any focal deficits. Diffuse weakness SKIN: No rashes. Assessment: Severe abdominal pain and diarrhea with acute diarrheal disorder Hypokalemia Hypomagnesemia Chronic constipation Metastatic ovarian cancer History of deep vein thrombosis and pulmonary embolus, maintained on Eliquis Hypertension Multiple medical issues GI prophylaxis DVT prophylaxis Full code Plan: Recommend to continue with current medications and management with oncology following. IR reviewed the abdomen and deemed not enough fluid to perform paracentesis. Patient was also scheduled for a liver biopsy and was cancelled as IR reports not being safe to do so here. Oncology following as well and has resumed eliquis. Pain management increased as her abdominal pain persists. Patient reports to feeling nauseous and has had some episodes of vomiting. Alexander ramey is also having some constipation at this time. Continue current bowel regimen. GI consulted and appreciate input and recommendations. Will need to discuss with oncology about treatment plan moving forward. Magnesium is 1.7 today and potassium is 3.5 and will replace per protocol. Will continue to monitor and repeat am labs. Encouraged oral intake slowly and increased activity as tolerated. Due to multiple complex medical issues, prognosis is guarded. The impression and plan of care has been dictated by Nathalia Nunez, Nurse Practitioner as directed. Dr. Johny MD I have performed a history and examination and MDM of this patient, discussed the same with the dictator, and agree with the dictator's assessment and plan as written ,documented as a scribe. Based on total visit time, I have performed more than 50% of the visit. Objective - Vital Signs Vital signs: Vital Signs Temp 98.9 F 03/02/22 04:11 Pulse 72 03/02/22 04:11 Resp 15 03/02/22 04:11 BP 138/57 03/02/22 04:11 Pulse Ox 94 L 03/02/22 04:11 FiO2 Intake & Output 03/01/22 03/02/22 03/02/22 18:59 06:59 18:59 Intake Total 150 Output Total 10 10 Balance 140 -10 Intake: Intake, IV Titration 150 Amount Sodium Chloride 0.9% 1, 150 000 ml @ 75 mls/hr IV . [id number] [facility] Rx#:[id number] Output: Emesis 10 10 Other: Voiding Method Toilet # Voids 1 - Labs CBC & Chem 7: 03/02/22 04:47 03/02/22 04:47 Labs: Abnormal Lab Results - Last 24 Hours (Table) 03/01/22 03/01/22 03/02/22 Range/Units 04:01 04:01 04:47 WBC 10.7 H 10.46 H (3.8-10.6) k/uL RBC 3.67 L 3.70 L (3.80-5.40) m/uL Hgb 11.4 L (12.0-15.0) g/dL Hct 36.8 L (37.2-46.3) % MCV 104.6 H 99.5 H (80.0-100.0) fL MCHC 29.8 L 31.0 L (31.0-37.0) g/dL RDW 15.1 H (11.5-14.5) % Plt Count 472 H (140-440) X 10*3/uL Neutrophils # 8.6 H (1.3-7.7) k/uL Lymphocytes # 0.7 L (1.0-4.8) k/uL Monocytes # 1.1 H 1.54 H (0-1.0) k/uL BUN 7.1 L (9.0-27.0) mg/dL BUN/Creatinine Ratio 10.14 L (12.00-20.00) Ratio Total Bilirubin 1.30 H (0.30-1.20) mg/dL AST 102 H (13-35) U/L ALT 86 H (8-44) U/L Alkaline Phosphatase 877 H (41-126) U/L Albumin 3.3 L (3.8-4.9) g/dL Globulin 3.4 H (1.6-3.3) g/dL Albumin/Globulin Ratio 0.97 L (1.60-3.17) g/dL
[2022-03-03] MEDS: HYDROcodone/APAP 10-325MG 1 EACH TAB PO PRN ×4 (02:50→22:02)
[2022-03-03] MEDS: SODIUM CHLORIDE 0.9% 1,000 ML IV SCH ×2 (06:09→20:44)
[2022-03-03] MEDS: LEVOTHYROXINE 125 MCG TAB PO SCH (06:10)
[2022-03-03] MEDS: LORazepam 1 MG TAB PO PRN ×2 (06:10→22:02)
[2022-03-03 06:33] LABS: Basophils % (A) 0 %; Eosinophils # (A) 0.1 k/uL (0-0.7); Eosinophils % (A) 1 %; HCT 36.2 % (34.0-46.0); HGB 11.5 gm/dL (11.4-16.0); Hypochromasia Slight; Lymphocytes # (A) 0.9 k/uL (1.0-4.8); Lymphocytes % (A) 10 %; MCH 32.6 pg (25.0-35.0); MCHC 31.8 g/dL (31.0-37.0); MCV 102.7 fL (80.0-100.0); Macrocytosis Slight; Mean Platelet Volume 8.3; Monocytes % (A) 12 %; Neutrophils # (A) 6.7 k/uL (1.3-7.7); Neutrophils % (A) 75 %; Platelet Count 456 k/uL (150-450); RBC 3.53 m/uL (3.80-5.40); RDW 13.9 % (11.5-15.5)
[2022-03-03 06:47] LABS: African American GFR (CKD) >90 (>60 ml/min/1.73 sqM); Anion Gap 10 mmol/L; Blood Urea Nitrogen 6 mg/dL (7-17); Calcium 8.6 mg/dL (8.4-10.2); Carbon Dioxide 26 mmol/L (22-30); Chloride 97 mmol/L (98-107); Glucose 97 mg/dL (74-99); Non-African American GFR(CKD) >90 (>60 ml/min/1.73 sqM); Potassium 3.9 mmol/L (3.5-5.1); Sodium 133 mmol/L (137-145)
[2022-03-03 06:47] LABS: Magnesium 1.6 mg/dL (1.6-2.3)
[2022-03-03] MEDS: CHOLECALCIFEROL 25 MCG (1000 IU) TABLET PO SCH (09:06)
[2022-03-03] MEDS: PYRIDOXINE 50 MG TAB PO SCH ×2 (09:07→20:00)
[2022-03-03] MEDS: APIXABAN 5 MG TAB PO SCH ×2 (09:07→20:00)
[2022-03-03] MEDS: amLODIPine 10 MG TAB PO SCH (09:07)
[2022-03-03] MEDS: VENLAFAXINE HCL ER 150 MG CAP PO SCH (09:07)
[2022-03-03] MEDS: PANTOPRAZOLE 40 MG/10 ML VIAL IVP SCH ×2 (09:07→20:00)
[2022-03-03] MEDS: METOPROLOL SUCCINATE (ER) 100 MG TAB.ER.24H PO SCH (09:07)
[2022-03-03] MEDS: SENNOSIDES-DOCUSATE SODIUM 1 EACH TAB PO SCH ×2 (09:08→20:00)
[2022-03-03] MEDS ORDERED: LACTULOSE 20 GM/30 ML CUP PO ONE (09:41)
[2022-03-03] MEDS: polyethylene glycoL 3350 17 GM POWD.PACK PO SCH (11:13)
--- NOTE | 2022-03-03 11:35 | P.PN ---
Subjective Progress Note Date: 03/03/22 Principal diagnosis: Abdominal pain This is a very pleasant 72-year-old white female who presented to the emergency department 5-6 days ago with complaints of abdominal pain, constipation, nausea and vomiting. Patient has a past medical history of ovarian cancer status post chemotherapy, and surgery [address] Anton. She follows with Dr. Hawthorne. She's been having increased constipation with diarrhea. She states that she takes Metamucil twice a day at home with Senokot every night. States she has constant abdominal stomach ache worse at night for the last 6 months duration. Over the last 2-3 weeks she felt that she has had increased abdominal distention. 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 Gastroenterology was consulted for abdominal pain and distention. The patient was scheduled for paracentesis however there is noted of fluid per interventional radiology as well as was scheduled for liver biopsy however interventional radiology canceled procedure. 03/03/2022: Patient seen and examined his follow-up for abdominal pain. Pain somewhat improved. She is passing plan is no bowel movement yesterday or today. She denies any nausea or vomiting. His been tolerating a clear liquid diet. Objective - Vital Signs Vital signs: Vital Signs Temp 98.1 F 03/03/22 04:15 Pulse 86 03/03/22 04:15 Resp 16 03/03/22 04:15 BP 116/74 03/03/22 04:15 Pulse Ox 95 03/03/22 04:15 FiO2 Intake & Output 03/02/22 03/03/22 03/03/22 18:59 06:59 18:59 Intake Total 375 120 Balance 375 120 Intake: Intake, IV Titration 375 Amount Sodium Chloride 0.9% 1, 375 000 ml @ 75 mls/hr IV . [id number] [facility] Rx#:[id number] Oral 120 Other: Voiding Method Toilet # Voids 2 - Exam General appearance: The patient is alert, oriented, appears in no acute distress. HET: Head is normocephalic and atraumatic. Conjunctiva pink. Sclera anicteric. Neck: Supple without lymphadenopathy. Abdomen: Soft, mild tenderness mid to lower abdomen, and of right lower quadrant , hepatomegaly, mildly distended with bowel sounds. No guarding or rigidity. Extremities: Normal skin color and turgor. No pedal edema Skin: No rashes, no jaundice Neurological: No focal deficits. Alert and oriented x 3. - Labs CBC & Chem 7: 03/03/22 05:29 03/03/22 05:29 Labs: Abnormal Lab Results - Last 24 Hours (Table) 03/01/22 03/02/22 03/03/22 Range/Units 04:01 04:47 05:29 RBC 3.53 L (3.80-5.40) m/uL MCV 102.7 H (80.0-100.0) fL Plt Count 456 H (150-450) k/uL Lymphocytes # 0.9 L (1.0-4.8) k/uL Sodium 134 L (135-145) mmol/L Chloride (98-107) mmol/L BUN 7.1 L 6.5 L (9.0-27.0) mg/dL BUN/Creatinine Ratio 10.14 L 10.83 L (12.00-20.00) Ratio Total Bilirubin 1.30 H 1.40 H (0.30-1.20) mg/dL AST 102 H 94 H (13-35) U/L ALT 86 H 90 H (8-44) U/L Alkaline Phosphatase 877 H 846 H (41-126) U/L Albumin 3.3 L 3.6 L (3.8-4.9) g/dL Globulin 3.4 H 3.4 H (1.6-3.3) g/dL Albumin/Globulin Ratio 0.97 L 1.06 L (1.60-3.17) g/dL 03/03/22 Range/Units 05:29 RBC (3.80-5.40) m/uL MCV (80.0-100.0) fL Plt Count (150-450) k/uL Lymphocytes # (1.0-4.8) k/uL Sodium 133 L (135-145) mmol/L Chloride 97 L (98-107) mmol/L BUN 6 L (9.0-27.0) mg/dL BUN/Creatinine Ratio (12.00-20.00) Ratio Total Bilirubin (0.30-1.20) mg/dL AST (13-35) U/L ALT (8-44) U/L Alkaline Phosphatase (41-126) U/L Albumin (3.8-4.9) g/dL Globulin (1.6-3.3) g/dL Albumin/Globulin Ratio (1.60-3.17) g/dL Assessment and Plan (1) Abdominal pain Narrative/Plan: 72-year-old female with a known history of ovarian cancer that was treated with chemotherapy and surgery in [address] Anton who presented to the emergency department a few days ago with abdominal pain and constipation followed by diarrhea. Patient states she has chronic constipation takes Metamucil twice a day and Senokot. She has a constant abdominal discomfort for the last 6 months daily. She had a CT of the abdomen and pelvis on admission that showing multiple hepatic lesions concerning for metastatic disease. She was scheduled for paracentesis and liver biopsy however interventional radiology said there was not enough fluid for paracentesis and unable to safely do a liver biopsy. CT of the abdomen also did show concerns for thickening of the transverse and ascending colon along with small bowel. Patient's last colonoscopy was [address] Harrison. No previous EGD. Abdominal pain likely related to enlarged liver and metastasis. Recommend liver biopsy. Current Visit: Yes Status: Acute Priority: High Code(s): R10.9 - UNSPECIFIED ABDOMINAL PAIN SNOMED Code(s): 45044694 (2) Constipation Narrative/Plan: Lactulose added. Lasix changed to schedule daily with titration up to 2-3 times daily. Bowel regimen discussed with patient once going home continue with MiraLAX Senokot as needed. Encourage ambulation. Current Visit: Yes Status: Acute Code(s): K59.00 - CONSTIPATION, UNSPECIFIED SNOMED Code(s): 74713808 (3) Ovarian cancer Narrative/Plan: Oncology following Current Visit: Yes Status: Chronic Priority: High Code(s): C56.9 - MALIGNANT NEOPLASM OF UNSPECIFIED OVARY SNOMED Code(s): 151748926 (4) Pulmonary embolism Narrative/Plan: On Eliquis Current Visit: No Status: Chronic Priority: Medium Code(s): I26.99 - OTHER PULMONARY EMBOLISM WITHOUT ACUTE COR PULMONALE SNOMED Code(s): 15669388 Plan: 1. Continue symptomatic supportive care 2. Recommend MiraLAX daily, may titrate to have a bowel movement every day to every other day 3. Give a dose of lactulose if no bowel movement will add magnesium citrate 4. Recommend liver biopsy 5. CA-125 ordered 6. No plans on endoscopic evaluation at this time 7. Continue with recommendations from oncology Thank you for this consultation, we will continue to follow. Dr. Daniel Mccormick I agree with the dictator's note, documented as a scribe by Brea Cole.
[2022-03-03] MEDS: ONDANSETRON 4 MG/2 ML VIAL IVP PRN (14:13)
--- NOTE | 2022-03-03 15:21 | P.PN ---
Subjective Progress Note Date: 03/03/22 Principal diagnosis: Diarrhea, abdominal distention, hypokalemia and dehydration In follow-up today patient's pain is controlled on current analgesic regimen, she still has not had a bowel movement, her abdomen is distended but discomfort is tolerable. She is ambulatory. She is requesting an advancement in her diet. Denies fever, nausea, vomiting. Objective - Vital Signs Vital signs: Vital Signs Temp 97.8 F 03/03/22 11:14 Pulse 84 03/03/22 11:20 Resp 16 03/03/22 11:20 BP 156/75 03/03/22 11:14 Pulse Ox 95 03/03/22 11:14 FiO2 Intake & Output 03/02/22 03/03/22 03/03/22 18:59 06:59 18:59 Intake Total 375 120 Balance 375 120 Intake: Intake, IV Titration 375 Amount Sodium Chloride 0.9% 1, 375 000 ml @ 75 mls/hr IV . [id number] COUNT INCLUDES THE [facility] Rx#:[id number] Oral 120 Other: Voiding Method Toilet Toilet # Voids 2 - Constitutional General appearance: Present: average body habitus, cooperative, no acute distress - EENT Eyes: Present: anicteric sclerae, EOMI ENT: Present: hearing grossly normal, normal oropharynx - Respiratory Respiratory: bilateral: CTA - Cardiovascular Rhythm: regular Heart sounds: normal: S1, S2 Abnormal Heart Sounds: Absent: systolic murmur, diastolic murmur, rub, S3 Gallop, S4 Gallop, click, other - Peripheral edema leg Peripheral Edema: bilateral: None - Gastrointestinal General gastrointestinal: Present: decreased bowel sounds, distended, soft. Ab sent: absent bowel sounds, hepatomegaly, hyperactive bowel sounds, normal bowel sounds, organomegaly, rigid, scaphoid, splenomegaly, tenderness, umbilical hernia, ventral hernia - Integumentary Integumentary: Present: normal - Neurologic Neurologic: Present: CNII-XII intact - Musculoskeletal Musculoskeletal: Present: strength equal bilaterally - Psychiatric Psychiatric: Present: A&O x's 3, appropriate affect, intact judgment & insight - Labs CBC & Chem 7: 03/03/22 05:29 03/03/22 05:29 Labs: Abnormal Lab Results - Last 24 Hours (Table) 03/03/22 03/03/22 Range/Units 05:29 05:29 RBC 3.53 L (3.80-5.40) m/uL MCV 102.7 H (80.0-100.0) fL Plt Count 456 H (150-450) k/uL Lymphocytes # 0.9 L (1.0-4.8) k/uL Sodium 133 L (137-145) mmol/L Chloride 97 L (98-107) mmol/L BUN 6 L (7-17) mg/dL - Imaging and Cardiology IR reports reviewed. Assessment and Plan (1) Abdominal pain Current Visit: Yes Status: Acute Priority: High Code(s): R10.9 - UNSPECIFIED ABDOMINAL PAIN SNOMED Code(s): 23389272 (2) Ascites Current Visit: Yes Status: Acute Priority: High Code(s): R18.8 - OTHER ASCITES SNOMED Code(s): 932219452 (3) Ovarian cancer Current Visit: Yes Status: Chronic Priority: High Code(s): C56.9 - MALIGNANT NEOPLASM OF UNSPECIFIED OVARY SNOMED Code(s): 089830408 (4) Pulmonary embolism Current Visit: No Status: Chronic Priority: Medium Code(s): I26.99 - OTHER PULMONARY EMBOLISM WITHOUT ACUTE COR PULMONALE SNOMED Code(s): 20221185 Plan: Dr. Banks discussed case with Dr. Sanchez. recommendation is for referral to a tertiary care center for liver lesion biopsies. Being discussed with Dr. Tristian Anton at [facility] in [place]. We will get patient appointment date and time for the same. Next Patient's pain is controlled on current analgesic regimen. Continue the same. Rx sent. Discussed prevention of narcotic-induced constipation. Discussed the case with Internal Medicine OLIVER FILTER OPERATOR, GI OLIVER FILTER OPERATOR. Goal is for patient to have a bowel movement then, she can be discharged. Eliquis resumed. Once we have date and time for further procedures, patient will be instructed on how to hold. Diet was discussed, decided to advance per pt request. Aggressive bowel regimen ordered. Pi in agreement with the plan Time with Patient: Greater than 30
[2022-03-03] MEDS: HYDROmorphone 0.5 MG/0.5 ML SYRINGE IVP PRN (15:52)
[2022-03-03] MEDS ORDERED: MAGNESIUM CITRATE 296 ML BOTTLE PO ONE (19:00)
--- NOTE | 2022-03-04 01:47 | P.PN ---
Subjective Progress Note Date: 03/03/22 This is a 71-year-old female who was recently admitted with abdominal pain and found to have severe electrolyte abnormalities and was being closely monitored. Patient had profuse diarrhea and decreased oral intake. Patient reports to significant abdominal pain and feels distended. Patient has IR following for biopsy for oncology and also possible paracentesis and was reported to have minimal fluid on the abdomen. Patient also needs to be off Eliquis for 72 hours. recommend holding now. Mag is 1.6 today and will replace. Patient is afebrile. Encourage oral intake with small frequent meals and increased activity as tolerated. Patient denies chest pain or shortness of breath. Continue with pain control. 02/28/2022 Patient is seen today in follow up and has some continued abdominal discomfort. Patient reports feeling slightly constipated and will resume senna. Was on hold as patient was initially having diarrhea. Encouraged increased activity as tolerated. Magnesium is low today at 1.4 and will replace per protocol. Recommend closely monitoring electrolytes. Encourage oral intake. Patient is afebrile and denies chest pain. Will resume albuterol ventolized. 03/01/2022 Patient is seen and evaluated in follow up today and is reporting some abdominal discomfort and occasional nausea and will add IV protonix to 40BID and will add gentle IV hydration. Eliquis is on hold and will continue sub q heparin and recommend to hold am dose as patient is to be evaluated by IR in am for biopsy and paracentesis. Mag is 1.7 today and will continue to monitor labs and replace electrolytes per protocol. Patient is afebrile and denies chest pain or shortness of breath. 03/02/2022 Patient is evaluated today and is scheduled for possible paracentesis and liver biopsy with IR today. Patient eliquis has been on hold and will resume after procedure. Hematology/oncology following and has been adjusting pain medication as her pain is reported as severe at times. Patient is having constipation and is being given laxatives. Will consult GI and appreciate input and recommendations. Patient is afebrile and denies any chest pain or shortness of breath. Poor oral intake due to nausea and some occasional vomiting. Patent reports she has not had a bowel movement since admission. 03/03/2022 Patient is seen today and continues with some abdominal discomfort and occasional nausea and reports no bowel movement. Hypoactive, sluggish bowel sounds noted and encouraged continued bowel regimen and increased activity as tolerated. Discussion with oncology and GI being had about requiring liver biopsy and working on [facility] in [place] with oncology making arrangements. Continue pain management per oncology. Magnesium remains 1.6 and recommend to replace electrolytes per protocol. Patient is afebrile and denies chest pain or shortness of breath. Encouraged oral intake and diet was advanced. Review of systems: Constitutional: reports of fatigue, no fever, or chills Cardiovascular: No reports of chest pain or palpitations Respiratory: No reports of shortness of breath reports occasional cough GI: reports of occasional nausea, no reports of vomiting, patient continues to report constipation with no bowel movement : No reports of dysuria or retention Neurovascular: reports of generalized weakness All medications have been reviewed Active Medications Acetaminophen (Acetaminophen Tab 325 Mg Tab) 650 mg PO Q6HR PRN PRN Reason: Mild Pain or Fever > 100.5 Last Admin: 02/28/22 13:38 Dose: 650 mg Hydrocodone Bitart/Acetaminophen (Hydrocodone/Apap 10-325mg 1 Each Tab) 1 each PO Q4HR PRN PRN Reason: Pain Last Admin: 03/03/22 22:02 Dose: 1 each Albuterol Sulfate (Albuterol Nebulized 2.5 Mg/3 Ml) 2.5 mg INHALATION Q6H PRN PRN Reason: Shortness Of Breath Amlodipine Besylate (Amlodipine 10 Mg Tab) 10 mg PO DAILY [facility] Last Admin: 03/03/22 09:07 Dose: 10 mg Apixaban (Apixaban 5 Mg Tab) 5 mg PO BID [facility]; Protocol Last Admin: 03/03/22 20:00 Dose: 5 mg Cholecalciferol (Cholecalciferol 25 Mcg (1000 Iu) Tablet) 50 mcg PO DAILY [facility] Last Admin: 03/03/22 09:06 Dose: 50 mcg Hydromorphone HCl (Hydromorphone 0.5 Mg/0.5 Ml Syringe) 0.5 mg IVP Q3HR PRN PRN Reason: Moderate Pain Last Admin: 03/03/22 15:52 Dose: 0.5 mg Sodium Chloride (Saline 0.9%) 1,000 mls @ 75 mls/hr IV .[id number] [facility] Last Admin: 03/03/22 20:44 Dose: 75 mls/hr Levothyroxine Sodium (Levothyroxine 125 Mcg Tab) 125 mcg PO DAILY@0630 [facility] Last Admin: 03/03/22 06:10 Dose: 125 mcg Lorazepam (Lorazepam 1 Mg Tab) 1 mg PO TID PRN PRN Reason: Anxiety Last Admin: 03/03/22 22:02 Dose: 1 mg Metoprolol Succinate (Metoprolol Succinate (Er) 100 Mg Tab.Er.24h) 100 mg PO DAILY [facility] Last Admin: 03/03/22 09:07 Dose: 100 mg Miscellaneous Information (Magnesium Replacement Protocol 1 Each Misc) 1 each MISCELLANE DAILY PRN; Protocol PRN Reason: Per Protocol Miscellaneous Information (Magnesium Replacement Protocol 1 Each Misc) 1 each MISCELLANE DAILY PRN; Protocol PRN Reason: Per Protocol Naloxone HCl (Naloxone 0.4 Mg/Ml 1 Ml Vial) 0.2 mg IV Q2M PRN PRN Reason: Opioid Reversal Ondansetron HCl (Ondansetron 4 Mg/2 Ml Vial) 4 mg IVP Q4H PRN PRN Reason: Nausea And Vomiting Last Admin: 03/03/22 14:13 Dose: 4 mg Pantoprazole Sodium (Pantoprazole 40 Mg/10 Ml Vial) 40 mg IVP BID [facility] Last Admin: 03/03/22 20:00 Dose: 40 mg Polyethylene Glycol (Polyethylene Glycol 3350 17 Gm Powd.Pack) 17 gm PO DAILY [facility] Last Admin: 03/03/22 11:13 Dose: 17 gm Pyridoxine HCl (Pyridoxine 50 Mg Tab) 100 mg PO BID [facility] Last Admin: 03/03/22 20:00 Dose: 100 mg Senna/Docusate Sodium (Sennosides-Docusate Sodium 1 Each Tab) 2 each PO BID [facility] Last Admin: 03/03/22 20:00 Dose: Not Given Venlafaxine HCl (Venlafaxine Hcl Er 150 Mg Cap) 150 mg PO DAILY [facility] Last Admin: 03/03/22 09:07 Dose: 150 mg PHYSICAL EXAMINATION: GENERAL: The patient is alert and oriented x4, Well developed, well nourished. HEENT: Pupils are round and equally reacting to light. EOMI. no scleral icterus. No conjunctival pallor. Normocephalic, atraumatic. No pharyngeal erythema. No thyromegaly. CARDIOVASCULAR: S1 and S2 muffled PULMONARY: diminished breath sounds bilaterally with no wheezing or rhonchi noted. ABDOMEN: soft. less tender on exam left lower quadrant. mildly distended, normoactive bowel sounds. No palpable organomegaly. MUSCULOSKELETAL: No joint swelling or deformity. EXTREMITIES: No cyanosis, clubbing, or pedal edema. NEUROLOGICAL: Gross neurological examination did not reveal any focal deficits. Diffuse weakness SKIN: No rashes. Assessment: Severe abdominal pain and diarrhea with acute diarrheal disorder, resolved diarrhea Hypokalemia Hypomagnesemia Chronic constipation Metastatic ovarian cancer History of deep vein thrombosis and pulmonary embolus, maintained on Eliquis Hypertension Multiple medical issues GI prophylaxis DVT prophylaxis Full code Plan: Recommend to continue with current medications and management with oncology following. Pain management increased as her abdominal pain persists. Patient continues with having some constipation at this time. Continue current bowel regimen. GI following and discussed with them and oncology about discharge planning and arrangements are being made with oncology to have the biopsy of the liver done at [facility] in [place]. Patient needs to have a bowel movement before discharge. Recommend to replace electrolytes per protocol. Will continue to monitor and repeat am labs. Encouraged oral intake slowly and increased activity as tolerated. Due to multiple complex medical issues, prognosis is guarded. Possible discharge in 24-48 hours. The impression and plan of care has been dictated by Nathalia Nunez, Nurse Practitioner as directed. Dr. Johny MD I have performed a history and examination and MDM of this patient, discussed the same with the dictator, and agree with the dictator's assessment and plan as written ,documented as a scribe. Based on total visit time, I have performed more than 50% of the visit. Objective - Vital Signs Vital signs: Vital Signs Temp 98.0 F 03/03/22 20:23 Pulse 79 03/03/22 20:23 Resp 16 03/03/22 20:23 BP 149/77 03/03/22 20:23 Pulse Ox 96 03/03/22 20:23 FiO2 Intake & Output 03/03/22 03/03/22 03/04/22 06:59 18:59 06:59 Intake Total 120 900 Balance 120 900 Intake: Intake, IV Titration 900 Amount Sodium Chloride 0.9% 1, 900 000 ml @ 75 mls/hr IV . [id number] [facility] Rx#:[id number] Oral 120 Other: Voiding Method Toilet Toilet # Voids 2 - Labs CBC & Chem 7: 03/03/22 05:29 03/03/22 05:29 Labs: Abnormal Lab Results - Last 24 Hours (Table) 03/03/22 03/03/22 Range/Units 05:29 05:29 RBC 3.53 L (3.80-5.40) m/uL MCV 102.7 H (80.0-100.0) fL Plt Count 456 H (150-450) k/uL Lymphocytes # 0.9 L (1.0-4.8) k/uL Sodium 133 L (137-145) mmol/L Chloride 97 L (98-107) mmol/L BUN 6 L (7-17) mg/dL
[2022-03-04] MEDS: ONDANSETRON 4 MG/2 ML VIAL IVP PRN (03:16)
[2022-03-04] MEDS: LEVOTHYROXINE 125 MCG TAB PO SCH (06:04)
[2022-03-04] MEDS: SODIUM CHLORIDE 0.9% 1,000 ML IV SCH (08:23)
[2022-03-04] MEDS: PYRIDOXINE 50 MG TAB PO SCH ×2 (08:31→20:53)
[2022-03-04] MEDS: PANTOPRAZOLE 40 MG/10 ML VIAL IVP SCH ×2 (08:49→20:53)
[2022-03-04] MEDS: METOPROLOL SUCCINATE (ER) 100 MG TAB.ER.24H PO SCH (08:50)
[2022-03-04] MEDS: VENLAFAXINE HCL ER 150 MG CAP PO SCH (08:50)
[2022-03-04] MEDS: APIXABAN 5 MG TAB PO SCH ×2 (08:56→20:54)
[2022-03-04] MEDS: amLODIPine 10 MG TAB PO SCH (08:56)
[2022-03-04] MEDS: SENNOSIDES-DOCUSATE SODIUM 1 EACH TAB PO SCH ×2 (08:56→20:53)
[2022-03-04] MEDS: CHOLECALCIFEROL 25 MCG (1000 IU) TABLET PO SCH (08:56)
[2022-03-04] MEDS: polyethylene glycoL 3350 17 GM POWD.PACK PO SCH (08:56)
--- NOTE | 2022-03-04 09:42 | P.PN ---
Subjective Progress Note Date: 03/04/22 Principal diagnosis: Abdominal pain This is a very pleasant 72-year-old white female who presented to the emergency department 5-6 days ago with complaints of abdominal pain, constipation, nausea and vomiting. Patient has a past medical history of ovarian cancer status post chemotherapy, and surgery [address] Anton. She follows with Dr. Hawthorne. She's been having increased constipation with diarrhea. She states that she takes Metamucil twice a day at home with Senokot every night. States she has constant abdominal stomach ache worse at night for the last 6 months duration. Over the last 2-3 weeks she felt that she has had increased abdominal distention. 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 Gastroenterology was consulted for abdominal pain and distention. The patient was scheduled for paracentesis however there is noted of fluid per interventional radiology as well as was scheduled for liver biopsy however interventional radiology canceled procedure. 03/03/2022: Patient seen and examined his follow-up for abdominal pain. Pain somewhat improved. She is passing plan is no bowel movement yesterday or today. She denies any nausea or vomiting. His been tolerating a clear liquid diet. 03/04/2022: Patient was seen and examined sitting up at the bedside. States she is feeling much better. Abdominal pain improved. She states she had 3 bowel movements yesterday. She denies any nausea or vomiting. She states that she is urinating quite frequently and would like her IV fluids discontinued. Objective - Vital Signs Vital signs: Vital Signs Temp 98.1 F 03/04/22 05:00 Pulse 84 03/04/22 05:00 Resp 16 03/04/22 05:00 BP 144/76 03/04/22 05:00 Pulse Ox 96 03/03/22 20:23 FiO2 Intake & Output 03/03/22 03/04/22 03/04/22 18:59 06:59 18:59 Intake Total 900 590 Balance 900 590 Intake: Intake, IV Titration 900 Amount Sodium Chloride 0.9% 1, 900 000 ml @ 75 mls/hr IV . [id number] [facility] Rx#:[id number] Oral 590 Other: Voiding Method Toilet # Voids 2 - Exam General appearance: The patient is alert, oriented, appears in no acute d istress. HET: Head is normocephalic and atraumatic. Conjunctiva pink. Sclera anicteric. Neck: Supple without lymphadenopathy. Abdomen: Soft, hepatomegaly, nondistended with bowel sounds. No guarding or rigidity. Extremities: Normal skin color and turgor. No pedal edema Skin: No rashes, no jaundice Neurological: No focal deficits. Alert and oriented x 3. - Labs CBC & Chem 7: 03/03/22 05:29 03/03/22 05:29 Assessment and Plan (1) Abdominal pain Narrative/Plan: 72-year-old female with a known history of ovarian cancer that was treated with chemotherapy and surgery [place] [address] Anton who presented to the emergency department a few days ago with abdominal pain and constipation followe d by diarrhea. Patient states she has chronic constipation takes Metamucil twice a day and Senokot. She has a constant abdominal discomfort for the last 6 months daily. She had a CT of the abdomen and pelvis on admission that showing multiple hepatic lesions concerning for metastatic disease. She was scheduled for paracentesis and liver biopsy however interventional radiology said there was not enough fluid for paracentesis and unable to safely do a liver biopsy. CT of the abdomen also did show concerns for thickening of the transverse and ascending colon along with small bowel. Patient's last colonoscopy was [address] Harrison. No previous EGD. Abdominal pain likely related to enlarged liver and metastasis. Recommend liver biopsy. Current Visit: Yes Status: Acute Priority: High Code(s): R10.9 - UNSPECIFIED ABDOMINAL PAIN SNOMED Code(s): 59817531 (2) Constipation Narrative/Plan: Lactulose added. Lasix changed to schedule daily with titration up to 2-3 times daily. Bowel regimen discussed with patient once going home continue with MiraLAX Senokot as needed. Encourage ambulation. Constipation improved. Patient had 3 bowel movements. Recommend continue MiraLAX daily, titrate to 2-3 times a day as needed. Current Visit: Yes Status: Acute Code(s): K59.00 - CONSTIPATION, UNSPECIFIED SNOMED Code(s): 21942416 (3) Ovarian cancer Narrative/Plan: Oncology following Current Visit: Yes Status: Chronic Priority: High Code(s): C56.9 - MALIGNANT NEOPLASM OF UNSPECIFIED OVARY SNOMED Code(s): 127119691 (4) Pulmonary embolism Narrative/Plan: On Eliquis Current Visit: No Status: Chronic Priority: Medium Code(s): I26.99 - OTHER PULMONARY EMBOLISM WITHOUT ACUTE COR PULMONALE SNOMED Code(s): 72765703 Plan: 1. Continue symptomatic supportive care 2. Recommend MiraLAX daily, may titrate to have a bowel movement every day to every other day 3. Recommend liver biopsy 4. No plans on endoscopic evaluation at this time 5. Continue with recommendations from oncology 6. Patient is cleared for discharge from gastroenterology. Thank you for this consultation, we will sign off at this time. Dr. Daniel Mccormick I agree with the dictator's note, documented as a scribe by Brea Cole.
[2022-03-04] MEDS: LORazepam 1 MG TAB PO PRN (09:43)
[2022-03-04 11:24] LABS: ALT 74 U/L (4-34); AST 102 U/L (14-36); African American GFR (CKD) >90 (>60 ml/min/1.73 sqM); Albumin 3.3 g/dL (3.5-5.0); Albumin/Globulin Ratio 0.9; Alkaline Phosphatase 745 U/L (38-126); Anion Gap 8 mmol/L; Bilirubin,Unconjugated 0.5 mg/dL (0.0-1.1); Blood Urea Nitrogen 3 mg/dL (7-17); Calcium 8.6 mg/dL (8.4-10.2); Carbon Dioxide 29 mmol/L (22-30); Chloride 94 mmol/L (98-107); Globulin 3.6 g/dL; Glucose 109 mg/dL (74-99); Magnesium 1.1 mg/dL (1.6-2.3); Non-African American GFR(CKD) >90 (>60 ml/min/1.73 sqM); Potassium 2.9 mmol/L (3.5-5.1); Sodium 131 mmol/L (137-145); Total Bilirubin 1.4 mg/dL (0.2-1.3); Total Protein 6.9 g/dL (6.3-8.2)
[2022-03-04] MEDS ORDERED: Potassium Replacement Protocol 1 EACH MISC MISCELLANE PRN (13:42)
[2022-03-04] MEDS: MAGNESIUM SULFATE-D5W PMX 1 GM in DEXTROSE/WATER 1 100ML.BAG IVPB SCH ×3 (14:27→17:14)
[2022-03-04] MEDS: POTASSIUM CHLORIDE ER 20 MEQ TAB.ER PO SCH ×3 (14:28→17:14)
[2022-03-04] MEDS: HYDROmorphone 0.5 MG/0.5 ML SYRINGE IVP PRN ×2 (14:28→18:21)
--- NOTE | 2022-03-04 15:27 | P.PN ---
Subjective Progress Note Date: 03/04/22 This is a 71-year-old female who was recently admitted with abdominal pain and found to have severe electrolyte abnormalities and was being closely monitored. Patient had profuse diarrhea and decreased oral intake. Patient reports to significant abdominal pain and feels distended. Patient has IR following for biopsy for oncology and also possible paracentesis and was reported to have minimal fluid on the abdomen. Patient also needs to be off Eliquis for 72 hours. recommend holding now. Mag is 1.6 today and will replace. Patient is afebrile. Encourage oral intake with small frequent meals and increased activity as tolerated. Patient denies chest pain or shortness of breath. Continue with pain control. 02/28/2022 Patient is seen today in follow up and has some continued abdominal discomfort. Patient reports feeling slightly constipated and will resume senna. Was on hold as patient was initially having diarrhea. Encouraged increased activity as tolerated. Magnesium is low today at 1.4 and will replace per protocol. Recommend closely monitoring electrolytes. Encourage oral intake. Patient is afebrile and denies chest pain. Will resume albuterol ventolized. 03/01/2022 Patient is seen and evaluated in follow up today and is reporting some abdominal discomfort and occasional nausea and will add IV protonix to 40BID and will add gentle IV hydration. Eliquis is on hold and will continue sub q heparin and recommend to hold am dose as patient is to be evaluated by IR in am for biopsy and paracentesis. Mag is 1.7 today and will continue to monitor labs and replace electrolytes per protocol. Patient is afebrile and denies chest pain or shortness of breath. 03/02/2022 Patient is evaluated today and is scheduled for possible paracentesis and liver biopsy with IR today. Patient eliquis has been on hold and will resume after procedure. Hematology/oncology following and has been adjusting pain medication as her pain is reported as severe at times. Patient is having constipation and is being given laxatives. Will consult GI and appreciate input and recommendations. Patient is afebrile and denies any chest pain or shortness of breath. Poor oral intake due to nausea and some occasional vomiting. Patent reports she has not had a bowel movement since admission. 03/03/2022 Patient is seen today and continues with some abdominal discomfort and occasional nausea and reports no bowel movement. Hypoactive, sluggish bowel sounds noted and encouraged continued bowel regimen and increased activity as tolerated. Discussion with oncology and GI being had about requiring liver biopsy and working on [facility] in [place] with oncology making arrangements. Continue pain management per oncology. Magnesium remains 1.6 and recommend to replace electrolytes per protocol. Patient is afebrile and denies chest pain or shortness of breath. Encouraged oral intake and diet was advanced. 03/04/2022 Patient is seen in follow-up today and has had bowel movements since last night. Patient continues with some abdominal pain and some mild distention and is being followed closely with oncology and GI services. Lengthy discussion was had with oncology about treatment plan moving forward and highly recommended to have this liver biopsy as bili labs are elevating and total bili is 1.4. Sodium trending down at 131 and will discontinue IV fluids. Potassium found to be extremely low at 2.9 along with a magnesium of 1.1 and will replace per protocol. GI services evaluated recommend continuing with bowel regimen as needed for constipation although patient does report she did have 3 bowel movements since last night. Vital signs are currently stable and patient has been placed back on her anticoagulation. Patient continues to be on IV Dilaudid and reporting pain is 9 out of 10 in her abdomen. Currently working on transferring to tertiary [facility] to be evaluated by her oncologist Dr. Tristian Anton and he is accepting out of [facility]. Review of systems: Constitutional: reports of fatigue, no fever, or chills Cardiovascular: No reports of chest pain or palpitations Respiratory: No reports of shortness of breath reports occasional cough GI: reports of occasional nausea, no reports of vomiting, patient is having bowel movements, continues to report abdominal pain : No reports of dysuria or retention Neurovascular: reports of generalized weakness All medications have been reviewed Active Medications Acetaminophen (Acetaminophen Tab 325 Mg Tab) 650 mg PO Q6HR PRN PRN Reason: Mild Pain or Fever > 100.5 Last Admin: 02/28/22 13:38 Dose: 650 mg Hydrocodone Bitart/Acetaminophen (Hydrocodone/Apap 10-325mg 1 Each Tab) 1 each PO Q4HR PRN PRN Reason: Pain Last Admin: 03/03/22 22:02 Dose: 1 each Albuterol Sulfate (Albuterol Nebulized 2.5 Mg/3 Ml) 2.5 mg INHALATION Q6H PRN PRN Reason: Shortness Of Breath Amlodipine Besylate (Amlodipine 10 Mg Tab) 10 mg PO DAILY [facility] Last Admin: 03/04/22 08:56 Dose: 10 mg Apixaban (Apixaban 5 Mg Tab) 5 mg PO BID [facility]; Protocol Last Admin: 03/04/22 08:56 Dose: 5 mg Cholecalciferol (Cholecalciferol 25 Mcg (1000 Iu) Tablet) 50 mcg PO DAILY [facility] Last Admin: 03/04/22 08:56 Dose: 50 mcg Hydromorphone HCl (Hydromorphone 0.5 Mg/0.5 Ml Syringe) 0.5 mg IVP Q3HR PRN PRN Reason: Moderate Pain Last Admin: 03/04/22 14:28 Dose: 0.5 mg Sodium Chloride (Saline 0.9%) 1,000 mls @ 75 mls/hr IV .[id number] [facility] Last Admin: 03/04/22 08:23 Dose: Not Given Magnesium Sulfate/Dextrose 1 (gm/ IV Solution) 100 mls @ 100 mls/hr IVPB Q1H [facility] Stop: 03/04/22 16:59 Last Admin: 03/04/22 14:27 Dose: 100 mls/hr Levothyroxine Sodium (Levothyroxine 125 Mcg Tab) 125 mcg PO DAILY@0630 [facility] Last Admin: 03/04/22 06:04 Dose: 125 mcg Lorazepam (Lorazepam 1 Mg Tab) 1 mg PO TID PRN PRN Reason: Anxiety Last Admin: 03/04/22 09:43 Dose: 1 mg Metoprolol Succinate (Metoprolol Succinate (Er) 100 Mg Tab.Er.24h) 100 mg PO DAILY [facility] Last Admin: 03/04/22 08:50 Dose: 100 mg Miscellaneous Information (Magnesium Replacement Protocol 1 Each Misc) 1 each MISCELLANE DAILY PRN; Protocol PRN Reason: Per Protocol Miscellaneous Information (Potassium Replacement Protocol 1 Each Misc) 1 each MISCELLANE DAILY PRN; Protocol PRN Reason: Per Protocol Naloxone HCl (Naloxone 0.4 Mg/Ml 1 Ml Vial) 0.2 mg IV Q2M PRN PRN Reason: Opioid Reversal Ondansetron HCl (Ondansetron 4 Mg/2 Ml Vial) 4 mg IVP Q4H PRN PRN Reason: Nausea And Vomiting Last Admin: 03/04/22 03:16 Dose: 4 mg Pantoprazole Sodium (Pantoprazole 40 Mg/10 Ml Vial) 40 mg IVP BID [facility] Last Admin: 03/04/22 08:49 Dose: 40 mg Polyethylene Glycol (Polyethylene Glycol 3350 17 Gm Powd.Pack) 17 gm PO DAILY [facility] Last Admin: 03/04/22 08:56 Dose: Not Given Potassium Chloride (Potassium Chloride Er 20 Meq Tab.Er) 20 meq PO Q1HR [facility]; Protocol Stop: 03/04/22 16:01 Last Admin: 03/04/22 14:28 Dose: 20 meq Pyridoxine HCl (Pyridoxine 50 Mg Tab) 100 mg PO BID [facility] Last Admin: 03/04/22 08:31 Dose: 100 mg Senna/Docusate Sodium (Sennosides-Docusate Sodium 1 Each Tab) 2 each PO BID [facility] Last Admin: 03/04/22 08:56 Dose: 2 each Venlafaxine HCl (Venlafaxine Hcl Er 150 Mg Cap) 150 mg PO DAILY [facility] Last Admin: 03/04/22 08:50 Dose: 150 mg PHYSICAL EXAMINATION: GENERAL: The patient is alert and oriented x4, Well developed, well nourished. HEENT: Pupils are round and equally reacting to light. EOMI. no scleral icterus. No conjunctival pallor. Normocephalic, atraumatic. No pharyngeal erythema. No thyromegaly. CARDIOVASCULAR: S1 and S2 muffled PULMONARY: diminished breath sounds bilaterally with no wheezing or rhonchi noted. ABDOMEN: soft. less tender on exam left lower quadrant. mildly distended, normoactive bowel sounds. No palpable organomegaly. MUSCULOSKELETAL: No joint swelling or deformity. EXTREMITIES: No cyanosis, clubbing, or pedal edema. NEUROLOGICAL: Gross neurological examination did not reveal any focal deficits. Diffuse weakness SKIN: No rashes. 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 Pain management increased as her abdominal pain persists. Patient continues with having some constipation at this time. Continue current bowel regimen. GI following and discussed with them and oncology about transferring to tertiary treatment center and patient has been accepted at [facility] with Dr. Gian Anton is attending physician and case was discussed. Also made patient aware there may not be a biopsy obtained at [facility] and patient is fully understanding of the treatment plan. Recommend to replace electrolyte per protocol and continue to monitor closely. Recommend repeat labs in a.m. if patient continues to be here in the hospital. Currently awaiting a bed a ssignment and case management is aware and transfer packet has been initiated. Due to multiple complex medical issues, prognosis is guarded. Possible discharge in 24-48 hours. The impression and plan of care has been dictated by Nathalia Nunez, Nurse Practitioner as directed. Dr. Johny MD I have performed a history and examination and MDM of this patient, discussed the same with the dictator, and agree with the dictator's assessment and plan as written ,documented as a scribe. Based on total visit time, I have performed more than 50% of the visit. Objective - Vital Signs Vital signs: Vital Signs Temp 98.1 F 03/04/22 05:00 Pulse 84 03/04/22 05:00 Resp 16 03/04/22 05:00 BP 144/76 03/04/22 05:00 Pulse Ox 96 03/03/22 20:23 FiO2 Intake & Output 03/03/22 03/04/22 03/04/22 18:59 06:59 18:59 Intake Total 900 590 Balance 900 590 Intake: Intake, IV Titration 900 Amount Sodium Chloride 0.9% 1, 900 000 ml @ 75 mls/hr IV . [id number] [facility] Rx#:[id number] Oral 590 Other: Voiding Method Toilet # Voids 2 - Labs CBC & Chem 7: 03/03/22 05:29 03/04/22 10:33
--- NOTE | 2022-03-04 15:35 | P.DS ---
Providers Date of admission: 02/25/22 16:24 Expected date of discharge: 03/04/22 Attending physician: Iggy Contreras MD Consults: 02/25/22 16:14 Consult Physician Urgent Consulting Provider: Lamberto Banks Consult Reason/Comments: Metastatic cancer Do you want consulting provider notified?: Yes 03/02/22 11:43 Consult Physician Urgent Consulting Provider: Zoë Mccormick Consult Reason/Comments: abd pain, distention Do you want consulting provider notified?: Yes Primary care physician: Ronna Beard Hospital Course: Final diagnosis Severe abdominal pain and diarrhea with acute diarrheal disorder, resolved diarrhea Hypokalemia Hypomagnesemia Chronic constipation Metastatic ovarian cancer Multiple liver lesions noted on CT History of deep vein thrombosis and pulmonary embolus, maintained on Eliquis Hypertension Multiple medical issues GI prophylaxis DVT prophylaxis Full code Discharge disposition Patient is being transferred in a stable condition with guarded prognosis to [facility] . Patient will follow-up with Dr. Gian Anton oncologist for further evaluation at [facility] and has accepted the patient. Currently awaiting a bed assignment. Total time taken is greater than 35 minutes. Hospital course This is a 72-year-old female who was recently admitted with severe abdominal pain with severe diarrhea and multiple other complex medical issues. Patient does have history of ovarian cancer and was noted to have multiple lesions on the liver on CT recommending biopsy with oncology Dr. Banks following closely. Patient also has had paracentesis in the past for abdominal ascites and was evaluated by our IR department recommending not enough fluid at the time for paracentesis. Patient with multiple likely abnormalities and increasing b ilirubin along with liver functions. Patient has been accepted at [facility] with case management initiating the transfer process and awaiting a bed assignment. Patient is agreeable to this transfer and also was made aware potentially Dr. Anton may not do the biopsy as I discussed with Dr. Anton about this and notified him I will tell the patient. Patient is agreeable and is aware of this. Currently no reports of chest pain, shortness of breath, or palpitations. Patient is afebrile. No reports of nausea or vomiting and patient is tolerating diet. Patient will be transferred to [facility] once a bed becomes available today. Physical exam: Gen: This is a 72-year-old female awake, alert and oriented 3, well-developed, well-nourished. Temp is 98.1F, pulse is 75, respirations are 16, blood pressure is 136/71, oxygen saturation is 95% on room air. HEENT: Head is atraumatic, normocephalic. Pupils equal, round. Sclerae is anicteric. NECK: Supple. No JVD. No lymphadenopathy. No thyromegaly. LUNGS: Clear to auscultation. No wheezes or rhonchi. No intercostal retractions. HEART: Regular rate and rhythm. No murmur. ABDOMEN: Soft. Mildly distended. Tenderness noted on palpation Bowel sounds are present. No masses. No tenderness. EXTREMITIES: No pedal edema. No calf tenderness. NEUROLOGICAL: Patient is awake, alert and oriented x3. Cranial nerves 2 through 12 are grossly intact. Please refer to medication reconciliation sheet for a list of medications. The impression and plan of care has been dictated by Nathalia Nunez, Nurse Practitioner as directed. Dr. Johny MD I have performed a history and examination and MDM of this patient, discussed the same with the dictator, and agree with the dictator's assessment and plan as written ,documented as a scribe. Based on total visit time, I have performed more than 50% of the visit. Patient Condition at Discharge: Fair Plan - Discharge Summary Discharge Rx Participant: Yes New Discharge Prescriptions: No Action Levothyroxine Sodium [Synthroid] 125 mcg PO DAILY LORazepam [Ativan] 1 mg PO TID PRN PRN Reason: Anxiety Albuterol Inhaler [Ventolin Hfa Inhaler] 2 puff INHALATION Q6H PRN PRN Reason: Shortness Of Breath Ondansetron Odt [Zofran ODT] 4 mg PO Q6H PRN PRN Reason: Nausea Zolpidem Tartrate [Ambien Cr] 12.5 mg PO HS PRN PRN Reason: Insomnia Hydrocortisone/Pramoxine [Pramosone 2.5%-1% Cream] 1 applic TOPICAL TID Venlafaxine HCl ER [Effexor XR] 150 mg PO DAILY Cholecalciferol [Vitamin D3 (25 Mcg = 1000 Iu)] 50 mcg PO DAILY Pyridoxine HCl (Vitamin B6) [Vitamin B-6] 100 mg PO BID traMADol HCL [Ultram] 50 mg PO Q6H PRN PRN Reason: Pain Ezetimibe/Rosuvastatin Calcium [Ezetimibe/Rosuvastatin Calcium 20-10Mg] 1 tab PO DAILY Metoprolol Succinate (ER) [Toprol Xl] 100 mg PO DAILY Sennosides [Senokot] 8.6 mg PO HS amLODIPine [Norvasc] 10 mg PO DAILY Apixaban [Eliquis] 5 mg PO BID Discharge Medication List LORazepam [Ativan] 1 mg PO TID PRN 08/23/19 [History] Levothyroxine Sodium [Synthroid] 125 mcg PO DAILY 08/23/19 [History] Albuterol Inhaler [Ventolin Hfa Inhaler] 2 puff INHALATION Q6H PRN 06/18/21 [History] Cholecalciferol [Vitamin D3 (25 Mcg = 1000 Iu)] 50 mcg PO DAILY 06/18/21 [History] Ondansetron Odt [Zofran ODT] 4 mg PO Q6H PRN 06/18/21 [History] Pyridoxine HCl (Vitamin B6) [Vitamin B-6] 100 mg PO BID 06/18/21 [History] Venlafaxine HCl ER [Effexor XR] 150 mg PO DAILY 06/18/21 [History] Zolpidem Tartrate [Ambien Cr] 12.5 mg PO HS PRN 06/18/21 [History] traMADol HCL [Ultram] 50 mg PO Q6H PRN 08/18/21 [History] Ezetimibe/Rosuvastatin Calcium [Ezetimibe/Rosuvastatin Calcium 20-10Mg] 1 tab PO DAILY 10/24/21 [History] Apixaban [Eliquis] 5 mg PO BID 02/25/22 [History] Hydrocortisone/Pramoxine [Pramosone 2.5%-1% Cream] 1 applic TOPICAL TID 02/25/22 [History] Metoprolol Succinate (ER) [Toprol Xl] 100 mg PO DAILY 02/25/22 [History] Sennosides [Senokot] 8.6 mg PO HS 02/25/22 [History] amLODIPine [Norvasc] 10 mg PO DAILY 02/25/22 [History] Follow up Appointment(s)/Referral(s): [facility] [NON-STAFF] - 1 Week Ronna Beard MD [Primary Care Provider] - 1-2 days Lamberto Banks MD [STAFF PHYSICIAN] - 03/10/22 1:30 pm Activity/Diet/Wound Care/Special Instructions: [place] sent through Oncologist office to patient preferred pharmacy. Strict bowel protocol. [place] fluids. Senna/docusate 2 tabs by mouth twice a day, milk of magnesia or MiraLAX 1-2 times a day. Goal is for a soft, easily passable bowel movement every 1-3 days. If no bowel movement after 3 days please contact Oncologist office for further instructions.
[2022-03-04] MEDS: HYDROcodone/APAP 10-325MG 1 EACH TAB PO PRN (16:20)
[2022-03-05] MEDS: HYDROmorphone 0.5 MG/0.5 ML SYRINGE IVP PRN ×3 (00:49→08:36)
[2022-03-05] MEDS: LEVOTHYROXINE 125 MCG TAB PO SCH (05:41)
[2022-03-05] MEDS: APIXABAN 5 MG TAB PO SCH ×2 (08:34→21:24)
[2022-03-05] MEDS: PANTOPRAZOLE 40 MG/10 ML VIAL IVP SCH ×2 (08:34→21:25)
[2022-03-05] MEDS: polyethylene glycoL 3350 17 GM POWD.PACK PO SCH (08:34)
[2022-03-05] MEDS: CHOLECALCIFEROL 25 MCG (1000 IU) TABLET PO SCH (08:35)
[2022-03-05] MEDS: PYRIDOXINE 50 MG TAB PO SCH ×2 (08:35→21:25)
[2022-03-05] MEDS: METOPROLOL SUCCINATE (ER) 100 MG TAB.ER.24H PO SCH (08:35)
[2022-03-05] MEDS: amLODIPine 10 MG TAB PO SCH (08:35)
[2022-03-05] MEDS: SENNOSIDES-DOCUSATE SODIUM 1 EACH TAB PO SCH ×2 (08:35→21:24)
[2022-03-05] MEDS: VENLAFAXINE HCL ER 150 MG CAP PO SCH (08:36)
--- NOTE | 2022-03-05 09:10 | P.PN ---
Subjective Progress Note Date: 03/04/22 Principal diagnosis: Diarrhea, abdominal distention, hypokalemia and dehydration In follow-up today patient reports multiple BMs, she is having left abd cramping. She cont to have abd distension, abd pain fairly well controlled. Objective - Vital Signs Vital signs: Vital Signs Temp 98.1 F 03/04/22 05:00 Pulse 84 03/04/22 05:00 Resp 16 03/04/22 05:00 BP 144/76 03/04/22 05:00 Pulse Ox 96 03/03/22 20:23 FiO2 Intake & Output 03/03/22 03/04/22 03/04/22 18:59 06:59 18:59 Intake Total 900 590 Balance 900 590 Intake: Intake, IV Titration 900 Amount Sodium Chloride 0.9% 1, 900 000 ml @ 75 mls/hr IV . [id number] [facility] Rx#:[id number] Oral 590 Other: Voiding Method Toilet # Voids 2 - Constitutional Constitutional Comment(s): Looks pale, tired General appearance: Present: average body habitus, cooperative, no acute distress - Respiratory Details: resp even and unlabored - Gastrointestinal Gastrointestinal Comment(s): epigastric firmness General gastrointestinal: Present: distended, tenderness - Integumentary Integumentary: Present: pale - Neurologic Neurologic: Present: CNII-XII intact (grossly) - Musculoskeletal Musculoskeletal: Present: strength equal bilaterally - Psychiatric Psychiatric: Present: A&O x's 3, appropriate affect, intact judgment & insight - Labs CBC & Chem 7: 03/03/22 05:29 03/04/22 10:33 Assessment and Plan (1) Abdominal pain Current Visit: Yes Status: Acute Priority: High Code(s): R10.9 - UNSPECIFIED ABDOMINAL PAIN SNOMED Code(s): 59733588 (2) Ascites Current Visit: Yes Status: Acute Priority: High Code(s): R18.8 - OTHER ASCITES SNOMED Code(s): 155724789 (3) Ovarian cancer Current Visit: Yes Status: Chronic Priority: High Code(s): C56.9 - MALIGNANT NEOPLASM OF UNSPECIFIED OVARY SNOMED Code(s): 420118357 (4) Pulmonary embolism Current Visit: No Status: Chronic Priority: Medium Code(s): I26.99 - OTHER PULMONARY EMBOLISM WITHOUT ACUTE COR PULMONALE SNOMED Code(s): 25139797 Plan: Case discussed with pt and . Goals of care clarified. Discussed case with IM. Plan was to stabilize and discharge with f/u in [place]. Unfortunately, pt abd pain and distension persists, electrolytes are abnormal. Plan changed and now is for transfer to [facility]. Discussed with IM. Concerns for impending bowel obstruction 2/2 likely peritoneal mets affecting GI motility. Patient's pain is controlled on current analgesic regimen, most of the time. Continue the same. Rx sent already to pt preferred pharmacy. Discussed prevention of narcotic-induced constipation. Instructions for taking senna in instructions. Eliquis was resumed after liver biopsy/paracentesis.
[2022-03-05 09:33] LABS: African American GFR (CKD) 98.9 (60.0-200.0); Anion Gap 10.3 mmol/L (10.00-18.00); BUN/Creat Ratio 8.29 Ratio (12.00-20.00); Blood Urea Nitrogen 5.8 mg/dL (9.0-27.0); Calcium 8.7 mg/dL (8.7-10.3); Carbon Dioxide 27.7 mmol/L (20.0-27.5); Non-African American GFR(CKD) 85.4 (60.0-200.0); Potassium 3.8 mmol/L (3.5-5.5)
[2022-03-05] MEDS: LORazepam 1 MG TAB PO PRN (09:51)
[2022-03-05] MEDS ORDERED: ALTEPLASE 2 MG VIAL (CATHFLO) IV STA (11:31)
[2022-03-05] MEDS: HYDROcodone/APAP 10-325MG 1 EACH TAB PO PRN ×3 (12:13→21:34)
[2022-03-05 14:28] VITALS: BMI 21.5
--- NOTE | 2022-03-05 15:12 | P.PN ---
Subjective Progress Note Date: 03/05/22 Principal diagnosis: Diarrhea, abdominal distention, hypokalemia and dehydration In follow-up today patient reporting generally not feeling well. Her abdomen is still distended, she has early satiety, poor appetite, denies any vomiting, she did not have a bowel movement today. She is still ambulating to the restroom. Objective - Vital Signs Vital signs: Vital Signs Temp 98.2 F 03/05/22 06:50 Pulse 72 03/05/22 06:50 Resp 16 03/05/22 06:50 BP 132/66 03/05/22 06:50 Pulse Ox 95 03/05/22 06:50 FiO2 Intake & Output 03/04/22 03/05/22 03/05/22 18:59 06:59 18:59 Intake Total 1700 390 Balance 1700 390 Intake: Intake, IV Titration 1200 Amount Magnesium Sulfate-D5w Pmx 300 1 gm In Dextrose/Water 1 100ml.bag @ 100 mls/hr IVPB Q1H [facility] Rx#: [id number] Sodium Chloride 0.9% 1, 900 000 ml @ 75 mls/hr IV . [id number] [facility] Rx#:[id number] Oral 500 390 Other: Voiding Method Toilet Toilet # Voids 3 - Constitutional General appearance: Present: cooperative, no acute distress, thin - EENT Eyes: Present: anicteric sclerae, EOMI ENT: Present: hearing grossly normal - Respiratory Respiratory: bilateral: CTA - Cardiovascular Rhythm: regular Heart sounds: normal: S1, S2 Abnormal Heart Sounds: Absent: systolic murmur, diastolic murmur, rub, S3 Gallop, S4 Gallop, click, other - Peripheral edema leg Peripheral Edema: bilateral: None - Gastrointestinal Gastrointestinal Comment(s): Firm, loud, high-pitched bowel sounds General gastrointestinal: Present: distended - Neurologic Neurologic: Present: CNII-XII intact - Musculoskeletal Musculoskeletal: Present: generalized weakness, strength equal bilaterally - Psychiatric Psychiatric: Present: A&O x's 3, appropriate affect, intact judgment & insight - Labs CBC & Chem 7: 03/03/22 05:29 03/05/22 04:49 Labs: Abnormal Lab Results - Last 24 Hours (Table) 03/05/22 Range/Units 04:49 Sodium 134 L (135-145) mmol/L Carbon Dioxide 27.7 H (20.0-27.5) mmol/L BUN 5.8 L (9.0-27.0) mg/dL BUN/Creatinine Ratio 8.29 L (12.00-20.00) Ratio Assessment and Plan (1) Abdominal pain Current Visit: Yes Status: Acute Priority: High Code(s): R10.9 - UNSPECIFIED ABDOMINAL PAIN SNOMED Code(s): 85542349 (2) Ascites Current Visit: Yes Status: Acute Priority: High Code(s): R18.8 - OTHER A SCITES SNOMED Code(s): 996005373 (3) Ovarian cancer Current Visit: Yes Status: Chronic Priority: High Code(s): C56.9 - MALIGNANT NEOPLASM OF UNSPECIFIED OVARY SNOMED Code(s): 528615473 (4) Pulmonary embolism Current Visit: No Status: Chronic Priority: Medium Code(s): I26.99 - OTHER PULMONARY EMBOLISM WITHOUT ACUTE COR PULMONALE SNOMED Code(s): 83268567 Plan: Pending bed availability and transfer to [facility]. Discussed with on ce again that the recent for patient's symptoms is that there is likely cancer growing throughout the abdomen and around the bowel not allowing it to move properly, or move inconsistently. Patient's pain is controlled on current analgesic regimen, most of the time. Continue the same. Did increase anti-anxiety medication this patient states this does help with her pain and her ability to rest. Discussed prevention of narcotic-induced constipation. Senna/docusate 2 tabs twice a day, milk of magnesia and prune juice daily as needed. MiraLAX is available if needed. Eliquis was resumed after liver biopsy/paracentesis. No bleeding to report. Time with Patient: Greater than 30
--- NOTE | 2022-03-06 01:43 | P.PN ---
Subjective Progress Note Date: 03/05/22 This is a 71-year-old female who was recently admitted with abdominal pain and found to have severe electrolyte abnormalities and was being closely monitored. Patient had profuse diarrhea and decreased oral intake. Patient reports to significant abdominal pain and feels distended. Patient has IR following for biopsy for oncology and also possible paracentesis and was reported to have minimal fluid on the abdomen. Patient also needs to be off Eliquis for 72 hours. recommend holding now. Mag is 1.6 today and will replace. Patient is afebrile. Encourage oral intake with small frequent meals and increased activity as tolerated. Patient denies chest pain or shortness of breath. Continue with pain control. 02/28/2022 Patient is seen today in follow up and has some continued abdominal discomfort. Patient reports feeling slightly constipated and will resume senna. Was on hold as patient was initially having diarrhea. Encouraged increased activity as tolerated. Magnesium is low today at 1.4 and will replace per protocol. Recommend closely monitoring electrolytes. Encourage oral intake. Patient is afebrile and denies chest pain. Will resume albuterol ventolized. 03/01/2022 Patient is seen and evaluated in follow up today and is reporting some abdominal discomfort and occasional nausea and will add IV protonix to 40BID and will add gentle IV hydration. Eliquis is on hold and will continue sub q heparin and recommend to hold am dose as patient is to be evaluated by IR in am for biopsy and paracentesis. Mag is 1.7 today and will continue to monitor labs and replace electrolytes per protocol. Patient is afebrile and denies chest pain or shortness of breath. 03/02/2022 Patient is evaluated today and is scheduled for possible paracentesis and liver biopsy with IR today. Patient eliquis has been on hold and will resume after procedure. Hematology/oncology following and has been adjusting pain medication as her pain is reported as severe at times. Patient is having constipation and is being given laxatives. Will consult GI and appreciate input and recommendations. Patient is afebrile and denies any chest pain or shortness of breath. Poor oral intake due to nausea and some occasional vomiting. Patent reports she has not had a bowel movement since admission. 03/03/2022 Patient is seen today and continues with some abdominal discomfort and occasional nausea and reports no bowel movement. Hypoactive, sluggish bowel sounds noted and encouraged continued bowel regimen and increased activity as tolerated. Discussion with oncology and GI being had about requiring liver biopsy and working on [facility] in [place] with oncology making arrangements. Continue pain management per oncology. Magnesium remains 1.6 and recommend to replace electrolytes per protocol. Patient is afebrile and denies chest pain or shortness of breath. Encouraged oral intake and diet was advanced. 03/04/2022 Patient is seen in follow-up today and has had bowel movements since last night. Patient continues with some abdominal pain and some mild distention and is being followed closely with oncology and GI services. Lengthy discussion was had with oncology about treatment plan moving forward and highly recommended to have this liver biopsy as bili labs are elevating and total bili is 1.4. Sodium trending down at 131 and will discontinue IV fluids. Potassium found to be extremely low at 2.9 along with a magnesium of 1.1 and will replace per protocol. GI services evaluated recommend continuing with bowel regimen as needed for constipation although patient does report she did have 3 bowel movements since last night. Vital signs are currently stable and patient has been placed back on her anticoagulation. Patient continues to be on IV Dilaudid and reporting pain is 9 out of 10 in her abdomen. Currently working on transferring to tertiary [facility] to be evaluated by her oncologist Dr. Tristian Anton and he is accepting out of [facility]. 03/05/2022 Patient seen today and feels fatigued and continued abdominal pain currently being controlled with current regimen. Patient has been accepted by [facility] by Dr. Tristian Anton who she has followed with in the past for ovarian cancer. Currently with liver lesions noted and most likely cancer progression. Patient potassium is improved post replacement today to 3.8 and mag is 1.8 after replacement. Recommend repeating am labs and replace electrolytes per protocol. Patient is awaiting a bed at [facility] and case management is following. NO beds available at this time. Patient is agreeable to the transfer and is aware that per Dr. Anton may not perform biopsy, but will pain manage, possible paracentesis if warranted, and evaluate. Prognosis is guarded. Review of systems: Constitutional: reports of fatigue, no fever, or chills Cardiovascular: No reports of chest pain or palpitations Respiratory: No reports of shortness of breath reports occasional cough GI: reports of occasional nausea, no reports of vomiting, patient had bowel movement yesterday, continues to report abdominal pain : No reports of dysuria or retention Neurovascular: reports of generalized weakness All medications have been reviewed PHYSICAL EXAMINATION: GENERAL: The patient is alert and oriented x4, fatiqued, anxious at times. Well developed, well nourished. HEENT: Pupils are round and equally reacting to light. EOMI. no scleral icterus. No conjunctival pallor. Normocephalic, atraumatic. No pharyngeal erythema. No thyromegaly. CARDIOVASCULAR: S1 and S2 muffled PULMONARY: diminished breath sounds bilaterally with no wheezing or rhonchi noted. ABDOMEN: soft. less tender on exam left lower quadrant. mildly distended, normoactive bowel sounds. No palpable organomegaly. MUSCULOSKELETAL: No joint swelling or deformity. EXTREMITIES: No cyanosis, clubbing, or pedal edema. NEUROLOGICAL: Gross neurological examination did not reveal any focal deficits. Diffuse weakness SKIN: No rashes. 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 Pain management increased as her abdominal pain persists. Patient had bowel movement yesteday. Continue current bowel regimen. GI following and discussed with them and oncology about transferring to tertiary treatment center and patient has been accepted at [facility] with Dr. Gian Anton is attending physician and case was discussed. Also made patient aware there may not be a biopsy obtained at [facility] and patient is fully understanding of the treatment plan. Recommend to replace electrolyte per protocol and continue to monitor closely. Recommend repeat labs in a.m. Currently awaiting a bed assignment and case management is following. Due to multiple complex medical issues, prognosis is guarded. The impression and plan of care has been dictated by Nathalia Nunez, Nurse Practitioner as directed. Dr. Adryan MD I have performed a history and examination and MDM of this patient, discussed the same with the dictator, and agree with the dictator's assessment and plan as written ,documented as a scribe. Based on total visit time, I have performed more than 50% of the visit. Objective - Vital Signs Vital signs: Vital Signs Temp 98.0 F 03/05/22 19:04 Pulse 69 03/05/22 19:04 Resp 16 03/05/22 19:23 BP 148/66 03/05/22 19:04 Pulse Ox 97 03/05/22 19:04 FiO2 Intake & Output 03/05/22 03/05/22 03/06/22 06:59 18:59 06:59 Intake Total 390 Balance 390 Weight 62.5 kg Intake: Oral 390 Other: Voiding Method Toilet Toilet Toilet # Voids 3 2 1 - Labs CBC & Chem 7: 03/03/22 05:29 03/05/22 04:49 Labs: Abnormal Lab Results - Last 24 Hours (Table) 03/05/22 Range/Units 04:49 Sodium 134 L (135-145) mmol/L Carbon Dioxide 27.7 H (20.0-27.5) mmol/L BUN 5.8 L (9.0-27.0) mg/dL BUN/Creatinine Ratio 8.29 L (12.00-20.00) Ratio
[2022-03-06 05:58] LABS: ALT 70 U/L (4-34); AST 97 U/L (14-36); African American GFR (CKD) >90 (>60 ml/min/1.73 sqM); Albumin 3.4 g/dL (3.5-5.0); Albumin/Globulin Ratio 0.9; Alkaline Phosphatase 797 U/L (38-126); Anion Gap 8 mmol/L; Blood Urea Nitrogen 7 mg/dL (7-17); Calcium 8.7 mg/dL (8.4-10.2); Carbon Dioxide 29 mmol/L (22-30); Chloride 94 mmol/L (98-107); Globulin 3.9 g/dL; Glucose 102 mg/dL (74-99); Magnesium 1.3 mg/dL (1.6-2.3); Non-African American GFR(CKD) >90 (>60 ml/min/1.73 sqM); Potassium 3.5 mmol/L (3.5-5.1); Sodium 131 mmol/L (137-145); Total Bilirubin 1.3 mg/dL (0.2-1.3); Total Protein 7.3 g/dL (6.3-8.2)
[2022-03-06] MEDS: LEVOTHYROXINE 125 MCG TAB PO SCH (06:31)
[2022-03-06] MEDS: LORazepam 1 MG TAB PO PRN ×3 (06:34→20:50)
[2022-03-06] MEDS: PANTOPRAZOLE 40 MG/10 ML VIAL IVP SCH ×2 (08:05→20:50)
[2022-03-06] MEDS: amLODIPine 10 MG TAB PO SCH (10:31)
[2022-03-06] MEDS: APIXABAN 5 MG TAB PO SCH ×2 (10:31→20:50)
[2022-03-06] MEDS: PYRIDOXINE 50 MG TAB PO SCH ×2 (10:32→20:50)
[2022-03-06] MEDS: polyethylene glycoL 3350 17 GM POWD.PACK PO SCH (10:33)
[2022-03-06] MEDS: VENLAFAXINE HCL ER 150 MG CAP PO SCH (10:33)
[2022-03-06] MEDS: CHOLECALCIFEROL 25 MCG (1000 IU) TABLET PO SCH ×2 (10:34→10:36)
[2022-03-06] MEDS: METOPROLOL SUCCINATE (ER) 100 MG TAB.ER.24H PO SCH (10:34)
[2022-03-06] MEDS: SENNOSIDES-DOCUSATE SODIUM 1 EACH TAB PO SCH ×2 (10:37→20:51)
--- NOTE | 2022-03-06 14:30 | P.DS ---
Providers Date of admission: 02/25/22 16:24 Attending physician: Iggy Contreras MD Consults: 02/25/22 16:14 Consult Physician Urgent Consulting Provider: Lamberto Banks Consult Reason/Comments: Metastatic cancer Do you want consulting provider notified?: Yes [facility] Course: Patient is admitted with abdominal pain nausea vomiting or carotid abnormalities profuse diarrhea. Patient had history of ovarian cancer and underwent debulking surgery followed by chemotherapy. She had recurrence in March 2021 subsequently completed 6 cycles of chemotherapy patient came in with the sharp epigastric abdominal pain diarrhea. Patient was evaluated by gastroenterology oncology patient is found to have metastatic lesions in the liver. Patient had a CT of the abdomen which showed a progression of the disease to the liver an infiltrative mass in the lana hepatis and there is intrahepatic biliary ductal dilatation and small right and left pleural effusions. Interventional radiology here was consulted the for paracentesis as well as a liver biopsy. It was recommended by oncology and interventional radiology to be transferred to [facility] for further care biopsy. Patient still has a little red abnormalities with a serum sodium of 133 patient is quite weak lethargic, doesn't have nausea vomiting. Discussed with the admitting physician at the [facility]. Patient today is hypomagnesemic with a serum magnesium of 1.3 and hyponatremic with sodium of 131. Seems like her IV fluids were discontinued which will be started back again. PHYSICAL EXAMINATION: GENERAL: Patient is quite a bit tired lethargic HEENT: Pupils are round and equally reacting to light. EOMI. No scleral icterus. No conjunctival pallor. Normocephalic, atraumatic. No pharyngeal erythema. No thyromegaly. CARDIOVASCULAR: S1 and S2 present. No murmurs, rubs, or gallops. PULMONARY: Chest is clear to auscultation, no wheezing or crackles. ABDOMEN: Soft, nontender, nondistended, normoactive bowel sounds. No palpable organomegaly. MUSCULOSKELETAL: No joint swelling or deformity. EXTREMITIES: No cyanosis, clubbing, or pedal edema. NEUROLOGICAL: Significant generalized weakness SKIN: No rashes. Assessment and plan -Severe abdominal pain secondary to ovarian cancer with metastatic disease and obstruction of the lana hepatis. Further management by oncology team at [facility] discussed with the physician there patient probably will be transferred today -Multiple electrolyte abnormalities including hyponatremia hypomagnesemia secondary to severe dehydration, these are being replaced and patient will be continued on IV fluids -Constipation which improved -Metastatic ovarian cancer with lesions to the liver history of DVT and pulmonary embolism in the past and patient is presently on Eliquis -Hypertension DVT prophylaxis: On Eliquis Hopefully patient can be transferred to [facility] today for to continue further care including biopsy of the liver lesions and assessment by surgical oncology. Patient Condition at Discharge: Fair Plan - Discharge Summary Discharge Rx Participant: Yes New Discharge Prescriptions: No Action Levothyroxine Sodium [Synthroid] 125 mcg PO DAILY LORazepam [Ativan] 1 mg PO TID PRN PRN Reason: Anxiety Albuterol Inhaler [Ventolin Hfa Inhaler] 2 puff INHALATION Q6H PRN PRN Reason: Shortness Of Breath Ondansetron Odt [Zofran ODT] 4 mg PO Q6H PRN PRN Reason: Nausea Zolpidem Tartrate [Ambien Cr] 12.5 mg PO HS PRN PRN Reason: Insomnia Hydrocortisone/Pramoxine [Pramosone 2.5%-1% Cream] 1 applic TOPICAL TID Venlafaxine HCl ER [Effexor XR] 150 mg PO DAILY Cholecalciferol [Vitamin D3 (25 Mcg = 1000 Iu)] 50 mcg PO DAILY Pyridoxine HCl (Vitamin B6) [Vitamin B-6] 100 mg PO BID traMADol HCL [Ultram] 50 mg PO Q6H PRN PRN Reason: Pain Ezetimibe/Rosuvastatin Calcium [Ezetimibe/Rosuvastatin Calcium 20-10Mg] 1 tab PO DAILY Metoprolol Succinate (ER) [Toprol Xl] 100 mg PO DAILY Sennosides [Senokot] 8.6 mg PO HS amLODIPine [Norvasc] 10 mg PO DAILY Apixaban [Eliquis] 5 mg PO BID Discharge Medication List LORazepam [Ativan] 1 mg PO TID PRN 08/23/19 [History] Levothyroxine Sodium [Synthroid] 125 mcg PO DAILY 08/23/19 [History] Albuterol Inhaler [Ventolin Hfa Inhaler] 2 puff INHALATION Q6H PRN 06/18/21 [History] Cholecalciferol [Vitamin D3 (25 Mcg = 1000 Iu)] 50 mcg PO DAILY 06/18/21 [History] Ondansetron Odt [Zofran ODT] 4 mg PO Q6H PRN 06/18/21 [History] Pyridoxine HCl (Vitamin B6) [Vitamin B-6] 100 mg PO BID 06/18/21 [History] Venlafaxine HCl ER [Effexor XR] 150 mg PO DAILY 06/18/21 [History] Zolpidem Tartrate [Ambien Cr] 12.5 mg PO HS PRN 06/18/21 [History] traMADol HCL [Ultram] 50 mg PO Q6H PRN 08/18/21 [History] Ezetimibe/Rosuvastatin Calcium [Ezetimibe/Rosuvastatin Calcium 20-10Mg] 1 tab PO DAILY 10/24/21 [History] Apixaban [Eliquis] 5 mg PO BID 02/25/22 [History] Hydrocortisone/Pramoxine [Pramosone 2.5%-1% Cream] 1 applic TOPICAL TID 02/25/22 [History] Metoprolol Succinate (ER) [Toprol Xl] 100 mg PO DAILY 02/25/22 [History] Sennosides [Senokot] 8.6 mg PO HS 02/25/22 [History] amLODIPine [Norvasc] 10 mg PO DAILY 02/25/22 [History] Follow up Appointment(s)/Referral(s): [facility] [NON-STAFF] - 1 Week Ronna Beard MD [Primary Care Provider] - 1-2 days Lamberto Banks MD [STAFF PHYSICIAN] - 03/10/22 1:30 pm Activity/Diet/Wound Care/Special Instructions: Jovita sent through Oncologist office to patient preferred pharmacy. Strict bowel protocol. [place] fluids. Senna/docusate 2 tabs by mouth twice a day, milk of magnesia or MiraLAX 1-2 times a day. Goal is for a soft, easily passable bowel movement every 1-3 days. If no bowel movement after 3 days please contact Oncologist office for further instructions.
[2022-03-06] MEDS: MAGNESIUM SULFATE-D5W PMX 1 GM in DEXTROSE/WATER 1 100ML.BAG IVPB SCH ×2 (15:21→17:00)
[2022-03-06] MEDS: SODIUM CHLORIDE 0.9% 1,000 ML IV SCH (15:21)
[2022-03-06] MEDS: HYDROcodone/APAP 10-325MG 1 EACH TAB PO PRN ×2 (15:28→20:50)
--- NOTE | 2022-03-06 18:05 | P.PN ---
Subjective Progress Note Date: 03/06/22 Seen and evaluated Objective - Vital Signs Vital signs: Vital Signs Temp 99.2 F 03/06/22 12:55 Pulse 86 03/06/22 12:55 Resp 16 03/06/22 12:55 BP 151/70 03/06/22 12:55 Pulse Ox 95 03/06/22 12:55 FiO2 Intake & Output 03/05/22 03/06/22 03/06/22 18:59 06:59 18:59 Weight 62.5 kg Other: Voiding Method Toilet Toilet Toilet # Voids 2 1 - Exam - Constitutional General appearance: Present: cooperative, no acute distress, thin - EENT Eyes: Present: anicteric sclerae, EOMI ENT: Present: hearing grossly normal - Respiratory Respiratory: bilateral: CTA - Cardiovascular Rhythm: regular Heart sounds: normal: S1, S2 Abnormal Heart Sounds: Absent: systolic murmur, diastolic murmur, rub, S3 Gallop, S4 Gallop, click, other - Peripheral edema leg Peripheral Edema: bilateral: None - Gastrointestinal Gastrointestinal Comment(s): Firm, loud, high-pitched bowel sounds General gastrointestinal: Present: distended (increased from day prior - Neurologic Neurologic: Present: CNII-XII intact - Musculoskeletal Musculoskeletal: Present: generalized weakness, strength equal bilaterally - Psychiatric Psychiatric: Present: A&O x's 3, appropriate affect, intact judgment & insight - Labs CBC & Chem 7: 03/03/22 05:29 03/06/22 05:30 Labs: Abnormal Lab Results - Last 24 Hours (Table) 03/06/22 Range/Units 05:30 Sodium 131 L (137-145) mmol/L Chloride 94 L (98-107) mmol/L Glucose 102 H (74-99) mg/dL Magnesium 1.3 L (1.6-2.3) mg/dL AST 97 H (14-36) U/L ALT 70 H (4-34) U/L Alkaline Phosphatase 797 H (38-126) U/L Albumin 3.4 L (3.5-5.0) g/dL Assessment and Plan Plan: CT scan - abdomen: report reviewed CT scan - pelvis: report reviewed Assessment and Plan (1) Abdominal pain Current Visit: Yes Status: Acute Priority: High Code(s): R10.9 - UNSPECIF IED ABDOMINAL PAIN SNOMED Code(s): 13284844 (2) Ascites Current Visit: Yes Status: Acute Priority: High Code(s): R18.8 - OTHER ASCITES SNOMED Code(s): 895113655 (3) Ovarian cancer Current Visit: Yes Status: Chronic Priority: High Code(s): C56.9 - MALIGNANT NEOPLASM OF UNSPECIFIED OVARY SNOMED Code(s): 454732914 (4) Pulmonary embolism Current Visit: No Status: Chronic Priority: Medium Code(s): I26.99 - OTHER PULMONARY EMBOLISM WITHOUT ACUTE COR PULMONALE SNOMED Code(s): 76501984 Plan: Plan transfer to tertiary PHYSICIAN/ALLERGY/IMMUNOLOGY Onc Doctor attests: I performed a history and physical examination of this patient, developed impression and plan of care. Discussed with dictator. I agree with dictators note, documented as a scribe.
[2022-03-07] MEDS: SODIUM CHLORIDE 0.9% 1,000 ML IV SCH (05:24)
[2022-03-07] MEDS: LEVOTHYROXINE 125 MCG TAB PO SCH (05:40)
[2022-03-07] MEDS: SENNOSIDES-DOCUSATE SODIUM 1 EACH TAB PO SCH ×2 (08:21→19:32)
[2022-03-07] MEDS: PANTOPRAZOLE 40 MG/10 ML VIAL IVP SCH ×2 (08:21→19:31)
[2022-03-07] MEDS: CHOLECALCIFEROL 25 MCG (1000 IU) TABLET PO SCH (08:21)
[2022-03-07] MEDS: polyethylene glycoL 3350 17 GM POWD.PACK PO SCH (08:21)
[2022-03-07] MEDS: APIXABAN 5 MG TAB PO SCH ×2 (08:21→19:32)
[2022-03-07] MEDS: amLODIPine 10 MG TAB PO SCH (08:22)
[2022-03-07] MEDS: PYRIDOXINE 50 MG TAB PO SCH ×2 (08:23→19:32)
[2022-03-07] MEDS: VENLAFAXINE HCL ER 150 MG CAP PO SCH (08:23)
[2022-03-07] MEDS: METOPROLOL SUCCINATE (ER) 100 MG TAB.ER.24H PO SCH (08:23)
[2022-03-07] MEDS: HYDROcodone/APAP 10-325MG 1 EACH TAB PO PRN ×2 (10:43→19:32)
--- NOTE | 2022-03-07 14:48 | P.PN ---
Subjective Progress Note Date: 03/07/22 This is a 71-year-old female who was recently admitted with abdominal pain and found to have severe electrolyte abnormalities and was being closely monitored. Patient had profuse diarrhea and decreased oral intake. Patient reports to significant abdominal pain and feels distended. Patient has IR following for biopsy for oncology and also possible paracentesis and was reported to have minimal fluid on the abdomen. Patient also needs to be off Eliquis for 72 hours. recommend holding now. Mag is 1.6 today and will replace. Patient is afebrile. Encourage oral intake with small frequent meals and increased activity as tolerated. Patient denies chest pain or shortness of breath. Continue with pain control. 02/28/2022 Patient is seen today in follow up and has some continued abdominal discomfort. Patient reports feeling slightly constipated and will resume senna. Was on hold as patient was initially having diarrhea. Encouraged increased activity as tolerated. Magnesium is low today at 1.4 and will replace per protocol. Recommend closely monitoring electrolytes. Encourage oral intake. Patient is afebrile and denies chest pain. Will resume albuterol ventolized. 03/01/2022 Patient is seen and evaluated in follow up today and is reporting some abdominal discomfort and occasional nausea and will add IV protonix to 40BID and will add gentle IV hydration. Eliquis is on hold and will continue sub q heparin and recommend to hold am dose as patient is to be evaluated by IR in am for biopsy and paracentesis. Mag is 1.7 today and will continue to monitor labs and replace electrolytes per protocol. Patient is afebrile and denies chest pain or shortness of breath. 03/02/2022 Patient is evaluated today and is scheduled for possible paracentesis and liver biopsy with IR today. Patient eliquis has been on hold and will resume after procedure. Hematology/oncology following and has been adjusting pain medication as her pain is reported as severe at times. Patient is having constipation and is being given laxatives. Will consult GI and appreciate input and recommendations. Patient is afebrile and denies any chest pain or shortness of breath. Poor oral intake due to nausea and some occasional vomiting. Patent reports she has not had a bowel movement since admission. 03/03/2022 Patient is seen today and continues with some abdominal discomfort and occasional nausea and reports no bowel movement. Hypoactive, sluggish bowel sounds noted and encouraged continued bowel regimen and increased activity as tolerated. Discussion with oncology and GI being had about requiring liver biopsy and working on [facility] in [place] with oncology making arrangements. Continue pain management per oncology. Magnesium remains 1.6 and recommend to replace electrolytes per protocol. Patient is afebrile and denies chest pain or shortness of breath. Encouraged oral intake and diet was advanced. 03/04/2022 Patient is seen in follow-up today and has had bowel movements since last night. Patient continues with some abdominal pain and some mild distention and is being followed closely with oncology and GI services. Lengthy discussion was had with oncology about treatment plan moving forward and highly recommended to have this liver biopsy as bili labs are elevating and total bili is 1.4. Sodium trending down at 131 and will discontinue IV fluids. Potassium found to be extremely low at 2.9 along with a magnesium of 1.1 and will replace per protocol. GI services evaluated recommend continuing with bowel regimen as needed for constipation although patient does report she did have 3 bowel movements since last night. Vital signs are currently stable and patient has been placed back on her anticoagulation. Patient continues to be on IV Dilaudid and reporting pain is 9 out of 10 in her abdomen. Currently working on transferring to [facility] to be evaluated by her oncologist Dr. Tristian Anton and he is accepting out of [facility]. 03/05/2022 Patient seen today and feels fatigued and continued abdominal pain currently being controlled with current regimen. Patient has been accepted by [facility] by Dr. Tristian Anton who she has followed with in the past for ovarian cancer. Currently with liver lesions noted and most likely cancer progression. Patient potassium is improved post replacement today to 3.8 and mag is 1.8 after replacement. Recommend repeating am labs and replace electrolytes per protocol. Patient is awaiting a bed at [facility] and case management is following. NO beds available at this time. Patient is agreeable to the transfer and is aware that per Dr. Anton may not perform biopsy, but will pain manage, possible paracentesis if warranted, and evaluate. Prognosis is guarded. 03/07/2022 Patient is seen this morning continues to be extremely fatigued and reporting abdominal pain and poor oral intake. Patient has been on bowel regimen and using prune juice and has had no documented bowel movement in the last 2 days. Recommend to continue to replace electrolytes per protocol and will follow-up with repeat labs and continue to monitor closely. Patient is afebrile vital signs are stable. Continuing to await a bed assignment at [facility]. Will discuss further with oncology about treatment plan moving forward in the event a bed does not become available. Review of systems: Constitutional: reports of fatigue, no fever, or chills Cardiovascular: No reports of chest pain or palpitations Respiratory: No reports of shortness of breath reports occasional cough GI: reports of occasional nausea, no reports of vomiting, patient reports no bowel movement yesterday or today, continues to report abdominal pain : No reports of dysuria or retention Neurovascular: reports of generalized weakness All medications have been reviewed PHYSICAL EXAMINATION: GENERAL: The patient is alert and oriented x4, fatiqued, anxious at times. Well developed, well nourished. HEENT: Pupils are round and equally reacting to light. EOMI. no scleral icterus. No conjunctival pallor. Normocephalic, atraumatic. No pharyngeal erythema. No thyromegaly. CARDIOVASCULAR: S1 and S2 muffled PULMONARY: diminished breath sounds bilaterally with no wheezing or rhonchi noted. ABDOMEN: soft. less tender on exam left lower quadrant. mildly distended, normoactive bowel sounds. No palpable organomegaly. MUSCULOSKELETAL: No joint swelling or deformity. EXTREMITIES: No cyanosis, clubbing, or pedal edema. NEUROLOGICAL: Gross neurological examination did not reveal any focal deficits. Diffuse weakness SKIN: No rashes. 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 Pain management as her abdominal pain persists. Continue current bowel regimen. Awaiting a bed at [facility] and patient has been accepted at [facility] with Dr. Gian Anton is attending physician and case was discussed. Also made patient aware there may not be a biopsy obtained at [facility] and patient is fully understanding of the treatment plan. Recommend to replace electrolyte per protocol and continue to monitor closely. Recommend repeat labs in a.m. Currently awaiting a bed assignment and case management is following. Due to multiple complex medical issues, prognosis is guarded. The impression and plan of care has been dictated by Nathalia Nunez, Nurse Practitioner as directed. Dr. Adryan MD I have performed a history and examination and MDM of this patient, discussed the same with the dictator, and agree with the dictator's assessment and plan as written ,documented as a scribe. Based on total visit time, I have performed more than 50% of the visit. Objective - Vital Signs Vital signs: Vital Signs Temp 98.2 F 03/07/22 12:14 Pulse 86 03/07/22 12:14 Resp 16 03/07/22 12:14 BP 150/78 03/07/22 12:14 Pulse Ox 97 03/07/22 12:14 FiO2 Intake & Output 03/06/22 03/07/22 03/07/22 18:59 06:59 18:59 Intake Total 1100 590 Balance 1100 590 Intake: Intake, IV Titration 1100 Amount Magnesium Sulfate-D5w Pmx 200 1 gm In Dextrose/Water 1 100ml.bag @ 100 mls/hr IVPB Q1H PANKAJ Rx#: [id number] Sodium Chloride 0.9% 1, 900 000 ml @ 75 mls/hr IV . [id number] PANKAJ Rx#:[id number] Oral 590 Other: Voiding Method Toilet Toilet Toilet # Voids 2 1 # Bowel Movements 1 - Labs CBC & Chem 7: 03/03/22 05:29 03/06/22 05:30
[2022-03-07] MEDS: LORazepam 1 MG TAB PO PRN (19:32)
[2022-03-08] MEDS: SODIUM CHLORIDE 0.9% 1,000 ML IV SCH ×2 (00:05→07:38)
[2022-03-08] MEDS: HYDROcodone/APAP 10-325MG 1 EACH TAB PO PRN (01:51)
[2022-03-08 05:55] VITALS: RESP 16
[2022-03-08] MEDS: LEVOTHYROXINE 125 MCG TAB PO SCH (06:31)
[2022-03-08 06:58] LABS: Basophils # (A) 0.1 k/uL (0-0.2); Basophils % (A) 1 %; Eosinophils # (A) 0.2 k/uL (0-0.7); Eosinophils % (A) 1 %; HCT 36.6 % (34.0-46.0); HGB 11.7 gm/dL (11.4-16.0); Lymphocytes % (A) 9 %; MCH 31.7 pg (25.0-35.0); MCHC 31.9 g/dL (31.0-37.0); MCV 99.3 fL (80.0-100.0); Monocytes % (A) 9 %; Neutrophils # (A) 8.4 k/uL (1.3-7.7); Neutrophils % (A) 77 %; Platelet Count 433 k/uL (150-450); RBC 3.69 m/uL (3.80-5.40); RDW 13.4 % (11.5-15.5); WBC 10.8 k/uL (3.8-10.6)
[2022-03-08 07:15] LABS: African American GFR (CKD) >90 (>60 ml/min/1.73 sqM); Anion Gap 6 mmol/L; Blood Urea Nitrogen 6 mg/dL (7-17); Calcium 8.2 mg/dL (8.4-10.2); Carbon Dioxide 31 mmol/L (22-30); Chloride 94 mmol/L (98-107); Glucose 102 mg/dL (74-99); Magnesium 1.2 mg/dL (1.6-2.3); Non-African American GFR(CKD) >90 (>60 ml/min/1.73 sqM); Potassium 2.9 mmol/L (3.5-5.1); Sodium 131 mmol/L (137-145)
[2022-03-08] MEDS: CHOLECALCIFEROL 25 MCG (1000 IU) TABLET PO SCH (07:37)
[2022-03-08] MEDS: METOPROLOL SUCCINATE (ER) 100 MG TAB.ER.24H PO SCH (07:37)
[2022-03-08] MEDS: PANTOPRAZOLE 40 MG/10 ML VIAL IVP SCH (07:37)
[2022-03-08] MEDS: polyethylene glycoL 3350 17 GM POWD.PACK PO SCH (07:37)
[2022-03-08] MEDS: VENLAFAXINE HCL ER 150 MG CAP PO SCH (07:37)
[2022-03-08] MEDS: PYRIDOXINE 50 MG TAB PO SCH (07:37)
[2022-03-08] MEDS: APIXABAN 5 MG TAB PO SCH (07:38)
[2022-03-08] MEDS: amLODIPine 10 MG TAB PO SCH (07:38)
[2022-03-08] MEDS: SENNOSIDES-DOCUSATE SODIUM 1 EACH TAB PO SCH (07:38)
[2022-03-08] MEDS: ACETAMINOPHEN TAB 325 MG TAB PO PRN (07:53)
[2022-03-08 08:32] LABS: RBC Morphology Normal; Toxic Granulation Present
[2022-03-08] MEDS: POTASSIUM CHLORIDE ER 20 MEQ TAB.ER PO SCH ×2 (09:19→10:12)
[2022-03-08] MEDS: MAGNESIUM SULFATE-D5W PMX 1 GM in DEXTROSE/WATER 1 100ML.BAG IVPB SCH ×3 (09:20→12:25)
[2022-03-08] MEDS ORDERED: LACTULOSE 20 GM/30 ML CUP PO SCH (10:00)
--- NOTE | 2022-03-08 12:24 | P.DS ---
Providers Date of admission: 02/25/22 16:24 Expected date of discharge: 03/08/22 Attending physician: Iggy Contreras MD Consults: 02/25/22 16:14 Consult Physician Urgent Consulting Provider: Lamberto Banks Consult Reason/Comments: Metastatic cancer Do you want consulting provider notified?: Yes Primary care physician: Ronna Corea Hospital Course: Final diagnosis -Severe abdominal pain secondary to ovarian cancer with metastatic disease and obstruction of the lana hepatis. -Multiple electrolyte abnormalities including hyponatremia hypomagnesemia secondary to severe dehydration -Constipation which improved, now with reports of diarrhea this morning -Metastatic ovarian cancer with lesions to the liver -history of DVT and pulmonary embolism in the past and patient is presently on Eliquis -Hypertension -DVT prophylaxis: On Eliquis Discharge disposition Patient is being transferred in a stable condition with guarded prognosis to [facility] in [place] with accepting physician Dr Kessler . Patient will follow-up with Dr. Ronna corea in the outpatient setting upon discharge. Patient also follow-up with oncology outpatient. Total time taken is greater than 35 min utes. Hospital course Patient is admitted with abdominal pain nausea vomiting multiple electrolyte abnormalities and profuse diarrhea. Patient had history of ovarian cancer and underwent debulking surgery followed by chemotherapy. She had recurrence in March 2021 subsequently completed 6 cycles of chemotherapy patient came in with the sharp epigastric abdominal pain diarrhea. Patient was evaluated by gastroenterology oncology patient is found to have metastatic lesions in the liver. Patient had a CT of the abdomen which showed a progression of the disease to the liver an infiltrative mass in the lana hepatis and there is intrahepatic biliary ductal dilatation and small right and left pleural effusions. Interventional radiology here was consulted the for paracentesis as well as a liver biopsy. It was recommended by oncology and interventional radiology to be transferred to [facility] for further care biopsy. Patient continues to have electrolyte abnormalities with a serum sodium of 131 patient is quite weak lethargic, doesn't have nausea vomiting. Discussed with the admitting physician at the [facility]. Patient today is hypomagnesemic with a serum magnesium of 1.2, potassium is 2.9 and hyponatremic with sodium of 131. Patient has been accepted at [facility] by Dr. KESSLER with reports of the bed being available today. Currently no reports of chest pain, shortness of breath, or palpitations. Patient is afebrile. Patient reports of nausea no vomiting and patient reports continued poor oral intake. Physical exam: Gen: This is a 72-year-old female awake, alert and oriented 3, frail, weak. Temp is 98.3F, pulse is 72, respirations are 16, blood pressure is 132/70, oxygen saturation is 95% on room air. HEENT: Head is atraumatic, normocephalic. Pupils equal, round. Sclerae is anicteric. NECK: Supple. No JVD. No lymphadenopathy. No thyromegaly. LUNGS: Clear to auscultation. No wheezes or rhonchi. No intercostal retractions. HEART: Regular rate and rhythm. No murmur. ABDOMEN: Soft. Tender on palpation. Bowel sounds are present. No masses. No tenderness. EXTREMITIES: No pedal edema. No calf tenderness. NEUROLOGICAL: Patient is awake, alert and oriented x3. Cranial nerves 2 through 12 are grossly intact. Please refer to medication reconciliation sheet for a list of medications. The impression and plan of care has been dictated by Nathalia Nunez, Nurse Practitioner as directed. Dr. Adryan MD I have performed a history and examination and MDM of this patient, discussed the same with the dictator, and agree with the dictator's assessment and plan as written ,documented as a scribe. Based on total visit time, I have performed more than 50% of the visit. Patient Condition at Discharge: Fair Plan - Discharge Summary Discharge Rx Participant: Yes New Discharge Prescriptions: No Action Levothyroxine Sodium [Synthroid] 125 mcg PO DAILY LORazepam [Ativan] 1 mg PO TID PRN PRN Reason: Anxiety Albuterol Inhaler [Ventolin Hfa Inhaler] 2 puff INHALATION Q6H PRN PRN Reason: Shortness Of Breath Ondansetron Odt [Zofran ODT] 4 mg PO Q6H PRN PRN Reason: Nausea Zolpidem Tartrate [Ambien Cr] 12.5 mg PO HS PRN PRN Reason: Insomnia Hydrocortisone/Pramoxine [Pramosone 2.5%-1% Cream] 1 applic TOPICAL TID Venlafaxine HCl ER [Effexor XR] 150 mg PO DAILY Cholecalciferol [Vitamin D3 (25 Mcg = 1000 Iu)] 50 mcg PO DAILY Pyridoxine HCl (Vitamin B6) [Vitamin B-6] 100 mg PO BID traMADol HCL [Ultram] 50 mg PO Q6H PRN PRN Reason: Pain Ezetimibe/Rosuvastatin Calcium [Ezetimibe/Rosuvastatin Calcium 20-10Mg] 1 tab PO DAILY Metoprolol Succinate (ER) [Toprol Xl] 100 mg PO DAILY Sennosides [Senokot] 8.6 mg PO HS amLODIPine [Norvasc] 10 mg PO DAILY Apixaban [Eliquis] 5 mg PO BID Discharge Medication List LORazepam [Ativan] 1 mg PO TID PRN 08/23/19 [History] Levothyroxine Sodium [Synthroid] 125 mcg PO DAILY 08/23/19 [History] Albuterol Inhaler [Ventolin Hfa Inhaler] 2 puff INHALATION Q6H PRN 06/18/21 [History] Cholecalciferol [Vitamin D3 (25 Mcg = 1000 Iu)] 50 mcg PO DAILY 06/18/21 [History] Ondansetron Odt [Zofran ODT] 4 mg PO Q6H PRN 06/18/21 [History] Pyridoxine HCl (Vitamin B6) [Vitamin B-6] 100 mg PO BID 06/18/21 [History] Venlafaxine HCl ER [Effexor XR] 150 mg PO DAILY 06/18/21 [History] Zolpidem Tartrate [Ambien Cr] 12.5 mg PO HS PRN 06/18/21 [History] traMADol HCL [Ultram] 50 mg PO Q6H PRN 08/18/21 [History] Ezetimibe/Rosuvastatin Calcium [Ezetimibe/Rosuvastatin Calcium 20-10Mg] 1 tab PO DAILY 10/24/21 [History] Apixaban [Eliquis] 5 mg PO BID 02/25/22 [History] Hydrocortisone/Pramoxine [Pramosone 2.5%-1% Cream] 1 applic TOPICAL TID 02/25/22 [History] Metoprolol Succinate (ER) [Toprol Xl] 100 mg PO DAILY 02/25/22 [History] Sennosides [Senokot] 8.6 mg PO HS 02/25/22 [History] amLODIPine [Norvasc] 10 mg PO DAILY 02/25/22 [History] Follow up Appointment(s)/Referral(s): [facility] [NON-STAFF] - 1 Week Ronna Corea MD [Primary Care Provider] - 1-2 days Lamberto Banks MD [STAFF PHYSICIAN] - 03/10/22 1:30 pm Activity/Diet/Wound Care/Special Instructions: [place] sent through Oncologist office to patient preferred pharmacy. Strict bowel protocol. Smoaks fluids. Senna/docusate 2 tabs by mouth twice a day, milk of magnesia or MiraLAX 1-2 times a day. Goal is for a soft, easily passable bowel movement every 1-3 days. If no bowel movement after 3 days please contact Oncologist office for further instructions.
[2022-03-08 12:38] VITALS: BP 133/71; PULSE 71; TEMP 98.1
== END 2022-03-08 15:00 | disposition other institution (70) | DRG 436 ==
LOC: EC 11:38 → 5NMEDONC 16:24
PROVIDERS: ADMIT Internal Medicine; ATTEND Internal Medicine
PROC: 0W9G3ZX Drainage of Peritoneal Cavity, Percutaneous Approach, Diagnostic (ICD-10-PCS; principal; 2022-03-02)
DX: C78.7 Secondary malignant neoplasm of liver and intrahepatic bile duct (principal); C56.9 Malignant neoplasm of unspecified ovary; R18.8 Other ascites; J90 Pleural effusion, not elsewhere classified; E87.1 Hypo-osmolality and hyponatremia; I10 Essential (primary) hypertension; J45.909 Unspecified asthma, uncomplicated; F32.A Depression, unspecified; E86.0 Dehydration; K59.09 Other constipation; K52.9 Noninfective gastroenteritis and colitis, unspecified; E78.5 Hyperlipidemia, unspecified; F41.9 Anxiety disorder, unspecified; E87.6 Hypokalemia; E83.42 Hypomagnesemia; R63.0 Anorexia; R68.81 Early satiety; Z53.8 Procedure and treatment not carried out for other reasons; R53.1 Weakness; Z85.43 Personal history of malignant neoplasm of ovary; Z79.890 Hormone replacement therapy; Z90.710 Acquired absence of both cervix and uterus; Z79.01 Long term (current) use of anticoagulants; Z87.891 Personal history of nicotine dependence; Z88.6 Allergy status to analgesic agent; Z88.5 Allergy status to narcotic agent; Z91.040 Latex allergy status; Z88.8 Allergy status to other drugs, medicaments and biological substances; Z86.718 Personal history of other venous thrombosis and embolism; Z86.711 Personal history of pulmonary embolism; Z92.21 Personal history of antineoplastic chemotherapy; Z90.81 Acquired absence of spleen; Z79.899 Other long term (current) drug therapy; Z98.890 Other specified postprocedural states; Z82.61 Family history of arthritis; Z80.9 Family history of malignant neoplasm, unspecified; Z82.49 Family history of ischemic heart disease and other diseases of the circulatory system; Z68.21 Body mass index [BMI] 21.0-21.9, adult
CPT/HCPCS: 36415; 74022; 74177; 76705; 80048; 80053; 80074; 82150; 82248; 83605; 83690; 83735; 84132; 85025; 85610; 86304; 87635; 93005; 96365; 96366; 96375; 99285